=== PATIENT | female | born 1955 | race Caucasian/White ===

== ENCOUNTER → 2016-09-25 | Outpatient (CLI) | payer BC ==
[2016-09-25 10:44] LABS: Non-African American GFR(MDRD) >60 (>60 ml/min/1.73 sqM)
== END | disposition home or self-care (01) ==
LOC: LABWHC1 10:02
PROVIDERS: ATTEND Otolaryngology
DX: H70.91 Unspecified mastoiditis, right ear (principal)
CPT/HCPCS: 36415; 82565

== ENCOUNTER → 2016-09-26 | Outpatient (CLI) | payer BC ==
--- NOTE | 2016-09-26 08:56 | MR ---
EXAMINATION TYPE: MR iac wo/w con DATE OF EXAM: 09/26/2016 8:24 AM COMPARISON: CT brain June 14, 2009 HISTORY: Rt mastoiditis per order. Continued pain and itching in right ear per patient. TECHNIQUE: Multiplanar, multisequence images of the brain and brainstem is performed without and with IV contras t, utilizing 15 mL intravenous MultiHance . Acoustic nerve disorder protocol. FINDINGS: Diffusion weighted images demonstrate no evidence of a recent infarct or other diffusion ab normality. There is no extra-axial fluid collection or significant white matter signal abnormality. The ventricular system and cisternal spaces are normal in size and appearance. The brain volume is age appropriate. Midline structures demonstrate normal morphology. The craniocervical junction appears within normal limits. Post contrast images demonstrate single 6 mm irregular enhancing focus involving the spinal cord at the level of foramen magnum just below cervical medullary junction seen best on sagittal imag e 32, axial image 2, and coronal image 24. Only minimal increased T2 signal is felt present at this l evel on axial image 2 and 3. No additional areas of suspicious enhancement are identified.. The dural venous sinuses appear patent. There is mild mucosal thickening involving frontal sinuses bilaterally. There is moderate mucosal thi ckening involving the left ethmoid sinuses and mild mucosal thickening involving anterior ethmoid sin uses. There is moderate mucosal thickening with possible dependent fluid in both sphenoid sinuses. I do suspect mucous retention cyst or polyp posteriorly in right sphenoid sinus seen best on sagittal i mage 11 series 21 There is mild mucosal thickening in both maxillary sinuses, right greater than left . The globes are intact bilaterally. No suspicious fluid signal is seen in mastoid air cells bilaterally. Vestibulocochlear complexes are symmetric and felt within normal limits. There is no abnormal enhancing cerebellopontine angle mass i dentified bilaterally. IMPRESSION: 1. No significant finding is seen to account for patient's symptoms related to the right ear. 2. Chronic paranasal sinus disease as detailed above. Acute component at level of left sphenoid sinus is difficult to exclude. Clinical correlation advised. 3. Abnormal irregular enhancing 6 mm focus upper cervical spinal cord. Differential would include alex plasm, vascular lesion, and inflammatory lesion. Clinical correlation advised. Consider neurosurgical consultation. Consider investigation of the entire spinal cord for additional lesions to help determ ine etiology.
== END | disposition home or self-care (01) ==
LOC: RADMRIMAIN 07:38
PROVIDERS: ATTEND Otolaryngology
DX: J32.9 Chronic sinusitis, unspecified (principal)
CPT/HCPCS: 70553; A9577

== ENCOUNTER → 2016-10-20 | Outpatient (CLI) | payer BC ==
--- NOTE | 2016-10-20 09:19 | MR ---
EXAMINATION TYPE: MR cervical spine wo/w con DATE OF EXAM ORDERED: 10/20/2016 9:01 AM HISTORY: Cervical cord lesion M99.80. TECHNOLOGIST HISTORY AT TIME OF EXAM: Cervical cord lesion IV CONTRAST: 15 of MultiHance COMPARISON: Previous MRI of the IACs dated 09/26/2016 TECHNIQUE: Multiplanar, multiecho imaging of the cervical spine was obtained with and without the in travenous administration of 15 of MultiHance on a 1.5 nahomi magnet. FINDINGS: Prevertebral soft tissues are normal. There is a mild retrolisthesis of C5 on C6. Alignment is otherwise normal. Atlantoaxial relationships are normal. There is a 4.7 x 4.8 x 6.8 mm lesion at the cervical medullary junction as previously noted on the st udy of the IACs. This demonstrates uniform enhancement. There is mild T2 hyperintensity. This lesion is isointense on T1. Unfortunately, the axial images do not extend through this entire lesion. No add itional enhancing lesions are seen. At C2-3 and C3-4, no definite abnormality is identified. At C4-C5, the intervertebral foramina are widely maintained. There is a diffuse disc displacement. Th ere is a tiny central protrusion deforming the thecal sac without definite cord contact. The facets a nd uncovertebral joints are unremarkable. At C5-C6, there is disc space loss. There is a broad-based disc protrusion. This is deforming the the ольга sac with cord contact but without compression. There is bilateral intervertebral foraminal narrow ing, greater on the left than the right. There is mild uncovertebral joint disease. The facets are un remarkable. At C6-C7, there is disc space loss. There is a broad-based disc protrusion deforming the thecal sac w ith cord contact without compression. There is bilateral intervertebral foraminal narrowing. There is mild uncovertebral joint disease. The facets are unremarkable. At C7-T1, no definite abnormality is seen. IMPRESSION: 1. 6.8 MM, ENHANCING LESION WITHIN THE CERVICAL MEDULLARY JUNCTION. DIFFERENTIAL DIAGNOSIS GIVEN P REVIOUSLY INCLUDES NEOPLASM, ACUTE DEMYELINATING PLAQUE IN OTHER INFLAMMATORY CHANGES. VASCULAR LESIO N IS FELT TO BE LESS LIKELY. 2. DEGENERATIVE DISC DISEASE MOST MARKED FROM C4 THROUGH TO C7 WITH MILD ASSOCIATED UNCOVERTEBRAL JASON NT DISEASE. 3. BILATERAL INTERVERTEBRAL FORAMINAL NARROWING, C5-6 AND C6-7. 4. DIFFUSE DISC PROTRUSIONS, C5-6 AND C6-7.
== END | disposition home or self-care (01) ==
LOC: RADMRIMAIN 08:03
PROVIDERS: ATTEND Otolaryngology
DX: G95.9 Disease of spinal cord, unspecified (principal); M50.321 Other cervical disc degeneration at C4-C5 level; M99.71 Connective tissue and disc stenosis of intervertebral foramina of cervical region; M50.222 Other cervical disc displacement at C5-C6 level
CPT/HCPCS: 72156; A9577

== ENCOUNTER 2016-11-27 07:47 | Day surgery (SDC) | payer BC ==
[2016-11-27 08:21] VITALS: RESP 16; TEMP 98
[2016-11-27] MEDS ORDERED: DIAZEPAM 5 MG TAB PO STA (08:28)
[2016-11-27 13:42] VITALS: BP 123/76; PULSE 70
--- NOTE | 2016-11-28 10:17 | FL ---
PROCEDURE: Lumbar puncture. DATE: 11/27/2016 CLINICAL HISTORY: 61-year-old female disease of spinal cord referred for lumbar puncture. COMPLICATIONS: None. SEDATION: 5 mg PO Valium was given prior to the procedure. The patient and the patient's vital signs were felecia tored by qualified independent radiology personnel. TECHNIQUE: The procedure and potential risks were explained to patient and an informed consent was obtained with teach back. Site and side was verified. A time out was performed. The patient was placed prone on the fluoroscopy table and the L3-L4 level was localized and the skin was marked and was prepped and draped in the usual sterile fashion. Lidocaine was used for local anesthesia. Utilizing fluoroscopic guidance a 20-gauge spinal needle was placed through the skin and into the subarachnoid space. Approximately 12.5 ml of clear, colorless cerebral spinal fluid was obtained. The patient tolerated the procedure well and was sent back to the recovery room in satisfactory condi tion. The fluid was sent to the lab for analysis. The estimated blood loss was minimal. The patient's condition was unchanged following the procedure. Fluoroscopy time: 32 seconds IMPRESSION: Successful accumulation of 12.5 ml of clear CSF.
== END 2016-11-27 13:45 | disposition home or self-care (01) ==
LOC: RADPROMAIN 07:47
PROVIDERS: ATTEND Neurological Surgery
DX: G95.9 Disease of spinal cord, unspecified (principal)
CPT/HCPCS: 88108; 62270; J2001

== ENCOUNTER → 2016-12-04 | Outpatient (CLI) | payer BC ==
--- NOTE | 2016-12-04 08:54 | XR ---
EXAMINATION TYPE: XR chest 2V DATE OF EXAM: 12/04/2016 6:49 AM COMPARISON: CT abdomen pelvis same date HISTORY: Metastatic disease TECHNIQUE: Frontal and lateral views of the chest are obtained. FINDINGS: There is no focal air space opacity, pleural effusion, or pneumothorax seen. The cardiac silhouette size is within normal limits. The osseous structures are intact. IMPRESSION: No acute cardiopulmonary process.
--- NOTE | 2016-12-04 09:04 | CT ---
EXAMINATION TYPE: CT abdomen pelvis w con DATE OF EXAM: 12/04/2016 8:24 AM COMPARISON: 09/12/2011 HISTORY: 61-year-old female disease or spinal cord/metastatic disease. TECHNIQUE: Contiguous axial scanning of the abdomen and pelvis following administration of 100 ml Omn ipaque 300 IV contrast. Delayed images through the kidneys and coronal/sagittal reconstructions perf ormed. CT DLP: 1219.4 mGycm Automated exposure control for dose reduction was used. FINDINGS: The heart is normal size without pericardial effusion. There is a small hiatal hernia. Some strandy a telectasis or scarring at the basilar right middle lobe and inferior lingula. No consolidation or ple ural effusion. Liver is mildly enlarged measuring at least 19 cm craniocaudal with diffuse low-attenuation. No focal lesion is seen. Portal venous system is patent. No biliary ductal dilatation. Gallbladder surgically absent. Small diverticulum of the third portion of the duodenum projecting upw osiel into the pancreatic head region. A couple prominent sergo hepatic lymph nodes measuring up to 8 mm, likely reactive. Otherwise, no mes enteric or retroperitoneal lymphadenopathy seen. Adrenal glands, right kidney, spleen, and pancreas shows no gross abnormality. Subcentimeter hypodensity upper pole left kidney too small for accurate CT characterization, probable cyst. Incidental retroaortic aortic left renal vein. Mild atherosclerotic calcifications of the abdominal a viry. No dilated small bowel, free fluid, or free air. Normal appendix. Mild left hemicolonic diverticulosis though more extensive in the sigmoid colon. There is moderate st ool burden without pericolonic inflammatory change. Bladder is urine distended. No abnormal fluid collection in the pelvis or pelvic lymphadenopathy. [place] surgically absent. Neither ovary is visualized. Bones: Degenerative changes left hip and mild to moderate at the right hip. Disc/endplate degenerative cowart e at L5-S1. No osseous destructive process. IMPRESSION: 1. MILD HEPATOMEGALY AND MARKED HEPATIC STEATOSIS. CORRELATE WITH LFT's, LIPID PROFILE, AND PATIENT R ISK FACTORS. 2. SMALL HIATAL HERNIA, LEFT HEMICOLONIC DIVERTICULOSIS, AND MODERATE STOOL BURDEN. 3. STATUS POST HYSTERECTOMY. 4. NO SITE OF PRIMARY MALIGNANCY OR METASTATIC DISEASE IDENTIFIED WITHIN THE ABDOMEN OR PELVIS.
== END | disposition home or self-care (01) ==
LOC: RADCTMAIN 06:31
PROVIDERS: ATTEND Neurological Surgery
DX: K57.30 Diverticulosis of large intestine without perforation or abscess without bleeding (principal); K44.9 Diaphragmatic hernia without obstruction or gangrene; K76.0 Fatty (change of) liver, not elsewhere classified; R16.0 Hepatomegaly, not elsewhere classified; C80.1 Malignant (primary) neoplasm, unspecified; G95.9 Disease of spinal cord, unspecified; Z90.710 Acquired absence of both cervix and uterus
CPT/HCPCS: 71020; 74177; Q9967

== ENCOUNTER → 2017-02-16 | Outpatient (CLI) | payer BC ==
--- NOTE | 2017-02-16 10:08 | MR ---
EXAMINATION TYPE: MR cervical spine wo/w con DATE OF EXAM: 02/16/2017 COMPARISON: Prior MR cervical spine 10/20/2016 HISTORY: csp spinal stenosis TECHNIQUE: Multiplanar, multisequence images of the cervical spine were acquired utilizing 15 mL intravenous Mul tiHance gadolinium contrast. Diffusion weighted imaging was performed. C2-C3: No evidence for degenerative disc disease. No disc bulge/herniation or protrusion. No Canal stenosis. Foramina are patent bilaterally. C3-C4: No evidence for degenerative disc disease. No disc bulge/herniation or protrusion. No Canal stenosis. Foramina are patent bilaterally. C4-C5: Posterior disc herniation shows a similar appearance. Only mild central stenosis. No significa nt foraminal enlargement. C5-C6: Uncovertebral joint hypertrophy facet arthropathy results in left-sided foraminal encroachment . Posterior extension endplate disc complex causes anterior mass effect on the thecal sac, mild to mo derate central stenosis. C6-C7: Similar findings. Foraminal encroachment is present bilaterally. Moderate central canal stenos is. Posterior extension of endplate disc complex is again seen. C7-T1: No evidence for degenerative disc disease. No disc bulge/herniation or protrusion. No Canal stenosis. Foramina are patent bilaterally. Cervical segments are intact. There is stable alignment. Cervical spinal cord is stable, increased signal on T2-weighted sequences at the level of the proximal cervical cord, C2 is again noted and gulshan ws enhancement as on prior exam. Postcontrast enhancement measures approximately 6 mm as on prior. IMPRESSION: Enhancement within the proximal cervical cord is stable. Multilevel degenerative disc disease, forami nal encroachment as on previous exam.
== END | disposition home or self-care (01) ==
LOC: RADMRIMAIN 08:49
PROVIDERS: ATTEND Neurological Surgery
DX: M50.320 Other cervical disc degeneration, mid-cervical region, unspecified level (principal)
CPT/HCPCS: 72156; A9577

== ENCOUNTER 2017-05-31 02:31 | Emergency (ER) | payer BC ==
[2017-05-31] MEDS ORDERED: KETOROLAC 60 MG/2 ML VIAL IM STA (03:17)
[2017-05-31] MEDS ORDERED: diphenhydrAMINE 50 MG/ML 1 ML VIAL IM STA (03:17)
--- NOTE | 2017-05-31 03:18 | ED ---
ENT HPI - General Chief complaint: ENT Stated complaint: Headache Time Seen by Provider: 05/31/17 02:33 Source: patient, EMS Mode of arrival: EMS Limitations: no limitations - History of Present Illness Initial comments: 62-year-old female patient presented to emergency department today for complaints of head and facial pressure. Patient states that symptoms started prior to her going to bed this evening however woke her from sleep around 2 AM. Patient states that she was concerned her blood pressure was elevated so she called an ambulance to be brought in. Patient states that she is currently being treated for a sinus infection by her ears nose and throat specialist. States she is taking Augmentin and steroids. Patient states that she frequently has these types of headaches related to her chronic sinus issues. Patient denies any recent fever, chills, shortness breath, chest pain, abdominal pain, nausea, vomiting, diarrhea, constipation, back pain, numbness, tingling, dizziness, weakness, hematuria, dysuria, urinary urgency, urinary frequency, visual changes, or any other complaints. - Related Data Home Medications Medication Instructions Recorded Confirmed Hydrocodone/Acetaminophen [[place] 1 tab PO Q6H PRN 11/24/16 05/31/17 10-325] Omeprazole [PriLOSEC] 20 mg PO DAILY 11/24/16 05/31/17 Phentermine HCl [Adipex-P] 37.5 mg PO QAM 11/24/16 05/31/17 Allergies Allergy/AdvReac Type Severity Reaction Status Date / Time No Known Allergies Allergy Verified 05/31/17 02:37 Review of Systems ROS Statement: Those systems with pertinent positive or pertinent negative responses have been documented in the HPI. ROS Other: All systems not noted in ROS Statement are negative. Past Medical History Past Medical History: Diabetes Mellitus, GERD/Reflux History of Any Multi-Drug Resistant Organisms: None Reported Past Surgical History: Cholecystectomy, Hysterectomy, Orthopedic Surgery Additional Past Surgical History / Comment(s): ENT Past Psychological History: No Psychological Hx Reported Smoking Status: Current every day smoker Past Alcohol Use History: None Reported Past Drug Use History: None Reported General Exam Limitations: no limitations General appearance: alert, in no apparent distress, other (Well-nourished, well- developed, alert, and oriented patient in no acute distress. Acutely responsive. Vital signs upon admission were temperature 98.1F, pulse 90, respirations 20, blood pressure 133/60, pulse ox 99% on room air.) Head exam: Present: atraumatic, normocephalic, normal inspection ENT exam: Present: normal exam, normal oropharynx, mucous membranes moist, other (Frontal sinus tenderness.). Absent: TM's normal bilaterally (Some minimal retraction to the right tympanic membrane.) Neck exam: Present: normal inspection, full ROM. Absent: tenderness, meningismus, lymphadenopathy Respiratory exam: Present: normal lung sounds bilaterally. Absent: respiratory distress, wheezes, rales, rhonchi, stridor Cardiovascular Exam: Present: regular rate, normal rhythm, normal heart sounds. Absent: systolic murmur, diastolic murmur, rubs, gallop, clicks GI/Abdominal exam: Present: soft, normal bowel sounds. Absent: distended, tenderness, guarding, rebound, rigid Neurological exam: Present: alert, oriented X3, CN II-XII intact, other (No focal neurologic deficits.) Psychiatric exam: Present: normal affect, normal mood Skin exam: Present: warm, dry, intact, normal color. Absent: rash Course Vital Signs 05/31/17 02:32 Temperature 98.1 F Pulse Rate 90 Respiratory 20 Rate Blood Pressure 133/60 O2 Sat by Pulse 99 Oximetry Medical Decision Making - Medical Decision Making 62-year-old female patient presented to emergency department today for evaluation of head and facial pressure. Patient states his symptoms are consistent for her chronic issues with her sinuses. Patient is currently being treated for a sinus infection by her ears nose and throat specialist with Augmentin and steroids. Patient states that she was concerned tonight only because she felt that her blood pressure may be high. Upon presentation patient 's blood pressure is 133/90. Patient denies any history of high blood pressure. States that her headache has improved since arriving. MRI from September 2016 was reviewed and did show chronic changes to her sinuses. She is currently rating at a 4 out of 10 on the pain scale. Physical and neurological examination was unremarkable. Patient will be given IM Benadryl and Toradol prior to discharge. She is instructed to follow-up with her primary care physician for recheck in 1-2 days. She is instructed to continue her home medications as directed. She is instructed to return here immediately for any new, worsening, or concerning symptoms. Disposition Clinical Impression: Sinus headache Disposition: HOME SELF-CARE Condition: Good Instructions: Acute Headache (ED) Additional Instructions: Increase fluids. Continue home medications as directed. Follow-up with your primary care physician for recheck in 1-2 days. Return here immediately for any new, worsening, or concerning symptoms. Referrals: Earl Workman III, MD [Primary Care Provider] - 1-2 days Time of Disposition: 03:18
[2017-05-31 03:41] VITALS: BP 149/75; PULSE 78; RESP 18; TEMP 97.7
== END 2017-05-31 03:40 | disposition home or self-care (01) ==
LOC: EC 02:31
DX: R51 Headache (principal); K21.9 Gastro-esophageal reflux disease without esophagitis; F17.200 Nicotine dependence, unspecified, uncomplicated; Z79.899 Other long term (current) drug therapy
CPT/HCPCS: 99283; 96372 ×2; J1200; J1885

== ENCOUNTER 2018-08-27 13:35 | Emergency (ER) | payer MEDICARE, BC, OTHER ==
[2018-08-27 13:49] VITALS: TEMP 97.8
[2018-08-27] MEDS ORDERED: ORPHENADRINE 30 MG/ML 2 ML VIAL IVP STA (15:03)
[2018-08-27] MEDS ORDERED: KETOROLAC 30 MG/ML 1 ML VIAL IVP STA (15:03)
--- NOTE | 2018-08-27 15:07 | ED ---
Headache HPI - General Chief Complaint: Headache Stated Complaint: sharp head pain Time Seen by Provider: 08/27/18 14:23 Source: RN notes reviewed, old records reviewed Mode of arrival: ambulatory Limitations: no limitations - History of Present Illness Initial Comments: Pt is a 63 year old female with CC of R sided scalp pain, radiating down towards her face and lower jaw. She has had this pain for months, but reports it was much more severe today. She sees Dr. Stokes, and Dr. Michaud and recently diagnosed with trigeminal neuralgia. She was started on Elavil recently. She denies fevers or chills. She reports that the pain has not been this severe before. - Related Data Home Medications Medication Instructions Recorded Confirmed Omeprazole [PriLOSEC] 20 mg PO DAILY 11/24/16 08/27/18 Amitriptyline HCl [Elavil] 10 mg PO HS 08/27/18 08/27/18 Atorvastatin [Lipitor] 10 mg PO HS 08/27/18 08/27/18 Qnasl 2 spray EA NOSTRIL DAILY 08/27/18 08/27/18 metFORMIN HCL [Glucophage] 500 mg PO BID 08/27/18 08/27/18 Previous Rx's Medication Instructions Recorded Amoxic-Pot Clav 875-125Mg 1 tab PO Q12HR #20 tablet 08/27/18 [Augmentin 875-125] carBAMazepine 100 mg PO DAILY #9 tab.chew 08/27/18 Allergies Allergy/AdvReac Type Severity Reaction Status Date / Time No Known Allergies Allergy Verified 08/27/18 14:41 Review of Systems ROS Statement: Those systems with pertinent positive or pertinent negative responses have been documented in the HPI. ROS Other: All systems not noted in ROS Statement are negative. Constitutional: Denies: fever, chills Eyes: Reports: eye pain (Pain around R eye). Denies: eye discharge, vision change ENT: Reports: ear pain (R ear pain) Respiratory: Denies: cough, dyspnea Cardiovascular: Denies: chest pain Endocrine: Denies: fatigue Gastrointestinal: Denies: abdominal pain, nausea, vomiting Genitourinary: Denies: urgency Skin: Denies: rash Neurological: Reports: headache. Denies: weakness Psychiatric: Denies: anxiety Hematological/Lymphatic: Denies: easy bleeding Past Medical History Past Medical History: Diabetes Mellitus, GERD/Reflux History of Any Multi-Drug Resistant Organisms: None Reported Past Surgical History: Cholecystectomy, Hysterectomy, Orthopedic Surgery Additional Past Surgical History / Comment(s): ENT Past Psychological History: No Psychological Hx Reported Smoking Status: Current every day smoker Past Alcohol Use History: None Reported Past Drug Use History: None Reported General Exam - General Exam Comments Initial Comments: 63 year old female, alert and oriented. In room 19 with sister. Patient has been speaking to sister in polish. Patient appears in no distress. Limitations: no limitations General appearance: alert, in no apparent distress Head exam: Present: atraumatic, normocephalic, normal inspection, other ( hypersensitive over R parietal scalp extending towards R face and consistent with trigeminal nerve. ) Eye exam: Present: normal appearance, PERRL, EOMI. Absent: scleral icterus, conjunctival injection, periorbital swelling ENT exam: Present: normal exam, mucous membranes moist Neck exam: Present: normal inspection. Absent: tenderness, meningismus, lymphadenopathy Respiratory exam: Present: normal lung sounds bilaterally. Absent: respiratory distress, wheezes, rales, rhonchi, stridor Cardiovascular Exam: Present: normal rhythm GI/Abdominal exam: Present: soft, normal bowel sounds. Absent: distended, tenderness, guarding, rebound, rigid Back exam: Present: normal inspection Neurological exam: Present: alert, oriented X3, CN II-XII intact, normal gait, reflexes normal Psychiatric exam: Present: normal affect Skin exam: Present: warm, dry, intact, normal color. Absent: rash Course Vital Signs 08/27/18 08/27/18 08/27/18 13:47 14:30 17:32 Temperature 97.8 F 97.8 F Pulse Rate 103 H 93 82 Respiratory 18 20 18 Rate Blood Pressure 121/80 134/92 126/83 O2 Sat by Pulse 99 96 97 Oximetry Medical Decision Making - Medical Decision Making Patient is a 63 year old femael with R headache, extending to face. Pt reports chronic over months, but today it is more severe. She was given CT brain, correlate with sphenoid sinusitis. No intracrainal changes. Will treat sinusitis. Labs including ESR and CRP are normal, low suspicion due to patient pain that it is GCA. Given toradol. Will treat for Trigeminal neuralgia with carbamazapine. She relates she has been on it in the past. Given taper dose. Discussed neuro and ENT follow up. - Lab Data Result diagrams: 08/27/18 11:25 08/27/18 11:25 Lab Results 08/27/18 08/27/18 08/27/18 Range/Units 11:25 11:25 16:41 WBC 9.1 (3.8-10.6) k/uL RBC 4.30 (3.80-5.40) m/uL Hgb 12.9 (11.4-16.0) gm/dL Hct 39.1 (34.0-46.0) % MCV 91.0 (80.0-100.0) fL MCH 30.0 (25.0-35.0) pg MCHC 33.0 (31.0-37.0) g/dL RDW 12.9 (11.5-15.5) % Plt Count 194 (150-450) k/uL Neutrophils % 52 % Lymphocytes % 37 % Monocytes % 5 % Eosinophils % 3 % Basophils % 1 % Neutrophils # 4.7 (1.3-7.7) k/uL Lymphocytes # 3.3 (1.0-4.8) k/uL Monocytes # 0.4 (0-1.0) k/uL Eosinophils # 0.3 (0-0.7) k/uL Basophils # 0.1 (0-0.2) k/uL ESR Cancelled 37 H Sodium 140 (137-145) mmol/L Potassium 4.2 (3.5-5.1) mmol/L Chloride 107 (98-107) mmol/L Carbon Dioxide 25 (22-30) mmol/L Anion Gap 8 mmol/L BUN 11 (7-17) mg/dL Creatinine 0.65 (0.52-1.04) mg/dL Est GFR (CKD-EPI)AfAm >90 (>60 ml/min/1.73 sqM) Est GFR (CKD-EPI)NonAf >90 (>60 ml/min/1.73 sqM) Glucose 112 H (74-99) mg/dL Calcium 8.9 (8.4-10.2) mg/dL Total Bilirubin 0.3 (0.2-1.3) mg/dL AST 18 (14-36) U/L ALT 29 (9-52) U/L Alkaline Phosphatase 121 (38-126) U/L C-Reactive Protein 7.0 (<10.0) mg/L Total Protein 7.1 (6.3-8.2) g/dL Albumin 4.1 (3.5-5.0) g/dL - Radiology Data Radiology results: report reviewed Correlate for sphenoid sinusitis, extensive chronic sinusitis noted. Disposition Clinical Impression: Trigeminal nerve disease, Sinusitis Disposition: HOME SELF-CARE Condition: Good Instructions: Sinusitis (ED), Trigeminal Neuralgia (ED) Additional Instructions: Patient advised to follow-up with primary care physician. Return to emergency department if any alarming signs or symptoms occur. Recommended follow-up with neurology as well. Prescriptions: Amoxic-Pot Clav 875-125Mg [Augmentin 875-125] 1 tab PO Q12HR #20 tablet carBAMazepine 100 mg PO DAILY #9 tab.chew Is patient prescribed a controlled substance at d/c from ED?: No Referrals: Parveen Anaya DO [Primary Care Provider] - 1-2 days Time of Disposition: 17:16
[2018-08-27 16:03] LABS: ALT 29 U/L (9-52); AST 18 U/L (14-36); Albumin 4.1 g/dL (3.5-5.0); Alkaline Phosphatase 121 U/L (38-126); Anion Gap 8 mmol/L; Blood Urea Nitrogen 11 mg/dL (7-17); Calcium 8.9 mg/dL (8.4-10.2); Carbon Dioxide 25 mmol/L (22-30); Chloride 107 mmol/L (98-107); Glucose 112 mg/dL (74-99); Potassium 4.2 mmol/L (3.5-5.1); Sodium 140 mmol/L (137-145); Total Bilirubin 0.3 mg/dL (0.2-1.3); Total Protein 7.1 g/dL (6.3-8.2)
--- NOTE | 2018-08-27 16:10 | CT ---
EXAMINATION TYPE: CT brain wo con DATE OF EXAM: 08/27/2018 COMPARISON: CT brain 06/14/2009 HISTORY: Head pressure with pain radiating from ears, worse on right side. CT DLP: 1031.4 mGycm Automated exposure control for dose reduction was used. Helical acquisition through the brain. FINDINGS: Extensive inflammatory change present within the right maxillary sinus, patient is status post bilate ral antrostomies, inflammatory change also present within the ethmoid air cells, sphenoid sinus where there is air-fluid level. There is no evident hemorrhage or hydrocephalus. Brain density is normal. Calvarium is intact. Mastoid air cells are well-aerated. IMPRESSION: CORRELATE FOR SPHENOID SINUSITIS, EXTENSIVE SINUS DISEASE DESCRIBED.
[2018-08-27 16:11] LABS: Basophils # (A) 0.1 k/uL (0-0.2); Basophils % (A) 1 %; Eosinophils # (A) 0.3 k/uL (0-0.7); Eosinophils % (A) 3 %; HCT 39.1 % (34.0-46.0); HGB 12.9 gm/dL (11.4-16.0); Lymphocytes # (A) 3.3 k/uL (1.0-4.8); Lymphocytes % (A) 37 %; Mean Platelet Volume 7.4; Monocytes # (A) 0.4 k/uL (0-1.0); Monocytes % (A) 5 %; Neutrophils # (A) 4.7 k/uL (1.3-7.7); Neutrophils % (A) 52 %; Platelet Count 194 k/uL (150-450); RDW 12.9 % (11.5-15.5); WBC 9.1 k/uL (3.8-10.6)
[2018-08-27] MEDS ORDERED: diphenhydrAMINE 50 MG/ML 1 ML VIAL IVP STA (16:45)
[2018-08-27 17:33] VITALS: BP 126/83; PULSE 82; RESP 18
== END 2018-08-27 17:33 | disposition home or self-care (01) ==
LOC: EC 13:35 → SUPCPDRO 13:35 → EC 17:33
DX: J32.9 Chronic sinusitis, unspecified (principal); G50.0 Trigeminal neuralgia; E11.9 Type 2 diabetes mellitus without complications; K21.9 Gastro-esophageal reflux disease without esophagitis; F17.200 Nicotine dependence, unspecified, uncomplicated; Z79.84 Long term (current) use of oral hypoglycemic drugs; Z79.899 Other long term (current) drug therapy
CPT/HCPCS: 99284; 96374; 96375 ×2; 36415; 80053; 85652; 85025; 86140; 70450; J1200; J2360; J1885

== ENCOUNTER 2019-02-09 17:51 | Emergency (ER) | payer MEDICARE, BC, OTHER ==
[2019-02-09 18:25] VITALS: RESP 16
[2019-02-09] MEDS ORDERED: KETOROLAC 30 MG/ML 1 ML VIAL IM STA (21:02)
--- NOTE | 2019-02-09 21:38 | CT ---
EXAMINATION: CT brain wo con DATE AND TIME: 02/09/2019 9:18 PM CLINICAL INDICATION: PHH; Pain TECHNIQUE: Standard departmental protocol.; 1060.4; COMPARISON: 08/27/2018 FINDINGS: The calvarium is intact. There is no intracranial hemorrhage. There is no intracranial mass or mass effect. No definite new intra-axial or extra-axial attenuation defect. The paranasal sinuses, middle ear cavities, and mastoid sinus air cells are clear. The orbits are unremarkable. IMPRESSION: NO ACUTE PROCESS.
--- NOTE | 2019-02-09 22:23 | ED ---
General Adult HPI - General Chief complaint: Headache Stated complaint: trinalger nerve disorder Time Seen by Provider: 02/09/19 20:16 Source: patient, RN notes reviewed Mode of arrival: ambulatory Limitations: no limitations - History of Present Illness Initial comments: 63-year-old female With a past medical history of trigeminal neuralgia, diabetes mellitus presents to the emergency department for a chief complaint of right- sided facial and head pain. States this has been ongoing for over a year but denies worsens. States it worsened today. States she does see a neurologist for this and takes gabapentin however it is not working. States it is painful on her right ear and into the right side of her face. Denies nausea or vomiting. Denies any confusion. Denies any fevers or chills.Patient has no other complaints at this time including shortness of breath, chest pain, abdominal pain, nausea or vomiting, headache, or visual changes. - Related Data Home Medications Medication Instructions Recorded Confirmed Omeprazole [PriLOSEC] 20 mg PO DAILY 11/24/16 08/27/18 Amitriptyline HCl [Elavil] 10 mg PO HS 08/27/18 08/27/18 Atorvastatin [Lipitor] 10 mg PO HS 08/27/18 08/27/18 Qnasl 2 spray EA NOSTRIL DAILY 08/27/18 08/27/18 metFORMIN HCL [Glucophage] 500 mg PO BID 08/27/18 08/27/18 Previous Rx's Medication Instructions Recorded Amoxic-Pot Clav 875-125Mg 1 tab PO Q12HR #20 tablet 08/27/18 [Augmentin 875-125] carBAMazepine 100 mg PO DAILY #9 tab.chew 08/27/18 Ketorolac [Toradol] 10 mg PO Q8H PRN #10 tab 02/09/19 Allergies Allergy/AdvReac Type Severity Reaction Status Date / Time No Known Allergies Allergy Verified 02/09/19 18:25 Review of Systems ROS Statement: Those systems with pertinent positive or pertinent negative responses have been documented in the HPI. ROS Other: All systems not noted in ROS Statement are negative. Past Medical History Past Medical History: Diabetes Mellitus, GERD/Reflux Additional Past Medical History / Comment(s): trigeminal neuralgia History of Any Multi-Drug Resistant Organisms: None Reported Past Surgical History: Cholecystectomy, Hysterectomy, Orthopedic Surgery Additional Past Surgical History / Comment(s): ENT Past Psychological History: No Psychological Hx Reported Smoking Status: Former smoker Past Alcohol Use History: None Reported Past Drug Use History: None Reported General Exam Limitations: no limitations General appearance: alert, in no apparent distress Head exam: Present: atraumatic, normocephalic, normal inspection Eye exam: Present: normal appearance, PERRL, EOMI. Absent: scleral icterus, conjunctival injection, periorbital swelling ENT exam: Present: normal exam, normal oropharynx, mucous membranes moist, TM's normal bilaterally, normal external ear exam, other (Tenderness is noted to the right side of the face with light touch, no erythema, no edema) Neck exam: Present: normal inspection. Absent: tenderness, meningismus, lymphadenopathy Respiratory exam: Present: normal lung sounds bilaterally. Absent: respiratory distress, wheezes, rales, rhonchi, stridor Cardiovascular Exam: Present: regular rate, normal rhythm, normal heart sounds. Absent: systolic murmur, diastolic murmur, rubs, gallop, clicks Neurological exam: Present: alert, oriented X3, CN II-XII intact Psychiatric exam: Present: normal affect, normal mood Course Vital Signs 02/09/19 02/09/19 02/09/19 18:22 20:13 22:27 Temperature 97.5 F L 97.6 F 98 F Pulse Rate 85 71 80 Respiratory 16 16 16 Rate Blood Pressure 129/72 136/66 129/81 O2 Sat by Pulse 97 98 98 Oximetry Medical Decision Making - Medical Decision Making 63-year-old female with past medical history trigeminal neuralgia presents for right-sided facial and head pain for over a year but states it has worsened today. States sometimes it does get worse than other times. States she does see a neurologist for this and takes gabapentin but it is not working and she has not had time to follow-up with him. States it is on the right side of her face and right ear. Denies nausea or vomiting denies confusion. It's. Patient is concerned about brain abnormality causing this. I did get a CT which showed no acute process. Patient was given Toradol and actually had almost full relief of symptoms. Requesting discharge. Patient denies any kidney insufficiency, requesting prescription for Toradol which was given to her. She will follow up with her neurologist and return here if she has any worsening symptoms. Disposition Clinical Impression: Facial pain, Trigeminal neuralgia of right side of face Disposition: HOME SELF-CARE Condition: Good Instructions (If sedation given, give patient instructions): Trigeminal Neuralgia (ED) Additional Instructions: Please take Toradol as needed for pain. Please follow-up with primary care in 1-2 days. Return here to the emergency department if you have any worsening symptoms. Prescriptions: Ketorolac [Toradol] 10 mg PO Q8H PRN #10 tab PRN Reason: Pain Is patient prescribed a controlled substance at d/c from ED?: No Referrals: Parveen Anaya DO [Primary Care Provider] - 1-2 days Time of Disposition: 22:16
[2019-02-09 22:28] VITALS: BP 129/81; PULSE 80; TEMP 98
== END 2019-02-09 22:28 | disposition home or self-care (01) ==
LOC: EC 17:51
DX: G50.0 Trigeminal neuralgia (principal); E11.9 Type 2 diabetes mellitus without complications; K21.9 Gastro-esophageal reflux disease without esophagitis; Z87.891 Personal history of nicotine dependence; Z79.84 Long term (current) use of oral hypoglycemic drugs; Z79.899 Other long term (current) drug therapy
CPT/HCPCS: 70450; 99284; 96372; J1885

== ENCOUNTER 2019-04-03 11:00 | Emergency (ER) | payer MEDICARE, BC, OTHER ==
[2019-04-03 11:08] VITALS: RESP 18
[2019-04-03] MEDS ORDERED: SODIUM CHLORIDE 0.9% 1,000 ML IV ONE (11:35)
[2019-04-03] MEDS ORDERED: METOCLOPRAMIDE 5 MG/ML 2 ML VIAL IVP STA (11:35)
[2019-04-03] MEDS ORDERED: HYDROmorphone 0.5 MG/0.5 ML SYRINGE IVP STA (11:35)
[2019-04-03] MEDS ORDERED: diphenhydrAMINE 50 MG/ML 1 ML VIAL IVP STA (11:35)
[2019-04-03] MEDS ORDERED: DEXAMETHASONE SOD PHOSPHATE 10 MG/ML 1 ML VIAL IV STA (11:35)
[2019-04-03] MEDS ORDERED: KETOROLAC 30 MG/ML 1 ML VIAL IVP STA (11:36)
--- NOTE | 2019-04-03 11:52 | ED ---
General Adult HPI - General Chief complaint: Headache Stated complaint: Trigeminal neuralgia Time Seen by Provider: 04/03/19 11:26 Source: patient Mode of arrival: wheelchair Limitations: no limitations - History of Present Illness Initial comments: Patient is a 64 year old female presents with a chief complaint headache. Patient states she has a history of trigeminal neuralgia, she has had similar pain for 2 years. Patient states that starting yesterday her pain became worse. She describes an intermittent shooting type pain across the left side of her face and in her ear. She cannot identify an inciting incident. There are no aggravating or alleviating factors. Timing is intermittent. Patient states that she has tried taking gabapentin and [place] without relief. She says that she is supposed to have an MRI on Thursday. - Related Data Home Medications Medication Instructions Recorded Confirmed Omeprazole [PriLOSEC] 20 mg PO DAILY 11/24/16 04/03/19 metFORMIN HCL [Glucophage] 500 mg PO BID 08/27/18 04/03/19 Gabapentin [Neurontin] 300 mg PO BID@0800,1200 03/14/19 04/03/19 HYDROcodone/APAP 7.5-325MG [[place] 1 tab PO Q4-6H PRN 03/14/19 04/03/19 7.5-325] Previous Rx's Medication Instructions Recorded Lidocaine 5% Oint [Xylocaine 5% 1 applic TOPICAL TID PRN #1 tube 04/03/19 Oint] Allergies Allergy/AdvReac Type Severity Reaction Status Date / Time No Known Allergies Allergy Verified 04/03/19 12:07 Review of Systems ROS Statement: Those systems with pertinent positive or pertinent negative responses have been documented in the HPI. ROS Other: All systems not noted in ROS Statement are negative. ENT: Reports: ear pain Neurological: Reports: headache Past Medical History Past Medical History: Diabetes Mellitus, GERD/Reflux, Hyperlipidemia, Osteoart hritis (OA) Additional Past Medical History / Comment(s): trigeminal neuralgia History of Any Multi-Drug Resistant Organisms: None Reported Past Surgical History: Bladder Surgery, Cholecystectomy, Hysterectomy, Orthopedic Surgery Additional Past Surgical History / Comment(s): sinus surg., arthroscopy right knee, bladder suspension Past Anesthesia/Blood Transfusion Reactions: No Reported Reaction Past Psychological History: No Psychological Hx Reported Smoking Status: Former smoker - Past Family History Mother Family Medical History: No Reported History General Exam Limitations: no limitations General appearance: alert, in no apparent distress Head exam: Present: atraumatic, normocephalic Eye exam: Present: normal appearance ENT exam: Present: normal exam, TM's normal bilaterally Neck exam: Present: normal inspection Respiratory exam: Present: normal lung sounds bilaterally. Absent: respiratory distress, wheezes Cardiovascular Exam: Present: regular rate, normal rhythm GI/Abdominal exam: Present: soft. Absent: distended, tenderness Rectal exam: Present: deferred Extremities exam: Present: normal inspection Back exam: Present: normal inspection Neurological exam: Present: alert, oriented X3, CN II-XII intact Psychiatric exam: Present: normal affect, normal mood Skin exam: Present: warm, dry, intact Course Vital Signs 04/03/19 04/03/19 11:02 13:27 Temperature 97.9 F 97 F L Pulse Rate 104 H 78 Respiratory 18 18 Rate Blood Pressure 124/76 139/82 O2 Sat by Pulse 98 100 Oximetry Medical Decision Making - Medical Decision Making Patient presents with chief complaint headache. On initial evaluation, vital signs are stable, patient is in moderate distress secondary to pain. History of present illness is consistent with trigeminal neuralgia given shooting type nature of the pain and location. Patient also states that she has had similar pains for the last 2 years. Review of recent records shows that she had a computed tomography scan that did not show any intracranial acute process though she does have documented sinus disease. Patient given a headache cocktail will be evaluated with basic labs including an ESR. 1:47 PM Lab evaluation of this patient is unremarkable, ESR is only mildly elevated at 22, not likely temporal arteritis. On reevaluation, the patient states that her pain is under good control, she still has some itching. I discussed with Dr. Moore the initiation of carbamazepine. At this time he states that it would be a better idea to increase the gabapentin to 300 mg 3 times daily and to follow up with her neurologist. Patient is agreeable with this care plan. Patient given a dose of Neurontin here, she was also prescribed lidocaine ointment for itching at home. - Lab Data Result diagrams: 04/03/19 11:51 04/03/19 11:51 Lab Results 04/03/19 04/03/19 Range/Units 11:51 11:51 WBC 10.4 (3.8-10.6) k/uL RBC 4.69 (3.80-5.40) m/uL Hgb 13.9 (11.4-16.0) gm/dL Hct 41.2 (34.0-46.0) % MCV 87.8 (80.0-100.0) fL MCH 29.7 (25.0-35.0) pg MCHC 33.8 (31.0-37.0) g/dL RDW 14.5 (11.5-15.5) % Plt Count 225 (150-450) k/uL Neutrophils % 53 % Lymphocytes % 34 % Monocytes % 5 % Eosinophils % 5 % Basophils % 1 % Neutrophils # 5.5 (1.3-7.7) k/uL Lymphocytes # 3.5 (1.0-4.8) k/uL Monocytes # 0.5 (0-1.0) k/uL Eosinophils # 0.5 (0-0.7) k/uL Basophils # 0.1 (0-0.2) k/uL ESR 22 H (0-20) mm/hr Sodium 143 (137-145) mmol/L Potassium 4.2 (3.5-5.1) mmol/L Chloride 107 (98-107) mmol/L Carbon Dioxide 22 (22-30) mmol/L Anion Gap 14 mmol/L BUN 14 (7-17) mg/dL Creatinine 0.56 (0.52-1.04) mg/dL Est GFR (CKD-EPI)AfAm >90 (>60 ml/min/1.73 sqM) Est GFR (CKD-EPI)NonAf >90 (>60 ml/min/1.73 sqM) Glucose 129 H (74-99) mg/dL Calcium 9.6 (8.4-10.2) mg/dL Disposition Clinical Impression: Trigeminal neuralgia Disposition: ADMITTED IP TO THIS [facility] Condition: Good Instructions (If sedation given, give patient instructions): Acute Headache (ED) Additional Instructions: Increase your gabapentin dose to 300 mg 3 times daily. Follow-up with her neurologist in 1-2 days, return to the emergency department symptoms worsen or change. Prescriptions: Lidocaine 5% Oint [Xylocaine 5% Oint] 1 applic TOPICAL TID PRN #1 tube PRN Reason: Itching Is patient prescribed a controlled substance at d/c from ED?: No Referrals: Parveen Anaya DO [Primary Care Provider] - 1-2 days
[2019-04-03 12:05] LABS: Basophils # (A) 0.1 k/uL (0-0.2); Basophils % (A) 1 %; Eosinophils # (A) 0.5 k/uL (0-0.7); Eosinophils % (A) 5 %; HCT 41.2 % (34.0-46.0); HGB 13.9 gm/dL (11.4-16.0); Lymphocytes # (A) 3.5 k/uL (1.0-4.8); Lymphocytes % (A) 34 %; MCH 29.7 pg (25.0-35.0); MCHC 33.8 g/dL (31.0-37.0); MCV 87.8 fL (80.0-100.0); Mean Platelet Volume 8.3; Monocytes # (A) 0.5 k/uL (0-1.0); Monocytes % (A) 5 %; Neutrophils # (A) 5.5 k/uL (1.3-7.7); Neutrophils % (A) 53 %; Platelet Count 225 k/uL (150-450); RBC 4.69 m/uL (3.80-5.40); RDW 14.5 % (11.5-15.5); WBC 10.4 k/uL (3.8-10.6)
[2019-04-03 12:15] LABS: African American GFR (CKD) >90 (>60 ml/min/1.73 sqM); Anion Gap 14 mmol/L; Blood Urea Nitrogen 14 mg/dL (7-17); Calcium 9.6 mg/dL (8.4-10.2); Carbon Dioxide 22 mmol/L (22-30); Chloride 107 mmol/L (98-107); Glucose 129 mg/dL (74-99); Potassium 4.2 mmol/L (3.5-5.1); Sodium 143 mmol/L (137-145)
[2019-04-03 13:14] LABS: Erythrocyte Sedimentation Rate 22 mm/hr (0-20)
[2019-04-03 13:27] VITALS: BP 139/82; PULSE 78; TEMP 97
[2019-04-03] MEDS ORDERED: GABAPENTIN 300 MG CAP PO STA (13:45)
== END 2019-04-03 14:11 | disposition other institution (70) ==
LOC: EC 11:00
DX: G50.0 Trigeminal neuralgia (principal); R70.0 Elevated erythrocyte sedimentation rate; J32.9 Chronic sinusitis, unspecified; K21.9 Gastro-esophageal reflux disease without esophagitis; E11.9 Type 2 diabetes mellitus without complications; M19.90 Unspecified osteoarthritis, unspecified site; Z79.84 Long term (current) use of oral hypoglycemic drugs; Z79.899 Other long term (current) drug therapy; Z87.891 Personal history of nicotine dependence; Z98.890 Other specified postprocedural states
CPT/HCPCS: 36415; 80048; 85652; 85025; 99284; 96374; 96375 ×4; 96361; J1200; J1100; J2765; J1885; J1170

== ENCOUNTER → 2019-04-04 | Outpatient (CLI) | payer MEDICARE, BC, OTHER ==
--- NOTE | 2019-04-04 15:12 | MR ---
EXAMINATION TYPE: MR brain wo con DATE OF EXAM: 04/04/2019 1:05 PM COMPARISON: NONE HISTORY: facial and scalp pain FINDINGS: The ventricles, basal cisterns and sulci overlying the cerebral convexities are mildly enlarged. There is evidence of mild periventricular white matter ischemic demyelination. Remote deep white matter insults are also noted. No acute edema is seen on diffusion weighted imaging. There is no evidence for midline shift or mass effect. Acute intracranial hemorrhage or extra-axial collection is not evident. The mastoid air cells are well-aerated. Sphenoid and ethmoid chronic sinusitis. IMPRESSION: Age-related atrophic and chronic small vessel ischemic change. No acute intracranial process at this time.
== END | disposition home or self-care (01) ==
LOC: RADMRIMAIN 09:12
PROVIDERS: ATTEND Psychiatry & Neurology Neurology
DX: G31.1 Senile degeneration of brain, not elsewhere classified (principal); I67.82 Cerebral ischemia
CPT/HCPCS: 70551

== ENCOUNTER → 2019-04-04 | Outpatient (CLI) | payer MEDICARE, BC, OTHER ==
--- NOTE | 2019-04-05 13:44 | MM ---
Reason for exam: screening (asymptomatic). Last mammogram was performed 3 years and 5 months ago. History: Patient is postmenopausal. Family history of breast cancer in paternal cousin at age 58. Physical Findings: A clinical breast exam by your physician is recommended on an annual basis and results should be correlated with mammographic findings. MG 3D Screening Mammo W/Cad Bilateral CC and MLO view(s) were taken. Prior study comparison: November 13, 2015, bilateral MG screening mammo w CAD. May 08, 2014, bilateral MG screening mammo w CAD. There are scattered fibroglandular densities. No suspicious abnormality. No significant changes when compared with prior studies. ASSESSMENT: Negative, BI-RAD 1 RECOMMENDATION: Routine screening mammogram of both breasts in 1 year.
--- NOTE | 2019-04-05 18:39 | BD ---
EXAMINATION TYPE: Axial Bone Density DATE OF EXAM: 04/04/2019 COMPARISON: NONE CLINICAL HISTORY: 64-year-old female disorder of bone Height: 63 Weight: 173 FRAX RISK QUESTIONS: Alcohol (3 or more units per day): no Family History (Parent hip fracture): no Glucocorticoids (More than 3mos): no (Ex: prednisone, prednisolone, methylprednisolone, dexamethasone, and hydrocortisone). History of Fracture in Adulthood: yes Secondary Osteoporosis: 1. Type 1 Diabetes: no 2. Hyperthyroidism: no 3. Menopause before 45: no 4. Malnutrition: no 5. Chronic liver disease: no Rheumatoid Arthritis: no Current Tobacco Use: yes RISK FACTORS HISTORY OF: Family History of Osteoporosis: no Active: yes Diet low in dairy products/other sources of calcium: no Postmenopausal woman: yes Take estrogen and/or progesterone medications: not now How long: " a couple of years" Lost more than 2 inches in height since high school: patient unsure Frequent falls: no Poor Health: no Hyperparathyroidism: no Adrenal Insufficiency: no MEDICATIONS: Thyroid Medications:no Osteoporosis Medications: no Additional Medications: diabetes med, lipitor Additional History: diabetic, rt knee surgery EXAM MEASUREMENTS: Bone mineral densitometry was performed using the [employer] System. Bone mineral density as measured about the Lumbar spine is: ----- L1-L4(G/cm2): 0.850 T Score Values are as follows: ----- L2: -2.8 ----- L3: -2.8 ----- L4: -2.6 ----- L1-L4: -2.8 Bone mineral density BASELINE Bone mineral density about the R hip (g/cm2): 0.919 Bone mineral density about the L hip (g/cm2): 1.032 T Score values are as follows: -----R Neck: -0.9 -----L Neck: 0.0 -----R Total: -1.1 -----L Total: -0.7 Bone mineral density BASELINE IMPRESSION: Osteoporosis (T Score less than -2.5). There is increased fracture risk and therapy is usually indicated based on age. Re-Screen 1-2 years. NOTE: T-SCORE=SD OF THE YOUNG ADULT MEAN.
== END | disposition home or self-care (01) ==
LOC: RADMAMWWP 08:07
PROVIDERS: ATTEND Family Medicine
DX: Z12.31 Encounter for screening mammogram for malignant neoplasm of breast (principal); M81.0 Age-related osteoporosis without current pathological fracture
CPT/HCPCS: 77063; 77067; 77080

== ENCOUNTER 2019-05-20 17:18 | Emergency (ER) | payer MEDICARE, BC, OTHER ==
[2019-05-20] MEDS ORDERED: diphenhydrAMINE 50 MG/ML 1 ML VIAL IVP STA (18:07)
[2019-05-20] MEDS ORDERED: KETOROLAC 30 MG/ML 1 ML VIAL IVP STA (18:07)
[2019-05-20] MEDS ORDERED: methylPREDNISolone SOD SUCCI 125 MG/2 ML VIAL IV STA (18:07)
[2019-05-20] MEDS ORDERED: SODIUM CHLORIDE 0.9% 500 ML 500 ML IV STA (18:09)
[2019-05-20] MEDS ORDERED: METOCLOPRAMIDE 5 MG/ML 2 ML VIAL IVP STA (18:09)
--- NOTE | 2019-05-20 18:25 | ED ---
ENT HPI - General Source: patient Mode of arrival: ambulatory Limitations: no limitations <Jenn Otoole - Last Filed: 05/20/19 19:35> <Masha Joseph - Last Filed: 05/23/19 23:55> - General Chief complaint: ENT Stated complaint: ear pain Time Seen by Provider: 05/20/19 17:26 - History of Present Illness Initial comments: Patient is a 64-year-old female presenting to the emergency Department with complaints of an increase in pain secondary to trigeminal neuralgia. Patient has been dealing with this for actually for 5 months now. Patient is seeing a neurologist as well as an ENT. Patient states he recently switched her medication from gabapentin to carbamazepine. Patient states she does not feel like improving her symptoms. Patient is presenting today because she's been having an increase and facial pain, ear pain, itching to her scalp. Patient states she is having to come to the ER proximally once a month for pain and symptom control. Patient denies any fever, chills. Patient states her symptoms are consistent with her other flareups. Patient has no other complaints at this time. Upon arrival to the ER, BP is 170/102. Rest of vital signs are normal. (Jenn Otoole) - Related Data Home Medications Medication Instructions Recorded Confirmed Omeprazole [PriLOSEC] 20 mg PO DAILY 11/24/16 04/03/19 metFORMIN HCL [Glucophage] 500 mg PO BID 08/27/18 04/03/19 Gabapentin [Neurontin] 300 mg PO BID@0800,1200 03/14/19 04/03/19 HYDROcodone/APAP 7.5-325MG [[place] 1 tab PO Q4-6H PRN 03/14/19 04/03/19 7.5-325] Previous Rx's Medication Instructions Recorded Lidocaine 5% Oint [Xylocaine 5% 1 applic TOPICAL TID PRN #1 tube 04/03/19 Oint] Allergies Allergy/AdvReac Type Severity Reaction Status Date / Time No Known Allergies Allergy Verified 04/03/19 12:07 Review of Systems ROS Other: All systems not noted in ROS Statement are negative. <Jenn Otoole - Last Filed: 05/20/19 19:35> ROS Other: All systems not noted in ROS Statement are negative. <Masha Joseph - Last Filed: 05/23/19 23:55> ROS Statement: Those systems with pertinent positive or pertinent negative responses have been documented in the HPI. Past Medical History Past Medical History: Diabetes Mellitus, GERD/Reflux, Hyperlipidemia, Osteoarthritis (OA) Additional Past Medical History / Comment(s): trigeminal neuralgia History of Any Multi-Drug Resistant Organisms: None Reported Past Surgical History: Bladder Surgery, Cholecystectomy, Hysterectomy, Orthopedic Surgery Additional Past Surgical History / Comment(s): sinus surg., arthroscopy right knee, bladder suspension Past Anesthesia/Blood Transfusion Reactions: No Reported Reaction Past Psychological History: No Psychological Hx Reported Smoking Status: Former smoker - Past Family History Mother Family Medical History: No Reported History <Jenn Otoole - Last Filed: 05/20/19 19:35> General Exam Limitations: no limitations <Jenn Otoole - Last Filed: 05/20/19 19:35> - General Exam Comments Initial Comments: GENERAL: Well-appearing, well-nourished and in no acute distress. HEAD: Atraumatic, normocephalic. EYES: Pupils equal round and reactive to light, extraocular movements intact, sclera anicteric, conjunctiva are normal. ENT: Severe pain with palpation bilateral cheeks, ears. TMs were not evaluated secondary to severe pain. No swelling or erythema. Nares patent, oropharynx clear without exudates. Moist mucous membranes. NECK: Normal range of motion, supple without lymphadenopathy or JVD. LUNGS: Breath sounds clear to auscultation bilaterally and equal. No wheezes rales or rhonchi. HEART: Regular rate and rhythm without murmurs, rubs or gallops. ABDOMEN: Soft, nontender, normoactive bowel sounds. No guarding, no rebound. No masses appreciated. : Deferred EXTREMITIES: Normal range of motion, no pitting or edema. No clubbing or cyanosis. NEUROLOGICAL: Cranial nerves II through XII grossly intact. Normal speech, normal gait. PSYCH: Normal mood, normal affect. SKIN: Warm, Dry, normal turgor, no rashes or lesions noted. (Jenn Otoole) Course Vital Signs 05/20/19 05/20/19 17:22 19:45 Temperature 98 F 98.3 F Pulse Rate 92 88 Respiratory 16 18 Rate Blood Pressure 170/102 130/78 O2 Sat by Pulse 97 100 Oximetry Medical Decision Making <Jenn Otoole - Last Filed: 05/20/19 19:35> <Masha Joseph - Last Filed: 05/23/19 23:55> - Medical Decision Making Patient is a 64-year-old female presenting with complaints of pain secondary to trigeminal neuralgia. Patient is having an increase in facial and ear pain as well as a headache and itching to the scalp. Patient has been eating and comes ER proximally once a month for symptom control. Patient is currently seeing a neurologist for her symptoms. There has been a recent change in her medications however she states it is not improving her symptoms. Patient has an appointment with an ENT next week. On exam patient has severe pain with palpation in the bilateral cheeks and ears. Patient was given Toradol, steroids, Reglan with improvement in her symptoms. Patient states she is ready to be discharged. Patient will follow up with her doctors next week as discussed. Return parameters were discussed with the patient she verbalized understanding. Case discussed with Dr. Joseph. (Jenn Otoole) I was available for consultation in the emergency department. The history and physical exam was done by the midlevel provider. I was consulted for this patient's care. I reviewed the case with the midlevel provider and based on their presentation of the patient, I agree with the assessment, medical decision making and plan of care as documented. (Masha Joseph) Disposition Is patient prescribed a controlled substance at d/c from ED?: No <Jenn Otoole - Last Filed: 05/20/19 19:35> <Masha Joseph - Last Filed: 05/23/19 23:55> Clinical Impression: Trigeminal neuralgia pain Disposition: HOME SELF-CARE Condition: Stable Instructions (If sedation given, give patient instructions): Trigeminal Neuralgia (ED) Additional Instructions: Please return to the Emergency Department if symptoms worsen or any other concerns. Follow-up with ENT and neurology. Referrals: aPrveen Anaya DO [Primary Care Provider] - 1-2 days
[2019-05-20 19:46] VITALS: BP 130/78; PULSE 88; RESP 18; TEMP 98.3
== END 2019-05-20 19:38 | disposition home or self-care (01) ==
LOC: EC 17:18
DX: G50.0 Trigeminal neuralgia (principal); H92.03 Otalgia, bilateral; L29.9 Pruritus, unspecified; E11.9 Type 2 diabetes mellitus without complications; K21.9 Gastro-esophageal reflux disease without esophagitis; M19.90 Unspecified osteoarthritis, unspecified site; Z87.891 Personal history of nicotine dependence; Z79.84 Long term (current) use of oral hypoglycemic drugs; Z79.891 Long term (current) use of opiate analgesic; Z79.899 Other long term (current) drug therapy
CPT/HCPCS: 99282; 96374; 96375 ×3; J1200; J2765; J2930; J1885

== ENCOUNTER 2019-05-26 13:45 | Emergency (ER) | payer MEDICARE, BC, OTHER ==
[2019-05-26] MEDS ORDERED: METOCLOPRAMIDE 5 MG/ML 2 ML VIAL IVP STA (14:29)
[2019-05-26] MEDS ORDERED: KETOROLAC 30 MG/ML 1 ML VIAL IVP STA (14:29)
[2019-05-26] MEDS ORDERED: diphenhydrAMINE 50 MG/ML 1 ML VIAL IVP STA (14:29)
--- NOTE | 2019-05-26 14:56 | ED ---
General Adult HPI - General Chief complaint: Headache Stated complaint: Nerve disorder, facial burning attack Time Seen by Provider: 05/26/19 14:04 Source: patient, RN notes reviewed Mode of arrival: ambulatory Limitations: no limitations - History of Present Illness Initial comments: 64-year-old female with a past medical history of diabetes, trigeminal neuralgia, hyperlipidemia, GERD presents to the emergency department for a chief complaint of exacerbation of trigeminal neuralgia. Patient states she has been dealing with this for over a year and has seen several specialists including ENT and neurology. States she has an appointment with a specialist on Thursday in [place] as well. States that for the past 5 months this has been worse. States it is bilateral facial pain and tenderness that seems to originate from behind her ears. States that last night she put an ice pack behind her ear and this exacerbated her pain. Denies headache. Patient has had a normal MRI and CT of the brain in the past. Today patient is here for pain relief. She is taking Perkins and carbamazepine at home.Patient has no other complaints at this time including shortness of breath, chest pain, abdominal pain, nausea or vomiting, headache, or visual changes. - Related Data Home Medications Medication Instructions Recorded Confirmed Omeprazole [PriLOSEC] 20 mg PO DAILY 11/24/16 04/03/19 metFORMIN HCL [Glucophage] 500 mg PO BID 08/27/18 04/03/19 Gabapentin [Neurontin] 300 mg PO BID@0800,1200 03/14/19 04/03/19 HYDROcodone/APAP 7.5-325MG [Perkins 1 tab PO Q4-6H PRN 03/14/19 04/03/19 7.5-325] Previous Rx's Medication Instructions Recorded Lidocaine 5% Oint [Xylocaine 5% 1 applic TOPICAL TID PRN #1 tube 04/03/19 Oint] Allergies Allergy/AdvReac Type Severity Reaction Status Date / Time No Known Allergies Allergy Verified 05/26/19 14:01 Review of Systems ROS Statement: Those systems with pertinent positive or pertinent negative responses have been documented in the HPI. ROS Other: All systems not noted in ROS Statement are negative. Past Medical History Past Medical History: Diabetes Mellitus, GERD/Reflux, Hyperlipidemia, Osteoarthritis (OA) Additional Past Medical History / Comment(s): trigeminal neuralgia History of Any Multi-Drug Resistant Organisms: None Reported Past Surgical History: Bladder Surgery, Cholecystectomy, Hysterectomy, Orthopedic Surgery Additional Past Surgical History / Comment(s): sinus surg., arthroscopy right knee, bladder suspension Past Anesthesia/Blood Transfusion Reactions: No Reported Reaction Past Psychological History: No Psychological Hx Reported Smoking Status: Current some day smoker Past Alcohol Use History: None Reported Past Drug Use History: None Reported - Past Family History Mother Family Medical History: No Reported History General Exam Limitations: no limitations General appearance: alert, in no apparent distress Head exam: Present: atraumatic, normocephalic, normal inspection Eye exam: Present: normal appearance, PERRL, EOMI. Absent: scleral icterus, conjunctival injection, periorbital swelling ENT exam: Present: normal exam, normal oropharynx, mucous membranes moist, normal external ear exam Neck exam: Present: normal inspection, full ROM. Absent: tenderness, meningismus, lymphadenopathy Respiratory exam: Present: normal lung sounds bilaterally. Absent: respiratory distress, wheezes, rales, rhonchi, stridor Cardiovascular Exam: Present: regular rate, normal rhythm, normal heart sounds. Absent: systolic murmur, diastolic murmur, rubs, gallop, clicks GI/Abdominal exam: Present: soft, normal bowel sounds. Absent: distended, tenderness, guarding, rebound, rigid Neurological exam: Present: alert, oriented X3, CN II-XII intact, normal gait, other (GCS 15) Expanded Patient oriented to: Present: person, place, time Speech: Present: fluid speech Cranial nerves: EOM's Intact: Normal, Tongue Deviation: Normal, Nystagmus: Normal, Facial Sensation: Normal Cerebellar function: Finger to Nose: Normal Upper motor neuron: Pronator Drift: Normal Sensory exam: Upper Extremity Light Touch: Normal, Upper Extremity Pin Prick: Normal, Lower Extremity Light Touch: Normal, Lower Extremity Pin Prick: Normal Motor strength exam: RUE: 5, LUE: 5, RLE: 5, LLE: 5 Eye Response: (4) open spontaneously Motor Response: (6) obeys commands Verbal Response: (5) oriented Alan Total: 15 Course Vital Signs 05/26/19 13:59 Temperature 97.4 F L Pulse Rate 94 Respiratory 20 Rate Blood Pressure 172/111 O2 Sat by Pulse 97 Oximetry Medical Decision Making - Medical Decision Making 64-year-old female presents for facial pain. Patient has a history of trigeminal neuralgia states that she frequently gets these exacerbations. Patient has seen ENT and neurology and has an appointment with a specialist out of the [facility] on Thursday. Patient is here for pain relief as she applied ice to the area yesterday and this made it worse. She has had a negative CT and MRI in the past. Vitals were initially hypertensive however after pain medication was given this did normalize to 126/83. The patient's pain decreased from a 10 to a 5. She isn't much better at this time and requesting discharge. She will follow up with her neurologist as well as her appointment at the [facility] and will return if she has any worsening symptoms. Disposition Clinical Impression: Trigeminal neuralgia pain Disposition: HOME SELF-CARE Condition: Good Instructions (If sedation given, give patient instructions): Acute Headache (ED) Additional Instructions: Please follow-up with your primary care provider as well as neurology in 1-2 days. If you have worsening symptoms return to the emergency department. Is patient prescribed a controlled substance at d/c from ED?: No Referrals: Parveen Anaya DO [Primary Care Provider] - 1-2 days Time of Disposition: 15:46
[2019-05-26 16:08] VITALS: BP 128/64; PULSE 77; RESP 18; TEMP 98.2
== END 2019-05-26 16:10 | disposition home or self-care (01) ==
LOC: EC 13:45
DX: G50.0 Trigeminal neuralgia (principal); E11.42 Type 2 diabetes mellitus with diabetic polyneuropathy; K21.9 Gastro-esophageal reflux disease without esophagitis; F17.200 Nicotine dependence, unspecified, uncomplicated; Z79.84 Long term (current) use of oral hypoglycemic drugs; Z79.899 Other long term (current) drug therapy
CPT/HCPCS: 99283; 96374; 96375 ×2; J1200; J2765; J1885

== ENCOUNTER 2019-06-01 16:29 | Inpatient (IN) | payer MEDICARE, BC, OTHER ==
[2019-06-01 16:41] VITALS: RESP 18
[2019-06-01] MEDS ORDERED: SODIUM CHLORIDE 0.9% 500 ML 500 ML IV STA (17:16)
--- NOTE | 2019-06-01 17:28 | ED ---
Overdose HPI <Nathaniel Roa - Last Filed: 06/01/19 19:22> - General Source: patient, family, RN notes reviewed Mode of arrival: wheelchair Limitations: no limitations - History of Present Illness MD Complaint: accidental overdose, other <Gordo Loya - Last Filed: 06/01/19 21:08> - General Chief Complaint: Overdose Stated Complaint: unintentional overdose Time Seen by Provider: 06/01/19 16:50 - History of Present Illness Initial Comments: This is a 64-year-old female who was brought in by family for evaluation of weakness and fall some slurred speech and unsteady gait and nausea. They believe it may be secondary to take her medications on an empty stomach also her Tegretol was increased 2 days ago to twice a day from once a day. No reports of headache she does have right ear pain she relates to her trigeminal neuralgia no neck or back pain she does complain of pain in her left ring finger where she lacerated when she fell no focal weakness to her upper or lower extremities. No other modifying factors at this time. She does have a future point with a neurosurgeon for evaluation of her trigeminal neuralgia she has seen an ENT recently. She denies any desire herself or intentional overdose. (Gordo Loya) - Related Data Home Medications Medication Instructions Recorded Confirmed Omeprazole [PriLOSEC] 20 mg PO DAILY 11/24/16 06/01/19 metFORMIN HCL [Glucophage] 500 mg PO BID 08/27/18 06/01/19 HYDROcodone/APAP 7.5-325MG [Lorraine 1 tab PO Q4-6H PRN 03/14/19 06/01/19 7.5-325] ALPRAZolam [Xanax] 0.25 mg PO BID 06/01/19 06/01/19 Loratadine [Claritin] 10 mg PO DAILY 06/01/19 06/01/19 carBAMazepine [TEGretol] 400 mg PO BID 06/01/19 06/01/19 Allergies Allergy/AdvReac Type Severity Reaction Status Date / Time No Known Allergies Allergy Verified 06/01/19 18:24 Review of Systems ROS Other: All systems not noted in ROS Statement are negative. <Nathaniel Roa - Last Filed: 06/01/19 19:22> ROS Other: All systems not noted in ROS Statement are negative. <Gordo Loya - Last Filed: 06/01/19 21:08> ROS Statement: Those systems with pertinent positive or pertinent negative responses have been documented in the HPI. Past Medical History Past Medical History: Diabetes Mellitus, GERD/Reflux, Hyperlipidemia, Osteoarthritis (OA) Additional Past Medical History / Comment(s): trigeminal neuralgia History of Any Multi-Drug Resistant Organisms: None Reported Past Surgical History: Bladder Surgery, Cholecystectomy, Hysterectomy, Orthopedic Surgery Additional Past Surgical History / Comment(s): sinus surg., arthroscopy right knee, bladder suspension Past Anesthesia/Blood Transfusion Reactions: No Reported Reaction Past Psychological History: No Psychological Hx Reported Smoking Status: Former smoker Past Alcohol Use History: None Reported Past Drug Use History: None Reported - Past Family History Mother Family Medical History: No Reported History <Gordo Loya - Last Filed: 06/01/19 21:08> General Exam Limitations: no limitations General appearance: alert, in no apparent distress Head exam: Present: atraumatic, normocephalic, normal inspection Eye exam: Present: normal appearance, PERRL, EOMI. Absent: scleral icterus, conjunctival injection, periorbital swelling ENT exam: Present: mucous membranes dry, other (Patient does have a cotton ball in her right ear canal) Neck exam: Present: normal inspection, full ROM, other (No stridor JVD or bruits). Absent: tenderness, meningismus, lymphadenopathy Respiratory exam: Present: normal lung sounds bilaterally. Absent: respiratory distress, wheezes, rales, rhonchi, stridor Cardiovascular Exam: Present: regular rate, normal rhythm, normal heart sounds. Absent: systolic murmur, diastolic murmur, rubs, gallop, clicks GI/Abdominal exam: Present: soft, normal bowel sounds. Absent: distended, tenderness, guarding, rebound, rigid Rectal exam: Present: other (Tenderness palpation over the coccyx no evidence of bruising or open wounds.) Extremities exam: Present: full ROM, normal capillary refill, other (Laceration of the proximal phalanx of the volar left ring finger no active bleeding no definite foreign body. The wound is approximately 2.5 cm long. Distally no sensorimotor or vascular deficit). Absent: tenderness, pedal edema, joint swelling, calf tenderness Back exam: Present: normal inspection Neurological exam: Present: alert, oriented X3, CN II-XII intact Psychiatric exam: Present: normal affect, normal mood Skin exam: Present: warm, dry, intact, normal color. Absent: rash <Gordo Loya - Last Filed: 06/01/19 21:08> - General Exam Comments Initial Comments: This is a well developed well-nourished awake alert no lethargic female (Gordo Loya) Course <Gordo Loya - Last Filed: 06/01/19 21:08> Vital Signs 06/01/19 06/01/19 06/01/19 16:37 18:10 20:07 Temperature 98.1 F 97.8 F Pulse Rate 97 63 80 Respiratory 18 18 18 Rate Blood Pressure 125/82 147/90 138/81 O2 Sat by Pulse 97 95 96 Oximetry - Reevaluation(s) Reevaluation #1: 06/01/19 19:39 On reevaluation patient was much more alert and awake this is confirmed by family members or present. (Gordo Loya) Procedures - Laceration Laceration #1 Consent Obtained: verbal consent Indication: laceration Site: hand (4th digit palmar aspect PIP joint ) Size (cm): 4 Description: stellate (no ligamentous, bony involvement) Depth: simple, single layer Anesthetic Used: lidocaine 1% Anesthesia Technique: nerve block Amount (mls): 4 Pre-repair: wound explored, irrigated extensively (500mL NS ), deep structures intact Type of Sutures: nylon Size of Sutures: 5-0 Number of Sutures: 6 Technique: simple, interrupted Patient Tolerated Procedure: well, no complications <Nathaniel Roa - Last Filed: 06/01/19 19:22> - Laceration Laceration #1 Additional Comments: 4cm laceration to palmar aspect of 4th digit on L hand PCP joint, full active ROM of digit, sensation intact, capillary refill <2 seconds. Full active ROM after suture. (Nathaniel Roa) Medical Decision Making - Lab Data Result diagrams: 06/01/19 18:00 06/01/19 18:00 <Nathaniel Roa - Last Filed: 06/01/19 19:22> - Lab Data Result diagrams: 06/01/19 18:00 06/01/19 18:00 - EKG Data -: EKG Interpreted by Me EKG shows normal: sinus rhythm (There was sinus rhythm 91 appear interval 150 QRS duration 86 QT since QTC 350/4:30 to QA changes) - Radiology Data Radiology results: report reviewed (I did evaluate and observe the imaging and reports no acute findings.), image reviewed <Gordo Loya - Last Filed: 06/01/19 21:08> - Medical Decision Making I did reevaluate patient on multiple occasions she is improving the likely causes the Tegretol however due to the presentation patient will be admitted for evaluation by neurology. I did discuss case with Ale who is covering Dr. Nieves. (Gordo Loya) - Lab Data Lab Results 06/01/19 06/01/19 06/01/19 Range/Units 18:00 18:00 18:00 WBC 10.4 (3.8-10.6) k/uL RBC 4.42 (3.80-5.40) m/uL Hgb 13.0 (11.4-16.0) gm/dL Hct 39.4 (34.0-46.0) % MCV 89.1 (80.0-100.0) fL MCH 29.4 (25.0-35.0) pg MCHC 33.0 (31.0-37.0) g/dL RDW 12.9 (11.5-15.5) % Plt Count 184 (150-450) k/uL Neutrophils % 73 % Lymphocytes % 18 % Monocytes % 4 % Eosinophils % 4 % Basophils % 1 % Neutrophils # 7.5 (1.3-7.7) k/uL Lymphocytes # 1.9 (1.0-4.8) k/uL Monocytes # 0.4 (0-1.0) k/uL Eosinophils # 0.4 (0-0.7) k/uL Basophils # 0.1 (0-0.2) k/uL Sodium 136 L (137-145) mmol/L Potassium 4.6 (3.5-5.1) mmol/L Chloride 98 (98-107) mmol/L Carbon Dioxide 25 (22-30) mmol/L Anion Gap 13 mmol/L BUN 12 (7-17) mg/dL Creatinine 0.52 (0.52-1.04) mg/dL Est GFR (CKD-EPI)AfAm >90 (>60 ml/min/1.73 sqM) Est GFR (CKD-EPI)NonAf >90 (>60 ml/min/1.73 sqM) Glucose 189 H (74-99) mg/dL Calcium 9.2 (8.4-10.2) mg/dL Total Bilirubin 0.4 (0.2-1.3) mg/dL AST 36 (14-36) U/L ALT 43 (9-52) U/L Alkaline Phosphatase 159 H (38-126) U/L Creatine Kinase 28 L (30-135) U/L Troponin I <0.012 (0.000-0.034) ng/mL Total Protein 7.6 (6.3-8.2) g/dL Albumin 4.3 (3.5-5.0) g/dL Lipase 78 (23-300) U/L Urine Color Urine Appearance (Clear) Urine pH (5.0-8.0) Ur Specific [place] (1.001-1.035) Urine Protein (Negative) Urine Glucose (UA) (Negative) Urine Ketones (Negative) Urine Blood (Negative) Urine Nitrite (Negative) Urine Bilirubin (Negative) Urine Urobilinogen (<2.0) mg/dL Ur Leukocyte Esterase (Negative) Urine HCG, Qual (Not Detectd) Salicylates <1.0 mg/dL Urine Opiates Screen (NotDetected) Ur Oxycodone Screen (NotDetected) Urine Methadone Screen (NotDetected) Ur Propoxyphene Screen (NotDetected) Acetaminophen <10.0 ug/mL Ur Barbiturates Screen (NotDetected) Carbamazepine 13.6 ug/mL U Tricyclic Antidepress (NotDetected) Ur Phencyclidine Scrn (NotDetected) Ur Amphetamines Screen (NotDetected) U Methamphetamines Scrn (NotDetected) U Benzodiazepines Scrn (NotDetected) Urine Cocaine Screen (NotDetected) U Marijuana (THC) Screen (NotDetected) Serum Alcohol <10 mg/dL 06/01/19 06/01/19 Range/Units 18:00 18:00 WBC (3.8-10.6) k/uL RBC (3.80-5.40) m/uL Hgb (11.4-16.0) gm/dL Hct (34.0-46.0) % MCV (80.0-100.0) fL MCH (25.0-35.0) pg MCHC (31.0-37.0) g/dL RDW (11.5-15.5) % Plt Count (150-450) k/uL Neutrophils % % Lymphocytes % % Monocytes % % Eosinophils % % Basophils % % Neutrophils # (1.3-7.7) k/uL Lymphocytes # (1.0-4.8) k/uL Monocytes # (0-1.0) k/uL Eosinophils # (0-0.7) k/uL Basophils # (0-0.2) k/uL Sodium (137-145) mmol/L Potassium (3.5-5.1) mmol/L Chloride (98-107) mmol/L Carbon Dioxide (22-30) mmol/L Anion Gap mmol/L BUN (7-17) mg/dL Creatinine (0.52-1.04) mg/dL Est GFR (CKD-EPI)AfAm (>60 ml/min/1.73 sqM) Est GFR (CKD-EPI)NonAf (>60 ml/min/1.73 sqM) Glucose (74-99) mg/dL Calcium (8.4-10.2) mg/dL Total Bilirubin (0.2-1.3) mg/dL AST (14-36) U/L ALT (9-52) U/L Alkaline Phosphatase (38-126) U/L Creatine Kinase (30-135) U/L Troponin I (0.000-0.034) ng/mL Total Protein (6.3-8.2) g/dL Albumin (3.5-5.0) g/dL Lipase (23-300) U/L Urine Color Yellow Urine Appearance Clear (Clear) Urine pH 6.5 (5.0-8.0) Ur Specific [place] 1.016 (1.001-1.035) Urine Protein Negative (Negative) Urine Glucose (UA) 2+ H (Negative) Urine Ketones Negative (Negative) Urine Blood Negative (Negative) Urine Nitrite Negative (Negative) Urine Bilirubin Negative (Negative) Urine Urobilinogen <2.0 (<2.0) mg/dL Ur Leukocyte Esterase Negative (Negative) Urine HCG, Qual Not Detected (Not Detectd) Salicylates mg/dL Urine Opiates Screen Not Detected (NotDetected) Ur Oxycodone Screen Not Detected (NotDetected) Urine Methadone Screen Not Detected (NotDetected) Ur Propoxyphene Screen Not Detected (NotDetected) Acetaminophen ug/mL Ur Barbiturates Screen Not Detected (NotDetected) Carbamazepine ug/mL U Tricyclic Antidepress Not Detected (NotDetected) Ur Phencyclidine Scrn Not Detected (NotDetected) Ur Amphetamines Screen Not Detected (NotDetected) U Methamphetamines Scrn Not Detected (NotDetected) U Benzodiazepines Scrn Detected H (NotDetected) Urine Cocaine Screen Not Detected (NotDetected) U Marijuana (THC) Screen Not Detected (NotDetected) Serum Alcohol mg/dL Disposition <Nathaniel Roa - Last Filed: 06/01/19 19:22> <Gordo Loya - Last Filed: 06/01/19 21:08> Clinical Impression: Accidental drug overdose, Fall, Trigeminal neuralgia pain, Mental status alteration Disposition: ADMITTED IP TO THIS [facility] Condition: Fair Additional Instructions: Please return for suture removal: Hand: 7-10 days Face: 5 days Chest/abdomen: 12-14 days Extremities: 7-10 days Scalp: 7 days Eyebrow: 5-7 days Foot/sole: 12-14 days Please monitor for signs and symptoms of infection including: redness, warmth, drainage, discharge. Please return to ED if these signs or symptoms occur, new signs or symptoms develop or if condition worsens in anyway. Referrals: Parveen Anaya DO [Primary Care Provider] - 1-2 days
--- NOTE | 2019-06-01 17:49 | XR ---
EXAMINATION TYPE: XR chest 2V DATE OF EXAM: 06/01/2019 COMPARISON: 12/04/2016 HISTORY: Altered mental status TECHNIQUE: Frontal and lateral views of the chest are obtained. FINDINGS: Heart and mediastinum are normal. Lungs are clear. Diaphragm is normal. Bony thorax appear s normal. IMPRESSION: Normal chest. No change.
--- NOTE | 2019-06-01 17:52 | XR ---
EXAMINATION TYPE: XR pelvis AP view DATE OF EXAM: 06/01/2019 COMPARISON: NONE HISTORY: Pain TECHNIQUE: Single view FINDINGS: Pelvic ring is intact. There is spurring of the acetabula. Sacroiliac joints appear intact. There is no evidence of a fracture. Proximal femurs are intact. There is moderate left side acetabul ar spurring. IMPRESSION: There is some osteoarthritis in the left hip more than the right. No fracture seen. There is overall no significant hip joint space narrowing.
--- NOTE | 2019-06-01 17:54 | XR ---
EXAMINATION TYPE: XR hand complete LT DATE OF EXAM: 06/01/2019 COMPARISON: NONE HISTORY: Fourth digit laceration TECHNIQUE: 3 views FINDINGS: There is slight narrowing of the IP joint spaces. Metacarpals are intact. I see no fracture nor dislocation. The fourth digit appears intact. There is no sign of a foreign body. There is minim al soft tissue swelling of the fingers. IMPRESSION: Mild soft tissue swelling. No fracture.
[2019-06-01] MEDS ORDERED: LIDOCAINE 1% INJ 10MG/ML (20 ML MDV) SQ STA (18:11)
[2019-06-01 18:22] LABS: Basophils # (A) 0.1 k/uL (0-0.2); Basophils % (A) 1 %; Eosinophils # (A) 0.4 k/uL (0-0.7); Eosinophils % (A) 4 %; HCT 39.4 % (34.0-46.0); Lymphocytes # (A) 1.9 k/uL (1.0-4.8); Lymphocytes % (A) 18 %; MCH 29.4 pg (25.0-35.0); MCV 89.1 fL (80.0-100.0); Mean Platelet Volume 7.5; Monocytes # (A) 0.4 k/uL (0-1.0); Monocytes % (A) 4 %; Neutrophils # (A) 7.5 k/uL (1.3-7.7); Neutrophils % (A) 73 %; Platelet Count 184 k/uL (150-450); RBC 4.42 m/uL (3.80-5.40); RDW 12.9 % (11.5-15.5); WBC 10.4 k/uL (3.8-10.6)
[2019-06-01 18:33] LABS: Amphetamine Screen,Urine Not Detected (NotDetected); Barbiturate Screen,Urine Not Detected (NotDetected); Benzodiazepines Screen,Urine Detected (NotDetected); Cocaine Screen,Urine Not Detected (NotDetected); Methadone Screen, Urine Not Detected (NotDetected); Opiate Screen,Urine Not Detected (NotDetected); Oxycodone Screen, Urine Not Detected (NotDetected); Phencyclidine Screen,Urine Not Detected (NotDetected); Tricyclic Antidepressant,Urine Not Detected (NotDetected); Urn Cannabinoid Scrn Not Detected (NotDetected)
[2019-06-01 18:34] LABS: ALT 43 U/L (9-52); AST 36 U/L (14-36); Acetaminophen <10.0 ug/mL; African American GFR (CKD) >90 (>60 ml/min/1.73 sqM); Albumin 4.3 g/dL (3.5-5.0); Alkaline Phosphatase 159 U/L (38-126); Anion Gap 13 mmol/L; Blood Urea Nitrogen 12 mg/dL (7-17); Calcium 9.2 mg/dL (8.4-10.2); Carbon Dioxide 25 mmol/L (22-30); Chloride 98 mmol/L (98-107); Creatine Kinase 28 U/L (30-135); Glucose 189 mg/dL (74-99); Potassium 4.6 mmol/L (3.5-5.1); Salicylate <1.0 mg/dL; Sodium 136 mmol/L (137-145); Total Bilirubin 0.4 mg/dL (0.2-1.3); Total Protein 7.6 g/dL (6.3-8.2)
[2019-06-01 18:35] LABS: Alcohol <10 mg/dL; Appearance,Urine Clear (Clear); Bilirubin,Urine Negative (Negative); Blood,Urine Negative (Negative); Carbamazepine (Tegretol) 13.6 ug/mL; Color,Urine Yellow; Glucose,Urine (UA) 2+ (Negative); Ketones,Urine Negative (Negative); Leukocyte Esterase,Urine Negative (Negative); Nitrite,Urine Negative (Negative); PH, Urine 6.5 (5.0-8.0); Protein,Urine Negative (Negative); Specific Gravity,Urine 1.016 (1.001-1.035); Urobilinogen,Urine <2.0 mg/dL (<2.0)
[2019-06-01] MEDS ORDERED: WATER FOR IRRIG, STERILE 1,000 ML BTL IRRIGATION ONE (18:53)
--- NOTE | 2019-06-01 19:52 | CT ---
EXAMINATION TYPE: CT brain wo con DATE OF EXAM: 06/01/2019 COMPARISON: 02/09/2019 HISTORY: ams following fall CT DLP: 1090.4 mGycm Automated exposure control for dose reduction was used. FINDINGS: Ventricles have normal size. There is no mass effect nor midline shift. There is no sign of intracran ial hemorrhage. Calvarium is intact. There is some mucosal thickening in the ethmoid and sphenoid sin uses. IMPRESSION: NEGATIVE CT SCAN OF THE BRAIN. SINUSITIS. NO SIGNIFICANT CHANGE COMPARED TO OLD EXAM.
[2019-06-01] MEDS ORDERED: NALOXONE 0.4 MG/ML 1 ML VIAL IV PRN (21:08)
[2019-06-01] MEDS ORDERED: HYDROcodone/APAP 7.5-325MG 1 EACH TAB PO PRN (21:14)
--- NOTE | 2019-06-01 21:15 | ED ---
Medical Decision Making - Lab Data Result diagrams: 06/01/19 18:00 06/01/19 18:00 Lab Results 06/01/19 06/01/19 06/01/19 Range/Units 18:00 18:00 18:00 WBC 10.4 (3.8-10.6) k/uL RBC 4.42 (3.80-5.40) m/uL Hgb 13.0 (11.4-16.0) gm/dL Hct 39.4 (34.0-46.0) % MCV 89.1 (80.0-100.0) fL MCH 29.4 (25.0-35.0) pg MCHC 33.0 (31.0-37.0) g/dL RDW 12.9 (11.5-15.5) % Plt Count 184 (150-450) k/uL Neutrophils % 73 % Lymphocytes % 18 % Monocytes % 4 % Eosinophils % 4 % Basophils % 1 % Neutrophils # 7.5 (1.3-7.7) k/uL Lymphocytes # 1.9 (1.0-4.8) k/uL Monocytes # 0.4 (0-1.0) k/uL Eosinophils # 0.4 (0-0.7) k/uL Basophils # 0.1 (0-0.2) k/uL Sodium 136 L (137-145) mmol/L Potassium 4.6 (3.5-5.1) mmol/L Chloride 98 (98-107) mmol/L Carbon Dioxide 25 (22-30) mmol/L Anion Gap 13 mmol/L BUN 12 (7-17) mg/dL Creatinine 0.52 (0.52-1.04) mg/dL Est GFR (CKD-EPI)AfAm >90 (>60 ml/min/1.73 sqM) Est GFR (CKD-EPI)NonAf >90 (>60 ml/min/1.73 sqM) Glucose 189 H (74-99) mg/dL Calcium 9.2 (8.4-10.2) mg/dL Total Bilirubin 0.4 (0.2-1.3) mg/dL AST 36 (14-36) U/L ALT 43 (9-52) U/L Alkaline Phosphatase 159 H (38-126) U/L Creatine Kinase 28 L (30-135) U/L Troponin I <0.012 (0.000-0.034) ng/mL Total Protein 7.6 (6.3-8.2) g/dL Albumin 4.3 (3.5-5.0) g/dL Lipase 78 (23-300) U/L Urine Color Urine Appearance (Clear) Urine pH (5.0-8.0) Ur Specific [place] (1.001-1.035) Urine Protein (Negative) Urine Glucose (UA) (Negative) Urine Ketones (Negative) Urine Blood (Negative) Urine Nitrite (Negative) Urine Bilirubin (Negative) Urine Urobilinogen (<2.0) mg/dL Ur Leukocyte Esterase (Negative) Urine HCG, Qual (Not Detectd) Salicylates <1.0 mg/dL Urine Opiates Screen (NotDetected) Ur Oxycodone Screen (NotDetected) Urine Methadone Screen (NotDetected) Ur Propoxyphene Screen (NotDetected) Acetaminophen <10.0 ug/mL Ur Barbiturates Screen (NotDetected) Carbamazepine 13.6 ug/mL U Tricyclic Antidepress (NotDetected) Ur Phencyclidine Scrn (NotDetected) Ur Amphetamines Screen (NotDetected) U Methamphetamines Scrn (NotDetected) U Benzodiazepines Scrn (NotDetected) Urine Cocaine Screen (NotDetected) U Marijuana (THC) Screen (NotDetected) Serum Alcohol <10 mg/dL 06/01/19 06/01/19 Range/Units 18:00 18:00 WBC (3.8-10.6) k/uL RBC (3.80-5.40) m/uL Hgb (11.4-16.0) gm/dL Hct (34.0-46.0) % MCV (80.0-100.0) fL MCH (25.0-35.0) pg MCHC (31.0-37.0) g/dL RDW (11.5-15.5) % Plt Count (150-450) k/uL Neutrophils % % Lymphocytes % % Monocytes % % Eosinophils % % Basophils % % Neutrophils # (1.3-7.7) k/uL Lymphocytes # (1.0-4.8) k/uL Monocytes # (0-1.0) k/uL Eosinophils # (0-0.7) k/uL Basophils # (0-0.2) k/uL Sodium (137-145) mmol/L Potassium (3.5-5.1) mmol/L Chloride (98-107) mmol/L Carbon Dioxide (22-30) mmol/L Anion Gap mmol/L BUN (7-17) mg/dL Creatinine (0.52-1.04) mg/dL Est GFR (CKD-EPI)AfAm (>60 ml/min/1.73 sqM) Est GFR (CKD-EPI)NonAf (>60 ml/min/1.73 sqM) Glucose (74-99) mg/dL Calcium (8.4-10.2) mg/dL Total Bilirubin (0.2-1.3) mg/dL AST (14-36) U/L ALT (9-52) U/L Alkaline Phosphatase (38-126) U/L Creatine Kinase (30-135) U/L Troponin I (0.000-0.034) ng/mL Total Protein (6.3-8.2) g/dL Albumin (3.5-5.0) g/dL Lipase (23-300) U/L Urine Color Yellow Urine Appearance Clear (Clear) Urine pH 6.5 (5.0-8.0) Ur Specific [place] 1.016 (1.001-1.035) Urine Protein Negative (Negative) Urine Glucose (UA) 2+ H (Negative) Urine Ketones Negative (Negative) Urine Blood Negative (Negative) Urine Nitrite Negative (Negative) Urine Bilirubin Negative (Negative) Urine Urobilinogen <2.0 (<2.0) mg/dL Ur Leukocyte Esterase Negative (Negative) Urine HCG, Qual Not Detected (Not Detectd) Salicylates mg/dL Urine Opiates Screen Not Detected (NotDetected) Ur Oxycodone Screen Not Detected (NotDetected) Urine Methadone Screen Not Detected (NotDetected) Ur Propoxyphene Screen Not Detected (NotDetected) Acetaminophen ug/mL Ur Barbiturates Screen Not Detected (NotDetected) Carbamazepine ug/mL U Tricyclic Antidepress Not Detected (NotDetected) Ur Phencyclidine Scrn Not Detected (NotDetected) Ur Amphetamines Screen Not Detected (NotDetected) U Methamphetamines Scrn Not Detected (NotDetected) U Benzodiazepines Scrn Detected H (NotDetected) Urine Cocaine Screen Not Detected (NotDetected) U Marijuana (THC) Screen Not Detected (NotDetected) Serum Alcohol mg/dL Disposition Clinical Impression: Accidental drug overdose, Fall, Trigeminal neuralgia pain, Mental status alt eration, Laceration of finger of left hand Disposition: ADMITTED IP TO THIS [facility] Condition: Fair Additional Instructions: Please return for suture removal: Hand: 7-10 days Face: 5 days Chest/abdomen: 12-14 days Extremities: 7-10 days Scalp: 7 days Eyebrow: 5-7 days Foot/sole: 12-14 days Please monitor for signs and symptoms of infection including: redness, warmth, drainage, discharge. Please return to ED if these signs or symptoms occur, new signs or symptoms develop or if condition worsens in anyway. Referrals: Parveen Anaya DO [Primary Care Provider] - 1-2 days
[2019-06-01] MEDS: SODIUM CHLORIDE 0.9% 1,000 ML IV SCH (21:55)
[2019-06-01 22:18] VITALS: BMI 30.8
[2019-06-02 03:47] VITALS: TEMP 98.3
[2019-06-02 06:28] LABS: Glucose,Whole Blood 153 mg/dL (75-99)
[2019-06-02] MEDS: INSULIN ASPART (NovoLOG) 100 UNIT/ML VIAL SQ SCH ×2 (06:48→13:06)
[2019-06-02] MEDS ORDERED: PANTOPRAZOLE 40 MG TABLET PO SCH (07:30)
[2019-06-02] MEDS ORDERED: LORATADINE 10 MG TAB PO SCH (09:00)
[2019-06-02] MEDS ORDERED: metFORMIN 500 MG TAB PO SCH (09:00)
[2019-06-02] MEDS ORDERED: ALPRAZolam 0.25 MG TAB PO SCH (09:00)
[2019-06-02] MEDS: SODIUM CHLORIDE 0.9% 1,000 ML IV SCH (09:41)
[2019-06-02 10:02] VITALS: BP 119/67; PULSE 82
--- NOTE | 2019-06-02 11:04 | P.CNNES ---
History of Present Illness Consult date: 06/02/19 Requesting physician: Gordo Loya Reason for Consult: AMS Chief complaint: AMS after increasing CBZ History of Present Illness: This is a 64 RH female with TN who sees neurology at [facility]. In fact, she has neuroimaging scheduled for this weekend and evaluation by neurosurgery soon. She takes CBZ and alprazolam for her TN. She is not exactly certain on the dose of her CBZ, but per ER documentation her dose was recently increased from 400mg po qd to 400mg po bid. Her CBZ here is supratherapeutic 13.6. She increased her CBZ per her MD's instruction and became dizzy, off balance, con fused and generally unwell, so came into the ER. She has not had any additional CBZ since yesterday, and feels much better today. Review of Systems I have performed a 14-point organ ROS with patient; pertinents are as per HPI. Past Medical History Past Medical History: Diabetes Mellitus, GERD/Reflux, Osteoarthritis (OA) Additional Past Medical History / Comment(s): trigeminal neuralgia History of Any Multi-Drug Resistant Organisms: None Reported Past Surgical History: Bladder Surgery, Cholecystectomy, Hysterectomy, Orthopedic Surgery Additional Past Surgical History / Comment(s): sinus surg., arthroscopy right knee, bladder suspension Past Anesthesia/Blood Transfusion Reactions: No Reported Reaction Past Psychological History: No Psychological Hx Reported Smoking Status: Former smoker Past Alcohol Use History: None Reported Additional Past Alcohol Use History / Comment(s): quit smoking September 2018, smoked 12 yrs. 4 cigs/day Past Drug Use History: None Reported - Past Family History Mother Family Medical History: No Reported History Medications and Allergies Home Medications Medication Instructions Recorded Confirmed Type Omeprazole [PriLOSEC] 20 mg PO DAILY 11/24/16 06/01/19 History metFORMIN HCL [Glucophage] 500 mg PO BID 08/27/18 06/01/19 History HYDROcodone/APAP 7.5-325MG [[place] 1 tab PO Q4-6H PRN 03/14/19 06/01/19 History 7.5-325] ALPRAZolam [Xanax] 0.25 mg PO BID 06/01/19 06/01/19 History Loratadine [Claritin] 10 mg PO DAILY 06/01/19 06/01/19 History carBAMazepine [TEGretol] 400 mg PO BID 06/01/19 06/01/19 History Allergies Allergy/AdvReac Type Severity Reaction Status Date / Time No Known Allergies Allergy Verified 06/01/19 18:24 Physical Examination - Vital Signs Vital Signs: Vital Signs Temp Pulse Pulse Resp BP BP Pulse Ox 06/02/19 08:00 82 18 119/67 97 06/02/19 03:43 98.3 F 90 16 120/63 100 06/02/19 00:00 98.4 F 91 18 124/59 97 06/01/19 22:05 97.7 F 86 18 122/71 95 06/01/19 20:07 97.8 F 80 18 138/81 96 06/01/19 18:10 63 18 147/90 95 06/01/19 16:37 98.1 F 97 18 125/82 97 Intake and Output 06/01/19 06/02/19 06/02/19 22:59 06:59 14:59 Intake Total 240 Output Total 600 Balance -360 Intake: Oral 240 Output: Urine 600 Other: # Voids 1 Weight 79.832 kg 79 kg Gen NAD Pleasant and cooperative HEENT NCAT Sclera without icterus O/P clear Neck Supple No carotid bruit Cor RRR no m/r/g Lungs CTAB Abd Soft NTND +BS Ext Warm to touch No edema left 4th digit with laceration/sutures Neuro MS A+Ox4 Normal fluency Able to follow all commands CN PERRL VFF no APD EOMI no nystagmus or ABHISHEK No facial asymmetry Masseter's symmetric Hearing intact to normal voice bilaterally Speech not dysarthric Equal elevation of palate Tongue midline Sym shrug and SCM bilaterally Motor Normal bulk/tone No pronator or tremors Strength 5/5 sym throughout Sens Intact to LT x4 No neglect or extinction Coord No dysmetria on FTN bilaterally DTRs 2+/4 sym throughout Toes downgoing bilaterally No clonus at achilles Gait Narrow-based and stable no Romberg Results - Laboratory Findings CBC and BMP: 06/01/19 18:00 06/01/19 18:00 Abnormal Lab Findings: Abnormal Labs 06/01/19 06/01/19 06/02/19 18:00 18:00 06:27 Sodium 136 L Glucose 189 H POC Glucose (mg/dL) 153 H Alkaline Phosphatase 159 H Creatine Kinase 28 L Urine Glucose (UA) 2+ H U Benzodiazepines Scrn Detected H Carbamazepine 13.6 - Diagnostic Findings Additional findings: CT Head wo cont 06/01/19. Normal. I have reviewed neuroimages myself. Assessment and Plan Assessment: AMS due to toxic encephalopathy from supratherapeutic CBZ, improved TN Plan: -Decrease CBZ to Tegretol XR 200mg po bid, first-dose tonight -Check CBZ level early next week; she can get this done at her PCP's -Follow up with neurology and neurosurgery as previously scheduled -Stable for discharge from an acute neuro standpoint. Will revisit patient prn. Please call with new ?. Time with Patient: Greater than 30 (Time spent in direct patient care, greater than 50% of which was spent in ayie-ln-text counseling and coordination of care: 70 minutes)
[2019-06-02 11:50] LABS: Glucose,Whole Blood 162 mg/dL (75-99)
[2019-06-02 12:42] LABS: Hemoglobin A1C 9.3 % (4.0-6.0)
--- NOTE | 2019-06-02 12:52 | P.HPIM ---
History of Present Illness This is a pleasant 64 years old female with past medical history of diabetes mellitus, GERD, as her arthritis and trigeminal neuralgia. She follow up with her neurologist and neurosurgery at [facility] for her trigeminal neuralgia,. She presents because of altered mental status secondary to increasing her carbamazepine dose from 400 mg daily to 400 mg twice daily. On admission her Tegretol level was supratherapeutic at 13.6, with reference age at 04-12 for therapeutic level. Tegretol dose was held temporarily and adjusted to 200 mg twice daily as per neurologist recommendation. Neurologist evaluated the patient and cleared the patient for discharge. Patient mental status back to normal. Patient is fully awake and oriented to time place and person. She denies other symptoms. Denies chest pain or dyspnea. No abdominal pain. No nausea vomiting. No change in urine or bowel habits. No fever. Review of systems CONSTITUTIONAL: No fever, no malaise, no fatigue. HEENT: No recent visual problems or hearing problems. Denied any sore throat. CARDIOVASCULAR: No orthopnea, PND, no palpitations, no syncope. PULMONARY: No shortness of breath, no cough, no hemoptysis. GASTROINTESTINAL: No diarrhea, no nausea, no vomiting, no abdominal pain. Normoactive bowel sounds. NEUROLOGICAL: No headaches, no weakness, no numbness. HEMATOLOGICAL: Denies any bleeding or petechiae. GENITOURINARY: Denies any burning micturition, frequency, or urgency. MUSCULOSKELETAL/RHEUMATOLOGICAL: Denies any joint pain, swelling, or any muscle pain. ENDOCRINE: Denies any polyuria or polydipsia. Physical exam GENERAL: The patient is alert and oriented x3, not in any acute distress. Well developed, well nourished. HEENT: Pupils are round and equally reacting to light. EOMI. No scleral icterus. No conjunctival pallor. Normocephalic, atraumatic. No pharyngeal erythema. No thyromegaly. CARDIOVASCULAR: S1 and S2 present. No murmurs, rubs, or gallops. PULMONARY: Chest is clear to auscultation, no wheezing or crackles. ABDOMEN: Soft, nontender, nondistended, normoactive bowel sounds. No palpable organomegaly. MUSCULOSKELETAL: No joint swelling or deformity. EXTREMITIES: No cyanosis, clubbing, or pedal edema. NEUROLOGICAL: Gross neurological examination did not reveal any focal deficits. She is alert awake oriented to time place and person. Cranial nerves are grossly intact. Strength is 5/5 in all extremities. Sensation is intact SKIN: No rashes. No petechiae Problems and management plan were discussed with the patient and he verbalized understanding and acceptance Patient was found stable and can be discharged home however he needs follow-up as an outpatient. Patient was instructed to follow up with PCP within one week and patient agrees. Patient was instructed to follow up with her neurologist and the neurosurgeon at [facility] within 1 or 2 weeks. Patient also instructed to check her carbamazepine level within 1 week which she can do it with her PCP and she agrees with it as well. Past Medical History Past Medical History: Diabetes Mellitus, GERD/Reflux, Osteoarthritis (OA) Additional Past Medical History / Comment(s): trigeminal neuralgia History of Any Multi-Drug Resistant Organisms: None Reported Past Surgical History: Bladder Surgery, Cholecystectomy, Hysterectomy, Orthopedic Surgery Additional Past Surgical History / Comment(s): sinus surg., arthroscopy right knee, bladder suspension Past Anesthesia/Blood Transfusion Reactions: No Reported Reaction Past Psychological History: No Psychological Hx Reported Smoking Status: Former smoker Past Alcohol Use History: None Reported Additional Past Alcohol Use History / Comment(s): quit smoking September 2018, smoked 12 yrs. 4 cigs/day Past Drug Use History: None Reported - Past Family History Mother Family Medical History: No Reported History Medications and Allergies Home Medications Medication Instructions Recorded Confirmed Type Omeprazole [PriLOSEC] 20 mg PO DAILY 11/24/16 06/01/19 History metFORMIN HCL [Glucophage] 500 mg PO BID 08/27/18 06/01/19 History HYDROcodone/APAP 7.5-325MG [[place] 1 tab PO Q4-6H PRN 03/14/19 06/01/19 History 7.5-325] ALPRAZolam [Xanax] 0.25 mg PO BID 06/01/19 06/01/19 History Loratadine [Claritin] 10 mg PO DAILY 06/01/19 06/01/19 History carBAMazepine [TEGretol] 400 mg PO BID 06/01/19 06/01/19 History Allergies Allergy/AdvReac Type Severity Reaction Status Date / Time No Known Allergies Allergy Verified 06/01/19 18:24 Physical Exam Vitals: Vital Signs Temp Pulse Pulse Resp BP BP Pulse Ox 06/02/19 08:00 82 18 119/67 97 06/02/19 03:43 98.3 F 90 16 120/63 100 06/02/19 00:00 98.4 F 91 18 124/59 97 06/01/19 22:05 97.7 F 86 18 122/71 95 06/01/19 20:07 97.8 F 80 18 138/81 96 06/01/19 18:10 63 18 147/90 95 06/01/19 16:37 98.1 F 97 18 125/82 97 Intake and Output 06/01/19 06/02/19 06/02/19 22:59 06:59 14:59 Intake Total 462 Output Total 600 Balance -138 Intake: Oral 462 Output: Urine 600 Other: # Voids 1 Weight 79.832 kg 79 kg Results CBC & Chem 7: 06/01/19 18:00 06/01/19 18:00 Labs: Abnormal Lab Results - Last 24 Hours (Table) 06/01/19 06/01/19 06/02/19 Range/Units 18:00 18:00 06:27 Sodium 136 L (137-145) mmol/L Glucose 189 H (74-99) mg/dL POC Glucose (mg/dL) 153 H (75-99) mg/dL Alkaline Phosphatase 159 H (38-126) U/L Creatine Kinase 28 L (30-135) U/L Urine Glucose (UA) 2+ H (Negative) U Benzodiazepines Scrn Detected H (NotDetected) 06/02/19 Range/Units 11:48 Sodium (137-145) mmol/L Glucose (74-99) mg/dL POC Glucose (mg/dL) 162 H (75-99) mg/dL Alkaline Phosphatase (38-126) U/L Creatine Kinase (30-135) U/L Urine Glucose (UA) (Negative) U Benzodiazepines Scrn (NotDetected) Thrombosis Risk Factor Assmnt - Choose All That Apply Any of the Below Risk Factors Present?: Yes Each Factor Represents 1 point: Obesity (BMI >25) Each Risk Factor Represents 2 Points: Age 61-74 years Each Risk Factor Represents 3 Points: Positive Lupus Anticoagulant Thrombosis Risk Factor Assessment Total Risk Factor Score: 6 Thrombosis Risk Factor Assessment Level: High Risk
== END 2019-06-02 14:10 | disposition home or self-care (01) | DRG 917 ==
LOC: EC 16:29 → 3SCARD 21:08
PROVIDERS: ADMIT Internal Medicine; ATTEND Internal Medicine
PROC: 0HQGXZZ Repair Left Hand Skin, External Approach (ICD-10-PCS; principal; 2019-06-01)
DX: T42.1X1A Poisoning by iminostilbenes, accidental (unintentional), initial encounter (principal); G92 Toxic encephalopathy; E11.9 Type 2 diabetes mellitus without complications; E78.5 Hyperlipidemia, unspecified; F17.210 Nicotine dependence, cigarettes, uncomplicated; G50.0 Trigeminal neuralgia; K21.9 Gastro-esophageal reflux disease without esophagitis; S61.215A Laceration without foreign body of left ring finger without damage to nail, initial encounter; Z79.84 Long term (current) use of oral hypoglycemic drugs; Z79.899 Other long term (current) drug therapy; Z90.710 Acquired absence of both cervix and uterus; Z79.891 Long term (current) use of opiate analgesic
CPT/HCPCS: 12002; 36415; 70450; 71046; 72170; 80053; 80156; 80306; 80320; 80329; 81003; 81025; 82140; 82550; 83036; 83520; 83690; 84484; 85025; 93005; 96360; 96361; 99285

== ENCOUNTER → 2019-06-21 | Outpatient (CLI) | payer MEDICARE, BC, OTHER ==
[2019-06-21 13:22] LABS: African American GFR (CKD) >90 (>60 ml/min/1.73 sqM); Blood Urea Nitrogen 14 mg/dL (7-17)
--- NOTE | 2019-06-21 16:54 | CT ---
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 Enhancing lesion at the cervicomedullary junct ion. TECHNIQUE: Contiguous axial scanning of the chest, abdomen, and pelvis performed without and with IV Contrast, patient injected with 100 mL of Isovue 300. Delayed images through the kidneys were obtaine d. Coronal/sagittal reconstructions performed. CT DLP: 2225.0 mGycm Automated exposure control for dose reduction was used. FINDINGS: CHEST: The heart is normal size without pericardial effusion. Aorta normal caliber with conventional branching anatomy. Scattered nonenlarged mediastinal lymph nodes. No thoracic lymphadenopathy by CT size criteria. 5 mm right mid lung pulmonary nodule, axial image 29. 4 mm right lower lobe pulmonary nodule, axial image 34. 4 mm left mid lung pulmonary nodule, axial image 26. No consolidation or pleural effusion. ABDOMEN: Liver is enlarged measuring 21.7 cm craniocaudal with marked low attenuation. Portal venous system is patent. No biliary ductal dilatation. Gallbladder surgically absent. Adrenal glands, right kidney, spleen, and pancreas appear within normal limits. Small diverticulum of the second/third portion of the duodenum projecting into the pancreatic head region. Subcentimeter hypodensity upper pole left kidney is stable suggestive of a cortical cyst. No dilated small bowel, free fluid, or free air. No mesenteric or retroperitoneal lymphadenopathy. Normal appendix. Oral contrast progressed to the lower descending colon. Left hemicolonic diverticulosis, greatest in the proximal to mid sigmoid colon. No pericolonic inflam matory change. Pelvis: Bladder not distended. Pelvic phlebolith on the left. Uterus surgically absent. Neither ovary clearly visualized. No abnormal fluid collection in the pelvis or pelvic lymphadenopathy. Bones: Moderate to severe degenerative change left hip and mild to moderate right hip. Degenerative disc dis ease L5-S1. No osseous destructive process. IMPRESSION: 1. A FEW SCATTERED NONSPECIFIC PULMONARY NODULES MEASURING UP TO 5 MM. SIX-MONTH FOLLOW-UP CT CHEST R ECOMMENDED TO REASSESS. 2. 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 CORRELATE WITH LFT's, LIPID PROFILE, AND PAT IENT RISK FACTORS. 3. LEFT-SIDED COLONIC DIVERTICULOSIS WITHOUT ACUTE DIVERTICULITIS.
== END | disposition home or self-care (01) ==
LOC: RADCTMAIN 12:44
DX: K57.30 Diverticulosis of large intestine without perforation or abscess without bleeding (principal); R16.0 Hepatomegaly, not elsewhere classified; K76.0 Fatty (change of) liver, not elsewhere classified; R91.8 Other nonspecific abnormal finding of lung field; D49.6 Neoplasm of unspecified behavior of brain; R51 Headache
CPT/HCPCS: 82565; 84520; 71270; 74178; Q9967 ×2

== ENCOUNTER → 2019-07-12 | Outpatient (CLI) | payer MEDICARE, BC, OTHER ==
[2019-07-12 09:05] LABS: Basophils # (A) 0.1 k/uL (0-0.2); Basophils % (A) 1 %; Eosinophils # (A) 0.4 k/uL (0-0.7); Eosinophils % (A) 6 %; HCT 38.3 % (34.0-46.0); HGB 13.1 gm/dL (11.4-16.0); Lymphocytes # (A) 2.1 k/uL (1.0-4.8); Lymphocytes % (A) 34 %; MCH 30.9 pg (25.0-35.0); MCHC 34.1 g/dL (31.0-37.0); MCV 90.7 fL (80.0-100.0); Mean Platelet Volume 6.5; Monocytes # (A) 0.3 k/uL (0-1.0); Monocytes % (A) 5 %; Neutrophils # (A) 3.3 k/uL (1.3-7.7); Neutrophils % (A) 53 %; Platelet Count 180 k/uL (150-450); RBC 4.23 m/uL (3.80-5.40); RDW 12.6 % (11.5-15.5); WBC 6.2 k/uL (3.8-10.6)
[2019-07-12 14:24] LABS: Erythrocyte Sedimentation Rate 19 mm/hr (0-20)
[2019-07-12 17:04] LABS: ALT 36 U/L (8-44); AST 33 U/L (13-35); African American GFR (CKD) 116.9 (60.0-200.0); Albumin/Globulin Ratio 1.91 (1.60-3.17); Alkaline Phosphatase 148 U/L (41-126); C Reactive Protein 0.6 mg/dL (0.0-0.8); Calcium 9.1 mg/dL (8.7-10.3); Chloride 102 mmol/L (96-109); Globulin 2.3 g/dL (1.6-3.3); Glucose 156 mg/dL (70-110); Potassium 4.4 mmol/L (3.5-5.5); Rheumatoid Factor, Qnt <4 IU/mL (0-13); Sodium 140 mmol/L (135-145); Total Bilirubin 0.3 mg/dL (0.3-1.2); Total Protein 6.7 g/dL (6.2-8.2)
[2019-07-12 20:44] LABS: Anti-Smith Ab Interp NEGATIVE (NEGATIVE)
[2019-07-13 14:08] LABS: C-ANCA <1:20 Titer (<1:20)
== END | disposition home or self-care (01) ==
LOC: LABWHC1 08:12
PROVIDERS: ATTEND Psychiatry & Neurology Neurology
DX: G54.2 Cervical root disorders, not elsewhere classified (principal)
CPT/HCPCS: 36415; 80053; 85025; 85652; 86038; 86140; 86235; 86255; 86431; 86780

== ENCOUNTER 2019-08-09 13:58 | Emergency (ER) | payer MEDICARE, BC, OTHER ==
[2019-08-09 14:20] VITALS: TEMP 98
[2019-08-09] MEDS ORDERED: SODIUM CHLORIDE 0.9% 1,000 ML IV STA (14:39)
[2019-08-09] MEDS ORDERED: MECLIZINE 12.5 MG TAB PO STA (14:40)
--- NOTE | 2019-08-09 14:42 | ED ---
General Adult HPI - General Chief complaint: Dizziness Stated complaint: Off balance, Dizziness, blurred vision Time Seen by Provider: 08/09/19 14:30 Source: patient, RN notes reviewed, old records reviewed Mode of arrival: wheelchair Limitations: no limitations - History of Present Illness Initial comments: 64-year-old female presenting for evaluation of lightheadedness. Patient has been dealing with trigeminal neuralgia over the past 3-4 months per she's been seen by neurology as well as ENT. She states that she's having 3 or 4 episodes daily and this is preventing her from getting sleep. She states she is very tired and has not been able to sleep and some time. She states that today she felt lightheaded while traveling down the stairs. Denies any room spinning. Denies current headache. Denies focal numbness or weakness. Denies chest pain or dyspnea. Denies abdominal pain. Patient does admit to increased anxiety as well as anxiety over the pain associated with her trigeminal neuralgia. She is currently on carbamazepine with minimal relief. Again no headache or trigeminal neuralgia symptoms at the time my evaluation. - Related Data Home Medications Medication Instructions Recorded Confirmed Omeprazole [PriLOSEC] 20 mg PO DAILY 11/24/16 06/01/19 metFORMIN HCL [Glucophage] 500 mg PO BID 08/27/18 06/01/19 HYDROcodone/APAP 7.5-325MG [[place] 1 tab PO Q4-6H PRN 03/14/19 06/01/19 7.5-325] ALPRAZolam [Xanax] 0.25 mg PO BID 06/01/19 06/01/19 Loratadine [Claritin] 10 mg PO DAILY 06/01/19 06/01/19 Previous Rx's Medication Instructions Recorded carBAMazepine [TEGretol XR] 200 mg PO BID #30 tab.er.12h 06/02/19 Allergies Allergy/AdvReac Type Severity Reaction Status Date / Time No Known Allergies Allergy Verified 08/09/19 14:20 Review of Systems ROS Statement: Those systems with pertinent positive or pertinent negative responses have been documented in the HPI. ROS Other: All systems not noted in ROS Statement are negative. Past Medical History Past Medical History: Diabetes Mellitus, GERD/Reflux, Osteoarthritis (OA) Additional Past Medical History / Comment(s): trigeminal neuralgia History of Any Multi-Drug Resistant Organisms: None Reported Past Surgical History: Bladder Surgery, Cholecystectomy, Hysterectomy, Orthopedic Surgery Additional Past Surgical History / Comment(s): sinus surg., arthroscopy right knee, bladder suspension Past Anesthesia/Blood Transfusion Reactions: No Reported Reaction Past Psychological History: No Psychological Hx Reported Smoking Status: Former smoker Past Alcohol Use History: None Reported Past Drug Use History: None Reported - Past Family History Mother Family Medical History: No Reported History General Exam Limitations: no limitations General appearance: alert, in no apparent distress Head exam: Present: atraumatic, normocephalic Eye exam: Present: normal appearance, PERRL ENT exam: Present: TM's normal bilaterally (TMs are normal, she has erythema in the left external auditory canal.) Neck exam: Present: normal inspection, tenderness. Absent: meningismus Respiratory exam: Present: normal lung sounds bilaterally. Absent: respiratory distress, wheezes Cardiovascular Exam: Present: regular rate, normal rhythm GI/Abdominal exam: Present: soft. Absent: distended, tenderness, guarding Extremities exam: Present: normal inspection, normal capillary refill. Absent: pedal edema Neurological exam: Present: alert, oriented X3, CN II-XII intact, motor sensory deficit Psychiatric exam: Present: depressed, anxious Skin exam: Present: warm, dry, intact. Absent: cyanosis, diaphoretic Course Vital Signs 08/09/19 14:16 Temperature 98.0 F Pulse Rate 100 Respiratory 20 Rate Blood Pressure 155/99 O2 Sat by Pulse 96 Oximetry EKG Findings - EKG Comments: EKG Findings:: EKG: Normal sinus rhythm, rate of 96, CT interval 152 over QRS duration 88, QTC 442, no ST segment elevation Medical Decision Making - Medical Decision Making 64-year-old female presenting with fatigue and sleepless nights increased stress. Patient is stable vitals initially she is well-appearing has a nonfocal neurologic exam shows no ataxia. She'll be treated for trigeminal neuralgia which is keeping her up secondary to pain. She seen neurology and regular basis. She has an MRI scheduled for tomorrow. She has a EKG showed normal sinus rhythm no ST segment elevation. Laboratory studies reveal normal CBC, blood sugar is elevated at 222 urinalysis shows 1+ ketones and 4+ glucose. She has normal CO2 and a normal anion gap. She is nitrate positive on urine as well, she has no urinary symptoms, she will monitor for symptoms. She is given IV hydration and reevaluation she is feeling better. She does have good outpatient follow-up. She is scheduled for an MRI tomorrow. She will return with worsening or changing symptoms. - Lab Data Result diagrams: 08/09/19 15:00 08/09/19 15:00 Lab Results 08/09/19 08/09/19 08/09/19 Range/Units 15:00 15:00 15:00 WBC 7.8 (3.8-10.6) k/uL RBC 4.12 (3.80-5.40) m/uL Hgb 12.8 (11.4-16.0) gm/dL Hct 37.1 (34.0-46.0) % MCV 90.1 (80.0-100.0) fL MCH 31.2 (25.0-35.0) pg MCHC 34.6 (31.0-37.0) g/dL RDW 13.0 (11.5-15.5) % Plt Count 195 (150-450) k/uL Neutrophils % 65 % Lymphocytes % 24 % Monocytes % 5 % Eosinophils % 3 % Basophils % 1 % Neutrophils # 5.1 (1.3-7.7) k/uL Lymphocytes # 1.9 (1.0-4.8) k/uL Monocytes # 0.4 (0-1.0) k/uL Eosinophils # 0.2 (0-0.7) k/uL Basophils # 0.1 (0-0.2) k/uL Sodium 139 (137-145) mmol/L Potassium 4.2 (3.5-5.1) mmol/L Chloride 105 (98-107) mmol/L Carbon Dioxide 22 (22-30) mmol/L Anion Gap 12 mmol/L BUN 11 (7-17) mg/dL Creatinine 0.41 L (0.52-1.04) mg/dL Est GFR (CKD-EPI)AfAm >90 (>60 ml/min/1.73 sqM) Est GFR (CKD-EPI)NonAf >90 (>60 ml/min/1.73 sqM) Glucose 222 H (74-99) mg/dL Calcium 9.4 (8.4-10.2) mg/dL Total Bilirubin 0.5 (0.2-1.3) mg/dL AST 57 H (14-36) U/L ALT 46 (9-52) U/L Alkaline Phosphatase 171 H (38-126) U/L Total Protein 7.3 (6.3-8.2) g/dL Albumin 4.3 (3.5-5.0) g/dL Urine Color Yellow Urine Appearance Cloudy H (Clear) Urine pH 5.5 (5.0-8.0) Ur Specific [place] 1.032 (1.001-1.035) Urine Protein 1+ H (Negative) Urine Glucose (UA) 4+ H (Negative) Urine Ketones 1+ H (Negative) Urine Blood Negative (Negative) Urine Nitrite Positive H (Negative) Urine Bilirubin Negative (Negative) Urine Urobilinogen <2.0 (<2.0) mg/dL Ur Leukocyte Esterase Negative (Negative) Urine RBC 1 (0-5) /hpf Urine WBC 3 (0-5) /hpf Ur Squamous Epith Cells 6 H (0-4) /hpf Urine Bacteria Moderate H (None) /hpf Urine Mucus Occasional H (None) /hpf Disposition Clinical Impression: Dehydration, Diabetes mellitus, Trigeminal neuralgia pain Disposition: HOME SELF-CARE Condition: Fair Instructions (If sedation given, give patient instructions): Dizziness (ED), Dehydration (ED) Is patient prescribed a controlled substance at d/c from ED?: No Referrals: Parveen Anaya DO [Primary Care Provider] - 1-2 days Time of Disposition: 16:28
[2019-08-09 15:22] LABS: Basophils # (A) 0.1 k/uL (0-0.2); Basophils % (A) 1 %; Eosinophils # (A) 0.2 k/uL (0-0.7); Eosinophils % (A) 3 %; HCT 37.1 % (34.0-46.0); HGB 12.8 gm/dL (11.4-16.0); Lymphocytes # (A) 1.9 k/uL (1.0-4.8); Lymphocytes % (A) 24 %; MCH 31.2 pg (25.0-35.0); MCHC 34.6 g/dL (31.0-37.0); MCV 90.1 fL (80.0-100.0); Mean Platelet Volume 6.5; Monocytes # (A) 0.4 k/uL (0-1.0); Monocytes % (A) 5 %; Neutrophils # (A) 5.1 k/uL (1.3-7.7); Neutrophils % (A) 65 %; Platelet Count 195 k/uL (150-450); RBC 4.12 m/uL (3.80-5.40); WBC 7.8 k/uL (3.8-10.6)
[2019-08-09 15:32] LABS: Appearance,Urine Cloudy (Clear); Bacteria,Urine Moderate /hpf; Bilirubin,Urine Negative (Negative); Blood,Urine Negative (Negative); Color,Urine Yellow; Glucose,Urine (UA) 4+ (Negative); Ketones,Urine 1+ (Negative); Leukocyte Esterase,Urine Negative (Negative); Mucus,Urine Occasional /hpf; Nitrite,Urine Positive (Negative); PH, Urine 5.5 (5.0-8.0); Protein,Urine 1+ (Negative); RBC,Urine 1 /hpf (0-5); Specific Gravity,Urine 1.032 (1.001-1.035); Squamous Epithelial Cell,Urine 6 /hpf (0-4); Urobilinogen,Urine <2.0 mg/dL (<2.0); WBC,Urine 3 /hpf (0-5)
[2019-08-09 15:34] LABS: ALT 46 U/L (9-52); AST 57 U/L (14-36); African American GFR (CKD) >90 (>60 ml/min/1.73 sqM); Albumin 4.3 g/dL (3.5-5.0); Alkaline Phosphatase 171 U/L (38-126); Anion Gap 12 mmol/L; Blood Urea Nitrogen 11 mg/dL (7-17); Calcium 9.4 mg/dL (8.4-10.2); Carbon Dioxide 22 mmol/L (22-30); Chloride 105 mmol/L (98-107); Glucose 222 mg/dL (74-99); Non-African American GFR(CKD) >90 (>60 ml/min/1.73 sqM); Potassium 4.2 mmol/L (3.5-5.1); Sodium 139 mmol/L (137-145); Total Bilirubin 0.5 mg/dL (0.2-1.3); Total Protein 7.3 g/dL (6.3-8.2)
[2019-08-09 16:36] VITALS: BP 138/90; PULSE 99; RESP 18
== END 2019-08-09 16:31 | disposition home or self-care (01) ==
LOC: EC 13:58
DX: E86.0 Dehydration (principal); E11.42 Type 2 diabetes mellitus with diabetic polyneuropathy; G50.0 Trigeminal neuralgia; E11.65 Type 2 diabetes mellitus with hyperglycemia; F43.23 Adjustment disorder with mixed anxiety and depressed mood; H61.892 Other specified disorders of left external ear; K21.9 Gastro-esophageal reflux disease without esophagitis; M19.90 Unspecified osteoarthritis, unspecified site; Z87.891 Personal history of nicotine dependence; Z79.84 Long term (current) use of oral hypoglycemic drugs; Z79.891 Long term (current) use of opiate analgesic; Z79.899 Other long term (current) drug therapy
CPT/HCPCS: 36415; 80053; 81001; 85025; 93005; 96360; 99284

== ENCOUNTER → 2019-08-24 | Outpatient (CLI) | payer MEDICARE, BC, OTHER ==
--- NOTE | 2019-08-24 15:30 | MR ---
EXAMINATION TYPE: MR neck wo/w con DATE OF EXAM: 08/24/2019 COMPARISON: None HISTORY: Cervical Myalgia, pain in face and ears x 3 months CONTRAST: Standard multiplanar, multisequence MRI departmental protocol utilizing 7.5 mL intravenous Gadavist g adolinium contrast. FINDINGS: Mucosal thickening is seen in the ethmoid sinuses with nasal turbinate mucosal hypertrophy and incomp lete filling of the sphenoid sinuses. Mild mucosal thickening of the inferior frontal sinuses and tim y mild polypoid mucosal thickening in the right maxillary sinus. Left maxillary sinus and mastoid air cells are well aerated. The thyroid gland appears prominent in size but overall imaging is. There are moderate degenerative c hanges of the cervical spine that are only suboptimally visualized given large [id number]. Cervica l spine MR could be of further benefit. There is a probable central disc herniation at C4-C5 and at C 5-C6 with mild spinal canal stenosis at C5-C6. Degree of neural foraminal narrowing at each level is suboptimally viewed. Parotid glands and submandibular glands are symmetric and unremarkable. No adenopathy is seen in the neck. Orbits are symmetric. Visualized portions of the brain demonstrate mild symmetric age-related a trophy. Airway is maintained. After administration of intravenous contrast no abnormal enhancement is seen. IMPRESSION: 1. Severe sinusitis in the sphenoid sinuses with overall mild paranasal sinus disease of the remainde r of the paranasal sinuses. 2. No abnormal postcontrast enhancement. No suspicious mass or cervical adenopathy. 3. Probable central disc herniations at C4-C5 and C5-C6 with mild resultant spinal canal stenosis at C5-C6.
== END | disposition home or self-care (01) ==
LOC: RADMRIMAIN 10:29
PROVIDERS: ATTEND Otolaryngology
DX: M79.18 Myalgia, other site (principal)
CPT/HCPCS: 70543; A9585

== ENCOUNTER → 2019-09-29 | Outpatient (CLI) | payer MEDICARE, BC, OTHER ==
--- NOTE | 2019-09-29 13:05 | CT ---
EXAMINATION TYPE: CT sinus wo con DATE OF EXAM: 09/29/2019 COMPARISON: Pain HISTORY: Facial pain, maxillary region. History of trigeminal neuralgia. CT DLP: 616 mGycm. Automated Exposure Control for Dose Reduction was Utilized. TECHNIQUE: CT scan of the sinuses is performed without contrast, axial images are obtained, coronal r eformatted images are also reviewed. FINDINGS: Severe sphenoidal sinusitis and moderate changes involving ethmoid air cells. Small mucous retention cyst or polyps with mild mucosal thickening involving the maxillary sinuses. The osteotomy of the maxillary sinuses widely patent. There is mild mucosal thickening involving the frontal sinuse s. There is no evidence of air-fluid levels. Intraorbital and intracranial structures are symmetric. David opharynx and oropharynx symmetric. IMPRESSION: 1. Moderate to severe ethmoidal and sphenoidal chronic appearing sinusitis. 2. Correlate for previous sinus surgery at the ostium of the maxillary sinus patent bilaterally.
== END | disposition home or self-care (01) ==
LOC: RADCTMAIN 12:01
PROVIDERS: ATTEND Otolaryngology
DX: J32.3 Chronic sphenoidal sinusitis (principal); J32.2 Chronic ethmoidal sinusitis
CPT/HCPCS: 70486

== ENCOUNTER 2020-01-12 15:43 | Emergency (ER) | payer MEDICARE, BC, OTHER ==
[2020-01-12 15:56] VITALS: RESP 20; TEMP 97.6
[2020-01-12] MEDS ORDERED: SODIUM CHLORIDE 0.9% 1,000 ML IV ONE (16:43)
[2020-01-12] MEDS ORDERED: INSULIN ASPART (NovoLOG) 100 UNIT/ML VIAL SQ STA (16:44)
[2020-01-12 17:00] LABS: Basophils % (A) 1 %; Eosinophils % (A) 1 %; HCT 42.3 % (34.0-46.0); HGB 13.4 gm/dL (11.4-16.0); Lymphocytes # (A) 0.8 k/uL (1.0-4.8); Lymphocytes % (A) 11 %; MCH 29.6 pg (25.0-35.0); MCHC 31.7 g/dL (31.0-37.0); MCV 93.4 fL (80.0-100.0); Mean Platelet Volume 9.4; Monocytes # (A) 0.2 k/uL (0-1.0); Monocytes % (A) 2 %; Neutrophils # (A) 5.8 k/uL (1.3-7.7); Neutrophils % (A) 85 %; Platelet Count 181 k/uL (150-450); RBC 4.52 m/uL (3.80-5.40); RDW 12.9 % (11.5-15.5); WBC 6.8 k/uL (3.8-10.6)
[2020-01-12 17:04] LABS: Appearance,Urine Clear (Clear); Bilirubin,Urine Negative (Negative); Blood,Urine Negative (Negative); Color,Urine Colorless; Glucose,Urine (UA) 4+ (Negative); Ketones,Urine 1+ (Negative); Leukocyte Esterase,Urine Negative (Negative); Nitrite,Urine Negative (Negative); Protein,Urine Negative (Negative); Specific Gravity,Urine 1.014 (1.001-1.035); Urobilinogen,Urine <2.0 mg/dL (<2.0)
[2020-01-12 17:09] LABS: ALT 42 U/L (4-34); AST 58 U/L (14-36); African American GFR (CKD) >90 (>60 ml/min/1.73 sqM); Albumin 4.3 g/dL (3.5-5.0); Alkaline Phosphatase 163 U/L (38-126); Anion Gap 13 mmol/L; Blood Urea Nitrogen 13 mg/dL (7-17); Calcium 9.3 mg/dL (8.4-10.2); Carbon Dioxide 20 mmol/L (22-30); Chloride 102 mmol/L (98-107); Glucose 369 mg/dL (74-99); Magnesium 1.9 mg/dL (1.6-2.3); Non-African American GFR(CKD) >90 (>60 ml/min/1.73 sqM); Potassium 4.8 mmol/L (3.5-5.1); Sodium 135 mmol/L (137-145); Total Bilirubin 0.6 mg/dL (0.2-1.3); Total Protein 7.5 g/dL (6.3-8.2)
[2020-01-12] MEDS ORDERED: HYDROmorphone 0.5 MG/0.5 ML SYRINGE IVP STA (17:18)
[2020-01-12] MEDS ORDERED: KETOROLAC 30 MG/ML 1 ML VIAL IVP STA (17:18)
--- NOTE | 2020-01-12 17:27 | ED ---
General Adult HPI - General Chief complaint: Recheck/Abnormal Lab/Rx Stated complaint: Hyperglycemia Time Seen by Provider: 01/12/20 16:26 Source: patient, EMS Mode of arrival: EMS Limitations: no limitations - History of Present Illness Initial comments: 64-year-old female patient presents to the emergency department today for evaluation of elevated blood sugar and swelling to the lower extremities. Patient states that she has been evaluated for chronic facial and ear pain at the [facility]. States that she did see her primary care physician recently who started her on prednisone. States she took her first dose of 30 mg today. States she started to feel unwell so she took her blood sugar was elevated at around 400. She states that she is also noticed swelling in her lower extremities today which seems to be decreasing with elevation. She also reports a numb feeling in her face earlier today which did resolve. She denies any numbness, tingling, weakness to her extremities. Denies headache. She is reporting some blurred vision but denies any double vision or dizziness. Denies any chest pain or shortness of breath. Patient denies any recent rash, cough, abdominal pain, nausea, vomiting, diarrhea, constipation, back pain, hematuria, dysuria, urinary urgency, urinary frequency, headache, or any other complaints. - Related Data Home Medications Medication Instructions Recorded Confirmed Omeprazole [PriLOSEC] 20 mg PO DAILY 11/24/16 06/01/19 metFORMIN HCL [Glucophage] 500 mg PO BID 08/27/18 06/01/19 HYDROcodone/APAP 7.5-325MG [[place] 1 tab PO Q4-6H PRN 03/14/19 06/01/19 7.5-325] ALPRAZolam [Xanax] 0.25 mg PO BID 06/01/19 06/01/19 Loratadine [Claritin] 10 mg PO DAILY 06/01/19 06/01/19 Previous Rx's Medication Instructions Recorded carBAMazepine [TEGretol XR] 200 mg PO BID #30 tab.er.12h 06/02/19 Ketorolac [Toradol] 10 mg PO Q6HR #12 tab 01/12/20 Allergies Allergy/AdvReac Type Severity Reaction Status Date / Time No Known Allergies Allergy Verified 08/09/19 14:20 Review of Systems ROS Statement: Those systems with pertinent positive or pertinent negative responses have been documented in the HPI. ROS Other: All systems not noted in ROS Statement are negative. Past Medical History Past Medical History: Diabetes Mellitus, GERD/Reflux, Osteoarthritis (OA) Additional Past Medical History / Comment(s): trigeminal neuralgia History of Any Multi-Drug Resistant Organisms: None Reported Past Surgical History: Bladder Surgery, Cholecystectomy, Hysterectomy, Orthopedic Surgery Additional Past Surgical History / Comment(s): sinus surg., arthroscopy right knee, bladder suspension Past Anesthesia/Blood Transfusion Reactions: No Reported Reaction Past Psychological History: No Psychological Hx Reported Smoking Status: Former smoker Past Alcohol Use History: None Reported Past Drug Use History: None Reported - Past Family History Mother Family Medical History: No Reported History General Exam Limitations: no limitations General appearance: alert, in no apparent distress, other (This is a well- developed, well-nourished adult female patient in no acute distress. Vital signs upon presentation are temperature 97.6F, pulse 98, respirations 20, blood pressure 149/86, pulse ox 95% on room air.) Eye exam: Present: normal appearance, PERRL, EOMI. Absent: scleral icterus, conjunctival injection, periorbital swelling ENT exam: Present: normal exam, normal oropharynx, mucous membranes moist Respiratory exam: Present: normal lung sounds bilaterally. Absent: respiratory distress, wheezes, rales, rhonchi, stridor Cardiovascular Exam: Present: regular rate, normal rhythm, normal heart sounds. Absent: systolic murmur, diastolic murmur, rubs, gallop, clicks GI/Abdominal exam: Present: soft, normal bowel sounds. Absent: distended, tenderness, guarding, rebound, rigid Extremities exam: Present: full ROM, normal capillary refill, other (There is bilateral ankle swelling noted, nonpitting, no erythema.). Absent: tenderness, pedal edema, joint swelling, calf tenderness Neurological exam: Present: alert, oriented X3, CN II-XII intact Expanded Speech: Present: fluid speech Cranial nerves: EOM's Intact: Normal, Tongue Deviation: Normal Motor strength exam: RUE: 5, LUE: 5, RLE: 5, LLE: 5 Psychiatric exam: Present: normal affect, normal mood Skin exam: Present: warm, dry, intact, normal color. Absent: rash Course Vital Signs 01/12/20 01/12/20 01/12/20 15:50 15:56 16:56 Temperature 97.6 F Pulse Rate 98 98 Respiratory 20 20 20 Rate Blood Pressure 149/86 146/86 O2 Sat by Pulse 95 95 Oximetry Medical Decision Making - Medical Decision Making 64-year-old female patient presented to the emergency department today for evaluation of elevated blood sugar and swollen ankles. Physical examination is unremarkable. Lungs are clear to auscultation with good air movement. Ankle edema was nonpitting. Blood sugar was elevated in the 390s. We did give IV fluids, check labs, and gave a dose of insulin. Labs are relatively unremarkable. Patient did take 30mg of prednisone this morning which is thought to be the cause for her elevated blood sugar. She is instructed to increase fluids and to contact her physician in the morning for further instructions regarding this. Patient was also given a dose of Toradol for chronic facial pain which did improve her symptoms. We'll give a prescription for this with strict instructions to take this very sparingly for severe symptoms only. She is instructed to follow up with her primary care physician for recheck in 1-2 days. Return parameters were discussed in detail. She verbalizes understanding and agrees with this plan. - Lab Data Result diagrams: 01/12/20 16:00 01/12/20 16:00 Lab Results 01/12/20 01/12/20 01/12/20 Range/Units 16:00 16:00 16:00 WBC 6.8 (3.8-10.6) k/uL RBC 4.52 (3.80-5.40) m/uL Hgb 13.4 (11.4-16.0) gm/dL Hct 42.3 (34.0-46.0) % MCV 93.4 (80.0-100.0) fL MCH 29.6 (25.0-35.0) pg MCHC 31.7 (31.0-37.0) g/dL RDW 12.9 (11.5-15.5) % Plt Count 181 (150-450) k/uL Neutrophils % 85 % Lymphocytes % 11 % Monocytes % 2 % Eosinophils % 1 % Basophils % 1 % Neutrophils # 5.8 (1.3-7.7) k/uL Lymphocytes # 0.8 L (1.0-4.8) k/uL Monocytes # 0.2 (0-1.0) k/uL Eosinophils # 0.0 (0-0.7) k/uL Basophils # 0.0 (0-0.2) k/uL Sodium 135 L (137-145) mmol/L Potassium 4.8 (3.5-5.1) mmol/L Chloride 102 (98-107) mmol/L Carbon Dioxide 20 L (22-30) mmol/L Anion Gap 13 mmol/L BUN 13 (7-17) mg/dL Creatinine 0.49 L (0.52-1.04) mg/dL Est GFR (CKD-EPI)AfAm >90 (>60 ml/min/1.73 sqM) Est GFR (CKD-EPI)NonAf >90 (>60 ml/min/1.73 sqM) Glucose 369 H (74-99) mg/dL Calcium 9.3 (8.4-10.2) mg/dL Magnesium 1.9 (1.6-2.3) mg/dL Total Bilirubin 0.6 (0.2-1.3) mg/dL AST 58 H (14-36) U/L ALT 42 H (4-34) U/L Alkaline Phosphatase 163 H (38-126) U/L Total Protein 7.5 (6.3-8.2) g/dL Albumin 4.3 (3.5-5.0) g/dL Urine Color Colorless Urine Appearance Clear (Clear) Urine pH 7.0 (5.0-8.0) Ur Specific [place] 1.014 (1.001-1.035) Urine Protein Negative (Negative) Urine Glucose (UA) 4+ H (Negative) Urine Ketones 1+ H (Negative) Urine Blood Negative (Negative) Urine Nitrite Negative (Negative) Urine Bilirubin Negative (Negative) Urine Urobilinogen <2.0 (<2.0) mg/dL Ur Leukocyte Esterase Negative (Negative) Disposition Clinical Impression: Steroid-induced hyperglycemia, Lower extremity edema Disposition: HOME SELF-CARE Condition: Good Instructions (If sedation given, give patient instructions): Leg Edema (ED), Diabetic Hyperglycemia (ED) Additional Instructions: Take medications as directed. Follow-up with your primary care physician for recheck in 1-2 days. Call his office in the morning inform him about your blood sugar and steroids. Return to the emergency department immediately for any new, worsening, or concerning symptoms. Prescriptions: Ketorolac [Toradol] 10 mg PO Q6HR #12 tab Is patient prescribed a controlled substance at d/c from ED?: No Referrals: Parveen Anaya DO [Primary Care Provider] - 1-2 days Time of Disposition: 18:10
[2020-01-12 18:23] VITALS: BP 124/87; PULSE 88
[2020-01-13 07:56] LABS: Glucose,Whole Blood 374 mg/dL (75-99)
[2020-01-13 07:56] LABS: Glucose,Whole Blood 224 mg/dL (75-99)
== END 2020-01-12 18:27 | disposition home or self-care (01) ==
LOC: EC 15:43
DX: E11.65 Type 2 diabetes mellitus with hyperglycemia (principal); T38.0X5A Adverse effect of glucocorticoids and synthetic analogues, initial encounter; R60.0 Localized edema; K21.9 Gastro-esophageal reflux disease without esophagitis; Z79.84 Long term (current) use of oral hypoglycemic drugs; Z79.899 Other long term (current) drug therapy; Z87.891 Personal history of nicotine dependence
CPT/HCPCS: 36415; 80053; 83735; 85025; 81003; 99285; 96374; 96361; J1885

== ENCOUNTER 2020-04-11 09:10 | Emergency (ER) | payer MEDICARE, BC, OTHER ==
[2020-04-11 09:17] VITALS: RESP 18
[2020-04-11] MEDS ORDERED: KETOROLAC 30 MG/ML 1 ML VIAL IM STA (09:40)
[2020-04-11] MEDS ORDERED: AMOXIC-POT CLAV 875MG STARTER PACK 2 TAB BTL PO STA (09:40)
--- NOTE | 2020-04-11 09:42 | ED ---
General Adult HPI - General Chief complaint: ENT Stated complaint: Head/ear pressure Time Seen by Provider: 04/11/20 09:18 Source: patient, RN notes reviewed Mode of arrival: ambulatory Limitations: no limitations - History of Present Illness Initial comments: 65-year-old female presents to the emergency department for a chief complaint of facial pain and burning. Patient has had a history of trigeminal neuralgia for several years. Patient states she called her doctor to tell him it was worsening in the past 5 months and he told her to come to the emergency room. Patient has seen 3 different neurology specialists including a neurologist out of [facility]. She has also been evaluated by neurosurgery. She is currently on carbamazepine as well as hydroxyzine as she does have itching associated with this. Patient comes in today for further evaluation. She states that symptoms are consistent with previous symptoms and have been constant for years although slowly worsening over the past 5 months or so. She is taking her medications.Patient has no other complaints at this time including shortness of breath, chest pain, abdominal pain, nausea or vomiting, headache, or visual changes. - Related Data Home Medications Medication Instructions Recorded Confirmed Omeprazole [PriLOSEC] 20 mg PO DAILY 11/24/16 06/01/19 metFORMIN HCL [Glucophage] 500 mg PO BID 08/27/18 06/01/19 Atorvastatin [Lipitor] 10 mg PO DAILY 04/11/20 04/11/20 Hydrocodone/Acetaminophen [[place] 1 tab PO TID PRN 04/11/20 04/11/20 10-325] OXcarbazepine [Trileptal] 150 mg PO BID 04/11/20 04/11/20 OXcarbazepine [Trileptal] 300 mg PO BID 04/11/20 04/11/20 Semaglutide [Ozempic] 1 mg SQ Q7D 04/11/20 04/11/20 Previous Rx's Medication Instructions Recorded Amoxicillin/Potassium Clav 1 tab PO Q12HR #20 tab 04/11/20 [Augmentin 875-125 Tablet] Allergies Allergy/AdvReac Type Severity Reaction Status Date / Time No Known Allergies Allergy Verified 04/11/20 09:53 Review of Systems ROS Statement: Those systems with pertinent positive or pertinent negative responses have been documented in the HPI. ROS Other: All systems not noted in ROS Statement are negative. Past Medical History Past Medical History: Diabetes Mellitus, GERD/Reflux, Osteoarthritis (OA) Additional Past Medical History / Comment(s): trigeminal neuralgia History of Any Multi-Drug Resistant Organisms: None Reported Past Surgical History: Bladder Surgery, Cholecystectomy, Hysterectomy, Orthopedic Surgery Additional Past Surgical History / Comment(s): sinus surg., arthroscopy right knee, bladder suspension Past Anesthesia/Blood Transfusion Reactions: No Reported Reaction Past Psychological History: No Psychological Hx Reported Smoking Status: Former smoker Past Alcohol Use History: None Reported Past Drug Use History: None Reported - Past Family History Mother Family Medical History: No Reported History General Exam Limitations: no limitations General appearance: alert, in no apparent distress Head exam: Present: atraumatic, normocephalic, normal inspection, other (Tenderness noted to the scalp and face.) Eye exam: Present: normal appearance, PERRL, EOMI. Absent: scleral icterus, conjunctival injection, periorbital swelling ENT exam: Present: normal exam, mucous membranes moist Neck exam: Present: normal inspection, full ROM. Absent: tenderness, meningismus Respiratory exam: Present: normal lung sounds bilaterally. Absent: respiratory distress, wheezes, rales, rhonchi, stridor Cardiovascular Exam: Present: regular rate, normal rhythm, normal heart sounds. Absent: systolic murmur, diastolic murmur, rubs, gallop, clicks GI/Abdominal exam: Present: soft, normal bowel sounds. Absent: distended, tenderness, guarding, rebound, rigid Neurological exam: Present: alert, oriented X3, CN II-XII intact, normal gait, other (GCS 15) Course Vital Signs 04/11/20 09:12 Temperature 98.2 F Pulse Rate 73 Respiratory 18 Rate Blood Pressure 124/79 O2 Sat by Pulse 95 Oximetry Medical Decision Making - Medical Decision Making Patient presents for chronic problem that has been ongoing for several years. She has been evaluated by at least 4 different specialists including neurologists and neurosurgeons. Patient presents because symptoms have been worsening starting 5 months ago. Patient currently on carbamazepine as well as Atarax. I discussed options with patient and at this time she is understandable that through the emergency department we can treat her pain temporarily but she needs to follow-up with her neurologists for further management. I did offer Augmentin because she feels her face is more swollen and that she has a sinus infection. This may help with some symptom relief. Patient was given Toradol. I recommended she follow up with neurology and return here for worsening symptoms. She states that she actually called her neurologist and has an a ppointment upcoming now. Disposition Clinical Impression: Trigeminal neuralgia pain, Facial pain Disposition: HOME SELF-CARE Condition: Good Instructions (If sedation given, give patient instructions): Trigeminal Neuralgia (ED) Additional Instructions: Please continue to take your medications as directed by your neurologist. Please follow-up with your neurologist in 1-2 days. Return to the emergency room for changing symptoms. Prescriptions: Amoxicillin/Potassium Clav [Augmentin 875-125 Tablet] 1 tab PO Q12HR #20 tab Is patient prescribed a controlled substance at d/c from ED?: No Referrals: Parveen Anaya DO [Primary Care Provider] - 1-2 days Time of Disposition: 09:46
[2020-04-11 10:31] VITALS: BP 121/67; PULSE 74; TEMP 97.6
== END 2020-04-11 10:37 | disposition home or self-care (01) ==
LOC: EC 09:10
DX: G50.0 Trigeminal neuralgia (principal); E11.9 Type 2 diabetes mellitus without complications; K21.9 Gastro-esophageal reflux disease without esophagitis; M19.90 Unspecified osteoarthritis, unspecified site; Z79.84 Long term (current) use of oral hypoglycemic drugs; Z79.891 Long term (current) use of opiate analgesic; Z79.899 Other long term (current) drug therapy; Z87.891 Personal history of nicotine dependence
CPT/HCPCS: 96372; 99283; J1885

== ENCOUNTER 2020-05-10 13:52 | Emergency (ER) | payer MEDICARE, BC, OTHER ==
[2020-05-10 14:17] VITALS: PULSE 82; TEMP 98.3
[2020-05-10] MEDS ORDERED: diphenhydrAMINE 50 MG/ML 1 ML VIAL IVP STA (14:34)
[2020-05-10] MEDS ORDERED: KETOROLAC 15 MG/ML 1 ML VIAL IM STA (14:34)
--- NOTE | 2020-05-10 15:16 | ED ---
General Adult HPI - General Chief complaint: Headache Stated complaint: Headache Time Seen by Provider: 05/10/20 14:19 Source: patient, RN notes reviewed, old records reviewed Mode of arrival: ambulatory Limitations: no limitations - History of Present Illness Initial comments: 65-year-old female patient presents to ED for chief complaint of burning and itching to her scalp. Patient points that she has trigeminal neuralgia that she has this chronically. Patient also last night her scalp was very itchy and she itched vigorously. Patient was that she is not having some right-sided scalp pain. She denies having a headache or any changes in vision. She follows up with Dr. Rodriguez. She denies having any nausea vomiting diarrhea. She has had multiple workups for this in the past and states that she does not believe she needs to have any intracranial imaging. She is just requesting Benadryl and Toradol which she states works for her. Systemic: Pt denies fatigue, fever/chills, rash. Pt denies weakness, night sweats, weight loss. Neuro: Pt denies headache, visual disturbances, syncope or pre-syncope. HEENT: Pt denies ocular discharge or irritation, otalgia, rhinorrhea, pharyngitis or notable lymphadenopathy. Cardiopulmonary: Pt denies chest pain, SOB, heart palpitations, dyspnea on exertion. Abdominal/GI: Pt denies abdominal pain, n/v/d. : Pt denies dysuria, burning w/ urination, frequency/urgency. Denies new onset urinary or bowel incontinence. MSK: Pt denies myalgia, loss of strength or function in extremities. Neuro: Pt denies new onset weakness, paresthesias. - Related Data Home Medications Medication Instructions Recorded Confirmed Omeprazole [PriLOSEC] 20 mg PO DAILY 11/24/16 04/11/20 metFORMIN HCL [Glucophage] 1,000 mg PO BID 08/27/18 04/11/20 Atorvastatin [Lipitor] 10 mg PO DAILY 04/11/20 04/11/20 Hydrocodone/Acetaminophen [[place] 1 tab PO TID PRN 04/11/20 04/11/20 10-325] OXcarbazepine [Trileptal] 150 mg PO BID 04/11/20 04/11/20 OXcarbazepine [Trileptal] 300 mg PO BID 04/11/20 04/11/20 Semaglutide [Ozempic] 1 mg SQ Q7D 04/11/20 04/11/20 Previous Rx's Medication Instructions Recorded Amoxicillin/Potassium Clav 1 tab PO Q12HR #20 tab 04/11/20 [Augmentin 875-125 Tablet] Allergies Allergy/AdvReac Type Severity Reaction Status Date / Time No Known Allergies Allergy Verified 05/10/20 14:17 Review of Systems ROS Statement: Those systems with pertinent positive or pertinent negative responses have been documented in the HPI. ROS Other: All systems not noted in ROS Statement are negative. Past Medical History Past Medical History: Diabetes Mellitus, GERD/Reflux, Osteoarthritis (OA) Additional Past Medical History / Comment(s): trigeminal neuralgia History of Any Multi-Drug Resistant Organisms: None Reported Past Surgical History: Bladder Surgery, Cholecystectomy, Hysterectomy, Orthopedic Surgery Additional Past Surgical History / Comment(s): sinus surg., arthroscopy right knee, bladder suspension Past Anesthesia/Blood Transfusion Reactions: No Reported Reaction Past Psychological History: No Psychological Hx Reported Smoking Status: Former smoker Past Alcohol Use History: None Reported Past Drug Use History: None Reported - Past Family History Mother Family Medical History: No Reported History General Exam - General Exam Comments Initial Comments: Constitutional: NAD, AOX3, Pt has pleasant affect. HEENT: NC/AT, trachea midline, neck supple, no lymphadenopathy. External ears appear normal, without discharge. Mucous membranes moist. Eyes PERRLA, EOM intact. There is no scleral icterus. No pallor noted. Cardiopulmonary: RRR, no murmurs, rubs or gallops, no JVD noted. Lungs CTAB in anterior and posterior esquivel. No peripheral edema. Abdominal exam: Abdomen non-distended. Neuro: CN II-XII intact. No nuchal rigidity. No raccon eyes, no garrett sign, no hemotympanum. No cervical spinal tenderness. MSK: Full active ROM in upper and lower extremities, 5/5 stregnth. right-sided scalp mildly tender to palpation. No skin changes or temporal artery tenderness. Limitations: no limitations Course Vital Signs 05/10/20 05/10/20 14:12 16:02 Temperature 98.3 F 98.3 F Pulse Rate 82 82 Respiratory 18 20 Rate Blood Pressure 127/73 157/91 O2 Sat by Pulse 97 96 Oximetry Medical Decision Making - Medical Decision Making 65-year-old female patient received a chief complaint of chronic itching and burning scalp pain. this has been ongoing for years. Denies any new or concerning symptoms. Physical exam displayed some right-sided scalp tenderness. Neurologic exam is intact. Patient is feeling much improved and is requesting di verónicarge. Will follow-up with primary care provider as well as neurologist or return here if condition worsens. Case discussed with Dr. Nguyễn. Disposition Clinical Impression: Scalp pain Disposition: HOME SELF-CARE Condition: Stable Instructions (If sedation given, give patient instructions): Acute Headache (ED) Additional Instructions: follow-up with primary care provider tomorrow. Return to ER with any Worsening symptoms. Is patient prescribed a controlled substance at d/c from ED?: No Referrals: Parveen Anaya DO [Primary Care Provider] - 1-2 days
[2020-05-10 16:04] VITALS: BP 157/91; RESP 20
== END 2020-05-10 16:03 | disposition home or self-care (01) ==
LOC: EC 13:52
DX: R51 Headache (principal); E11.9 Type 2 diabetes mellitus without complications; K21.9 Gastro-esophageal reflux disease without esophagitis; Z79.84 Long term (current) use of oral hypoglycemic drugs; Z79.899 Other long term (current) drug therapy; Z87.891 Personal history of nicotine dependence
CPT/HCPCS: 99284; 96374; 96372; J1200; J1885

== ENCOUNTER → 2020-09-03 | Outpatient (CLI) | payer MEDICARE, BC, OTHER ==
[2020-09-03 08:04] VITALS: BP 126/79; PULSE 93; RESP 18; TEMP 98.5
--- NOTE | 2020-09-03 19:38 | P.PAINCN ---
History of Present Illness - Reason for Consult Consult date: 09/03/20 - History of Present Illness This is initial consultation visit for this 65 years old female with a chronic history of severe facial pain started 4 years ago, she denies any initiating event the patient localizes in the mandibular area and the maxillary area, with radiation to both and also behind the ears, it's both sides of the face and more prominent on the left side, and she described the pain as burning sensation as sociated with severe hypersensitivity of the skin, she denies any visual changes, she denies any facial drooping she motor deficit, patient reported that she had occasional skin rash in the facial area . She denies dysphagia, she denies any change in the smell, she reported that her symptoms interfere with her quality of life. She tried Lyrica or Cymbalta and Tegretol without any benefit She had injection done by Dr. Good without any benefit. Past Medical History Past Medical History: Diabetes Mellitus, GERD/Reflux, Osteoarthritis (OA) Additional Past Medical History / Comment(s): trigeminal neuralgia History of Any Multi-Drug Resistant Organisms: None Reported Past Surgical History: Bladder Surgery, Cholecystectomy, Hysterectomy, Orthopedic Surgery Additional Past Surgical History / Comment(s): sinus surg, arthroscopy right knee, bladder suspension Past Anesthesia/Blood Transfusion Reactions: No Reported Reaction Past Psychological History: Anxiety Smoking Status: Former smoker Past Alcohol Use History: None Reported Additional Past Alcohol Use History / Comment(s): quit smoking September 2018, smoked 12 yrs. 4 cigs/day Past Drug Use History: None Reported - Past Family History Mother Family Medical History: No Reported History Medications and Allergies Home Medications Medication Instructions Recorded Confirmed Type Omeprazole [PriLOSEC] 20 mg PO DAILY 11/24/16 09/03/20 History metFORMIN HCL [Glucophage] 1,000 mg PO BID 08/27/18 09/03/20 History Atorvastatin [Lipitor] 10 mg PO DAILY 04/11/20 09/03/20 History Hydrocodone/Acetaminophen [[place] 1 tab PO TID PRN 04/11/20 09/03/20 History 10-325] ALPRAZolam [Xanax] 0.5 mg PO QAM 08/24/20 09/03/20 History ALPRAZolam [Xanax] 1 mg PO HS 08/24/20 09/03/20 History traZODone HCL [TraZODone HCl] 100 mg PO HS 08/24/20 09/03/20 History Allergies Allergy/AdvReac Type Severity Reaction Status Date / Time No Known Allergies Allergy Verified 08/24/20 15:01 Physical Exam Vitals: Vital Signs Temp Pulse Resp BP Pulse Ox 09/03/20 07:59 98.5 F 93 18 126/79 97 Physical Examinations : -Constitutiona : Cooperative , not in acute distress . -HEENT : nech : supple , no Lymphadenopathy , normal thyroid size . : eyes : no ptosis , no icterus, no photophobia . : ENT : normal of hearing , normal oropharynx , no Thrush . - Respiratory : Chest clear to auscultations Bilaterally , no wheezing , no Rhonchi . - Cardiovascula : regular rate and rhythem , S1 , S2 , no S3 , no S4. - Gastrointestina : abdomen soft no tenderness , bowel sounds , no organomegally . - Genitourinary : Defferred . - neurologic : Cranial nerve II to XII intact , no focal neurological deffecit . -psychatric : alert , oriented X 3 , appropriate affect , intact judgment and insight . -Lymphatic : no Lymphadenopathy . - musculoskeltal : Cervical Spine motor stregnth in the deltoid and biceps, normal right side , normal Left side motor stregnth biceps and the wrist extensors normal right side ,normal left side . motor stregnth in the triceps muscle . normal Right side , normal Left side y. Lumber spine moter stegnth lower extremities ,thigh and legs 5/5 Right side , 5/5 Left side Facial examination= positive hyperesthesia, positive dysesthesia over the mandible and the maxillary area bilaterally Pupils 3 mm, No skin rash identified, Results Comments: Computed tomography scan of the sinuses= ethmoidal sinusitis and sphenoidal sinusitis Assessment and Plan Plan: Assessment and plan=1-trigeminal neuralgia and bilateral (prominent on the left side ) Patient could benefit from a trigeminal nerve block under fluoroscopy guidance with the left side First,and right-sided later Time with Patient: Greater than 30 PQRS Measure Charge Sheet Measure #130: Documentation of Current Meds in Medical Chart: Patient's medications documented in chart Measure #226: Tobacco Use: Screen & Cessation Intervention: Pt screened for tobacco use AND intervention given Measure #111: Pneumonia Vaccination: Pneumococcal vaccine administered or previously received Measure #47: Advance Care Plan: Advance care planning discussed & documented, pt chose/unable to give Measure #412: Opioid Treatment Agreement: No documentation of signed opioid treatment agreement Measure #408: Opioid Therapy Follow-up Evaluation: Patient had NO f/u eval minimum every 3 months during opioid therapy Measure #317: Preventitive Care & Scrn High Bld Press & F/U: Normal blood pressure, f/u not required Measure #128: Body Mass Index (BMI) Screening & Follow-up: BMI documented ABOVE normal parameters - f/u documented Measure #131: Pain Assessment & Follow-up: Pain positive & plan documented, Follow-up scheduled Measure #431: Unhealthy Alcohol Use Preventative Care & Scrn: Patient not identified as an unhealthy alcohol user PQRS Narrative: Smoking Status Former smoker Blood Pressure 126/79 Pain Intensity [Jaw] 10 Scale Used Numeric (1 - 10) Hx Alcohol Use (MH) No Home Medications: Ambulatory Orders Omeprazole [PriLOSEC] 20 mg PO DAILY 11/24/16 metFORMIN HCL [Glucophage] 1,000 mg PO BID 08/27/18 Atorvastatin [Lipitor] 10 mg PO DAILY 04/11/20 Hydrocodone/Acetaminophen [[place] 10-325] 1 tab PO TID PRN 04/11/20 ALPRAZolam [Xanax] 0.5 mg PO QAM 08/24/20 ALPRAZolam [Xanax] 1 mg PO HS 08/24/20 traZODone HCL [TraZODone HCl] 100 mg PO HS 08/24/20
== END | disposition home or self-care (01) ==
LOC: PNWHC3 07:47
PROVIDERS: ATTEND Specialist
DX: G50.0 Trigeminal neuralgia (principal); E11.9 Type 2 diabetes mellitus without complications; K21.9 Gastro-esophageal reflux disease without esophagitis; M19.90 Unspecified osteoarthritis, unspecified site; Z87.891 Personal history of nicotine dependence; Z79.891 Long term (current) use of opiate analgesic; Z79.899 Other long term (current) drug therapy; Z79.84 Long term (current) use of oral hypoglycemic drugs
CPT/HCPCS: 99211

== ENCOUNTER → 2020-09-25 | Day surgery (SDC) | payer MEDICARE, BC, OTHER ==
[2020-09-19 14:41] VITALS: BMI 66.4
[~2020-09-25] MED LIST: DEXAMETHASONE SOD PHOSPHATE 10 MG/ML 1 ML VIAL ONE; IOPAMIDOL M200 10 ML VIAL ONE; IV FLUID CONTINUATION 1,000 ML IV ONE; LACTATED RINGERS 1,000 ML IV SCH; MIDAZOLAM 2 MG/2 ML VIAL ONE; fentaNYL (PF) 50 MCG/ML 2 ML AMP ONE
[2020-09-25 12:51] VITALS: TEMP 97.8
[2020-09-25 12:56] LABS: Glucose,Whole Blood 133 mg/dL (75-99)
[2020-09-25 13:53] VITALS: RESP 16
[2020-09-25 14:08] VITALS: BP 137/76; PULSE 89
--- NOTE | 2020-09-25 14:09 | FL ---
Fluoroscopy HISTORY: Pain 4 seconds fluoroscopy time supplied to the referring clinician. 1 intraoperative C-arm images docume nt the procedure. See dictated report from anesthesia.
--- NOTE | 2020-09-25 15:09 | P.PCN ---
Date of Procedure: 09/25/20 Procedure(s) Performed: PROCEDURES: Left trigeminal nerve block under fluoroscopy guidance (fluoroscopy images stored in the radiology department ) PREOPERATIVE DIAGNOSIS: Bilateral trigeminal neuralgia POSTOPERATIVE DIAGNOSIS: Same as the diagnosis ANESTHESIA: Moderate sedation with intravenous Versed 2 mg and Fentanyl 100 Mcg EBL: None. COMPLICATIONS: None. INDICATION: The patient presents with H&N symptoms suggestive of trigeminal neuralgia and she is here for left-sided trigeminal nerve block block PROCEDURE DESCRIPTION: The patient was seen and identified in the preoperative area. Risks, benefits, complications, and alternatives were discussed with the patient. The patient agreed to proceed with the procedure and signed the consent. IV was started and vital signs were stable. Critical pause was taken. Left facial area was prepped and draped in the usual sterile fashion. Fluoroscopy was used to identify the the left forearm and oval . Then local infiltration of the skin and subcu interstitial with lidocaine 0.1% 3 mL then 22-gauge Quincke curved needle advanced slowly 3 cm at the lateral edge of the mouth, the needle advanced slowly under fluoroscopy and directed towards the left forearm and oval, needle placement confirmed with AP and lateral view and then after negative aspiration for heme and CSF, Isovue 202 mL injected that showed appropriate spread of the dye, under was no intravascular spread to the negative aspiration lidocaine 1% preservative-free 5 ML mixed with 20 mg of dexamethasone injected after negative aspiration,, patient tolerated the procedure well without any complication, and patient discharged home after discharge criteria was met.
== END ==
LOC: ORPAIN 12:02
PROVIDERS: ATTEND Specialist
DX: G89.29 Other chronic pain (principal); G50.0 Trigeminal neuralgia; E11.9 Type 2 diabetes mellitus without complications; K21.9 Gastro-esophageal reflux disease without esophagitis; M19.90 Unspecified osteoarthritis, unspecified site; F41.9 Anxiety disorder, unspecified; Z90.710 Acquired absence of both cervix and uterus; Z90.49 Acquired absence of other specified parts of digestive tract; Z98.890 Other specified postprocedural states; Z87.891 Personal history of nicotine dependence; Z79.84 Long term (current) use of oral hypoglycemic drugs; Z79.899 Other long term (current) drug therapy
CPT/HCPCS: 64450; J2250; J1100; J3010; Q9966; 99152

== ENCOUNTER 2020-09-26 09:47 | Emergency (ER) | payer MEDICARE, BC, OTHER ==
[2020-09-26 10:00] VITALS: TEMP 98
[2020-09-26] MEDS ORDERED: ORPHENADRINE 30 MG/ML 2 ML VIAL IVP STA (10:39)
[2020-09-26] MEDS ORDERED: SODIUM CHLORIDE 0.9% 1,000 ML IV STA (10:39)
[2020-09-26] MEDS ORDERED: SODIUM CHLORIDE 0.9% 500 ML 500 ML IV STA (10:39)
[2020-09-26] MEDS ORDERED: KETOROLAC 15 MG/ML 1 ML VIAL IVP STA (10:39)
--- NOTE | 2020-09-26 11:00 | ED ---
Recheck HPI - General Chief Complaint: Recheck/Abnormal Lab/Rx Stated Complaint: Facial Time Seen by Provider: 09/26/20 09:50 Source: patient, EMS, RN notes reviewed Mode of arrival: EMS Limitations: no limitations - History of Present Illness Initial Comments: This is a 65-year-old female who had a procedure done yesterday the left side of her face for facial pain and TMJ pain who was brought in today by EMS with complaints of right-sided facial numbness which now seems to be improved she has had intermittent episodes of this. No other focal deficits reported. This is since resolved. - Related Data Home Medications Medication Instructions Recorded Confirmed Omeprazole [PriLOSEC] 20 mg PO DAILY 11/24/16 09/26/20 Hydrocodone/Acetaminophen [[place] 1 tab PO TID PRN 04/11/20 09/26/20 10-325] traZODone HCL [TraZODone HCl] 50 - 100 mg PO HS 08/24/20 09/26/20 ALPRAZolam [Xanax] 0.25 mg PO BID PRN 09/19/20 09/26/20 Cyclobenzaprine [Flexeril] 10 mg PO HS PRN 09/19/20 09/26/20 Atorvastatin [Lipitor] 20 mg PO HS 09/26/20 09/26/20 Cyclobenzaprine [Flexeril] 5 mg PO QAM PRN 09/26/20 09/26/20 metFORMIN HCL 1,000 mg PO BID 09/26/20 09/26/20 Allergies Allergy/AdvReac Type Severity Reaction Status Date / Time No Known Allergies Allergy Verified 09/26/20 10:59 Review of Systems ROS Statement: Those systems with pertinent positive or pertinent negative responses have been documented in the HPI. ROS Other: All systems not noted in ROS Statement are negative. Past Medical History Past Medical History: Diabetes Mellitus, GERD/Reflux, Hyperlipidemia, Osteoarthritis (OA) Additional Past Medical History / Comment(s): trigeminal neuralgia History of Any Multi-Drug Resistant Organisms: None Reported Past Surgical History: Bladder Surgery, Cholecystectomy, Hysterectomy, Orthop edic Surgery Additional Past Surgical History / Comment(s): sinus surg, arthroscopy right knee, bladder suspension Past Anesthesia/Blood Transfusion Reactions: No Reported Reaction Past Psychological History: Anxiety Smoking Status: Current some day smoker - Past Family History Mother Family Medical History: No Reported History General Exam - General Exam Comments Initial Comments: This a well-developed well-nourished awake alert oriented 3 female Limitations: no limitations General appearance: alert, anxious Head exam: Present: atraumatic, normocephalic, normal inspection, other (Examination left facial region reveals a slight amount tenderness palpation no evidence of drainage discharge or erythema increased localized temperature. No facial numbness at this time. Some tenderness over the left TMJ.) Eye exam: Present: normal appearance, PERRL, EOMI. Absent: scleral icterus, conjunctival injection, periorbital swelling ENT exam: Present: normal exam, mucous membranes moist Neck exam: Present: normal inspection. Absent: tenderness, meningismus, lymphadenopathy Respiratory exam: Present: normal lung sounds bilaterally. Absent: respiratory distress, wheezes, rales, rhonchi, stridor Cardiovascular Exam: Present: regular rate, normal rhythm, normal heart sounds. Absent: systolic murmur, diastolic murmur, rubs, gallop, clicks GI/Abdominal exam: Present: soft, normal bowel sounds. Absent: distended, tenderness, guarding, rebound, rigid Extremities exam: Present: normal inspection, full ROM, normal capillary refill. Absent: tenderness, pedal edema, joint swelling, calf tenderness Back exam: Present: normal inspection Neurological exam: Present: alert, oriented X3, CN II-XII intact Psychiatric exam: Present: normal affect, normal mood Skin exam: Present: warm, dry, intact, normal color. Absent: rash Course Vital Signs 09/26/20 09/26/20 09/26/20 09:55 11:47 13:22 Temperature 98 F Pulse Rate 100 62 Respiratory 16 18 Rate Blood Pressure 126/75 108/67 110/70 O2 Sat by Pulse 98 100 Oximetry - Reevaluation(s) Reevaluation #1: 09/26/20 11:02 I did review the report from yesterday the patient did get a left trigeminal nerve block. Medical Decision Making - Medical Decision Making Patient is feeling improved this time I did discuss the findings with her she'll be discharged she is a keep follow-ups as planned. No evidence of infectious processes at this time. Symptoms have resolved the numbness is secondary to the operative procedure yesterday. He also is a continuation of the patient's been suffering for she states around 4 years. - Lab Data Result diagrams: 09/26/20 10:57 09/26/20 10:57 Lab Results 09/26/20 09/26/20 Range/Units 10:57 10:57 WBC 15.2 H (3.8-10.6) k/uL RBC 4.61 (3.80-5.40) m/uL Hgb 14.7 (11.4-16.0) gm/dL Hct 41.7 (34.0-46.0) % MCV 90.6 (80.0-100.0) fL MCH 31.9 (25.0-35.0) pg MCHC 35.2 (31.0-37.0) g/dL RDW 12.5 (11.5-15.5) % Plt Count 219 (150-450) k/uL MPV 7.8 Neutrophils % 78 % Lymphocytes % 13 % Monocytes % 6 % Eosinophils % 2 % Basophils % 1 % Neutrophils # 11.9 H (1.3-7.7) k/uL Lymphocytes # 2.0 (1.0-4.8) k/uL Monocytes # 0.9 (0-1.0) k/uL Eosinophils # 0.2 (0-0.7) k/uL Basophils # 0.1 (0-0.2) k/uL Sodium 137 (137-145) mmol/L Potassium 4.5 (3.5-5.1) mmol/L Chloride 102 (98-107) mmol/L Carbon Dioxide 24 (22-30) mmol/L Anion Gap 11 mmol/L BUN 14 (7-17) mg/dL Creatinine 0.56 (0.52-1.04) mg/dL Est GFR (CKD-EPI)AfAm >90 (>60 ml/min/1.73 sqM) Est GFR (CKD-EPI)NonAf >90 (>60 ml/min/1.73 sqM) Glucose 202 H (74-99) mg/dL Calcium 10.1 (8.4-10.2) mg/dL Magnesium 1.9 (1.6-2.3) mg/dL Total Bilirubin 0.7 (0.2-1.3) mg/dL AST 36 (14-36) U/L ALT 38 H (4-34) U/L Alkaline Phosphatase 139 H (38-126) U/L Creatine Kinase 62 (30-135) U/L Total Protein 8.4 H (6.3-8.2) g/dL Albumin 4.8 (3.5-5.0) g/dL Disposition Clinical Impression: Facial paresthesia Disposition: HOME SELF-CARE Condition: Good Instructions (If sedation given, give patient instructions): Paresthesia (ED) Is patient prescribed a controlled substance at d/c from ED?: No Referrals: Parveen Anaya DO [Primary Care Provider] - 1-2 days
[2020-09-26 11:02] LABS: Basophils # (A) 0.1 k/uL (0-0.2); Basophils % (A) 1 %; Eosinophils # (A) 0.2 k/uL (0-0.7); Eosinophils % (A) 2 %; HCT 41.7 % (34.0-46.0); HGB 14.7 gm/dL (11.4-16.0); Lymphocytes % (A) 13 %; MCH 31.9 pg (25.0-35.0); MCHC 35.2 g/dL (31.0-37.0); MCV 90.6 fL (80.0-100.0); Mean Platelet Volume 7.8; Monocytes # (A) 0.9 k/uL (0-1.0); Monocytes % (A) 6 %; Neutrophils # (A) 11.9 k/uL (1.3-7.7); Neutrophils % (A) 78 %; Platelet Count 219 k/uL (150-450); RBC 4.61 m/uL (3.80-5.40); RDW 12.5 % (11.5-15.5); WBC 15.2 k/uL (3.8-10.6)
[2020-09-26 11:16] LABS: ALT 38 U/L (4-34); AST 36 U/L (14-36); African American GFR (CKD) >90 (>60 ml/min/1.73 sqM); Albumin 4.8 g/dL (3.5-5.0); Alkaline Phosphatase 139 U/L (38-126); Anion Gap 11 mmol/L; Blood Urea Nitrogen 14 mg/dL (7-17); Calcium 10.1 mg/dL (8.4-10.2); Carbon Dioxide 24 mmol/L (22-30); Chloride 102 mmol/L (98-107); Creatine Kinase 62 U/L (30-135); Glucose 202 mg/dL (74-99); Magnesium 1.9 mg/dL (1.6-2.3); Non-African American GFR(CKD) >90 (>60 ml/min/1.73 sqM); Potassium 4.5 mmol/L (3.5-5.1); Sodium 137 mmol/L (137-145); Total Bilirubin 0.7 mg/dL (0.2-1.3); Total Protein 8.4 g/dL (6.3-8.2)
[2020-09-26 13:23] VITALS: BP 110/70; PULSE 62; RESP 18
== END 2020-09-26 13:39 | disposition home or self-care (01) ==
LOC: EC 09:47
DX: R20.2 Paresthesia of skin (principal); E11.9 Type 2 diabetes mellitus without complications; K21.9 Gastro-esophageal reflux disease without esophagitis; E78.5 Hyperlipidemia, unspecified; M19.90 Unspecified osteoarthritis, unspecified site; F17.200 Nicotine dependence, unspecified, uncomplicated; F41.9 Anxiety disorder, unspecified; Z79.84 Long term (current) use of oral hypoglycemic drugs; Z79.899 Other long term (current) drug therapy
CPT/HCPCS: 36415; 80053; 82550; 83735; 85025; 99284; 96374; 96375; 96361 ×3; J2360; J1885

== ENCOUNTER → 2020-11-12 | Outpatient (CLI) | payer MEDICARE, BC, OTHER ==
--- NOTE | 2020-11-12 13:35 | MR ---
EXAMINATION TYPE: MR brain wo/w con DATE OF EXAM: 11/12/2020 COMPARISON: MR brain 04/04/2019 HISTORY: Trigeminal neuralgia, weakness numbness on right side TECHNIQUE: Multiplanar, multisequence images of the brain and brainstem is performed without and with IV contras t small [id number] and high resolution images through the midbrain, utilizing 7.5 mL intravenous G adavist . FINDINGS: Diffusion weighted images demonstrate no evidence of a recent infarct or other diffusion ab normality. There is no extra-axial fluid collection or significant white matter signal abnormality. The ventricular system and cisternal spaces are normal in size and appearance. The brain volume is age appropriate. Midline structures demonstrate normal morphology. There is no evident cerebellopontine angle mass, cr anial nerve V shows a symmetric appearance, no evident vascular compression. The craniocervical junct ion appears within normal limits. Post contrast images demonstrate no abnormal enhancement. The dura l venous sinuses appear patent. The visualized sinuses are remarkable for inflammatory change in ethm oid air cells, there are air-fluid levels in the bilateral sphenoid sinus as on prior exam and the gl obes are intact. IMPRESSION: Correlate for sphenoid sinusitis.
== END ==
LOC: RADMRIMAIN 08:55
PROVIDERS: ATTEND Neurological Surgery
DX: G50.0 Trigeminal neuralgia (principal)
CPT/HCPCS: 70553; A9585

== ENCOUNTER → 2020-12-28 | Outpatient (CLI) | payer MEDICARE, BC, OTHER ==
[2020-12-28 14:49] LABS: African American GFR (CKD) >90 (>60 ml/min/1.73 sqM); Blood Urea Nitrogen 11 mg/dL (7-17); Non-African American GFR(CKD) >90 (>60 ml/min/1.73 sqM)
--- NOTE | 2020-12-28 15:16 | CT ---
EXAMINATION TYPE: CT brain w con DATE OF EXAM: 12/28/2020 COMPARISON: 06/01/2019 INDICATION: dizziness, pain and numbness to left side of face DLP: 1054.2 mGycm, Automated exposure control for dose reduction was used. CONTRAST: None CT of the brain is performed utilizing 3 mm thick sections through the posterior fossa and 3 mm thick sections through the remaining calvarium. Study is performed within 24 hours of arrival to the hosp [facility]. No abnormal hyperdensity is present to suggest an acute intracranial hemorrhage. No mass lesion is evident. No acute infarcts are evident. Ventricles and sulci are appropriate for the patient age. Mucosal thickening in fluid levels are within the sphenoid sinuses. There is some mild mucosal thicke ciara within posterior ethmoidectomy air cells. Mastoid air cells are clear. No suspicious enhancement is evident. IMPRESSIONS: 1. No acute intracranial process.
== END | disposition home or self-care (01) ==
LOC: RADCTMAIN 13:50
PROVIDERS: ATTEND Neurological Surgery
DX: R42 Dizziness and giddiness (principal)
CPT/HCPCS: 82565; 84520; 70460; 36415; Q9967

== ENCOUNTER 2021-01-19 18:54 | Emergency (ER) | payer MEDICARE, BC, OTHER ==
[2021-01-19 19:09] VITALS: BP 134/76; PULSE 90; RESP 18; TEMP 98.4
--- NOTE | 2021-01-19 19:12 | ED ---
General Adult HPI - General Stated complaint: facial pain Time Seen by Provider: 01/19/21 18:59 Source: patient, EMS Mode of arrival: EMS Limitations: no limitations - History of Present Illness Initial comments: This is a 65-year-old female with a history of trigeminal neuralgia who presents emergency department for numbness on the right side of her face and left sided facial pain. The patient had a procedure done earlier today at [facility] for her left-sided trigeminal neuralgia. She states that since that time she's had persistent burning on the left side of her face and then developed some numbness on the right side of her face. It sounds like she's had this multiple times in the past. She's been prescribed Lynx at home as well as Percocet in the past. She called an ambulance when the pain was getting worse and the numbness is getting worse. She was given morphine in the ambulance and is had complete resolution of the numbness now. She states that she's had improved pain in the left face. She denies any difficulty with speech or swallowing. No focal weakness in her arms or legs. No headache. No vision changes. No other acute complaints. - Related Data Home Medications Medication Instructions Recorded Confirmed Omeprazole [PriLOSEC] 20 mg PO DAILY 11/24/16 09/26/20 Hydrocodone/Acetaminophen [[place] 1 tab PO TID PRN 04/11/20 09/26/20 10-325] traZODone HCL [TraZODone HCl] 50 - 100 mg PO HS 08/24/20 09/26/20 ALPRAZolam [Xanax] 0.25 mg PO BID PRN 09/19/20 09/26/20 Cyclobenzaprine [Flexeril] 10 mg PO HS PRN 09/19/20 09/26/20 Atorvastatin [Lipitor] 20 mg PO HS 09/26/20 09/26/20 Cyclobenzaprine [Flexeril] 5 mg PO QAM PRN 09/26/20 09/26/20 metFORMIN HCL 1,000 mg PO BID 09/26/20 09/26/20 Previous Rx's Medication Instructions Recorded Morphine Sulfate ER [Ms Contin] 15 mg PO Q12HR 2 Days #4 tab 01/19/21 Allergies Allergy/AdvReac Type Severity Reaction Status Date / Time No Known Allergies Allergy Verified 09/26/20 10:59 Review of Systems ROS Statement: Those systems with pertinent positive or pertinent negative responses have been documented in the HPI. ROS Other: All systems not noted in ROS Statement are negative. Past Medical History Past Medical History: Diabetes Mellitus, GERD/Reflux, Hyperlipidemia, Osteoarthritis (OA) Additional Past Medical History / Comment(s): trigeminal neuralgia History of Any Multi-Drug Resistant Organisms: None Reported Past Surgical History: Bladder Surgery, Cholecystectomy, Hysterectomy, Orthopedic Surgery Additional Past Surgical History / Comment(s): sinus surg, arthroscopy right knee, bladder suspension, Past Anesthesia/Blood Transfusion Reactions: No Reported Reaction Past Psychological History: Anxiety Smoking Status: Current some day smoker - Past Family History Mother Family Medical History: No Reported History General Exam - General Exam Comments Initial Comments: Constitutional: Awake alert Appears comfortable Head: Normocephalic atraumatic Eyes: no conjunctival injection No scleral icterus EOMI Neck: No JVD Supple Heart: Regular rate rhythm normal S1-S2 no murmurs Lungs: Clear to auscultation bilaterally No wheezing No rales Abdomen: Soft nondistended nontender Extremities: Non edematous DP pulses intact Radial pulses intact Neuro: A&Ox3 cranial nerves II through XII are grossly intact, the patient has intact sensation in V1 through V3 distributions on the right and left. She does have some burning sensation to the left face however intact sensation. She has 5 out of 5 strength in upper and lower extremities. Pupils are 4 mm and reactive bilaterally No focal neurologic deficits Psych: Appropriate mood and affect Limitations: no limitations Course Vital Signs 01/19/21 19:03 Temperature 98.4 F Pulse Rate 90 Respiratory 18 Rate Blood Pressure 134/76 O2 Sat by Pulse 96 Oximetry EKG Findings - EKG Comments: EKG Findings:: EKG showing normal sinus rhythm with a rate of 91. No abnormal changes or T-wave inverted. QTC is 432. Other intervals normal. No ectopy. Medical Decision Making - Medical Decision Making This is a 65-year-old female who presents emergency department for right-sided facial numbness and left sided pain. I reviewed the patient's chart it seems likes she's had this presentation multiple times in the past. She was given morphine by EMS with improvement in her symptoms. She has for a Lynx here which she was given. Patient states that Lynx is not really helping her at home however. I told her that I would give HER-2 days worth of [place] to help with her pain since she does have the procedure performed. She was written for 4 tabs. Told to follow-up closely with her primary doctor and neurologist and can return emergency Department if she has changing symptoms. All questions were answered. - Lab Data Result diagrams: 01/19/21 19:16 01/19/21 19:16 Lab Results 01/19/21 01/19/21 Range/Units 19:16 19:16 WBC 10.2 (3.8-10.6) k/uL RBC 3.87 (3.80-5.40) m/uL Hgb 12.0 (11.4-16.0) gm/dL Hct 34.3 (34.0-46.0) % MCV 88.6 (80.0-100.0) fL MCH 31.1 (25.0-35.0) pg MCHC 35.1 (31.0-37.0) g/dL RDW 12.3 (11.5-15.5) % Plt Count 170 (150-450) k/uL MPV 7.7 Neutrophils % 61 % Lymphocytes % 29 % Monocytes % 6 % Eosinophils % 2 % Basophils % 1 % Neutrophils # 6.2 (1.3-7.7) k/uL Lymphocytes # 3.0 (1.0-4.8) k/uL Monocytes # 0.7 (0-1.0) k/uL Eosinophils # 0.2 (0-0.7) k/uL Basophils # 0.1 (0-0.2) k/uL Sodium 133 L (137-145) mmol/L Potassium 3.7 (3.5-5.1) mmol/L Chloride 101 (98-107) mmol/L Carbon Dioxide 25 (22-30) mmol/L Anion Gap 7 mmol/L BUN 9 (7-17) mg/dL Creatinine 0.45 L (0.52-1.04) mg/dL Est GFR (CKD-EPI)AfAm >90 (>60 ml/min/1.73 sqM) Est GFR (CKD-EPI)NonAf >90 (>60 ml/min/1.73 sqM) Glucose 149 H (74-99) mg/dL Calcium 8.9 (8.4-10.2) mg/dL Total Bilirubin 0.9 (0.2-1.3) mg/dL AST 24 (14-36) U/L ALT 19 (4-34) U/L Alkaline Phosphatase 122 (38-126) U/L Total Protein 6.9 (6.3-8.2) g/dL Albumin 3.9 (3.5-5.0) g/dL Disposition Clinical Impression: Facial pain Disposition: HOME SELF-CARE Condition: Stable Instructions (If sedation given, give patient instructions): Trigeminal Neuralgia (ED) Prescriptions: Morphine Sulfate ER [Ms Contin] 15 mg PO Q12HR 2 Days #4 tab Is patient prescribed a controlled substance at d/c from ED?: Yes If prescribed controlled substance>3 days was MAPS reviewed?: Prescribed <3 Days Referrals: Parveen Anaya DO [Primary Care Provider] - 1-2 days
[2021-01-19] MEDS ORDERED: HYDROcodone/APAP 10-325MG 1 EACH TAB PO ONE (19:40)
[2021-01-19 19:44] LABS: Basophils # (A) 0.1 k/uL (0-0.2); Basophils % (A) 1 %; Eosinophils # (A) 0.2 k/uL (0-0.7); Eosinophils % (A) 2 %; HCT 34.3 % (34.0-46.0); Lymphocytes % (A) 29 %; MCH 31.1 pg (25.0-35.0); MCHC 35.1 g/dL (31.0-37.0); MCV 88.6 fL (80.0-100.0); Mean Platelet Volume 7.7; Monocytes # (A) 0.7 k/uL (0-1.0); Monocytes % (A) 6 %; Neutrophils # (A) 6.2 k/uL (1.3-7.7); Neutrophils % (A) 61 %; Platelet Count 170 k/uL (150-450); RBC 3.87 m/uL (3.80-5.40); RDW 12.3 % (11.5-15.5); WBC 10.2 k/uL (3.8-10.6)
[2021-01-19 20:03] LABS: ALT 19 U/L (4-34); AST 24 U/L (14-36); African American GFR (CKD) >90 (>60 ml/min/1.73 sqM); Albumin 3.9 g/dL (3.5-5.0); Alkaline Phosphatase 122 U/L (38-126); Anion Gap 7 mmol/L; Blood Urea Nitrogen 9 mg/dL (7-17); Calcium 8.9 mg/dL (8.4-10.2); Carbon Dioxide 25 mmol/L (22-30); Chloride 101 mmol/L (98-107); Glucose 149 mg/dL (74-99); Non-African American GFR(CKD) >90 (>60 ml/min/1.73 sqM); Potassium 3.7 mmol/L (3.5-5.1); Sodium 133 mmol/L (137-145); Total Bilirubin 0.9 mg/dL (0.2-1.3); Total Protein 6.9 g/dL (6.3-8.2)
== END 2021-01-19 20:35 | disposition home or self-care (01) ==
LOC: EC 18:54
DX: R51.9 Headache, unspecified (principal); R20.0 Anesthesia of skin; F41.9 Anxiety disorder, unspecified; E11.9 Type 2 diabetes mellitus without complications; E78.5 Hyperlipidemia, unspecified; K21.9 Gastro-esophageal reflux disease without esophagitis; M19.90 Unspecified osteoarthritis, unspecified site; Z79.84 Long term (current) use of oral hypoglycemic drugs; Z79.899 Other long term (current) drug therapy
CPT/HCPCS: 36415; 80053; 85025; 93005; 99284

== ENCOUNTER → 2021-05-14 | Outpatient (CLI) | payer MEDICARE, BC, OTHER ==
--- NOTE | 2021-05-16 10:10 | MM ---
Reason for exam: screening (asymptomatic). Last mammogram was performed 2 years and 1 month ago. History: Patient is postmenopausal. Family history of breast cancer in paternal cousin at age 58. Physical Findings: A clinical breast exam by your physician is recommended on an annual basis and results should be correlated with mammographic findings. MG Screening Mammo w CAD Bilateral CC and MLO view(s) were taken. Prior study comparison: April 04, 2019, bilateral MG 3d screening mammo w/cad. November 13, 2015, bilateral MG screening mammo w CAD. May 08, 2014, bilateral MG screening mammo w CAD. There are scattered fibroglandular densities. No significant changes when compared with prior studies. ASSESSMENT: Benign, BI-RAD 2 RECOMMENDATION: Routine screening mammogram of both breasts in 1 year.
== END | disposition home or self-care (01) ==
LOC: RADMAMWWP 15:04
PROVIDERS: ATTEND Family Medicine
DX: Z12.31 Encounter for screening mammogram for malignant neoplasm of breast (principal); Z78.0 Asymptomatic menopausal state; Z80.3 Family history of malignant neoplasm of breast
CPT/HCPCS: 77067

== ENCOUNTER 2021-06-01 15:49 | Emergency (ER) | payer MEDICARE, BC, OTHER ==
[2021-06-01 15:58] VITALS: BP 127/83; PULSE 87; RESP 18; TEMP 98.1
[2021-06-01] MEDS ORDERED: HYDROcodone/APAP 5-325MG 1 EACH TAB PO STA (16:40)
[2021-06-01] MEDS ORDERED: KETOROLAC 15 MG/ML 1 ML VIAL IM STA (16:40)
--- NOTE | 2021-06-01 16:42 | ED ---
General Adult HPI - General Chief complaint: Recheck/Abnormal Lab/Rx Stated complaint: face/jaw pain Time Seen by Provider: 06/01/21 16:08 Source: patient, RN notes reviewed, old records reviewed Mode of arrival: ambulatory Limitations: no limitations - History of Present Illness Initial comments: I evaluated the patient and she was placed in a room. Patient is a 66-year-old female with past medical history remarkable for diabetes, GERD, hyperlipidemia, osteoarthritis and trigeminal neuralgia presents emergency Department with worsening trigeminal neuralgia pain. She states she has been experiencing trigeminal neuralgia pain for the last year. She is Since a left-sided pain radiating from her ear into her left jaw. She states that has been chronic for the last year and relatively controlled with [place] at home, however states that it is been worse over the last week which is why she presents at this time. She is scheduled to see the physician that is managing her pain within the next 1-2 weeks. She states she is not on carbamazepine at this time. She has never tried it. She is seeking pain relief. Denies any pain over her eye towards her nose. Denies any headaches, lightheadedness, testing, shortness breath, abdominal pain, fevers, chills, cough. She denies any other acute complaints at this time. She is no weakness or fatigue. She is just seeking pain relief for her typical trigeminal neuralgia pain. - Related Data Home Medications Medication Instructions Recorded Confirmed Omeprazole [PriLOSEC] 20 mg PO DAILY 11/24/16 09/26/20 Hydrocodone/Acetaminophen [[place] 1 tab PO TID PRN 04/11/20 09/26/20 10-325] traZODone HCL [TraZODone HCl] 50 - 100 mg PO HS 08/24/20 09/26/20 ALPRAZolam [Xanax] 0.25 mg PO BID PRN 09/19/20 09/26/20 Cyclobenzaprine [Flexeril] 10 mg PO HS PRN 09/19/20 09/26/20 Atorvastatin [Lipitor] 20 mg PO HS 09/26/20 09/26/20 Cyclobenzaprine [Flexeril] 5 mg PO QAM PRN 09/26/20 09/26/20 metFORMIN HCL [Glucophage] 1,000 mg PO BID 09/26/20 09/26/20 Previous Rx's Medication Instructions Recorded Morphine Sulfate ER [Ms Contin] 15 mg PO Q12HR 2 Days #4 tab 01/19/21 carBAMazepine [TEGretol XR] 100 mg PO Q12H PRN #14 tab 06/01/21 Allergies Allergy/AdvReac Type Severity Reaction Status Date / Time No Known Allergies Allergy Verified 06/01/21 15:58 Review of Systems ROS Statement: Those systems with pertinent positive or pertinent negative responses have been documented in the HPI. Review of Systems: CONST: Denies fever EYES: Denies blurry vision ENT: Denies nasal congestion C/V: Denies Chest pain RESP: Denies shortness of breath GI: Denies abdominal pain : Denies dysuria SKIN: Denies rash. MSK: Denies joint pain. NEURO: Endorses left-sided facial pain typical for her trigeminal neuralgia. ROS Other: All systems not noted in ROS Statement are negative. Past Medical History Past Medical History: Diabetes Mellitus, GERD/Reflux, Hyperlipidemia, Osteoarthritis (OA) Additional Past Medical History / Comment(s): trigeminal neuralgia History of Any Multi-Drug Resistant Organisms: None Reported Past Surgical History: Bladder Surgery, Cholecystectomy, Hysterectomy, Orthopedic Surgery Additional Past Surgical History / Comment(s): sinus surg, arthroscopy right knee, bladder suspension, Past Anesthesia/Blood Transfusion Reactions: No Reported Reaction Past Psychological History: Anxiety Smoking Status: Current some day smoker Past Alcohol Use History: None Reported Past Drug Use History: None Reported - Past Family History Mother Family Medical History: No Reported History General Exam - General Exam Comments Initial Comments: General: Appears in mild distress secondary to left sided facial pain. HEAD: Normal with no signs of head trauma. EYES: PERRLA, EOMI, conjunctiva normal, no discharge. ENT: Hearing grossly intact, normal oropharynx. Patient's facial pain is nonreproducible on palpation. Patient describes the pain radiating from her left ear towards her left jaw which is typical and unchanged but seems to be difficult to control over the last week. Negative [place] sign. No rash present. RESPIRATORY: Clear breath sounds bilaterally. No wheezes, rales, or rhonchi. C/V: Regular rate and rhythm. S1 and S2 auscultated, no edema, peripheral pulses 2+ and intact throughout ABD: Abd is soft, nontender, nondistended EXT: Normal range of motion, no obvious deformity SKIN: No rashes or lesions observed on exposed skin. NEURO: Alert and oriented x 4. Cranial nerves II-XII intact. No focal sensory or strength deficits. Cerebellar function is intact as evident by normal finger to nose testing. Patient is able to ambulate without difficulty. GCS is 15. NIH stroke scale is 0. Pain is in the lower V2 and V3 distribution of the left side of the face. Limitations: no limitations Course Vital Signs 06/01/21 15:56 Temperature 98.1 F Pulse Rate 87 Respiratory 18 Rate Blood Pressure 127/83 O2 Sat by Pulse 97 Oximetry Medical Decision Making - Medical Decision Making Based on the patient's presentation and physical exam, I do believe she is likely experiencing acute on chronic trigeminal neuralgia pain of the left lower face. This pain is unchanged from prior pain but is difficult to control with her home pain medications. She is not concerning carbamazepine previously. I did discuss with her starting her with an outpatient prescription as she does have follow-up with her physician within the next 1-2 weeks that is managing her typical pain. She was in agreement with this plan. She'll be given a dose of [place] here in the department and I instructed to follow-up with her physician otherwise. I do not believe she requires any laboratory studies or imaging at this time, his neurological exam is within normal limits with a NIH stroke scale of 0 and her symptoms have been ongoing for cluster year with difficult to control symptoms over the last week which has occurred previously. I discussed this with the patient she was in agreement this plan. I will provide the patient with a prescription for carbamazepine 100 mg twice a day. I instructed the patient to follow up with their PCP in the next 3 days. I explained that the patient should return to the emergency department if they experience any worsening symptoms. Strict return precautions were discussed with the patient. The patient expressed understanding of these instructions. I answered all questions that the patient had. The patient was discharged home in fair condition with their prescriptions and follow up information. Disposition Clinical Impression: Trigeminal neuralgia of left side of face, Chronic pain Disposition: HOME SELF-CARE Condition: Fair Instructions (If sedation given, give patient instructions): Trigeminal Neuralgia (ED) Prescriptions: carBAMazepine [TEGretol XR] 100 mg PO Q12H PRN #14 tab PRN Reason: Pain Is patient prescribed a controlled substance at d/c from ED?: No Referrals: Parveen Anaya DO [Primary Care Provider] - 1-2 days
== END 2021-06-01 16:54 | disposition home or self-care (01) ==
LOC: EC 15:49
DX: G50.0 Trigeminal neuralgia (principal); G89.29 Other chronic pain; E78.5 Hyperlipidemia, unspecified; E11.9 Type 2 diabetes mellitus without complications; K21.9 Gastro-esophageal reflux disease without esophagitis; M19.90 Unspecified osteoarthritis, unspecified site; F41.9 Anxiety disorder, unspecified; F17.200 Nicotine dependence, unspecified, uncomplicated; Z79.84 Long term (current) use of oral hypoglycemic drugs; Z79.899 Other long term (current) drug therapy
CPT/HCPCS: 99283; 96372; J1885

== ENCOUNTER → 2021-07-02 | Outpatient (CLI) | payer MEDICARE, BC ==
--- NOTE | 2021-07-02 08:34 | MR ---
EXAMINATION TYPE: MR brain wo/w con DATE OF EXAM: 07/02/2021 8:24 AM COMPARISON: NONE HISTORY: Left Trigeminal Neuralgia, hx of surgery CONTRAST: Patient received 7 mL intravenous Gadavist gadolinium contrast. Multiplanar and multispin-echo imaging of the brain was performed . Pre and post contrast enhanced i mages are obtained. The ventricles, basal cisterns and sulci overlying the cerebral convexities are mildly enlarged. There is evidence of mild periventricular white matter ischemic demyelination. Remote deep white matter insults are also noted. No acute edema is seen on diffusion weighted imaging. There is no evidence for midline shift or mass effect. Midline structures demonstrate normal morphol ogy. There is no evident cerebellopontine angle mass, cranial nerve V shows a symmetric appearance, n o evident vascular compression. The craniocervical junction appears within normal limits. Acute intracranial hemorrhage or extra-axial collection is not evident. No enhancing lesions are seen. Moderate ethmoidal and sphenoidal sinusitis. IMPRESSION: Age-related atrophic and chronic small vessel ischemic change. No acute intracranial process at this time. No enhancing lesions are seen.
== END | disposition home or self-care (01) ==
LOC: RADMRIMAIN 07:36
PROVIDERS: ATTEND Nurse Practitioner Family
DX: G31.9 Degenerative disease of nervous system, unspecified (principal); I67.82 Cerebral ischemia
CPT/HCPCS: 70553; A9585

== ENCOUNTER 2021-08-04 12:46 | Emergency (ER) | payer MEDICARE, BC, OTHER ==
[2021-08-04 13:14] VITALS: BP 157/77; PULSE 93; TEMP 97
[2021-08-04] MEDS ORDERED: diphenhydrAMINE 50 MG/ML 1 ML VIAL IVP STA (15:35)
[2021-08-04] MEDS ORDERED: MORPHINE SULFATE 4 MG/ML SYRINGE IVP STA (15:35)
--- NOTE | 2021-08-04 15:36 | ED ---
General Adult HPI - General Chief complaint: Recheck/Abnormal Lab/Rx Stated complaint: Head itches Time Seen by Provider: 08/04/21 15:10 Source: patient Mode of arrival: ambulatory Limitations: no limitations - History of Present Illness Initial comments: Bree is a 66-year-old female with a history of trigeminal neuralgia for which she is followed with neurology in the past. She is on multiple pain medications and Lyrica. She was seen last month and prescribed Tegretol but did not get a refill on this medication. Patient presents to the ER today with worsening pain and itching of the scalp. Patient states that her trigeminal neuralgia has been exacerbated by recent dental work. Patient requesting pain management. No new complaints. - Related Data Home Medications Medication Instructions Recorded Confirmed Omeprazole [PriLOSEC] 20 mg PO DAILY 11/24/16 09/26/20 Hydrocodone/Acetaminophen [[place] 1 tab PO TID PRN 04/11/20 09/26/20 10-325] traZODone HCL [TraZODone HCl] 50 - 100 mg PO HS 08/24/20 09/26/20 ALPRAZolam [Xanax] 0.25 mg PO BID PRN 09/19/20 09/26/20 Cyclobenzaprine [Flexeril] 10 mg PO HS PRN 09/19/20 09/26/20 Atorvastatin [Lipitor] 20 mg PO HS 09/26/20 09/26/20 Cyclobenzaprine [Flexeril] 5 mg PO QAM PRN 09/26/20 09/26/20 metFORMIN HCL [Glucophage] 1,000 mg PO BID 09/26/20 09/26/20 Previous Rx's Medication Instructions Recorded Morphine Sulfate ER [Ms Contin] 15 mg PO Q12HR 2 Days #4 tab 01/19/21 carBAMazepine [TEGretol XR] 100 mg PO Q12H PRN #14 tab 06/01/21 carBAMazepine [TEGretol] 100 mg PO Q12H #60 tablet 08/04/21 Allergies Allergy/AdvReac Type Severity Reaction Status Date / Time No Known Allergies Allergy Verified 08/04/21 13:14 Review of Systems ROS Statement: Those systems with pertinent positive or pertinent negative responses have been documented in the HPI. ROS Other: All systems not noted in ROS Statement are negative. Past Medical History Past Medical History: Diabetes Mellitus, GERD/Reflux, Hyperlipidemia, Osteoarthritis (OA) Additional Past Medical History / Comment(s): trigeminal neuralgia History of Any Multi-Drug Resistant Organisms: None Reported Past Surgical History: Bladder Surgery, Cholecystectomy, Hysterectomy, Orthopedic Surgery Additional Past Surgical History / Comment(s): sinus surg, arthroscopy right knee, bladder suspension, Past Anesthesia/Blood Transfusion Reactions: No Reported Reaction Past Psychological History: Anxiety Smoking Status: Current some day smoker Past Alcohol Use History: None Reported Past Drug Use History: None Reported - Past Family History Mother Family Medical History: No Reported History General Exam - General Exam Comments Initial Comments: Physical Exam GENERAL: Patient is well-developed and well-nourished. Patient is nontoxic and well-hydrated and is in no distress. HENT: Normocephalic, Atraumatic. EYES: PERRL, EOMI PULMONARY: Unlabored respirations. CARDIOVASCULAR: RRR Warm and well perfused extremities ABDOMEN: Non-distended SKIN: No rashes or bruising : Deferred NEUROLOGIC: Alert and oriented Normal speech Normal gait MUSCULOSKELETAL: Moving all extremities with no apparent injury PSYCHIATRIC: No SI/HI Limitations: no limitations Course Vital Signs 08/04/21 13:12 Temperature 97 F L Pulse Rate 93 Respiratory 16 Rate Blood Pressure 157/77 O2 Sat by Pulse 97 Oximetry Medical Decision Making - Medical Decision Making The patient was seen and evaluated, history is obtained from patient and review of medical record patient with history of trigeminal neuralgia experiencing trigeminal neuralgia exacerbation. Patient not on carbamazepine due to prescription having run out. Patient will be treated with pain medication, Benadryl and discharged home with a one-month prescription for Tegretol Disposition Clinical Impression: Trigeminal neuralgia pain Disposition: HOME SELF-CARE Condition: Stable Additional Instructions: Follow-up with a neurologist to discuss increasing the dose of Tegretol was prescribed today Prescriptions: carBAMazepine [TEGretol] 100 mg PO Q12H #60 tablet Is patient prescribed a controlled substance at d/c from ED?: No Referrals: Landen Hess MD [Primary Care Provider] - 1-2 days
[2021-08-04 16:20] VITALS: RESP 17
== END 2021-08-04 16:20 | disposition home or self-care (01) ==
LOC: EC 12:46
DX: G50.0 Trigeminal neuralgia (principal); E11.9 Type 2 diabetes mellitus without complications; K21.9 Gastro-esophageal reflux disease without esophagitis; E78.5 Hyperlipidemia, unspecified; M19.90 Unspecified osteoarthritis, unspecified site; F41.9 Anxiety disorder, unspecified; F17.200 Nicotine dependence, unspecified, uncomplicated; Z79.84 Long term (current) use of oral hypoglycemic drugs; Z90.49 Acquired absence of other specified parts of digestive tract; Z90.710 Acquired absence of both cervix and uterus
CPT/HCPCS: 99283; 96374; 96375; J2270; J1200

== ENCOUNTER → 2021-11-28 | Outpatient (CLI) | payer MEDICARE, BC, OTHER ==
[2021-11-28 11:20] LABS: African American GFR (CKD) >90 (>60 ml/min/1.73 sqM); Blood Urea Nitrogen 12 mg/dL (7-17); Non-African American GFR(CKD) >90 (>60 ml/min/1.73 sqM)
--- NOTE | 2021-11-28 12:09 | CT ---
EXAMINATION TYPE: CT brain w con DATE OF EXAM: 11/28/2021 COMPARISON: CT brain December 28, 2020 HISTORY: Pain to region where plate was placed behind left ear. CT DLP: 1052.9 mGycm Automated exposure control for dose reduction was used. CONTRAST: CT scan of the head is performed with IV Contrast, patient injected with 100 mL of Isovue M300. FINDINGS: There is no abnormal enhancing mass or midline shift identified. The ventricles and sulci are stable and within normal limits in size. Riggins-white matter differentiation is maintained. Persistent fluid nearly completely filling bilateral sphenoid sinuses and patchy opacification in the anterior ethmoid sinuses bilaterally. Globes are intact bilaterally. Left posterior temporal craniectomy change now i dentified axial image 10 with overlying metallic plate. Adjacent soft tissue shows no worrisome mass or focal fluid collection. Adjacent dural venous sinus remains patent. IMPRESSION: Interval left temporal partial craniectomy. No obvious enhancing mass or suspicious fluid collection at this level to account for patient's symptoms. Persistent paranasal sinus disease.
== END | disposition home or self-care (01) ==
LOC: RADCTMAIN 10:21
PROVIDERS: ATTEND Neurological Surgery
DX: J34.89 Other specified disorders of nose and nasal sinuses (principal); R22.0 Localized swelling, mass and lump, head
CPT/HCPCS: 82565; 84520; 70460; 36415; Q9967

== ENCOUNTER 2022-01-11 00:20 | Emergency (ER) | payer MEDICARE, BC, OTHER ==
[2022-01-11 00:37] VITALS: BP 151/94; PULSE 87; RESP 18; TEMP 98
[2022-01-11] MEDS ORDERED: KETOROLAC 15 MG/ML 1 ML VIAL IM STA (01:59)
[2022-01-11] MEDS ORDERED: MORPHINE SULFATE 4 MG/ML SYRINGE IM STA (01:59)
[2022-01-11] MEDS ORDERED: carBAMazepine 100 MG TAB.ER.12H PO ONE (02:00)
--- NOTE | 2022-01-11 02:35 | ED ---
Headache HPI - General Chief Complaint: Headache Stated Complaint: Head/Neck Pain Time Seen by Provider: 01/11/22 01:06 Mode of arrival: EMS - Related Data Home Medications Medication Instructions Recorded Confirmed Omeprazole [PriLOSEC] 20 mg PO DAILY 11/24/16 09/26/20 Hydrocodone/Acetaminophen [[place] 1 tab PO TID PRN 04/11/20 09/26/20 10-325] traZODone HCL [TraZODone HCl] 50 - 100 mg PO HS 08/24/20 09/26/20 ALPRAZolam [Xanax] 0.25 mg PO BID PRN 09/19/20 09/26/20 Cyclobenzaprine [Flexeril] 10 mg PO HS PRN 09/19/20 09/26/20 Atorvastatin [Lipitor] 20 mg PO HS 09/26/20 09/26/20 Cyclobenzaprine [Flexeril] 5 mg PO QAM PRN 09/26/20 09/26/20 metFORMIN HCL [Glucophage] 1,000 mg PO BID 09/26/20 09/26/20 Previous Rx's Medication Instructions Recorded Morphine Sulfate ER [Ms Contin] 15 mg PO Q12HR 2 Days #4 tab 01/19/21 carBAMazepine [TEGretol XR] 100 mg PO Q12H PRN #14 tab 06/01/21 carBAMazepine [TEGretol] 100 mg PO Q12H #60 tablet 08/04/21 Allergies Allergy/AdvReac Type Severity Reaction Status Date / Time No Known Allergies Allergy Verified 08/04/21 13:14 Review of Systems ROS Statement: Those systems with pertinent positive or pertinent negative responses have been documented in the HPI. ROS Other: All systems not noted in ROS Statement are negative. Past Medical History Past Medical History: Diabetes Mellitus, GERD/Reflux, Hyperlipidemia, Osteoarthritis (OA) Additional Past Medical History / Comment(s): trigeminal neuralgia History of Any Multi-Drug Resistant Organisms: None Reported Past Surgical History: Bladder Surgery, Cholecystectomy, Hysterectomy, Orthopedic Surgery Additional Past Surgical History / Comment(s): sinus surg, arthroscopy right knee, bladder suspension,plate placed behind her ear. Past Anesthesia/Blood Transfusion Reactions: No Reported Reaction Past Psychological History: Anxiety Smoking Status: Current some day smoker Past Alcohol Use History: None Reported Past Drug Use History: None Reported - Past Family History Mother Family Medical History: No Reported History Course Vital Signs 01/11/22 00:34 Temperature 98 F Pulse Rate 87 Respiratory 18 Rate Blood Pressure 151/94 O2 Sat by Pulse 97 Oximetry Disposition Clinical Impression: Headache, Trigeminal neuralgia Disposition: HOME SELF-CARE Condition: Good Instructions (If sedation given, give patient instructions): Acute Headache (ED) Is patient prescribed a controlled substance at d/c from ED?: No Referrals: Parveen Anaya DO [Primary Care Provider] - 1-2 days
== END 2022-01-11 04:00 | disposition home or self-care (01) ==
LOC: EC 00:20
DX: G50.0 Trigeminal neuralgia (principal); E11.9 Type 2 diabetes mellitus without complications; E78.5 Hyperlipidemia, unspecified; K21.9 Gastro-esophageal reflux disease without esophagitis; M19.90 Unspecified osteoarthritis, unspecified site; F41.9 Anxiety disorder, unspecified; F17.200 Nicotine dependence, unspecified, uncomplicated; Z79.84 Long term (current) use of oral hypoglycemic drugs; Z79.899 Other long term (current) drug therapy
CPT/HCPCS: 99284; 96372 ×2; J2270; J1885

== ENCOUNTER → 2022-01-27 | Outpatient (CLI) | payer MEDICARE, BC, OTHER ==
[2022-01-27 21:22] LABS: Anti-Smith Ab Interp NEGATIVE (NEGATIVE); Scleroderma SC-70 Ab <0.2 AI
[2022-01-27 21:43] LABS: HIV 2 AB Non-Reactive (Non-Reactive); HIV AB P24 Non-Reactive (Non-Reactive); HIV P24 AG Non-Reactive (Non-Reactive)
[2022-01-27 22:08] LABS: Rheumatoid Factor, Qnt <10 IU/mL (0-15)
[2022-01-28 11:19] LABS: Smooth Muscle Antibody 4 UNITS (<20)
[2022-01-28 14:20] LABS: C-ANCA <1:20 Titer (<1:20)
== END | disposition home or self-care (01) ==
LOC: LABWHC1 11:14
DX: S14.151A Other incomplete lesion at C1 level of cervical spinal cord, initial encounter (principal); Y99.9 Unspecified external cause status
CPT/HCPCS: 36415; 82525; 82607; 82746; 83516; 86235; 86255; 86431; 86618; 86780; 86790; 87390

== ENCOUNTER 2022-03-19 21:17 | Emergency (ER) | payer MEDICARE, BC, OTHER ==
[2022-03-20] MEDS ORDERED: diphenhydrAMINE 50 MG/ML 1 ML VIAL IVP STA (00:08)
[2022-03-20] MEDS ORDERED: KETOROLAC 15 MG/ML 1 ML VIAL IVP STA (00:08)
[2022-03-20 00:48] LABS: Basophils # (A) 0.1 k/uL (0-0.2); Basophils % (A) 2 %; Eosinophils # (A) 0.4 k/uL (0-0.7); Eosinophils % (A) 4 %; HCT 36.7 % (34.0-46.0); HGB 12.5 gm/dL (11.4-16.0); Lymphocytes # (A) 3.8 k/uL (1.0-4.8); Lymphocytes % (A) 40 %; MCH 31.4 pg (25.0-35.0); MCHC 34.2 g/dL (31.0-37.0); MCV 91.8 fL (80.0-100.0); Mean Platelet Volume 9.4; Monocytes # (A) 0.7 k/uL (0-1.0); Monocytes % (A) 8 %; Neutrophils # (A) 4.2 k/uL (1.3-7.7); Neutrophils % (A) 45 %; Platelet Count 182 k/uL (150-450); RDW 13.3 % (11.5-15.5); WBC 9.5 k/uL (3.8-10.6)
--- NOTE | 2022-03-20 00:54 | ED ---
General Adult HPI - General Chief complaint: Headache Stated complaint: Seizures Time Seen by Provider: 03/19/22 23:46 Source: patient, family, RN notes reviewed Mode of arrival: wheelchair Limitations: no limitations - History of Present Illness Initial comments: 67-year-old female presents to the emergency department for evaluation of burning facial pain that has occurred intermittently 11 times today. Patient states she has had several ER visits related to the same complaints. Reports that she has a metal plate located behind her left ear that was supposed to help with these issues, however has not. She has contacted the surgeon who placed t he plate but has not been seen in the office recently. Denies any aggravating or alleviating factors. States she takes Tylenol at home with no improvement. Denies fever, chills, dizziness, speech difficulty, hearing changes, neck pain, back pain, shortness of breath, difficulty breathing, abdominal pain, nausea, vomiting, diarrhea or dysuria. - Related Data Home Medications Medication Instructions Recorded Confirmed Omeprazole [PriLOSEC] 20 mg PO DAILY 11/24/16 09/26/20 Hydrocodone/Acetaminophen [[place] 1 tab PO TID PRN 04/11/20 09/26/20 10-325] traZODone HCL [TraZODone HCl] 50 - 100 mg PO HS 08/24/20 09/26/20 ALPRAZolam [Xanax] 0.25 mg PO BID PRN 09/19/20 09/26/20 Cyclobenzaprine [Flexeril] 10 mg PO HS PRN 09/19/20 09/26/20 Atorvastatin [Lipitor] 20 mg PO HS 09/26/20 09/26/20 Cyclobenzaprine [Flexeril] 5 mg PO QAM PRN 09/26/20 09/26/20 metFORMIN HCL [Glucophage] 1,000 mg PO BID 09/26/20 09/26/20 Previous Rx's Medication Instructions Recorded Morphine Sulfate ER [Ms Contin] 15 mg PO Q12HR 2 Days #4 tab 01/19/21 carBAMazepine [TEGretol XR] 100 mg PO Q12H PRN #14 tab 06/01/21 carBAMazepine [TEGretol] 100 mg PO Q12H #60 tablet 08/04/21 Allergies Allergy/AdvReac Type Severity Reaction Status Date / Time No Known Allergies Allergy Verified 03/19/22 21:52 Review of Systems ROS Statement: Those systems with pertinent positive or pertinent negative responses have been documented in the HPI. ROS Other: All systems not noted in ROS Statement are negative. Past Medical History Past Medical History: Diabetes Mellitus, GERD/Reflux, Hyperlipidemia, Osteoarthritis (OA) Additional Past Medical History / Comment(s): trigeminal neuralgia History of Any Multi-Drug Resistant Organisms: None Reported Past Surgical History: Bladder Surgery, Cholecystectomy, Hysterectomy, Ort hopedic Surgery Additional Past Surgical History / Comment(s): sinus surg, arthroscopy right knee, bladder suspension,plate placed behind her ear. Past Anesthesia/Blood Transfusion Reactions: No Reported Reaction Past Psychological History: Anxiety Smoking Status: Current some day smoker Past Alcohol Use History: None Reported Past Drug Use History: None Reported - Past Family History Mother Family Medical History: No Reported History General Exam Limitations: no limitations General appearance: alert, in distress (Well-developed, well-nourished female in moderate distress due to pain. Initial temperature 97.7, pulse 90, respirations 18, blood pressure 115/77, pulse ox 98% on room air.) Head exam: Present: atraumatic, normocephalic, other (dandruff present; patient is treating it with prescription shampoo. ) Expanded Head exam: Present: general tenderness (left side of the face from zygoma to mandible and extending to the left ear). Absent: tenderness of temporal artery Eye exam: Present: normal appearance, PERRL, EOMI. Absent: scleral icterus, conjunctival injection, periorbital swelling ENT exam: Present: normal exam, normal oropharynx, mucous membranes moist, TM's normal bilaterally Neck exam: Present: normal inspection, full ROM. Absent: lymphadenopathy Respiratory exam: Present: normal lung sounds bilaterally. Absent: respiratory distress, wheezes, rales, rhonchi, stridor, chest wall tenderness Cardiovascular Exam: Present: regular rate, normal rhythm, normal heart sounds. Absent: systolic murmur, diastolic murmur, rubs, gallop, clicks GI/Abdominal exam: Present: soft, normal bowel sounds. Absent: distended, tenderness, guarding, rebound, rigid Neurological exam: Present: alert, oriented X3, normal gait Psychiatric exam: Present: anxious, other (patient tearfully explaning her discomfort) Skin exam: Present: warm, dry, intact, normal color. Absent: rash Course Vital Signs 03/19/22 03/20/22 21:52 01:54 Temperature 97.7 F 98.1 F Pulse Rate 90 88 Respiratory 18 16 Rate Blood Pressure 115/77 136/70 O2 Sat by Pulse 98 98 Oximetry - Reevaluation(s) Reevaluation #1: 03/20/22 01:22 Upon reevaluation, patient is sitting upright at the bedside and appears to be resting much more comfortably at this time. States pain is improved. We discussed the importance of follow-up care with her surgeon stressing the necessity of being persistent in scheduling of appointment to be seen in the office. Medical Decision Making - Medical Decision Making This is a pleasant 67-year-old female with a past medical history of diabetes, GERD, hyperlipidemia, and trigeminal neuralgia who presents to the emergency department for evaluation of left-sided facial pain. Upon exam, patient is initially very uncomfortable and her face is exquisitely tender to palpation with light touch from the left mandible to the zygoma and extending to the left ear. Describes discomfort as burning. There is evidence of previous surgery postauricular, no site remains non-erythematous. Laboratory studies are reviewed and are unremarkable. Given Toradol and Benadryl with improvement. Implored to follow up with her surgeon for recheck as soon as possible. Return parameters discussed in detail. Patient verbalizes understanding and agrees with this plan. Attending: Karin. - Lab Data Result diagrams: 03/20/22 00:17 03/20/22 00:17 Lab Results 03/20/22 03/20/22 Range/Units 00:17 00:17 WBC 9.5 (3.8-10.6) k/uL RBC 4.00 (3.80-5.40) m/uL Hgb 12.5 (11.4-16.0) gm/dL Hct 36.7 (34.0-46.0) % MCV 91.8 (80.0-100.0) fL MCH 31.4 (25.0-35.0) pg MCHC 34.2 (31.0-37.0) g/dL RDW 13.3 (11.5-15.5) % Plt Count 182 (150-450) k/uL MPV 9.4 Neutrophils % 45 % Lymphocytes % 40 % Monocytes % 8 % Eosinophils % 4 % Basophils % 2 % Neutrophils # 4.2 (1.3-7.7) k/uL Lymphocytes # 3.8 (1.0-4.8) k/uL Monocytes # 0.7 (0-1.0) k/uL Eosinophils # 0.4 (0-0.7) k/uL Basophils # 0.1 (0-0.2) k/uL Sodium 137 (137-145) mmol/L Potassium 4.8 (3.5-5.1) mmol/L Chloride 105 (98-107) mmol/L Carbon Dioxide 22 (22-30) mmol/L Anion Gap 10 mmol/L BUN 13 (7-17) mg/dL Creatinine 0.65 (0.52-1.04) mg/dL Est GFR (CKD-EPI)AfAm >90 (>60 ml/min/1.73 sqM) Est GFR (CKD-EPI)NonAf >90 (>60 ml/min/1.73 sqM) Glucose 180 H (74-99) mg/dL Calcium 9.1 (8.4-10.2) mg/dL Disposition Clinical Impression: Head pain cephalgia, Facial neuralgia Disposition: HOME SELF-CARE Condition: Stable Instructions (If sedation given, give patient instructions): Trigeminal Neuralgia (ED) Additional Instructions: Continue taking your home medications as prescribed. Follow up with your surgeon for this pain. Call the office first thing in the morning to schedule an appointment. Return to the emergency department with any new, worsening, or concerning symptoms. Is patient prescribed a controlled substance at d/c from ED?: No Referrals: Parveen Anaya DO [Primary Care Provider] - 1-2 days Time of Disposition: 01:41
[2022-03-20 01:00] LABS: African American GFR (CKD) >90 (>60 ml/min/1.73 sqM); Anion Gap 10 mmol/L; Blood Urea Nitrogen 13 mg/dL (7-17); Calcium 9.1 mg/dL (8.4-10.2); Carbon Dioxide 22 mmol/L (22-30); Chloride 105 mmol/L (98-107); Glucose 180 mg/dL (74-99); Non-African American GFR(CKD) >90 (>60 ml/min/1.73 sqM); Sodium 137 mmol/L (137-145)
[2022-03-20 01:33] LABS: Potassium 4.8 mmol/L (3.5-5.1)
[2022-03-20 01:55] VITALS: BP 136/70; PULSE 88; RESP 16; TEMP 98.1
== END 2022-03-20 01:55 | disposition home or self-care (01) ==
LOC: EC 21:17
DX: R51.9 Headache, unspecified (principal); M79.2 Neuralgia and neuritis, unspecified; E11.9 Type 2 diabetes mellitus without complications; K21.9 Gastro-esophageal reflux disease without esophagitis; E78.5 Hyperlipidemia, unspecified; F17.200 Nicotine dependence, unspecified, uncomplicated; Z79.899 Other long term (current) drug therapy; Z79.84 Long term (current) use of oral hypoglycemic drugs
CPT/HCPCS: 36415; 80048; 85025; 99284; 96374; 96375; J1200; J1885

== ENCOUNTER 2022-05-10 18:54 | Emergency (ER) | payer MEDICARE, BC, OTHER ==
[2022-05-10 19:06] VITALS: TEMP 98.2
[2022-05-10] MEDS ORDERED: PROCHLORPERAZINE INJ 10 MG/2 ML VIAL IVP STA (20:26)
[2022-05-10] MEDS ORDERED: diphenhydrAMINE 50 MG/ML 1 ML VIAL IVP STA (20:26)
[2022-05-10] MEDS ORDERED: SODIUM CHLORIDE 0.9% 1,000 ML IV ONE (20:26)
[2022-05-10] MEDS ORDERED: KETOROLAC 15 MG/ML 1 ML VIAL IVP STA (20:26)
--- NOTE | 2022-05-10 20:41 | ED ---
General Adult HPI - General Chief complaint: Recheck/Abnormal Lab/Rx Stated complaint: Uncontrolled Pain Time Seen by Provider: 05/10/22 20:15 Source: patient, RN notes reviewed, old records reviewed Mode of arrival: ambulatory Limitations: no limitations - History of Present Illness Initial comments: Patient is a 67-year-old female with past medical history remarkable for trigeminal neuralgia, prior plate placement in her head, chronic migraines, diabetes, acid reflux who presents emergency Department complaining of her typical trigeminal neuralgia pain. Describes it as sharp, burning sensation located over her skin starting behind her left ear radiating over her scalp to the right side of her face and down into both jaws. The burning sensation is exacerbated. On palpation. Denies any blurry vision, weakness, numbness. Denies any headache. States that when she gets this pain, a migraine cocktail typically helps with that. Was previously on carbamazepine but was unsuccessful in controlling her pain with it. Is on other medications for pain at home. She states she is being evaluated for possible decompressive surgery. His no other acute complaints at this time. Presents for further evaluation as well as requesting a migraine cocktail. - Related Data Home Medications Medication Instructions Recorded Confirmed Omeprazole [PriLOSEC] 20 mg PO DAILY 11/24/16 09/26/20 Hydrocodone/Acetaminophen [[place] 1 tab PO TID PRN 04/11/20 09/26/20 10-325] traZODone HCL [TraZODone HCl] 50 - 100 mg PO HS 08/24/20 09/26/20 ALPRAZolam [Xanax] 0.25 mg PO BID PRN 09/19/20 09/26/20 Cyclobenzaprine [Flexeril] 10 mg PO HS PRN 09/19/20 09/26/20 Atorvastatin [Lipitor] 20 mg PO HS 09/26/20 09/26/20 Cyclobenzaprine [Flexeril] 5 mg PO QAM PRN 09/26/20 09/26/20 metFORMIN HCL [Glucophage] 1,000 mg PO BID 09/26/20 09/26/20 Previous Rx's Medication Instructions Recorded Morphine Sulfate ER [Ms Contin] 15 mg PO Q12HR 2 Days #4 tab 01/19/21 carBAMazepine [TEGretol XR] 100 mg PO Q12H PRN #14 tab 06/01/21 carBAMazepine [TEGretol] 100 mg PO Q12H #60 tablet 08/04/21 Allergies Allergy/AdvReac Type Severity Reaction Status Date / Time No Known Allergies Allergy Verified 05/10/22 19:06 Review of Systems ROS Statement: Those systems with pertinent positive or pertinent negative responses have been documented in the HPI. Review of Systems: CONST: Denies fever EYES: Denies blurry vision ENT: Denies nasal congestion C/V: Denies Chest pain RESP: Denies shortness of breath GI: Denies abdominal pain : Denies dysuria SKIN: Endorses skin burning pain over head MSK: Denies joint pain. NEURO: Denies headache ROS Other: All systems not noted in ROS Statement are negative. Past Medical History Past Medical History: Diabetes Mellitus, GERD/Reflux, Hyperlipidemia, Osteoarthritis (OA) Additional Past Medical History / Comment(s): trigeminal neuralgia History of Any Multi-Drug Resistant Organisms: None Reported Past Surgical History: Bladder Surgery, Cholecystectomy, Hysterectomy, Orthopedic Surgery Additional Past Surgical History / Comment(s): sinus surg, arthroscopy right knee, bladder suspension,plate placed behind her ear. Past Anesthesia/Blood Transfusion Reactions: No Reported Reaction Past Psychological History: Anxiety Smoking Status: Current some day smoker Past Alcohol Use History: None Reported Past Drug Use History: None Reported - Past Family History Mother Family Medical History: No Reported History General Exam - General Exam Comments Initial Comments: General: Appears in mild distress secondary to pain HEAD: Normal with no signs of head trauma. EYES: PERRLA, EOMI, conjunctiva normal, no discharge. Pupils are 3 mm and equal bilaterally. ENT: Hearing grossly intact, normal oropharynx. RESPIRATORY: Clear breath sounds bilaterally. No wheezes, rales, or rhonchi. C/V: Regular rate and rhythm. S1 and S2 auscultated, no edema, peripheral pulses 2+ and intact throughout ABD: Abd is soft, nontender, nondistended EXT: Normal range of motion, no obvious deformity SKIN: No rashes or lesions observed on exposed skin. NEURO: Alert and oriented x 4. Cranial nerves II-XII intact. No focal sensory or strength deficits. GCS of 15. NIH of 0. Cerebellar function is intact as evident by normal finger to nose testing. Limitations: no limitations Course Vital Signs 05/10/22 19:03 Temperature 98.2 F Pulse Rate 89 Respiratory 20 Rate Blood Pressure 116/78 O2 Sat by Pulse 97 Oximetry Medical Decision Making - Medical Decision Making Based on the patient's presentation and physical exam, I do believe she is experiencing her typical pain symptoms from her trigeminal neuralgia and migraines. States she is not having a headache, but rather her trigeminal neuralgia burning pain that is resolved with a migraine cocktail. Is requesting his migraine cocktail this time. This is not the worst headache of her life. She has no neuro symptoms. I do believe this is reasonable at this time. Vital signs are she will be given IV fluids, Toradol, Compazine, Benadryl. She'll be subsequently reevaluated. On reevaluation, patient's pain has resolved. She would like to go home. I believe this is reasonable. Will continue taking her home pain medications as needed. She'll follow-up with her physician. Strict return precautions were discussed. I instructed the patient to follow up with their PCP in the next 1-3 days. I explained that the patient should return to the emergency department if they experience any worsening symptoms. Strict return precautions were discussed with the patient. The patient expressed understanding of these instructions. I answered all questions that the patient had. The patient was discharged home in good condition with their prescriptions and follow up information. Disposition Clinical Impression: Trigeminal neuralgia Disposition: HOME SELF-CARE Condition: Good Instructions (If sedation given, give patient instructions): Trigeminal Neuralgia (ED) Is patient prescribed a controlled substance at d/c from ED?: No Referrals: Parveen Anaya DO [Primary Care Provider] - 1-2 days Time of Disposition: 22:05
[2022-05-10 22:29] VITALS: BP 125/67; PULSE 78; RESP 16
== END 2022-05-10 22:29 | disposition home or self-care (01) ==
LOC: EC 18:54
DX: G50.0 Trigeminal neuralgia (principal); E11.9 Type 2 diabetes mellitus without complications; Z79.84 Long term (current) use of oral hypoglycemic drugs; E78.5 Hyperlipidemia, unspecified; K21.9 Gastro-esophageal reflux disease without esophagitis; Z79.899 Other long term (current) drug therapy
CPT/HCPCS: 99283 ×2; 96374 ×2; 96375 ×2; 96361 ×2; J1200; J0780; J1885

== ENCOUNTER 2022-06-02 20:16 | Emergency (ER) | payer MEDICARE, BC, OTHER ==
[2022-06-02 21:05] VITALS: TEMP 98.2
[2022-06-02] MEDS ORDERED: SODIUM CHLORIDE 0.9% 1,000 ML IV STA (23:16)
[2022-06-02] MEDS ORDERED: KETOROLAC 15 MG/ML 1 ML VIAL IVP STA (23:16)
[2022-06-02] MEDS ORDERED: diphenhydrAMINE 50 MG/ML 1 ML VIAL IVP STA (23:16)
[2022-06-02] MEDS ORDERED: PROCHLORPERAZINE INJ 10 MG/2 ML VIAL IVP STA (23:16)
--- NOTE | 2022-06-02 23:52 | ED ---
Headache HPI - General Chief Complaint: Headache Stated Complaint: Headache,Nerve pain Time Seen by Provider: 06/02/22 23:12 Mode of arrival: ambulatory Limitations: no limitations - History of Present Illness Initial Comments: Patient complains of a flareup of her trigeminal neuralgia. She gets this about once a month. She has no chest or belly or back pain. She has no neck pain or stiffness. She has no weakness. She has no change in vision or hearing. - Related Data Home Medications Medication Instructions Recorded Confirmed Omeprazole [PriLOSEC] 20 mg PO DAILY 11/24/16 09/26/20 Hydrocodone/Acetaminophen [[place] 1 tab PO TID PRN 04/11/20 09/26/20 10-325] traZODone HCL [TraZODone HCl] 50 - 100 mg PO HS 08/24/20 09/26/20 ALPRAZolam [Xanax] 0.25 mg PO BID PRN 09/19/20 09/26/20 Cyclobenzaprine [Flexeril] 10 mg PO HS PRN 09/19/20 09/26/20 Atorvastatin [Lipitor] 20 mg PO HS 09/26/20 09/26/20 Cyclobenzaprine [Flexeril] 5 mg PO QAM PRN 09/26/20 09/26/20 metFORMIN HCL [Glucophage] 1,000 mg PO BID 09/26/20 09/26/20 Previous Rx's Medication Instructions Recorded Morphine Sulfate ER [Ms Contin] 15 mg PO Q12HR 2 Days #4 tab 01/19/21 carBAMazepine [TEGretol XR] 100 mg PO Q12H PRN #14 tab 06/01/21 carBAMazepine [TEGretol] 100 mg PO Q12H #60 tablet 08/04/21 Allergies Allergy/AdvReac Type Severity Reaction Status Date / Time No Known Allergies Allergy Verified 06/02/22 21:06 Review of Systems ROS Statement: Those systems with pertinent positive or pertinent negative responses have been documented in the HPI. ROS Other: All systems not noted in ROS Statement are negative. Past Medical History Past Medical History: Diabetes Mellitus, GERD/Reflux, Hyperlipidemia, Osteoarthritis (OA) Additional Past Medical History / Comment(s): trigeminal neuralgia History of Any Multi-Drug Resistant Organisms: None Reported Past Surgical History: Bladder Surgery, Cholecystectomy, Hysterectomy, Orthopedic Surgery Additional Past Surgical History / Comment(s): sinus surg, arthroscopy right knee, bladder suspension,plate placed behind her ear. Past Anesthesia/Blood Transfusion Reactions: No Reported Reaction Past Psychological History: Anxiety Smoking Status: Current some day smoker Past Alcohol Use History: None Reported Past Drug Use History: None Reported - Past Family History Mother Family Medical History: No Reported History General Exam Limitations: no limitations General appearance: alert, in no apparent distress Head exam: Present: atraumatic, normocephalic, normal inspection Eye exam: Present: normal appearance, PERRL, EOMI. Absent: scleral icterus, conjunctival injection, periorbital swelling ENT exam: Present: normal exam, mucous membranes moist Neck exam: Present: normal inspection. Absent: tenderness, meningismus, lymphadenopathy Respiratory exam: Absent: respiratory distress Cardiovascular Exam: Present: regular rate, normal rhythm GI/Abdominal exam: Absent: distended Extremities exam: Present: normal inspection, full ROM. Absent: pedal edema, joint swelling, calf tenderness Back exam: Present: normal inspection Neurological exam: Present: alert, oriented X3 Psychiatric exam: Present: normal affect, normal mood Skin exam: Present: warm, dry, intact, normal color. Absent: rash Course Vital Signs 06/02/22 21:03 Temperature 98.2 F Pulse Rate 107 H Respiratory 20 Rate Blood Pressure 155/79 O2 Sat by Pulse 96 Oximetry Medical Decision Making - Medical Decision Making Patient presents with trigeminal neuralgia. She is treated with IV fluids as well as Toradol and Benadryl and Compazine. She feels better. Symptoms are resolved. She is stable for discharge. Disposition Clinical Impression: Trigeminal neuralgia Disposition: HOME SELF-CARE Is patient prescribed a controlled substance at d/c from ED?: No Referrals: Parveen Anaya DO [Primary Care Provider] - 1-2 days
[2022-06-03] MEDS ORDERED: LORazepam 2 MG/ML INJ IV STA (00:45)
[2022-06-03 00:56] VITALS: BP 155/77; PULSE 87; RESP 18
== END 2022-06-03 00:57 | disposition home or self-care (01) ==
LOC: EC 20:16
DX: G50.0 Trigeminal neuralgia (principal); E11.9 Type 2 diabetes mellitus without complications; K21.9 Gastro-esophageal reflux disease without esophagitis; E78.5 Hyperlipidemia, unspecified; M19.90 Unspecified osteoarthritis, unspecified site; F17.200 Nicotine dependence, unspecified, uncomplicated; Z79.83 Long term (current) use of bisphosphonates; Z79.02 Long term (current) use of antithrombotics/antiplatelets; Z79.84 Long term (current) use of oral hypoglycemic drugs; Z79.899 Other long term (current) drug therapy
CPT/HCPCS: 99283 ×2; 96374 ×2; 96375 ×4; 96361 ×2; J2060; J1200; J0780; J1885

== ENCOUNTER → 2022-06-18 | Outpatient (CLI) | payer MEDICARE, BC, OTHER ==
--- NOTE | 2022-06-18 14:02 | US ---
EXAMINATION TYPE: US thyroid st tissue head/neck DATE OF EXAM: 06/18/2022 COMPARISON: NONE CLINICAL HISTORY: E04.1 SINGLE THYROID NODULE. Not on thyroid meds. Patient states having a thyroid nodule. GLAND SIZE: Right Lobe: 5.1 x 2.6 x 1.8 cm Overall Parenchyma: heterogenous Left Lobe: 4.4 x 2.1 x 1.9 cm Overall Parenchyma: heterogeneous Isthmus Thickness: 0.8 cm NODULES RIGHT: # of nodules measured on right: 2 1. 0.8 X 0.6 x 0.5 cm, upper medial, TIRADS Score: 4 TIRADS Category 4: Moderately Suspicious Composition: Solid or almost completely solid (2 points). Echogenicity: Hypoechoic (2 points). Margin: Smooth (0 points). Echogenic foci: None or large comet-tail artifacts (0 points) Recommendation: If >1.5cm: FNA; If >1cm: Follow up at 1,3,5 years 2. 1.0 x 1.2 x 0.7 cm, mid mid, TIRADS Score: 3 TIRADS Category 3: Mildly Suspicious Composition: Solid or almost completely solid (2 points). Echogenicity: Hyperechoic or isoechoic (1 point). Margin: Smooth (0 points). Echogenic foci: None or large comet-tail artifacts (0 points) Recommendation: If >2.5cm: FNA; If >1.5cm: Follow up at 1,3,5 years LEFT: # of nodules measured on left: 0 Lobe appears grossly heterogenous with no discreet nodules ISTHMUS: # of nodules measured in the isthmus: 1 1. 1.6 X 1.2 x 0.6 cm spongiform Prior size: no prior TIRADS Score: 4 TIRADS Category 4: Moderately Suspicious Composition: Solid or almost completely solid (2 points). Echogenicity: Hypoechoic (2 points). Margin: Smooth (0 points). Echogenic foci: None or large comet-tail artifacts (0 points) Recommendation: If >1.5cm: FNA; If >1cm: Follow up at 1,3,5 years Bilateral neck scanned, no evidence of lymphadenopathy. IMPRESSION: 1. Isthmus thyroid nodule that meets criteria for fine-needle aspiration. TIRADS Category 4: Moderat iván Suspicious 2. Right-sided thyroid nodules that meet criteria for follow-up.
== END | disposition home or self-care (01) ==
LOC: RADUSWWP 12:31
PROVIDERS: ATTEND Family Medicine
DX: E04.2 Nontoxic multinodular goiter (principal)
CPT/HCPCS: 76536

== ENCOUNTER 2022-07-17 12:05 | Day surgery (SDC) | payer MEDICARE, BC, OTHER ==
[2022-07-17 13:06] VITALS: BP 160/82; PULSE 83; RESP 16; TEMP 97.7
[2022-07-17 13:28] LABS: Glucose,Whole Blood 94 mg/dL (70-110)
--- NOTE | 2022-07-17 15:19 | US ---
ULTRASOUND GUIDED FNA THYROID BIOPSY: CLINICAL HISTORY: Right isthmus nodule FINDINGS: The procedure was explained to the patient. The risks, complications, benefits and alternatives were discussed and any questions were answered. Informed consent was obtained. Patient was placed supin e on the ultrasound table and prepped and draped in the usual sterile fashion. Utilizing a 25 gauge needle, five passes were made into the requested isthmus nodule. Patient was stable throughout the procedure. Pathology is pending. All elements of maximal barrier technique were utilized. IMPRESSION: 1. Successful ultrasound guided FNA thyroid biopsy.
== END 2022-07-17 14:15 | disposition home or self-care (01) ==
LOC: RADPROMAIN 12:05
PROVIDERS: ATTEND Family Medicine
DX: E04.1 Nontoxic single thyroid nodule (principal)
CPT/HCPCS: 10005; 88173; 88305

== ENCOUNTER 2022-07-20 22:15 | Emergency (ER) | payer MEDICARE, BC, OTHER ==
[2022-07-20 22:19] VITALS: TEMP 97.7
[2022-07-20 22:35] VITALS: BP 135/87; PULSE 85; RESP 16
[2022-07-20] MEDS ORDERED: HYDROmorphone 1 MG/ML 1 ML SYRINGE IVP STA (22:59)
[2022-07-20] MEDS ORDERED: SODIUM CHLORIDE 0.9% 1,000 ML IV STA (22:59)
[2022-07-20] MEDS ORDERED: PROCHLORPERAZINE INJ 10 MG/2 ML VIAL IVP STA (22:59)
[2022-07-20] MEDS ORDERED: KETOROLAC 15 MG/ML 1 ML VIAL IVP STA (22:59)
--- NOTE | 2022-07-20 22:59 | ED ---
Headache HPI - General Chief Complaint: Headache Stated Complaint: Headache Time Seen by Provider: 07/20/22 22:34 Source: RN notes reviewed, old records reviewed Mode of arrival: wheelchair Limitations: no limitations - History of Present Illness Initial Comments: This is a 67-year-old female to the emergency department for evaluation. She suffers from issues of trigeminal neuralgic simple neuralgia severe headaches. Patient crying during history of present illness. States she can't sleep her headache is severe with both ear pain and jaw pain. Patient is been developed these headaches for about 2 years coinciding right when her . She admits to no depression. Has had significant evaluations by neurologists with no acute cause of MD Complaint: headache, other (Neuralgia) -: hour(s) Onset Description: gradual Location: right, left, frontal, temporal, occipital, diffuse Severity: severe Severity scale (1-10): 10 Quality: aching, throbbing, pulsatile, sharp Consistency: constant Worsens With: none Associated Symptoms: nausea Other Symptoms: eye pain/redness (Patient is tearing) Treatments Prior to Arrival: none - Related Data Home Medications Medication Instructions Recorded Confirmed Omeprazole [PriLOSEC] 20 mg PO DAILY 11/24/16 07/17/22 Hydrocodone/Acetaminophen [[place] 1 tab PO TID PRN 04/11/20 07/17/22 10-325] traZODone HCL [TraZODone HCl] 50 - 100 mg PO HS 08/24/20 07/17/22 ALPRAZolam [Xanax] 0.25 mg PO BID PRN 09/19/20 07/17/22 Cyclobenzaprine [Flexeril] 10 mg PO TID 09/19/20 07/17/22 Atorvastatin [Lipitor] 20 mg PO HS 09/26/20 07/17/22 metFORMIN HCL [Glucophage] 1,000 mg PO BID 09/26/20 07/17/22 Pregabalin [Lyrica] 100 mg PO BID 07/11/22 07/17/22 lisinopriL [Zestril] 5 mg PO DAILY 07/11/22 07/17/22 Previous Rx's Medication Instructions Recorded carBAMazepine [TEGretol XR] 100 mg PO Q12H PRN #14 tab 06/01/21 Allergies Allergy/AdvReac Type Severity Reaction Status Date / Time No Known Allergies Allergy Verified 07/20/22 22:19 Review of Systems ROS Statement: Those systems with pertinent positive or pertinent negative responses have been documented in the HPI. ROS Other: All systems not noted in ROS Statement are negative. Past Medical History Past Medical History: Diabetes Mellitus, GERD/Reflux, Hyperlipidemia, Osteoarthritis (OA), Thyroid Disorder Additional Past Medical History / Comment(s): trigeminal neuralgia, thyroid nod ules History of Any Multi-Drug Resistant Organisms: None Reported Past Surgical History: Bladder Surgery, Cholecystectomy, Hysterectomy, Orthopedic Surgery Additional Past Surgical History / Comment(s): sinus surgery, arthroscopy right knee, bladder suspension,plate placed behind her ear. Past Anesthesia/Blood Transfusion Reactions: No Reported Reaction Past Psychological History: Anxiety Smoking Status: Former smoker Past Alcohol Use History: None Reported Past Drug Use History: None Reported - Past Family History Mother Family Medical History: No Reported History General Exam Limitations: no limitations General appearance: alert, in no apparent distress Head exam: Present: atraumatic, normocephalic, normal inspection Eye exam: Present: normal appearance, PERRL, EOMI. Absent: scleral icterus, conjunctival injection, periorbital swelling ENT exam: Present: normal exam, mucous membranes moist Neck exam: Present: normal inspection. Absent: tenderness, meningismus, lymphadenopathy Respiratory exam: Present: normal lung sounds bilaterally. Absent: respiratory distress, wheezes, rales, rhonchi, stridor Cardiovascular Exam: Present: regular rate, normal rhythm, normal heart sounds. Absent: systolic murmur, diastolic murmur, rubs, gallop, clicks GI/Abdominal exam: Present: soft, normal bowel sounds. Absent: distended, tenderness, guarding, rebound, rigid Extremities exam: Present: normal inspection, full ROM, normal capillary refill. Absent: tenderness, pedal edema, joint swelling, calf tenderness Back exam: Present: normal inspection Neurological exam: Present: alert, oriented X3, CN II-XII intact Psychiatric exam: Present: normal affect, normal mood Skin exam: Present: warm, dry, intact, normal color. Absent: rash Course Vital Signs 07/20/22 07/20/22 22:17 22:29 Temperature 97.7 F Pulse Rate 88 85 Respiratory 18 16 Rate Blood Pressure 157/90 135/87 O2 Sat by Pulse 96 97 Oximetry - Reevaluation(s) Reevaluation #1: 11/06/22 23:40 Medical records reviewed Reevaluation #2: 07/20/22 23:59 Headache is resolved Medical Decision Making - Medical Decision Making 67 female to the emergency department for neuropathic neurologic headache. Headache is improved, resolved here in the ER patient feels good for discharge home Disposition Clinical Impression: Trigeminal neuralgia pain, Headache, Neuralgia Disposition: HOME SELF-CARE Condition: Good Instructions (If sedation given, give patient instructions): Acute Headache (ED) Is patient prescribed a controlled substance at d/c from ED?: No Referrals: Parveen Anaya DO [Primary Care Provider] - 1-2 days Time of Disposition: 23:55
== END 2022-07-21 00:24 | disposition home or self-care (01) ==
LOC: EC 22:15
DX: G50.0 Trigeminal neuralgia (principal); E11.9 Type 2 diabetes mellitus without complications; K21.9 Gastro-esophageal reflux disease without esophagitis; E78.5 Hyperlipidemia, unspecified; M19.90 Unspecified osteoarthritis, unspecified site; E07.9 Disorder of thyroid, unspecified; Z87.891 Personal history of nicotine dependence; F41.9 Anxiety disorder, unspecified; Z79.83 Long term (current) use of bisphosphonates; Z79.899 Other long term (current) drug therapy; Z79.02 Long term (current) use of antithrombotics/antiplatelets; Z79.84 Long term (current) use of oral hypoglycemic drugs; Z79.01 Long term (current) use of anticoagulants
CPT/HCPCS: 99284; 96374; 96375 ×2; 96361; J0780; J1170; J1885

== ENCOUNTER 2022-08-07 17:36 | Emergency (ER) | payer MEDICARE, BC, OTHER ==
[2022-08-07 17:47] VITALS: RESP 16; TEMP 98.1
[2022-08-07] MEDS ORDERED: KETOROLAC 15 MG/ML 1 ML VIAL IVP STA (18:05)
[2022-08-07] MEDS ORDERED: HYDROmorphone 1 MG/ML 1 ML SYRINGE IVP STA (18:05)
[2022-08-07] MEDS ORDERED: PROCHLORPERAZINE INJ 10 MG/2 ML VIAL IVP STA (18:05)
[2022-08-07] MEDS ORDERED: SODIUM CHLORIDE 0.9% 1,000 ML IV ONE (18:05)
--- NOTE | 2022-08-07 18:26 | ED ---
Headache HPI - General Chief Complaint: Headache Stated Complaint: headache Time Seen by Provider: 08/07/22 17:55 Mode of arrival: wheelchair Limitations: no limitations - History of Present Illness Initial Comments: Patient is a 67-year-old female presenting with chief complaint of trigeminal neuralgia pain. Patient admits to burning throbbing pain to the side of her face. Patient states that this feels typical with her trigeminal neuralgia flareups. Patient recently had a lidocaine infusion however she does not feel that this was successful. She admits to nausea, no vomiting. No neck pain or stiffness. No dizziness. No cough or congestion or URI like symptoms. No numbness, tingling, weakness. - Related Data Home Medications Medication Instructions Recorded Confirmed Omeprazole [PriLOSEC] 20 mg PO DAILY 11/24/16 07/17/22 Hydrocodone/Acetaminophen [[place] 1 tab PO TID PRN 04/11/20 07/17/22 10-325] traZODone HCL [TraZODone HCl] 50 - 100 mg PO HS 08/24/20 07/17/22 ALPRAZolam [Xanax] 0.25 mg PO BID PRN 09/19/20 07/17/22 Cyclobenzaprine [Flexeril] 10 mg PO TID 09/19/20 07/17/22 Atorvastatin [Lipitor] 20 mg PO HS 09/26/20 07/17/22 metFORMIN HCL [Glucophage] 1,000 mg PO BID 09/26/20 07/17/22 Pregabalin [Lyrica] 100 mg PO BID 07/11/22 07/17/22 lisinopriL [Zestril] 5 mg PO DAILY 07/11/22 07/17/22 Previous Rx's Medication Instructions Recorded carBAMazepine [TEGretol XR] 100 mg PO Q12H PRN #14 tab 06/01/21 Allergies Allergy/AdvReac Type Severity Reaction Status Date / Time No Known Allergies Allergy Verified 08/07/22 17:47 Review of Systems ROS Statement: Those systems with pertinent positive or pertinent negative responses have been documented in the HPI. ROS Other: All systems not noted in ROS Statement are negative. Past Medical History Past Medical History: Diabetes Mellitus, GERD/Reflux, Hyperlipidemia, Osteoarthritis (OA), Thyroid Disorder Additional Past Medical History / Comment(s): trigeminal neuralgia, thyroid nodules History of Any Multi-Drug Resistant Organisms: None Reported Past Surgical History: Bladder Surgery, Cholecystectomy, Hysterectomy, Orthopedic Surgery Additional Past Surgical History / Comment(s): sinus surgery, arthroscopy right knee, bladder suspension,plate placed behind her ear. Past Anesthesia/Blood Transfusion Reactions: No Reported Reaction Past Psychological History: Anxiety Smoking Status: Former smoker Past Alcohol Use History: None Reported Past Drug Use History: None Reported - Past Family History Mother Family Medical History: No Reported History General Exam Limitations: no limitations General appearance: alert, in no apparent distress Head exam: Present: atraumatic, normocephalic, normal inspection Eye exam: Present: normal appearance, PERRL, EOMI. Absent: scleral icterus, periorbital swelling, periorbital tenderness Pupils: Present: normal accommodation Neck exam: Present: normal inspection, full ROM Respiratory exam: Present: normal lung sounds bilaterally. Absent: respiratory distress, wheezes, rales, rhonchi, stridor Cardiovascular Exam: Present: regular rate, normal rhythm, normal heart sounds. Absent: systolic murmur, diastolic murmur, rubs, gallop, clicks Neurological exam: Present: alert, oriented X3, CN II-XII intact Expanded Patient oriented to: Present: person, place, time Speech: Present: fluid speech Cranial nerves: EOM's Intact: Normal Motor strength exam: RUE: 5, LUE: 5, RLE: 5, LLE: 5 Eye Response: (4) open spontaneously Motor Response: (6) obeys commands Verbal Response: (5) oriented Alan Total: 15 Psychiatric exam: Present: normal affect, normal mood Skin exam: Present: warm, dry, intact, normal color. Absent: rash Course Vital Signs 08/07/22 08/07/22 08/07/22 17:45 19:19 20:16 Temperature 98.1 F Pulse Rate 95 68 82 Respiratory 16 16 16 Rate Blood Pressure 104/68 126/75 126/72 O2 Sat by Pulse 96 98 98 Oximetry Medical Decision Making - Medical Decision Making Patient is a 67-year-old female presenting with flareup of trigeminal neuralgia. Patient states that this pain feels consistent with her regular flareups. No focal neurological deficits. No neck pain or stiffness. Pupils are equal, round, reactive, and accommodating. Extraocular motions are intact. Bilateral strength and sensation is intact. Patient is given pain medication here in the ER. On reassessment patient reports improvement in her pain. She wishes to be discharged home at this time. I believe this is reasonable. Educated on the need for follow-up. Follow-up with PCP. Report back to ER with any new or worsening symptoms. Discussed return parameters and answered all questions. Patient conveyed verbal understanding and agreed to the plan. I discussed this case in detail with my attending Dr. Chowdhury Disposition Clinical Impression: Trigeminal neuralgia Disposition: HOME SELF-CARE Condition: Good Instructions (If sedation given, give patient instructions): Trigeminal Neuralgia (ED) Additional Instructions: Follow-up with PCP. Report back to ER with any new or worsening symptoms. Is patient prescribed a controlled substance at d/c from ED?: No Referrals: Parveen Anaya DO [Primary Care Provider] - 1-2 days Time of Disposition: 19:58
[2022-08-07] MEDS ORDERED: ORPHENADRINE 30 MG/ML 2 ML VIAL IVP STA (19:25)
[2022-08-07 20:17] VITALS: BP 126/72; PULSE 82
== END 2022-08-07 21:00 | disposition home or self-care (01) ==
LOC: EC 17:36
DX: G50.0 Trigeminal neuralgia (principal); E11.9 Type 2 diabetes mellitus without complications; K21.9 Gastro-esophageal reflux disease without esophagitis; E78.5 Hyperlipidemia, unspecified; M19.90 Unspecified osteoarthritis, unspecified site; F41.9 Anxiety disorder, unspecified; Z87.891 Personal history of nicotine dependence; Z79.899 Other long term (current) drug therapy; Z79.84 Long term (current) use of oral hypoglycemic drugs
CPT/HCPCS: 99284; 96374; 96375 ×3; J0780; J2360; J1170; J1885

== ENCOUNTER 2022-08-18 16:58 | Emergency (ER) | payer MEDICARE, BC, OTHER ==
[2022-08-18] MEDS ORDERED: ORPHENADRINE 30 MG/ML 2 ML VIAL IVP STA (21:34)
[2022-08-18] MEDS ORDERED: SODIUM CHLORIDE 0.9% 1,000 ML IV ONE (21:34)
[2022-08-18] MEDS ORDERED: HYDROmorphone 1 MG/ML 1 ML SYRINGE IVP STA (21:34)
[2022-08-18] MEDS ORDERED: KETOROLAC 15 MG/ML 1 ML VIAL IVP STA (21:34)
--- NOTE | 2022-08-18 22:47 | ED ---
General Adult HPI - General Chief complaint: Headache Stated complaint: Jaw pain Time Seen by Provider: 08/18/22 20:54 Source: patient Mode of arrival: wheelchair - History of Present Illness Initial comments: This is a 67-year-old female with a past medical history including trigeminal neuralgia presents emergency department for worsening had pain. The patient stated this feels like her normal trigeminal neuralgia pain however is become more severe today. The patient has used for medications at home however they did not help her. The patient did state the last time she was in the emergency department a cocktail medications helped to reset her pain so she came back for these medications. The patient denied any lightheadedness or dizziness as well as any worsening headache from her baseline pain. Patient was resting in bed comfortably with intermittent shocks of pain from her trigeminal neuralgia. - Related Data Home Medications Medication Instructions Recorded Confirmed Omeprazole [PriLOSEC] 20 mg PO DAILY 11/24/16 07/17/22 Hydrocodone/Acetaminophen [[place] 1 tab PO TID PRN 04/11/20 07/17/22 10-325] traZODone HCL [TraZODone HCl] 50 - 100 mg PO HS 08/24/20 07/17/22 ALPRAZolam [Xanax] 0.25 mg PO BID PRN 09/19/20 07/17/22 Cyclobenzaprine [Flexeril] 10 mg PO TID 09/19/20 07/17/22 Atorvastatin [Lipitor] 20 mg PO HS 09/26/20 07/17/22 metFORMIN HCL [Glucophage] 1,000 mg PO BID 09/26/20 07/17/22 Pregabalin [Lyrica] 100 mg PO BID 07/11/22 07/17/22 lisinopriL [Zestril] 5 mg PO DAILY 07/11/22 07/17/22 Previous Rx's Medication Instructions Recorded carBAMazepine [TEGretol XR] 100 mg PO Q12H PRN #14 tab 06/01/21 Allergies Allergy/AdvReac Type Severity Reaction Status Date / Time No Known Allergies Allergy Verified 08/18/22 17:18 Review of Systems ROS Statement: Those systems with pertinent positive or pertinent negative responses have been documented in the HPI. ROS Other: All systems not noted in ROS Statement are negative. Past Medical History Past Medical History: Diabetes Mellitus, GERD/Reflux, Hyperlipidemia, Osteoarthritis (OA), Thyroid Disorder Additional Past Medical History / Comment(s): trigeminal neuralgia, thyroid nodules History of Any Multi-Drug Resistant Organisms: None Reported Past Surgical History: Bladder Surgery, Cholecystectomy, Hysterectomy, Orthopedic Surgery Additional Past Surgical History / Comment(s): sinus surgery, arthroscopy right knee, bladder suspension,plate placed behind her ear. Past Anesthesia/Blood Transfusion Reactions: No Reported Reaction Past Psychological History: Anxiety Smoking Status: Former smoker Past Alcohol Use History: None Reported Past Drug Use History: None Reported - Past Family History Mother Family Medical History: No Reported History General Exam Limitations: no limitations General appearance: alert, in no apparent distress Head exam: Present: atraumatic, normocephalic, other (Tenderness palpation all over the head and scalp) Eye exam: Present: normal appearance, PERRL Pupils: Present: normal accommodation ENT exam: Present: normal exam, normal oropharynx, mucous membranes moist Neck exam: Present: normal inspection, full ROM Respiratory exam: Present: normal lung sounds bilaterally Cardiovascular Exam: Present: regular rate, normal rhythm, normal heart sounds GI/Abdominal exam: Present: soft, normal bowel sounds Extremities exam: Present: normal inspection, full ROM Back exam: Present: normal inspection, full ROM Neurological exam: Present: alert, oriented X3, CN II-XII intact Psychiatric exam: Present: normal affect, normal mood Skin exam: Present: warm, dry Course Vital Signs 08/18/22 08/18/22 08/18/22 17:14 20:50 22:50 Temperature 98.0 F 97.8 F 98.0 F Pulse Rate 88 85 77 Respiratory 16 18 16 Rate Blood Pressure 131/75 145/89 148/88 O2 Sat by Pulse 97 95 95 Oximetry Medical Decision Making - Medical Decision Making The patient was seen and evaluated emergency department. Physical exam, the patient was resting in bed without any acute distress. The patient did have intermittent shocks of pain from her trigeminal neuralgia. Due to the nature the patient's complaints, no laboratory workup was obtained at this time. The [facility]'s chart did show that she did receive Toradol, Norflex and Dilaudid as a cocktail that improved her symptoms on a previous visit so she was once again given his cocktail of 1 mg of Dilaudid, Norflex and Toradol IV with 1 L no was sitting fluid. On reevaluation, the patient stated that her pain completely resolved and she was able to sleep. The patient's [id number] was present at the bedside and did state that she seemed back to her baseline. The patient was deemed stable for discharge and was told to follow-up with her neurologist for further workup and evaluation which she has an appointment for next week. The patient was also told to report back to the emergency department if her pain or symptoms became acutely worse. The patient was agreeable to this and all of her questions were answered. The patient was discharged home in stable condition with her [id number]. Disposition Clinical Impression: Trigeminal neuralgia pain Disposition: HOME SELF-CARE Condition: Stable Instructions (If sedation given, give patient instructions): Trigeminal Jeffery ralgia (ED) Is patient prescribed a controlled substance at d/c from ED?: No Referrals: Parveen Anaya DO [Primary Care Provider] - 1-2 days Time of Disposition: 22:45
[2022-08-18 22:51] VITALS: BP 148/88; PULSE 77; RESP 16; TEMP 98
== END 2022-08-18 22:59 | disposition home or self-care (01) ==
LOC: EC 16:58
DX: G50.0 Trigeminal neuralgia (principal); E11.9 Type 2 diabetes mellitus without complications; K21.9 Gastro-esophageal reflux disease without esophagitis; E78.5 Hyperlipidemia, unspecified; F41.9 Anxiety disorder, unspecified; Z87.891 Personal history of nicotine dependence; Z79.899 Other long term (current) drug therapy; Z79.02 Long term (current) use of antithrombotics/antiplatelets; Z79.84 Long term (current) use of oral hypoglycemic drugs
CPT/HCPCS: 99284; 96374; 96375 ×2; 96361; J2360; J1170; J1885

== ENCOUNTER 2022-12-16 18:01 | Emergency (ER) | payer MEDICARE, BC, OTHER ==
[2022-12-16 18:25] VITALS: BP 135/86; PULSE 88; RESP 20; TEMP 98.3
--- NOTE | 2022-12-16 19:20 | ED ---
Headache HPI - General Chief Complaint: Headache Stated Complaint: headache/ear pain Time Seen by Provider: 12/16/22 19:20 Source: RN notes reviewed Mode of arrival: ambulatory Limitations: no limitations - History of Present Illness Initial Comments: Patient is a 67-year-old female presenting with chief complaint of headache. Patient states she has history of trigeminal neuralgia which has been ongoing for the last 2 years. She states that she has an appointment with Elena in several months. No injury, nausea, vomiting, fever, chills, URI-like symptoms. No syncope, seizure, vision or hearing changes. No chest pain or difficulty breathing. Of note on repeat questioning patient states that she did have a trip and fall yesterday hitting her forehead, no loss of consciousness or blood thinners. - Related Data Home Medications Medication Instructions Recorded Confirmed Omeprazole [PriLOSEC] 20 mg PO DAILY 11/24/16 07/17/22 Hydrocodone/Acetaminophen [[place] 1 tab PO TID PRN 04/11/20 07/17/22 10-325] traZODone HCL [TraZODone HCl] 50 - 100 mg PO HS 08/24/20 07/17/22 ALPRAZolam [Xanax] 0.25 mg PO BID PRN 09/19/20 07/17/22 Cyclobenzaprine [Flexeril] 10 mg PO TID 09/19/20 07/17/22 Atorvastatin [Lipitor] 20 mg PO HS 09/26/20 07/17/22 metFORMIN HCL [Glucophage] 1,000 mg PO BID 09/26/20 07/17/22 Pregabalin [Lyrica] 100 mg PO BID 07/11/22 07/17/22 lisinopriL [Zestril] 5 mg PO DAILY 07/11/22 07/17/22 Previous Rx's Medication Instructions Recorded carBAMazepine [TEGretol XR] 100 mg PO Q12H PRN #14 tab 06/01/21 Allergies Allergy/AdvReac Type Severity Reaction Status Date / Time No Known Allergies Allergy Verified 12/16/22 18:24 Review of Systems ROS Statement: Those systems with pertinent positive or pertinent negative responses have been documented in the HPI. ROS Other: All systems not noted in ROS Statement are negative. Past Medical History Past Medical History: Diabetes Mellitus, GERD/Reflux, Hyperlipidemia, Osteoarthritis (OA), Thyroid Disorder Additional Past Medical History / Comment(s): trigeminal neuralgia, thyroid nodules History of Any Multi-Drug Resistant Organisms: None Reported Past Surgical History: Bladder Surgery, Cholecystectomy, Hysterectomy, Orthopedic Surgery Additional Past Surgical History / Comment(s): sinus surgery, arthroscopy right knee, bladder suspension,plate placed behind her ear. Past Anesthesia/Blood Transfusion Reactions: No Reported Reaction Past Psychological History: Anxiety Smoking Status: Former smoker Past Alcohol Use History: None Reported Past Drug Use History: None Reported - Past Family History Mother Family Medical History: No Reported History General Exam - General Exam Comments Initial Comments: Visual Physical Exam Vital signs reviewed General: Well-appearing, nontoxic, no acute distress. Head: Normocephalic, atraumatic Eyes: PERRLA, EOMI ENT: Airway patent Chest: Nonlabored breathing Skin: No visual rash, normal skin tone Neuro: Alert and oriented 3 Musculoskeletal: No gross abnormalities Limitations: no limitations General appearance: alert, in no apparent distress Head exam: Present: atraumatic, normocephalic, normal inspection Eye exam: Present: normal appearance, PERRL, EOMI. Absent: scleral icterus, conjunctival injection, periorbital swelling Neck exam: Present: normal inspection, full ROM Respiratory exam: Present: normal lung sounds bilaterally. Absent: respiratory distress, wheezes, rales, rhonchi, stridor Cardiovascular Exam: Present: regular rate, normal rhythm, normal heart sounds. Absent: systolic murmur, diastolic murmur, rubs, gallop, clicks Neurological exam: Present: alert, oriented X3, CN II-XII intact Psychiatric exam: Present: normal affect, normal mood Skin exam: Present: warm, dry, intact, normal color. Absent: rash Course Vital Signs 12/16/22 18:21 Temperature 98.3 F Pulse Rate 88 Respiratory 20 Rate Blood Pressure 135/86 O2 Sat by Pulse 98 Oximetry Medical Decision Making - Medical Decision Making Was pt. sent in by a medical professional or institution (, PA, WAREHOUSE WORKER, urgent care, hospital, or long term...) When possible be specific @ -No Did you speak to anyone other than the patient for history (EMS, parent, family, police, friend...)? What history was obtained from this source @ -No Did you review nursing and triage notes (agree or disagree)? Why? @ -I reviewed and agree with nursing and triage notes Were old charts reviewed (outside hosp., previous admission, EMS record, old EKG, old radiological studies, urgent care reports/EKG's, long term records)? Report findings @ -No old charts were reviewed Differential Diagnosis (chest pain, altered mental status, abdominal pain women, abdominal pain men, vaginal bleeding, weakness, fever, dyspnea, syncope, headache, dizziness, GI bleed, back pain, seizure, CVA, palpatations, mental health, musculoskeletal)? @ -MDM Differential Headache: Migraine, tension, cluster, carbon monoxide, central venous thrombosis, pension karma temporal arteritis, acute closure glaucoma, intercranial hemorrhage, mastoiditis, sinusitis, head injury this is not meant to be an all-inclusive list. EKG interpreted by me (3pts min.). @ -As above X-rays interpreted by me (1pt min.). @ -None done CT interpreted by me (1pt min.). @ -CT shows no acute intracranial process or evidence of cervical spine fracture U/S interpreted by me (1pt. min.). @ -None done What testing was considered but not performed or refused? (CT, X-rays, U/S, labs)? Why? @ -None What meds were considered but not given or refused? Why? @ -None Did you discuss the management of the patient with other professionals (professionals i.e. , PA, WAREHOUSE WORKER, lab, RT, psych nurse, social science research assistant, hotel service supervisor, teacher, sheriff officer, supportive employment case manager)? Give summary @ -No Was smoking cessation discussed for >3mins.? @ -No Was critical care preformed (if so, how long)? @ -No Were there social determinants of health that impacted care today? How? (Homelessness, low income, unemployed, alcoholism, drug addiction, transportation, low edu. Level, literacy, decrease access to med. care, residential, re hab)? @ -No Was there de-escalation of care discussed even if they declined (Discuss DNR or withdrawal of care, Hospice)? DNR status @ -No What co-morbidities impacted this encounter? (DM, HTN, Smoking, COPD, CAD, Cancer, CVA, ARF, Chemo, Hep., AIDS, mental health diagnosis, sleep apnea, morbid obesity)? @ -None Was patient admitted / discharged? Hospital course, mention meds given and route, prescriptions, significant lab abnormalities, going to OR and other pertinent info. @ -Patient is a 67-year-old female history of trigeminal neuralgia presenting with chief complaint of headache. Headache feels identical to previous flareups of trigeminal neuralgia. Patient initially denied any recent falls or injuries, however repeat questioning she states she did have a troponin fall hitting her forehead yesterday, no loss of consciousness or blood thinners. On physical examination there are no focal neurological deficits. Patient is given IV fluids, Toradol, Reglan, and Benadryl. CT is negative. On reassessment patient is resting comfortably in bed and states that symptoms have improved. She is discharged in stable condition. Instructed to follow-up at her scheduled appointment with [facility]. Follow-up with PCP. Report back to ER with any new or worsening symptoms. Discussed return parameters and answered all questions. Patient conveyed verbal understanding and agreed to the plan. I discussed this case in detail with my attending Dr. Koo Undiagnosed new problem with uncertain prognosis? @ -No Drug Therapy requiring intensive monitoring for toxicity (Heparin, Nitro, Insulin, Cardizem)? @ -No Were any procedures done? @ -No Diagnosis/symptom? @ -Headache Acute, or Chronic, or Acute on Chronic? @ -Acute Uncomplicated (without systemic symptoms) or Complicated (systemic symptoms)? @ -uncomplicated Side effects of treatment? @ -No Exacerbation, Progression, or Severe Exacerbation? @ -No Poses a threat to life or bodily function? How? (Chest pain, [place], [place], pneumonia, PE, COPD, DKA, ARF, appy, cholecystitis, CVA, Diverticulitis, Homicidal, Suicidal, threat to staff... and all critical care pts) @ -No Disposition Clinical Impression: Headache Disposition: HOME SELF-CARE Condition: Good Instructions (If sedation given, give patient instructions): Trigeminal Neuralgia (ED), Acute Headache (ED) Additional Instructions: Follow-up with PCP. Report back to ER with any new or worsening symptoms. Take Motrin and Tylenol as needed for pain control. Is patient prescribed a controlled substance at d/c from ED?: No Referrals: Parveen Anaya DO [Primary Care Provider] - 1-2 days Time of Disposition: 22:24
[2022-12-16] MEDS: KETOROLAC 15 MG/ML 1 ML VIAL IVP STA (20:51)
[2022-12-16] MEDS: METOCLOPRAMIDE 5 MG/ML 2 ML VIAL IVP STA (20:51)
[2022-12-16] MEDS: diphenhydrAMINE 50 MG/ML 1 ML VIAL IVP STA (20:51)
[2022-12-16] MEDS: SODIUM CHLORIDE 0.9% 1,000 ML IV STA (20:52)
--- NOTE | 2022-12-16 21:43 | CT ---
EXAMINATION TYPE: CT brain cspine wo con CT DLP: 1439.8 mGycm, Automated exposure control for dose reduction was used. DATE OF EXAM: 12/16/2022 9:20 PM COMPARISON: 11/28/2021 CLINICAL INDICATION:Female, 67 years old with history of fall; Fall. hx of trig eminal neuralgia TECHNIQUE: Brain: Multiple axial CT images of the brain were obtained without IV contrast. Cspine: Axial CT images from the skull base to the inferior aspect of T2 we obtained without intraven ous contrast. Coronal and sagittal reformatted images were also reviewed. FINDINGS: Brain: Extra-axial spaces: No abnormal extra-axial fluid collections. Ventricular system: Within normal limits Cerebral parenchyma: No acute intraparenchymal hemorrhage or mass effect. The whitfield-white junction is well differentiated. Cerebellum: Unremarkable. Mass effect: No evidence of midline shift. Intracranial vasculature: Atherosclerotic calcifications of the intracranial vessels. Soft tissues: Normal. Calvarium/osseous structures: No depressed skull fracture. Paranasal sinuses and mastoid air cells: Mild scattered mucosal thickening and or secretions. Visualized orbits: Orbital contents are intact. Cervical spine: Fracture: None. Osseous structures: Multilevel degenerative disc disease changes with endplate spurring and disc oste ophyte complex's. Vertebral alignment: Within normal limits. Spinal canal/Neural Foramina: Disc osteophyte complexes at C5-C6 with at least mild spinal canal sten osis. No evidence for significant neural foraminal stenosis. Neck soft tissues: Prevertebral soft tissues are within normal limits. Other: The airway is patent. The lung apices are clear. IMPRESSION: 1. No acute intracranial process. 2. No evidence of cervical spine fracture. 3. Mild multilevel degenerative disc disease. 4. Stable postsurgical changes of the left skull.
== END 2022-12-16 22:39 | disposition home or self-care (01) ==
LOC: EC 18:01
DX: R51.9 Headache, unspecified (principal); E11.9 Type 2 diabetes mellitus without complications; K21.9 Gastro-esophageal reflux disease without esophagitis; E78.5 Hyperlipidemia, unspecified; M19.90 Unspecified osteoarthritis, unspecified site; F41.9 Anxiety disorder, unspecified; Z87.891 Personal history of nicotine dependence; Z79.1 Long term (current) use of non-steroidal anti-inflammatories (NSAID); Z79.84 Long term (current) use of oral hypoglycemic drugs; Z79.899 Other long term (current) drug therapy
CPT/HCPCS: 72125; 70450; 99284; 96374; 96375 ×2; 96361 ×2; J1200; J2765; J1885

== ENCOUNTER 2022-12-22 18:56 | Inpatient (IN) | payer MEDICARE, BC, OTHER ==
--- NOTE | 2022-12-22 18:57 | ED ---
General Adult HPI <Melinda Gilliland - Last Filed: 12/22/22 18:56> - General Source: patient, RN notes reviewed, old records reviewed <Gordo Jimenez - Last Filed: 12/22/22 23:11> - General Stated complaint: L ear/facial pain Time Seen by Provider: 12/22/22 18:57 - History of Present Illness Initial comments: 67-year-old female presents the emergency Department chief complaint of left ear pain. She reports that her pain feels like a burning that radiates to the left side of her face. (Melinda Gilliland) This is a 67-year-old female presented for initial complaint of left ear pain but in reality this patient is presenting to the emergency department for psychiatric evaluation. Here pain and left facial pain has been ongoing for 3 years. She's been seen by multiple specialists. Her son is accompanying her who is concerned about how this is affecting her sleep and her quality of life. She has made comments about not wanting to live anymore. No suicide attempt. No homicidal ideation. (Gordo Jimenez) - Related Data Home Medications Medication Instructions Recorded Confirmed Omeprazole [PriLOSEC] 20 mg PO DAILY 11/24/16 07/17/22 Hydrocodone/Acetaminophen [[place] 1 tab PO TID PRN 04/11/20 07/17/22 10-325] traZODone HCL [TraZODone HCl] 50 - 100 mg PO HS 08/24/20 07/17/22 ALPRAZolam [Xanax] 0.25 mg PO BID PRN 09/19/20 07/17/22 Cyclobenzaprine [Flexeril] 10 mg PO TID 09/19/20 07/17/22 Atorvastatin [Lipitor] 20 mg PO HS 09/26/20 07/17/22 metFORMIN HCL [Glucophage] 1,000 mg PO BID 09/26/20 07/17/22 Pregabalin [Lyrica] 100 mg PO BID 07/11/22 07/17/22 lisinopriL [Zestril] 5 mg PO DAILY 07/11/22 07/17/22 Previous Rx's Medication Instructions Recorded carBAMazepine [TEGretol XR] 100 mg PO Q12H PRN #14 tab 06/01/21 Allergies Allergy/AdvReac Type Severity Reaction Status Date / Time No Known Allergies Allergy Verified 12/22/22 19:31 Review of Systems ROS Other: All systems not noted in ROS Statement are negative. <MoniquebaudiliomickiMelinda - Last Filed: 12/22/22 18:56> ROS Other: All systems not noted in ROS Statement are negative. <MarilynclydeGordo West - Last Filed: 12/22/22 23:11> ROS Statement: Those systems with pertinent positive or pertinent negative responses have been documented in the HPI. Past Medical History Past Medical History: Diabetes Mellitus, GERD/Reflux, Hyperlipidemia, Osteoarthritis (OA), Thyroid Disorder Additional Past Medical History / Comment(s): trigeminal neuralgia, thyroid nodules History of Any Multi-Drug Resistant Organisms: None Reported Past Surgical History: Bladder Surgery, Cholecystectomy, Hysterectomy, Orthopedic Surgery Additional Past Surgical History / Comment(s): sinus surgery, arthroscopy right knee, bladder suspension,plate placed behind her ear. Past Anesthesia/Blood Transfusion Reactions: No Reported Reaction Past Psychological History: Anxiety Smoking Status: Former smoker Past Alcohol Use History: None Reported Past Drug Use History: None Reported - Past Family History Mother Family Medical History: No Reported History <DarshanaMelinda - Last Filed: 12/22/22 18:56> General Exam <VaniakenaluisMelinda - Last Filed: 12/22/22 18:56> General appearance: alert, in no apparent distress Head exam: Present: atraumatic, normocephalic Eye exam: Present: normal appearance, PERRL, EOMI ENT exam: Present: normal exam Neck exam: Present: normal inspection Respiratory exam: Present: normal lung sounds bilaterally. Absent: respiratory distress, wheezes GI/Abdominal exam: Present: soft. Absent: distended, tenderness Extremities exam: Present: normal inspection, normal capillary refill. Absent: pedal edema Neurological exam: Present: alert, CN II-XII intact. Absent: motor sensory deficit Psychiatric exam: Present: depressed, flat affect Skin exam: Present: warm, dry, intact <TonyGordo West - Last Filed: 12/22/22 23:11> - General Exam Comments Initial Comments: Visual Physical Exam Vital signs reviewed General: Well-appearing, nontoxic, no acute distress. Head: Normocephalic, atraumatic Eyes: PERRLA, EOMI ENT: Airway patent Chest: Nonlabored breathing Skin: No visual rash, normal skin tone Neuro: Alert and oriented 3 Musculoskeletal: No gross abnormalities (Melinda Gilliland) Course <Gordo Jimenez - Last Filed: 12/22/22 23:11> Vital Signs 12/22/22 19:25 Temperature 97.4 F L Pulse Rate 90 Respiratory 18 Rate Blood Pressure 108/69 O2 Sat by Pulse 96 Oximetry - Reevaluation(s) Reevaluation #1: 12/22/22 21:34 Clear for EPS evaluation. (MarilynGordo tang) Medical Decision Making <Gordo Jimenez West - Last Filed: 12/22/22 23:11> - Medical Decision Making Was pt. sent in by a medical professional or institution (, PA, INVESTMENT SPECIALIST, urgent care, hospital, or intermediate...) When possible be specific @ -[No] Did you speak to anyone other than the patient for history (EMS, parent, family, police, friend...)? What history was obtained from this source @ -Patient's son is at bedside Did you review nursing and triage notes (agree or disagree)? Why? @ -[I reviewed and agree with nursing and triage notes] Were old charts reviewed (outside hosp., previous admission, EMS record, old EKG, old radiological studies, urgent care reports/EKG's, intermediate records)? Report findings @ -[No old charts were reviewed] Differential Diagnosis (chest pain, altered mental status, abdominal pain women, abdominal pain men, vaginal bleeding, weakness, fever, dyspnea, syncope, headache, dizziness, GI bleed, back pain, seizure, CVA, palpatations, mental health, musculoskeletal)? @ -Differential Mental Health Depression, anxiety, bipolar, psychosis, schizophrenia, borderline personality, situational depression, adjustment disorder, behavioral disorder, brain tumor, malingering, substance abuse, encephalopathy, medication reaction, dementia, hypothyroidism, degenerative neurologic disorder, lupus.... This is not meant to be all-inclusive list EKG interpreted by me (3pts min.). @ -[As above] X-rays interpreted by me (1pt min.). @ -[None done] CT interpreted by me (1pt min.). @ -[None done] U/S interpreted by me (1pt. min.). @ -[None done] What testing was considered but not performed or refused? (CT, X-rays, U/S, la bs)? Why? @ -[None] What meds were considered but not given or refused? Why? @ -[None] Did you discuss the management of the patient with other professionals (professionals i.e. , PA, INVESTMENT SPECIALIST, lab, RT, psych nurse, manager social responsibility, filler shredder helper, teacher, chairman and chief executive officer, major case detective)? Give summary @ -[Is discussed with the EPS nurse Was smoking cessation discussed for >3mins.? @ -[No] Was critical care preformed (if so, how long)? @ -[No] Were there social determinants of health that impacted care today? How? (Homelessness, low income, unemployed, alcoholism, drug addiction, transportation, low edu. Level, literacy, decrease access to med. care, penitentiary, rehab)? @ -[No] Was there de-escalation of care discussed even if they declined (Discuss DNR or withdrawal of care, Hospice)? DNR status @ -[No] What co-morbidities impacted this encounter? (DM, HTN, Smoking, COPD, CAD, Cancer, CVA, ARF, Chemo, Hep., AIDS, mental health diagnosis, sleep apnea, morbid obesity)? @ -[None] Was patient admitted / discharged? Hospital course, mention meds given and route, prescriptions, significant lab abnormalities, going to OR and other pertinent info. @ -[Patient had been medically cleared and evaluated by EPS and felt to require inpatient psychiatric evaluation treatment. She will be admitted to this institution.] Undiagnosed new problem with uncertain prognosis? @ -[No] Drug Therapy requiring intensive monitoring for toxicity (Heparin, Nitro, Insulin, Cardizem)? @ -[No] Were any procedures done? @ -[No] Diagnosis/symptom? @ -Psychosis, suicidal comments] Acute, or Chronic, or Acute on Chronic? @ -[acute] Uncomplicated (without systemic symptoms) or Complicated (systemic symptoms)? @ -[Complicated] Side effects of treatment? @ -[No] Exacerbation, Progression, or Severe Exacerbation? @ -[No] Poses a threat to life or bodily function? How? (Chest pain, [place], [place], pneumonia, PE, COPD, DKA, ARF, appy, cholecystitis, CVA, Diverticulitis, Homicidal, Suicidal, threat to staff... and all critical care pts) @ -[Yes, self-harm] (Gordo Jimenez) - Lab Data Lab Results 12/22/22 Range/Units 22:11 Urine Opiates Screen Not Detected (NotDetected) Ur Oxycodone Screen Not Detected (NotDetected) Urine Methadone Screen Not Detected (NotDetected) Ur Propoxyphene Screen Not Detected (NotDetected) Ur Barbiturates Screen Not Detected (NotDetected) U Tricyclic Antidepress Not Detected (NotDetected) Ur Phencyclidine Scrn Not Detected (NotDetected) Ur Amphetamines Screen Not Detected (NotDetected) U Methamphetamines Scrn Not Detected (NotDetected) U Benzodiazepines Scrn Not Detected (NotDetected) Urine Cocaine Screen Not Detected (NotDetected) U Marijuana (THC) Screen Not Detected (NotDetected) Disposition <Melinda Gilliland - Last Filed: 12/22/22 18:56> Is patient prescribed a controlled substance at d/c from ED?: No Time of Disposition: 23:11 <Gordo Jimenez - Last Filed: 12/22/22 23:11> Clinical Impression: Depression, Suicidal ideation, Acute psychosis Disposition: ADMITTED IP TO THIS [facility] Condition: Stable Referrals: Parveen Anaya DO [Primary Care Provider] - 1-2 days
[2022-12-22 22:32] LABS: Amphetamine Screen,Urine Not Detected (NotDetected); Barbiturate Screen,Urine Not Detected (NotDetected); Benzodiazepines Screen,Urine Not Detected (NotDetected); Cocaine Screen,Urine Not Detected (NotDetected); Methadone Screen, Urine Not Detected (NotDetected); Opiate Screen,Urine Not Detected (NotDetected); Oxycodone Screen, Urine Not Detected (NotDetected); Phencyclidine Screen,Urine Not Detected (NotDetected); Tricyclic Antidepressant,Urine Not Detected (NotDetected); Urn Cannabinoid Scrn Not Detected (NotDetected)
[2022-12-23] MEDS ORDERED: MAG HYDROX/AL HYDROX/SIMETH 30 ML CUP PO PRN (01:46)
[2022-12-23] MEDS ORDERED: MAGNESIUM HYDROXIDE 2,400 MG/10 ML CUP PO PRN (01:46)
[2022-12-23] MEDS ORDERED: ACETAMINOPHEN TAB 325 MG TAB PO PRN (01:46)
[2022-12-23] MEDS ORDERED: LORazepam 2 MG/ML INJ IM PRN (01:53)
[2022-12-23 05:27] LABS: Appearance,Urine Cloudy (Clear); Bacteria,Urine Occasional /hpf; Bilirubin,Urine Negative (Negative); Blood,Urine Negative (Negative); Color,Urine Light Yellow; Glucose,Urine (UA) 1+ (Negative); Ketones,Urine Negative (Negative); Leukocyte Esterase,Urine Negative (Negative); Mucus,Urine Rare /hpf; Nitrite,Urine Negative (Negative); PH, Urine 6.5 (5.0-8.0); Protein,Urine Negative (Negative); RBC,Urine 1 /hpf (0-5); Specific Gravity,Urine 1.011 (1.001-1.035); Squamous Epithelial Cell,Urine <1 /hpf (0-4); Urobilinogen,Urine <2.0 mg/dL (<2.0); WBC,Urine 3 /hpf (0-5)
[2022-12-23] MEDS: IBUPROFEN 800 MG TAB PO PRN ×3 (06:12→22:38)
[2022-12-23 07:50] LABS: Glucose,Whole Blood 169 mg/dL (70-110)
[2022-12-23] MEDS: ASCORBIC ACID 500 MG TAB PO SCH ×2 (07:57→20:17)
[2022-12-23] MEDS: CYANOCOBALAMIN 500 MCG TAB PO SCH (07:57)
[2022-12-23] MEDS: PANTOPRAZOLE 40 MG TABLET PO SCH (07:57)
[2022-12-23] MEDS: PREGABALIN 100 MG CAP PO SCH ×2 (07:57→20:17)
[2022-12-23] MEDS: metFORMIN 500 MG TAB PO SCH ×2 (07:57→20:17)
[2022-12-23] MEDS: lisinopriL 5 MG TAB PO SCH (08:33)
[2022-12-23] MEDS: LORazepam 1 MG TAB PO PRN ×2 (08:34→22:38)
[2022-12-23] MEDS ORDERED: hydrOXYzine HCL 10 MG TAB PO SCH (09:00)
--- NOTE | 2022-12-23 10:10 | P.HP ---
Psychiatric H&P - . H&P Date: 12/23/22 History & Physical: Allergies Allergy/AdvReac Type Severity Reaction Status Date / Time No Known Allergies Allergy Verified 12/23/22 01:59 Vital Signs Temp 97.5 F L 12/23/22 03:45 Pulse 104 H 12/23/22 03:45 Resp 18 12/23/22 03:45 BP 133/65 12/23/22 03:45 Pulse Ox 96 12/23/22 03:45 FiO2 Intake & Output 12/22/22 12/23/22 12/23/22 18:59 06:59 18:59 Weight 68.583 kg Laboratory Last Values POC Glucose (mg/dL) 169 mg/dL (70-110) H 12/23/22 07:49 POC Glu Capacitor Repairer ID Julianne Granados 12/23/22 07:49 Urine Color Light Yellow 12/22/22 22:11 Urine Appearance Cloudy (Clear) H 12/22/22 22:11 Urine pH 6.5 (5.0-8.0) 12/22/22 22:11 Ur Specific [place] 1.011 (1.001-1.035) 12/22/22 22:11 Urine Protein Negative (Negative) 12/22/22 22:11 Urine Glucose (UA) 1+ (Negative) H 12/22/22 22:11 Urine Ketones Negative (Negative) 12/22/22 22:11 Urine Blood Negative (Negative) 12/22/22 22:11 Urine Nitrite Negative (Negative) 12/22/22 22:11 Urine Bilirubin Negative (Negative) 12/22/22 22:11 Urine Urobilinogen <2.0 mg/dL (<2.0) 12/22/22 22:11 Ur Leukocyte Esterase Negative (Negative) 12/22/22 22:11 Urine RBC 1 /hpf (0-5) 12/22/22 22:11 Urine WBC 3 /hpf (0-5) 12/22/22 22:11 Ur Squamous Epith Cells <1 /hpf (0-4) 12/22/22 22:11 Urine Bacteria Occasional /hpf (None) H 12/22/22 22:11 Urine Mucus Rare /hpf (None) H 12/22/22 22:11 Urine Opiates Screen Not Detected (NotDetected) 12/22/22 22:11 Ur Oxycodone Screen Not Detected (NotDetected) 12/22/22 22:11 Urine Methadone Screen Not Detected (NotDetected) 12/22/22 22:11 Ur Propoxyphene Screen Not Detected (NotDetected) 12/22/22 22:11 Ur Barbiturates Screen Not Detected (NotDetected) 12/22/22 22:11 U Tricyclic Antidepress Not Detected (NotDetected) 12/22/22 22:11 Ur Phencyclidine Scrn Not Detected (NotDetected) 12/22/22 22:11 Ur Amphetamines Screen Not Detected (NotDetected) 12/22/22 22:11 U Methamphetamines Scrn Not Detected (NotDetected) 12/22/22 22:11 U Benzodiazepines Scrn Not Detected (NotDetected) 12/22/22 22:11 Urine Cocaine Screen Not Detected (NotDetected) 12/22/22 22:11 U Marijuana (THC) Screen Not Detected (NotDetected) 12/22/22 22:11 Coronavirus (PCR) Not Detected (Not Detectd) 12/23/22 00:45 12/23/22 09:59 Identification: Bree Montgomery is a 67 years old female living in [facility]. She was admitted to [facility] on 12/23/2022 on a voluntary application since she was thought to be a psychiatric patient. History of present illness: Patient said her son tricked her into coming here to the mental health unit. She said she has been having left year pain which apparently was diagnosed as trigeminal neuralgia and has been coming to hospital few times and the admitting doctor felt it was a mental health issue and she was admitted here. Apparently she has left year pain for about one year which radiates to the head and comes and goes. And she gets the pain it is very excruciating. She has tried Lyrica without much help. She denies any psychiatric symptoms. She said she sleeps well gets along well with other people does not have any anger management issues, does not hear voices, her mind does not play any tricks on her, does not have any suicide or homicide thoughts and is not clear why she was admitted to psychiatric unit. Review psychiatric history/drug and alcohol abuse: She was never in the mental health unit in the past does not take any psychiatric medications except for trazodone 50 mg at night to help her sleep whenever she has trouble in sleeping. She denies abusing drugs and alcohol. Previous medical history: As noted earlier she has trigeminal neuralgia for about one year. She has gastroesophageal reflux disease, hypertension, diabetes. She had hysterectomy at the age of 28. She has 3 sons and did not have any . She had cholecystectomy and right knee surgery in the past. Social history she quit school in seventh grade since she got with her current to whom she has been for the last 54 years. She was raised well by her parents and was not abused. She had worked in the past in construction. Currently she is on Social Security prison has [employer], [employer] and [employer] health insurance. She is Christianity by congregation and does n ot go to latter day she denies any pending legal issues. Family history: She said her father 4 sisters and 2 brothers all have diabetes her mother had COPD and of some respiratory problems. Her father from diabetic coma. Mental status examination: This is a ambulatory female with adequate hygiene. She is wearing hospital gowns. She wears dental guards. she had episodes of acute trigeminal pain which made her scream and use her core packs on her ear and head. Otherwise she did not show any psychomotor agitation retardation or hyperactivity. Her speech was spontaneous relevant and goal- directed. Mood is euthymic to angry about being here. Affect is appropriate to the thought content. She denied hallucinations, delusions, suicide and homicide thoughts. She was well oriented. She was able to name only the last 2 presidents, was able to spell house properly but could not spell it backwards correctly. Strengths: Has social symptom place to live and has health insurance. Weakness: Multiple physical problems including pain which appeared appears to be from trigeminal neuralgia. Diagnostic impression: Psychiatric diagnosis deferred. Trigeminal neuralgia, GERD, hypertension and diabetes mellitus. Treatment plan: We will discontinue her Vistaril since she complains of sleepiness and sluggishness from it. Try Tegretol 100 mg a day for trigeminal neuralgia. She will have physical examination and psychosocial evaluation. freezing room worker will gather collateral information about her mental health issues. She will receive milieu therapy group therapy individual therapy occupational therapy and recreational therapy and medication education. Discharge with outpatient follow-up
[2022-12-23 11:35] LABS: Basophils % (A) 1 %; Eosinophils # (A) 0.2 k/uL (0-0.7); Eosinophils % (A) 3 %; HCT 35.2 % (34.0-46.0); Lymphocytes # (A) 2.7 k/uL (1.0-4.8); Lymphocytes % (A) 35 %; MCH 31.1 pg (25.0-35.0); MCV 91.5 fL (80.0-100.0); Mean Platelet Volume 8.2; Monocytes # (A) 0.4 k/uL (0-1.0); Monocytes % (A) 5 %; Neutrophils # (A) 4.3 k/uL (1.3-7.7); Neutrophils % (A) 55 %; Platelet Count 172 k/uL (150-450); RBC 3.84 m/uL (3.80-5.40); RDW 13.3 % (11.5-15.5); WBC 7.8 k/uL (3.8-10.6)
[2022-12-23 11:47] LABS: ALT 18 U/L (4-34); AST 16 U/L (14-36); African American GFR (CKD) >90 (>60 ml/min/1.73 sqM); Albumin 3.8 g/dL (3.5-5.0); Alkaline Phosphatase 67 U/L (38-126); Anion Gap 8 mmol/L; Blood Urea Nitrogen 10 mg/dL (7-17); Calcium 9.6 mg/dL (8.4-10.2); Carbon Dioxide 27 mmol/L (22-30); Chloride 105 mmol/L (98-107); Glucose 129 mg/dL (74-99); Non-African American GFR(CKD) >90 (>60 ml/min/1.73 sqM); Potassium 3.9 mmol/L (3.5-5.1); Sodium 140 mmol/L (137-145); Total Bilirubin 0.4 mg/dL (0.2-1.3); Total Protein 6.5 g/dL (6.3-8.2)
[2022-12-23 12:46] LABS: Glucose,Whole Blood 111 mg/dL (70-110)
[2022-12-23] MEDS ORDERED: carBAMazepine 200 MG TAB PO STA (14:09)
[2022-12-23 16:01] LABS: Chol/HDL Ratio 3.25 Ratio; LDL Cholesterol,Calculated 55.7 mg/dL (0.0-131.0)
[2022-12-23 18:29] LABS: Glucose,Whole Blood 159 mg/dL (70-110)
[2022-12-23 20:02] LABS: Glucose,Whole Blood 172 mg/dL (70-110)
[2022-12-23] MEDS: ATORVASTATIN 20 MG TAB PO SCH (20:17)
[2022-12-23] MEDS: traZODone HCL 50 MG TAB PO SCH (20:17)
[2022-12-23] MEDS: BACLOFEN 10 MG TAB PO PRN (22:38)
--- NOTE | 2022-12-24 00:40 | P.CONS ---
History of Present Illness - Reason for Consult Consult date: 12/24/22 - History of Present Illness The patient is a 67-year-old female with a PMH of type II DM, hypothyroidism, hyperlipidemia, hypertension, and trigeminal neuralgia who presented to the emergency room with complaints of worsening symptoms of trigeminal neuralgia with left sided scalp and ear pain radiating down into her face. The patient was admitted to the mental health unit where she was seen and evaluated. The patient reports that she was diagnosed with trigeminal neuralgia several years ago and has been seeing a pain management physician without avail. She reports ongoing left sided scalp and face pain that has gradually worsened. She reports that the pain is now severely affecting her quality of life and her ability to sleep and that is causing her to have suicidal ideation. The patient denied any additional complaints. She denied experiencing chest discomfort, shortness of breath, fever, chills, cough, nausea, vomiting, abdominal pain, diarrhea. Review of systems: Pertinent positives and negatives as discussed in HPI, a complete review of systems was performed and all other systems are negative. Physical examination: General: non toxic, no distress, appears at stated age, overweight Derm: no unusual rashes/lesions, no unusual ecchymoses, warm, dry Head: atraumatic, normocephalic, symmetric Eyes: EOMI, no lid lag, anicteric sclera ENT: Nose and ears atraumatic, no thrush, no pharyngeal erythema Neck: trachea midline, supple Mouth: no lip lesion, mucus membranes moist Cardiovascular: S1S2 reg, no murmur, no edema Lungs: CTA bilateral, no rhonchi, no rales , no accessory muscle use Abdominal: soft, nontender to palpation, no guarding Ext: no gross muscle atrophy, no contractures, Neuro: No gross focal neuro deficits noted Psych: Alert, oriented, appropriate affect Assessment: Trigeminal neuralgia Chronic conditions: Type II DM, hyperlipidemia, hypertension, hypothyroidism Imaging: None performed Data Review: Laboratory evaluation reviewed with WBC count 7.8, hemoglobin 12.0, platelet count 172, sodium 140, potassium 3.9, chloride 105, BUN 10, creatinine 0.55, glucose 129, TSH 0.637, A1c 6.6. Plan: Consult neurology for worsening trigeminal neuralgia. The patient is currently on carbamazepine. Continue with remaining home medications: -Metformin thousand milligrams by mouth twice a day -Lisinopril 5 mg by mouth daily -Lipitor 20 mg by mouth daily at bedtime -Lyrica 100 mg by mouth twice a day Thank you for allowing us to participate in the care of this patient. We will follow peripherally. Do not hesitate to contact us with questions. Someone can be reached from the [facility] hospitalist group at all hours of the day at [phone]. Past Medical History Past Medical History: Diabetes Mellitus, GERD/Reflux, Hyperlipidemia, Osteoarthritis (OA), Thyroid Disorder Additional Past Medical History / Comment(s): trigeminal neuralgia, thyroid nodules History of Any Multi-Drug Resistant Organisms: None Reported Past Surgical History: Bladder Surgery, Cholecystectomy, Hysterectomy, Orthopedic Surgery Additional Past Surgical History / Comment(s): sinus surgery, arthroscopy right knee, bladder suspension,plate placed behind her ear. Past Anesthesia/Blood Transfusion Reactions: No Reported Reaction Past Psychological History: Anxiety Smoking Status: Former smoker Past Alcohol Use History: None Reported Past Drug Use History: None Reported - Past Family History Mother Family Medical History: Hypertension Medications and Allergies Home Medications Medication Instructions Recorded Confirmed Type Omeprazole [PriLOSEC] 20 mg PO DAILY 11/24/16 07/17/22 History Hydrocodone/Acetaminophen [[place] 1 tab PO TID PRN 04/11/20 07/17/22 History 10-325] traZODone HCL [TraZODone HCl] 50 - 100 mg PO HS 08/24/20 07/17/22 History ALPRAZolam [Xanax] 0.25 mg PO BID PRN 09/19/20 07/17/22 History Cyclobenzaprine [Flexeril] 10 mg PO TID 09/19/20 07/17/22 History Atorvastatin [Lipitor] 20 mg PO HS 09/26/20 07/17/22 History metFORMIN HCL [Glucophage] 1,000 mg PO BID 09/26/20 07/17/22 History carBAMazepine [TEGretol XR] 100 mg PO Q12H PRN #14 tab 06/01/21 07/17/22 Rx Pregabalin [Lyrica] 100 mg PO BID 07/11/22 07/17/22 History lisinopriL [Zestril] 5 mg PO DAILY 07/11/22 07/17/22 History Allergies Allergy/AdvReac Type Severity Reaction Status Date / Time No Known Allergies Allergy Verified 12/23/22 01:59 Physical Exam Vitals: Vital Signs Temp Pulse Resp BP Pulse Ox 12/23/22 03:45 97.5 F L 104 H 18 133/65 96 Results CBC & Chem 7: 12/23/22 11:02 12/23/22 11:02 Labs: Abnormal Lab Results - Last 24 Hours (Table) 12/22/22 12/23/22 12/23/22 Range/Units 22:11 07:49 11:02 Glucose 129 H (74-99) mg/dL POC Glucose (mg/dL) 169 H (70-110) mg/dL Hemoglobin A1c (0.0-6.0) % Triglycerides 213.00 H (0.00-149.00) mg/dL VLDL Cholesterol, Calc 42.60 H (5.00-40.00) mg/dL Urine Appearance Cloudy H (Clear) Urine Glucose (UA) 1+ H (Negative) Urine Bacteria Occasional H (None) /hpf Urine Mucus Rare H (None) /hpf 12/23/22 12/23/22 12/23/22 Range/Units 11:02 12:45 18:25 Glucose (74-99) mg/dL POC Glucose (mg/dL) 111 H 159 H (70-110) mg/dL Hemoglobin A1c 6.6 H (0.0-6.0) % Triglycerides (0.00-149.00) mg/dL VLDL Cholesterol, Calc (5.00-40.00) mg/dL Urine Appearance (Clear) Urine Glucose (UA) (Negative) Urine Bacteria (None) /hpf Urine Mucus (None) /hpf 12/23/22 Range/Units 20:01 Glucose (74-99) mg/dL POC Glucose (mg/dL) 172 H (70-110) mg/dL Hemoglobin A1c (0.0-6.0) % Triglycerides (0.00-149.00) mg/dL VLDL Cholesterol, Calc (5.00-40.00) mg/dL Urine Appearance (Clear) Urine Glucose (UA) (Negative) Urine Bacteria (None) /hpf Urine Mucus (None) /hpf
[2022-12-24 07:47] LABS: Glucose,Whole Blood 132 mg/dL (70-110)
[2022-12-24] MEDS: PANTOPRAZOLE 40 MG TABLET PO SCH (08:06)
[2022-12-24] MEDS: PREGABALIN 100 MG CAP PO SCH ×2 (08:06→20:04)
[2022-12-24] MEDS: CYANOCOBALAMIN 500 MCG TAB PO SCH (08:06)
[2022-12-24] MEDS: metFORMIN 500 MG TAB PO SCH ×2 (08:06→20:05)
[2022-12-24] MEDS: lisinopriL 5 MG TAB PO SCH (08:06)
[2022-12-24] MEDS: ASCORBIC ACID 500 MG TAB PO SCH ×2 (08:10→20:05)
[2022-12-24] MEDS: IBUPROFEN 800 MG TAB PO PRN (08:53)
[2022-12-24] MEDS ORDERED: carBAMazepine 200 MG TAB PO SCH (09:00)
--- NOTE | 2022-12-24 10:47 | P.CNNES ---
History of Present Illness Consult date: 12/24/22 Requesting physician: Chris Cole Reason for Consult: trigeminal neuralgia History of Present Illness: This is a 67-year-old woman with history of Trigeminal Neuralgia, DM presented emergency department because of worsening symptoms of complaining of left ear pain, left facial burning pain. She was admitted to the mental health. Neurology is consulted for trigeminal neuralgia. Patient stated that she's been diagnosed with trigeminal neuralgia for years now and was in [place] by neurology and had multiple images and in the past she was on Tegretol and was on so many different medications but does not know why Tegretol was taken off even though was ineffective. She could not tell me with the dose that she was on. She stated that she is having pain in the left ear and the left upper facial burning pain as well as left cheek and jaw pain and lasts seconds to minutes and would happen multiple times a day in which she judged that she feels there is pain. She was started on Tegretol 100 mg 1 tablet twice a day and she feels its the helping. Otherwise denies of any other neurological issues at. She thinks that she was evaluated by neurology team over [facility]. Mother workup during this hospitalization consisted of: Patient differential is unremarkable Sodium is 140. AST, ALTs within normal limits. TSH is point 0.637. Review of Systems Review of system: The 12 point system was reviewed and apparent positive and negative per HPI. Past Medical History Past Medical History: Diabetes Mellitus, GERD/Reflux, Hyperlipidemia, Osteoarthritis (OA), Thyroid Disorder Additional Past Medical History / Comment(s): trigeminal neuralgia, thyroid nodules History of Any Multi-Drug Resistant Organisms: None Reported Past Surgical History: Bladder Surgery, Cholecystectomy, Hysterectomy, Orthopedic Surgery Additional Past Surgical History / Comment(s): sinus surgery, arthroscopy right knee, bladder suspension,plate placed behind her ear. Past Anesthesia/Blood Transfusion Reactions: No Reported Reaction Past Psychological History: Anxiety Smoking Status: Former smoker Past Alcohol Use History: None Reported Past Drug Use History: None Reported - Past Family History Mother Family Medical History: Hypertension Medications and Allergies Home Medications Medication Instructions Recorded Confirmed Type Omeprazole [PriLOSEC] 20 mg PO DAILY 11/24/16 07/17/22 History Hydrocodone/Acetaminophen [[place] 1 tab PO TID PRN 07/29/20 11/03/22 History 10-325] traZODone HCL [TraZODone HCl] 50 - 100 mg PO HS 08/24/20 07/17/22 History ALPRAZolam [Xanax] 0.25 mg PO BID PRN 09/19/20 07/17/22 History Cyclobenzaprine [Flexeril] 10 mg PO TID 09/19/20 07/17/22 History Atorvastatin [Lipitor] 20 mg PO HS 09/26/20 07/17/22 History metFORMIN HCL [Glucophage] 1,000 mg PO BID 09/26/20 07/17/22 History carBAMazepine [TEGretol XR] 100 mg PO Q12H PRN #14 tab 06/01/21 07/17/22 Rx Pregabalin [Lyrica] 100 mg PO BID 07/11/22 07/17/22 History lisinopriL [Zestril] 5 mg PO DAILY 07/11/22 07/17/22 History Allergies Allergy/AdvReac Type Severity Reaction Status Date / Time No Known Allergies Allergy Verified 12/23/22 01:59 Physical Examination - Vital Signs Vital Signs: Vital Signs Temp Pulse Resp BP 12/24/22 06:27 97.6 F 76 14 123/63 GENERAL: The patient is lying in bed and is not in acute distress. CHEST: The heart rate is regular rate rhythm. No murmurs to auscultation. LUNG: Clear to auscultation bilaterally no wheezing noted throughout. Not labored breathing. ABDOMEN/GI: Bowel sounds present in all 4 quadrants. No tenderness to palpation throughout. NEUROLOGICAL: Higher mental function: The patient is awake, alert, oriented to self, place and time. Patient is following commands. No aphasia and no neglect. Cranial nerves: The pupils are round, equal and reactive to light and accommodation. Visual esquivel are full to confrontation throughout. Extraocular movement is intact no nystagmus is noted. Facial sensation is slight tender to touch over the ears. Otherwise normal to touch throughout. The facial strength is normal throughout. Hearing is normal bilaterally to hand rub. Tongue is midline and moved [id number] without any difficulty. No dysarthria is noted. Shoulder shrug is normal bilaterally. Motor: The strength is 5 over 5 throughout. Normal tone and bulk. Cerebellum: Normal finger to nose bilaterally. Sensation: Sensation is normal to touch throughout. Plantars are downgoing bilaterally. Results - Laboratory Findings CBC and BMP: 12/23/22 11:02 12/23/22 11:02 Abnormal Lab Findings: Abnormal Labs 12/22/22 12/23/22 12/23/22 22:11 07:49 11:02 Glucose 129 H POC Glucose (mg/dL) 169 H Hemoglobin A1c Triglycerides 213.00 H VLDL Cholesterol, Calc 42.60 H Urine Appearance Cloudy H Urine Glucose (UA) 1+ H Urine Bacteria Occasional H Urine Mucus Rare H 12/23/22 12/23/22 12/23/22 11:02 12:45 18:25 Glucose POC Glucose (mg/dL) 111 H 159 H Hemoglobin A1c 6.6 H Triglycerides VLDL Cholesterol, Calc Urine Appearance Urine Glucose (UA) Urine Bacteria Urine Mucus 12/23/22 12/24/22 20:01 07:41 Glucose POC Glucose (mg/dL) 172 H 132 H Hemoglobin A1c Triglycerides VLDL Cholesterol, Calc Urine Appearance Urine Glucose (UA) Urine Bacteria Urine Mucus Assessment and Plan Assessment: Trigeminal neuralgia Reported history of trigeminal neuralgia for years Plan: Currently the patient is on Tegretol 100 mg 1 tablet twice a day and she feels it helping with her pain. Can go up to 200 mg 1 tablet twice a day if needed. Patient stated that she had that images to brain and extensive workup for her trigeminal neuralgia in the past. I highly recommend the patient to follow-up with the same neurologist that she was following up with or she can follow-up with a local neurologist for further management. If she follows up with a local neurologist and there unable to locate the head images recommend MRI of the brain with and without as well as vascular image of the brain to rule out any other causes. We'll defer the rest of medical management to the psychiatry as well as primary team. The plan was discussed with the patient and her nurse. Thank you for the consultation. Time with Patient: Greater than 30
--- NOTE | 2022-12-24 11:41 | P.PN ---
Progress Note - Text Progress Note Date: 12/24/22 S&O: Patient was seen in rounds. She said some doctor came to see her when she was sleeping last night and that time she had a severe pain from trigeminal neuralgia. This morning she had a mild one. She did not have any adverse effects from Tegretol. After talking about it she agreed to get it increased 200 mg twice a day. Per the neurologist it could be increased up to 200 mg twice a day. This is a right ambulatory female who walks around with the walker. She has good hygiene. She is polite friendly and cooperative. Her speech is spontaneous and goal-directed. Mood is euthymic to cheerful and affect is appropriate. Continues to deny hallucinations delusional thinking suicide and homicidal thoughts. Sensorium is clear A&P: Her Tegretol was increased 200 mg twice a day. Continue therapies and supervision. care worker is trying to gather more information from the family about her mental health.
[2022-12-24 11:43] VITALS: BMI 26.7
[2022-12-24 12:48] LABS: Glucose,Whole Blood 121 mg/dL (70-110)
[2022-12-24] MEDS: LORazepam 1 MG TAB PO PRN (13:35)
[2022-12-24 17:42] LABS: Glucose,Whole Blood 129 mg/dL (70-110)
[2022-12-24 19:59] LABS: Glucose,Whole Blood 187 mg/dL (70-110)
[2022-12-24] MEDS: ATORVASTATIN 20 MG TAB PO SCH (20:05)
[2022-12-24] MEDS: traZODone HCL 50 MG TAB PO SCH (20:05)
[2022-12-24] MEDS: carBAMazepine 200 MG TAB PO SCH (20:05)
[2022-12-25] MEDS: IBUPROFEN 800 MG TAB PO PRN (01:05)
[2022-12-25 06:43] VITALS: BP 119/73; PULSE 97; RESP 18; TEMP 98.4
[2022-12-25] MEDS: BACLOFEN 10 MG TAB PO PRN (06:56)
[2022-12-25 07:56] LABS: Glucose,Whole Blood 118 mg/dL (70-110)
[2022-12-25] MEDS: PREGABALIN 100 MG CAP PO SCH (08:29)
[2022-12-25] MEDS: metFORMIN 500 MG TAB PO SCH (08:29)
[2022-12-25] MEDS: PANTOPRAZOLE 40 MG TABLET PO SCH (08:30)
[2022-12-25] MEDS: carBAMazepine 200 MG TAB PO SCH (08:30)
[2022-12-25] MEDS: lisinopriL 5 MG TAB PO SCH (08:30)
[2022-12-25] MEDS: ASCORBIC ACID 500 MG TAB PO SCH (08:30)
[2022-12-25] MEDS: CYANOCOBALAMIN 500 MCG TAB PO SCH (08:31)
--- NOTE | 2022-12-25 11:25 | P.DS ---
Providers Date of admission: 12/23/22 01:26 Expected date of discharge: 12/25/22 Attending physician: Benny Calderón MD Consults: 12/23/22 01:46 Consult Physician Routine Consulting Provider: Teofilo Borjas Consult Reason/Comments: For H & P for Medical Follow Up Do you want consulting provider notified?: Yes 12/24/22 03:56 Consult Physician Urgent Consulting Provider: Elaine Morales Consult Reason/Comments: Trigeminal neuralgia Do you want consulting provider notified?: Yes Primary care physician: Parveen Anaya - Discharge Diagnosis(es) (1) Mood disorder due to a general medical condition Current Visit: Yes Status: Acute Priority: High (2) Trigeminal neuralgia Current Visit: Yes Status: Acute Priority: High Hospital Course: Patient had her psychiatric H&P done by me on 12/23/2022 she had her general physical examination done by Dr.Osama Cole on 12/24/2022. After her psychiatric H&P she was started on Tegretol 100 mg once a day for trigeminal neuralgia. She handled it well and it was gradually increased to 100 mg twice a day. She was seen by neurology dairy consultant on 12/24/2022 who suggested that Tegretol dose can be increased to 200 mg twice a day. In view of this and since she did not have any adverse effects from Tegretol it was increased to 200 mg twice a day as of today. Following Tegretol therapy her trigeminal neuralgia pain episodes decreased somewhat. But she still gets it even though not as intensely as it was before. I had talked with her son Mihir and the pediatric social worker had talked to her sons and it was agreed to discharge her. Patient was advised to have a follow-up examinations with the neurologist and also with the dentist regarding her dental guards. She said she will do that. She was also advised not to drink alcohol or use drugs. Health Concerns: TMJ SPECIALIST: Dr. Brayan Duran [phone] in [place] Plan - Discharge Summary Discharge Rx Participant: Yes New Discharge Prescriptions: New Atorvastatin [Lipitor] 20 mg PO HS tab Mag Hydrox/Al Hydrox/Simeth [Maalox] 30 ml PO Q4HR PRN ml PRN Reason: Gi Upset Magnesium Hydroxide [Milk of Magnesia Concentrate] 2,400 mg PO DAILY PRN ml PRN Reason: Constipation carBAMazepine [TEGretol] 200 mg PO BID 30 Days #69 tab Ascorbic Acid [Vitamin C] 500 mg PO BID tab Baclofen [Lioresal] 10 mg PO QID PRN tab PRN Reason: Muscle Spasm Ibuprofen [Motrin] 800 mg PO TID PRN tab PRN Reason: Pain Acetaminophen Tab [Tylenol] 650 mg PO Q4HR PRN tab PRN Reason: Pain/Discomfort Cyanocobalamin [Vitamin B-12] 1,000 mcg PO DAILY tab Continue Omeprazole [PriLOSEC] 20 mg PO DAILY traZODone HCL 50 - 100 mg PO HS metFORMIN HCL [Glucophage] 1,000 mg PO BID lisinopriL [Zestril] 5 mg PO DAILY Atorvastatin [Lipitor] 40 mg PO HS hydrALAZINE HCL [Apresoline] 10 mg PO TID Discontinued Hydrocodone/Acetaminophen [[place] 10-325] 1 tab PO Q6H PRN PRN Reason: Pain Pregabalin [Lyrica] 100 mg PO DIRECTED clonazePAM [KlonoPIN] 0.5 mg PO BID predniSONE See Taper PO DIRECTED Pregabalin [Lyrica] 150 mg PO DIRECTED Baclofen [Lioresal] 10 mg PO QID Ibuprofen [Motrin] 800 mg PO Q8H PRN PRN Reason: Pain Desipramine [Norpramin] 25 mg PO HS Discharge Medication List Omeprazole [PriLOSEC] 20 mg PO DAILY 11/24/16 [History] traZODone HCL 50 - 100 mg PO HS 08/24/20 [History] metFORMIN HCL [Glucophage] 1,000 mg PO BID 09/26/20 [History] lisinopriL [Zestril] 5 mg PO DAILY 07/11/22 [History] Acetaminophen Tab [Tylenol] 650 mg PO Q4HR PRN tab 12/25/22 [Rx] Ascorbic Acid [Vitamin C] 500 mg PO BID tab 12/25/22 [Rx] Atorvastatin [Lipitor] 20 mg PO HS tab 12/25/22 [Rx] Atorvastatin [Lipitor] 40 mg PO HS 12/25/22 [History] Baclofen [Lioresal] 10 mg PO QID PRN tab 12/25/22 [Rx] Cyanocobalamin [Vitamin B-12] 1,000 mcg PO DAILY tab 12/25/22 [Rx] Ibuprofen [Motrin] 800 mg PO TID PRN tab 12/25/22 [Rx] Mag Hydrox/Al Hydrox/Simeth [Maalox] 30 ml PO Q4HR PRN ml 12/25/22 [Rx] Magnesium Hydroxide [Milk of Magnesia Concentrate] 2,400 mg PO DAILY PRN ml 12/25/22 [Rx] carBAMazepine [TEGretol] 200 mg PO BID 30 Days #69 tab 12/25/22 [Rx] hydrALAZINE HCL [Apresoline] 10 mg PO TID 12/25/22 [History] Follow up Appointment(s)/Referral(s): Parveen Anaya DO [Primary Care Provider] - 1-2 days Activity/Diet/Wound Care/Special Instructions: Avoid the use of street drugs and alcohol. Take all medications as prescribed. When you are in need of refills on your medications, please contact your medical provider and/or outpatient psychiatrist to have this done. Please go to scheduled outpatient appointments for aftercare treatment. If symptoms return or become worse, call the crisis line at and/or go to the nearest emergency room for evaluation.
[2022-12-25 12:41] LABS: Glucose,Whole Blood 108 mg/dL (70-110)
[2022-12-25] MEDS ORDERED: carBAMazepine 200 MG TAB PO SCH (21:00)
== END 2022-12-25 15:14 | disposition home or self-care (01) | DRG 74 ==
LOC: EC 18:56 → 3MHU 12-23 01:26
PROVIDERS: ADMIT Psychiatry & Neurology Psychiatry; ATTEND Psychiatry & Neurology Psychiatry
DX: G50.0 Trigeminal neuralgia (principal); R45.851 Suicidal ideations; F06.30 Mood disorder due to known physiological condition, unspecified; F32.A Depression, unspecified; K21.9 Gastro-esophageal reflux disease without esophagitis; E11.9 Type 2 diabetes mellitus without complications; M19.90 Unspecified osteoarthritis, unspecified site; F41.9 Anxiety disorder, unspecified; I10 Essential (primary) hypertension; E78.5 Hyperlipidemia, unspecified; E03.9 Hypothyroidism, unspecified; Z20.822 Contact with and (suspected) exposure to COVID-19; Z79.84 Long term (current) use of oral hypoglycemic drugs; Z71.3 Dietary counseling and surveillance; Z87.891 Personal history of nicotine dependence; Z79.899 Other long term (current) drug therapy
CPT/HCPCS: 80053; 80061; 80306; 81001; 82075; 83036; 84443; 85025; 87635; 99284

== ENCOUNTER 2023-03-03 16:08 | Emergency (ER) | payer MEDICARE, BC, OTHER ==
[2023-03-03 16:21] VITALS: RESP 18
[2023-03-03] MEDS ORDERED: KETOROLAC 15 MG/ML 1 ML VIAL IVP STA (18:03)
[2023-03-03] MEDS ORDERED: diphenhydrAMINE 50 MG/ML 1 ML VIAL IVP STA (18:04)
[2023-03-03] MEDS ORDERED: ORPHENADRINE 30 MG/ML 2 ML VIAL IVP STA (18:05)
--- NOTE | 2023-03-03 18:07 | ED ---
General Adult HPI - General Chief complaint: Weakness Stated complaint: Headache-weakness Time Seen by Provider: 03/03/23 17:42 Source: patient Mode of arrival: wheelchair Limitations: no limitations - History of Present Illness Initial comments: C7-year-old female with past medical history significant for trigeminal neuralgia presents to the ED with a chief complaint of trigeminal neuralgia flare. She currently takes 200 mg of Tegretol 3 times a day for this. Has not yet had neurology follow-up since her last visit here in December. States today has had a flare of symptoms consistent with trigeminal neuralgia. Denies numbness or weakness. Denies Chest pain or shortness of breath. No other complaints. - Related Data Home Medications Medication Instructions Recorded Confirmed traZODone HCL 50 - 100 mg PO HS 08/24/20 03/03/23 lisinopriL [Zestril] 5 mg PO DAILY 07/11/22 03/03/23 Atorvastatin [Lipitor] 40 mg PO HS 12/25/22 03/03/23 hydrALAZINE HCL [Apresoline] 10 mg PO TID 12/25/22 03/03/23 HYDROcodone/APAP 10-325MG [[place] 1 tab PO Q4HR PRN 03/03/23 03/03/23 10-325] Indomethacin [Indocin] 25 mg PO TID 03/03/23 03/03/23 Omeprazole 40 mg PO DAILY 03/03/23 03/03/23 Pregabalin [Lyrica] 150 mg PO TID 03/03/23 03/03/23 metFORMIN HCL 1,000 mg PO BID 03/03/23 03/03/23 Previous Rx's Medication Instructions Recorded Acetaminophen Tab [Tylenol] 650 mg PO Q4HR PRN tab 12/25/22 Ibuprofen [Motrin] 800 mg PO TID PRN tab 12/25/22 Allergies Allergy/AdvReac Type Severity Reaction Status Date / Time No Known Allergies Allergy Verified 03/03/23 18:15 Review of Systems ROS Statement: Those systems with pertinent positive or pertinent negative responses have been documented in the HPI. ROS Other: All systems not noted in ROS Statement are negative. Past Medical History Past Medical History: Diabetes Mellitus, GERD/Reflux, Hyperlipidemia, Osteoarthritis (OA), Thyroid Disorder Additional Past Medical History / Comment(s): trigeminal neuralgia, thyroid nodules History of Any Multi-Drug Resistant Organisms: None Reported Past Surgical History: Bladder Surgery, Cholecystectomy, Hysterectomy, Orthopedic Surgery Additional Past Surgical History / Comment(s): sinus surgery, arthroscopy right knee, bladder suspension,plate placed behind her ear. Past Anesthesia/Blood Transfusion Reactions: No Reported Reaction Past Psychological History: Anxiety Smoking Status: Former smoker Past Alcohol Use History: None Reported Past Drug Use History: None Reported - Past Family History Mother Family Medical History: Hypertension General Exam Limitations: no limitations General appearance: anxious (Tearful and appears to be in pain) Head exam: Present: atraumatic, normocephalic Eye exam: Present: normal appearance, PERRL, EOMI ENT exam: Present: normal exam, mucous membranes moist Respiratory exam: Present: wheezes (Diffuse wheezing bilaterally.) Cardiovascular Exam: Present: regular rate GI/Abdominal exam: Present: soft Extremities exam: Present: other (Strength and Sensation equal and intact in bilateral upper and lower extremities.) Neurological exam: Present: alert, oriented X3, CN II-XII intact Skin exam: Present: warm, dry Course Vital Signs 03/03/23 16:18 Temperature 97.8 F Pulse Rate 94 Respiratory 18 Rate Blood Pressure 90/62 O2 Sat by Pulse 97 Oximetry Medical Decision Making - Medical Decision Making Was pt. sent in by a medical professional or institution (, PA, ADMISSION DISCHARGE RN, urgent care, hospital, or residential...) When possible be specific @ -No Did you speak to anyone other than the patient for history (EMS, parent, family, police, friend...)? What history was obtained from this source @ -No Did you review nursing and triage notes (agree or disagree)? Why? @ -I reviewed and agree with nursing and triage notes Were old charts reviewed (outside hosp., previous admission, EMS record, old EKG, old radiological studies, urgent care reports/EKG's, residential records)? Report findings @ -Old charts reviewed showing patient with history of trigeminal neuralgia on Tegretol 200 mg twice a day Differential Diagnosis (chest pain, altered mental status, abdominal pain women, abdominal pain men, vaginal bleeding, weakness, fever, dyspnea, syncope, headache, dizziness, GI bleed, back pain, seizure, CVA, palpatations, mental health, musculoskeletal)? @ -Differential Headache: Migraine, tension, cluster, carbon monoxide, central venous thrombosis, pension karma temporal arteritis, acute closure glaucoma, intercranial hemorrhage, mastoiditis, sinusitis, head injury, this is not meant to be an all-inclusive list. EKG interpreted by me (3pts min.). @ -None X-rays interpreted by me (1pt min.). @ -None done CT interpreted by me (1pt min.). @ -None done U/S interpreted by me (1pt. min.). @ -None done What testing was considered but not performed or refused? (CT, X-rays, U/S, labs)? Why? @ -None What meds were considered but not given or refused? Why? @ -None Did you discuss the management of the patient with other professionals (professionals i.e. , PA, ADMISSION DISCHARGE RN, lab, RT, psych nurse, delinquency prevention social worker, supervisor fishing, teacher, child support case officer, mental health case manager)? Give summary @ -No Was smoking cessation discussed for >3mins.? @ -No Was critical care preformed (if so, how long)? @ -No Were there social determinants of health that impacted care today? How? (Homelessness, low income, unemployed, alcoholism, drug addiction, transportation, low edu. Level, literacy, decrease access to med. care, assisted, rehab)? @ -No Was there de-escalation of care discussed even if they declined (Discuss DNR or withdrawal of care, Hospice)? DNR status @ -No What co-morbidities impacted this encounter? (DM, HTN, Smoking, COPD, CAD, Cancer, CVA, ARF, Chemo, Hep., AIDS, mental health diagnosis, sleep apnea, morbid obesity)? @ -None Was patient admitted / discharged? Hospital course, mention meds given and route, prescriptions, significant lab abnormalities, going to OR and other pertinent info. @ -Discharged. She had improvement of pain with Benadryl, Toradol, Norflex. She reports symptoms consistent with trigeminal neuralgia. Patient will be discharged home in stable condition with referral to neurology. Discussed return precautions patient verbalizes agreement. Undiagnosed new problem with uncertain prognosis? @ -No Drug Therapy requiring intensive monitoring for toxicity (Heparin, Nitro, Insulin, Cardizem)? @ -No Were any procedures done? @ -No Diagnosis/symptom? @ -Trigeminal neuralgia Acute, or Chronic, or Acute on Chronic? @ -Acute on chronic Uncomplicated (without systemic symptoms) or Complicated (systemic symptoms)? @ -Uncomplicated Side effects of treatment? @ -No Exacerbation, Progression, or Severe Exacerbation? @ -No Poses a threat to life or bodily function? How? (Chest pain, [place], [place], pneumonia, PE, COPD, DKA, ARF, appy, cholecystitis, CVA, Diverticulitis, Homicidal, Suicidal, threat to staff... and all critical care pts) @ -No Disposition Clinical Impression: Trigeminal neuralgia Disposition: HOME SELF-CARE Condition: Good Instructions (If sedation given, give patient instructions): Trigeminal Neuralgia (ED) Additional Instructions: Please return to the Emergency Department if symptoms worsen or any other concerns. Is patient prescribed a controlled substance at d/c from ED?: No Referrals: Parveen Anaya DO [Primary Care Provider] - 1-2 days Genaro Plascencia MD [STAFF PHYSICIAN] - 1-2 days Decision Time: 19:18
[2023-03-03 21:08] VITALS: BP 102/67; PULSE 86; TEMP 97.6
== END 2023-03-03 21:13 | disposition home or self-care (01) ==
LOC: EC 16:08
DX: G50.0 Trigeminal neuralgia (principal); E11.9 Type 2 diabetes mellitus without complications; E78.5 Hyperlipidemia, unspecified; K21.9 Gastro-esophageal reflux disease without esophagitis; Z79.84 Long term (current) use of oral hypoglycemic drugs; Z79.899 Other long term (current) drug therapy; Z87.891 Personal history of nicotine dependence
CPT/HCPCS: 99285; 96374; 96375 ×2; J1200; J2360; J1885

== ENCOUNTER 2023-03-04 17:26 | Observation (INO) | payer MEDICARE, BC, OTHER ==
[2023-03-04] MEDS ORDERED: SODIUM CHLORIDE 0.9% 1,000 ML IV STA (19:32)
[2023-03-04] MEDS ORDERED: MORPHINE SULFATE 4 MG/ML SYRINGE IV STA (19:32)
--- NOTE | 2023-03-04 20:11 | CT ---
EXAMINATION TYPE: CT brain wo con CT DLP: 1165.4 mGycm, Automated exposure control for dose reduction was used. DATE OF EXAM: 03/04/2023 7:51 PM COMPARISON: CLINICAL INDICATION:Female, 67 years old with history of weakness, Pain, weakness. hx of trigeminal n euralgia TECHNIQUE: Brain: Axial CT images of the brain were obtained with coronal and sagittal reformats created and rev iewed. Contrast used: None. Oral contrast used: None. FINDINGS: Brain: Extra-axial spaces: No abnormal extra-axial fluid collections. Ventricular system: Within normal limits Cerebral parenchyma: No acute intraparenchymal hemorrhage or mass effect. The whitfield-white junction is well differentiated. Cerebellum: Unremarkable. Mass effect: No evidence of midline shift. Intracranial vasculature: Atherosclerotic calcifications of the intracranial vessels. Soft tissues: Normal. Calvarium/osseous structures: No depressed skull fracture. Paranasal sinuses and mastoid air cells: Mild scattered paranasal sinus disease. Visualized orbits: Orbital contents are intact. IMPRESSION: No acute intracranial process.
--- NOTE | 2023-03-04 20:28 | ED ---
Weakness HPI - General Chief complaint: Weakness Stated complaint: sob Time Seen by Provider: 03/04/23 18:16 Source: patient, EMS, RN notes reviewed, old records reviewed Mode of arrival: EMS Limitations: no limitations - History of Present Illness Initial comments: This is a 67-year-old female to the ER for evaluation. Patient presents today for evaluation regards to severe neck pain left-sided pain patient will resolve history of and severe weakness MD Complaint: generalized weakness (Trigeminal neuralgia pain) -: year(s) Location: generalized Severity: moderate Severity scale (1-10): 7 Quality: sharp Consistency: constant Improves with: none Worsens with: none Context: new medication Associated Symptoms: denies other symptoms - Related Data Home Medications Medication Instructions Recorded Confirmed traZODone HCL 50 - 100 mg PO HS 08/24/20 03/04/23 lisinopriL [Zestril] 5 mg PO DAILY 07/11/22 03/04/23 Atorvastatin [Lipitor] 40 mg PO HS 12/25/22 03/04/23 hydrALAZINE HCL [Apresoline] 10 mg PO TID 12/25/22 03/04/23 HYDROcodone/APAP 10-325MG [[place] 1 tab PO Q4HR PRN 03/03/23 03/04/23 10-325] Indomethacin [Indocin] 25 mg PO TID 03/03/23 03/04/23 Omeprazole 40 mg PO DAILY 03/03/23 03/04/23 Pregabalin [Lyrica] 150 mg PO TID 03/03/23 03/04/23 metFORMIN HCL 1,000 mg PO BID 03/03/23 03/04/23 Baclofen 10 mg PO QID 03/04/23 03/04/23 carBAMazepine 200 mg PO BID 03/04/23 03/04/23 Previous Rx's Medication Instructions Recorded Acetaminophen Tab [Tylenol] 650 mg PO Q4HR PRN tab 12/25/22 Ibuprofen [Motrin] 800 mg PO TID PRN tab 12/25/22 Allergies Allergy/AdvReac Type Severity Reaction Status Date / Time No Known Allergies Allergy Verified 03/03/23 18:15 Review of Systems ROS Statement: Those systems with pertinent positive or pertinent negative responses have been documented in the HPI. ROS Other: All systems not noted in ROS Statement are negative. Past Medical History Past Medical History: Diabetes Mellitus, GERD/Reflux, Hyperlipidemia, Osteoarthritis (OA), Thyroid Disorder Additional Past Medical History / Comment(s): trigeminal neuralgia, thyroid nodules History of Any Multi-Drug Resistant Organisms: None Reported Past Surgical History: Bladder Surgery, Cholecystectomy, Hysterectomy, Orthopedic Surgery Additional Past Surgical History / Comment(s): sinus surgery, arthroscopy right knee, bladder suspension,plate placed behind her ear. Past Anesthesia/Blood Transfusion Reactions: No Reported Reaction Past Psychological History: Anxiety Smoking Status: Former smoker Past Alcohol Use History: None Reported Past Drug Use History: None Reported - Past Family History Mother Family Medical History: Hypertension General Exam Limitations: no limitations General appearance: alert, in no apparent distress Head exam: Present: atraumatic, normocephalic, normal inspection Eye exam: Present: normal appearance, PERRL, EOMI. Absent: scleral icterus, conjunctival injection, periorbital swelling ENT exam: Present: normal exam, mucous membranes moist Neck exam: Present: normal inspection. Absent: tenderness, meningismus, lymphadenopathy Respiratory exam: Present: normal lung sounds bilaterally. Absent: respiratory distress, wheezes, rales, rhonchi, stridor Cardiovascular Exam: Present: regular rate, normal rhythm, normal heart sounds. Absent: systolic murmur, diastolic murmur, rubs, gallop, clicks GI/Abdominal exam: Present: soft, normal bowel sounds. Absent: distended, tenderness, guarding, rebound, rigid Extremities exam: Present: normal inspection, full ROM, normal capillary refill. Absent: tenderness, pedal edema, joint swelling, calf tenderness Back exam: Present: normal inspection Neurological exam: Present: alert, oriented X3, CN II-XII intact Psychiatric exam: Present: normal affect, normal mood Skin exam: Present: warm, dry, intact, normal color. Absent: rash Course Vital Signs 03/04/23 03/04/23 17:28 21:05 Temperature 98 F Pulse Rate 98 85 Respiratory 18 18 Rate Blood Pressure 137/86 110/71 O2 Sat by Pulse 98 97 Oximetry - Reevaluation(s) Reevaluation #1: 03/04/23 22:36 Medical record is reviewed Reevaluation #2: 03/04/23 22:36 Still with pain Reevaluation #3: 03/04/23 22:36 Patient informed results questions answered Reevaluation #4: 03/04/23 22:36 Was pt. sent in by a medical professional or institution? @ -no Did you speak to anyone other than the patient for history? @ -no Did you review nursing and triage notes? @ -agree Were old charts reviewed? @ -no Differential Diagnosis? @ -prior EKG interpreted by me (3pts min.)? @ -yes X-rays interpreted by me (1pt min.)? @ -no CT interpreted by me (1pt min.)? @ -no U/S interpreted by me (1pt. min.)? @ -no What testing was considered but not performed? (CT, X-rays, U/S, labs)? Why? @ -no What meds were considered but not given? Why? @ -no Did you discuss the management of the patient with other professionals? @ -no Did you reconcile home meds? @ -no Was smoking cessation discussed for >3mins.? @ -no Was critical care preformed (if so, how long)? @ -no Were there social determinants of health that impacted care today? How? (Homelessness, low income, unemployed, alcoholism, drug addiction, transportation, low edu. Level, literacy, decrease access to med. care, skilled nursing, rehab)? @ -no Was there de-escalation of care discussed even if they declined? (Discuss DNR or withdrawal of care, Hospice)? @ -no What co-morbidities impacted this encounter? (DM, HTN, Smoking, COPD, CAD, Cancer, CVA, Hep., AIDS, mental health diagnosis, sleep apnea, morbid obesity)? @ -none Was patient admitted / discharged? @ - Undiagnosed new problem with uncertain prognosis? @ -no Drug Therapy requiring intensive monitoring for toxicity (Heparin, Nitro, Insulin, Cardizem)? @ -no Were any procedures done? @ -no Diagnosis/symptom? @ - Acute, or Chronic, or Acute on Chronic? @ -no Uncomplicated (without systemic symptoms) or Complicated (systemic symptoms)? @ -uncomplicated Side effects of treatment? @ -no Exacerbation, Progression, or Severe Exacerbation] @ -no Poses a threat to life or bodily function? @ -no Reevaluation #5: 03/04/23 22:36 Differential Weakness: Hypoglycemia, shock, sepsis, hyponatremia, anemia, infection, [place], ETOH, adverse medicine reaction, overdose, stroke, this is not meant to be an all-inclusive list. - Consultations Consultation #1: Spoke with admitting physician spoke to admit the patient EKG Findings - EKG Comments: EKG Findings:: EKG is sinus rate 87 IL 154 QRS 83 QTC 390 Medical Decision Making - Medical Decision Making 67 female DF for evaluation of uncontrolled trigeminal neuralgic pain. Patient has normal lab values computed tomography scan is normal will admit for pain control neurology to see - Lab Data Result diagrams: 03/04/23 20:18 03/04/23 20:18 Lab Results 03/04/23 03/04/23 03/04/23 Range/Units 20:18 20:18 20:18 WBC 9.5 (3.8-10.6) k/uL RBC 4.21 (3.80-5.40) m/uL Hgb 13.0 (11.4-16.0) gm/dL Hct 39.1 (34.0-46.0) % MCV 92.8 (80.0-100.0) fL MCH 30.9 (25.0-35.0) pg MCHC 33.3 (31.0-37.0) g/dL RDW 12.6 (11.5-15.5) % Plt Count 196 (150-450) k/uL MPV 7.8 Neutrophils % 45 % Lymphocytes % 44 % Monocytes % 5 % Eosinophils % 3 % Basophils % 1 % Neutrophils # 4.3 (1.3-7.7) k/uL Lymphocytes # 4.1 (1.0-4.8) k/uL Monocytes # 0.5 (0-1.0) k/uL Eosinophils # 0.3 (0-0.7) k/uL Basophils # 0.1 (0-0.2) k/uL PT 10.0 (9.0-12.0) sec INR 0.9 (<1.2) APTT 21.7 L (22.0-30.0) sec Sodium 139 (137-145) mmol/L Potassium 4.5 (3.5-5.1) mmol/L Chloride 105 (98-107) mmol/L Carbon Dioxide 23 (22-30) mmol/L Anion Gap 11 mmol/L BUN 17 (7-17) mg/dL Creatinine 0.49 L (0.52-1.04) mg/dL Est GFR (CKD-EPI)AfAm >90 (>60 ml/min/1.73 sqM) Est GFR (CKD-EPI)NonAf >90 (>60 ml/min/1.73 sqM) Glucose 123 H (74-99) mg/dL Plasma Lactic Acid Glenn (0.7-2.0) mmol/L Calcium 9.4 (8.4-10.2) mg/dL Phosphorus 3.7 (2.5-4.5) mg/dL Magnesium 1.6 (1.6-2.3) mg/dL Total Bilirubin 0.3 (0.2-1.3) mg/dL AST 29 (14-36) U/L ALT 28 (4-34) U/L Alkaline Phosphatase 111 (38-126) U/L Troponin I (0.000-0.034) ng/mL Total Protein 7.5 (6.3-8.2) g/dL Albumin 4.3 (3.5-5.0) g/dL TSH 1.820 (0.465-4.680) mIU/L 03/04/23 03/04/23 Range/Units 20:18 20:18 WBC (3.8-10.6) k/uL RBC (3.80-5.40) m/uL Hgb (11.4-16.0) gm/dL Hct (34.0-46.0) % MCV (80.0-100.0) fL MCH (25.0-35.0) pg MCHC (31.0-37.0) g/dL RDW (11.5-15.5) % Plt Count (150-450) k/uL MPV Neutrophils % % Lymphocytes % % Monocytes % % Eosinophils % % Basophils % % Neutrophils # (1.3-7.7) k/uL Lymphocytes # (1.0-4.8) k/uL Monocytes # (0-1.0) k/uL Eosinophils # (0-0.7) k/uL Basophils # (0-0.2) k/uL PT (9.0-12.0) sec INR (<1.2) APTT (22.0-30.0) sec Sodium (137-145) mmol/L Potassium (3.5-5.1) mmol/L Chloride (98-107) mmol/L Carbon Dioxide (22-30) mmol/L Anion Gap mmol/L BUN (7-17) mg/dL Creatinine (0.52-1.04) mg/dL Est GFR (CKD-EPI)AfAm (>60 ml/min/1.73 sqM) Est GFR (CKD-EPI)NonAf (>60 ml/min/1.73 sqM) Glucose (74-99) mg/dL Plasma Lactic Acid Glenn 1.7 (0.7-2.0) mmol/L Calcium (8.4-10.2) mg/dL Phosphorus (2.5-4.5) mg/dL Magnesium (1.6-2.3) mg/dL Total Bilirubin (0.2-1.3) mg/dL AST (14-36) U/L ALT (4-34) U/L Alkaline Phosphatase (38-126) U/L Troponin I <0.012 (0.000-0.034) ng/mL Total Protein (6.3-8.2) g/dL Albumin (3.5-5.0) g/dL TSH (0.465-4.680) mIU/L - Radiology Data Radiology results: report reviewed (CT brain is negative for acute disease), image reviewed Disposition Clinical Impression: Mental status alteration, Trigeminal neuralgia, Weakness, Depression, Mood disorder due to a general medical condition Disposition: ADMITTED IP TO THIS [facility] Condition: Good Is patient prescribed a controlled substance at d/c from ED?: No Time of Disposition: 22:00
[2023-03-04 21:27] LABS: Basophils # (A) 0.1 k/uL (0-0.2); Basophils % (A) 1 %; Eosinophils # (A) 0.3 k/uL (0-0.7); Eosinophils % (A) 3 %; HCT 39.1 % (34.0-46.0); Lymphocytes # (A) 4.1 k/uL (1.0-4.8); Lymphocytes % (A) 44 %; MCH 30.9 pg (25.0-35.0); MCHC 33.3 g/dL (31.0-37.0); MCV 92.8 fL (80.0-100.0); Mean Platelet Volume 7.8; Monocytes # (A) 0.5 k/uL (0-1.0); Monocytes % (A) 5 %; Neutrophils # (A) 4.3 k/uL (1.3-7.7); Neutrophils % (A) 45 %; Platelet Count 196 k/uL (150-450); RBC 4.21 m/uL (3.80-5.40); RDW 12.6 % (11.5-15.5); WBC 9.5 k/uL (3.8-10.6)
[2023-03-04 21:46] LABS: ALT 28 U/L (4-34); AST 29 U/L (14-36); African American GFR (CKD) >90 (>60 ml/min/1.73 sqM); Albumin 4.3 g/dL (3.5-5.0); Alkaline Phosphatase 111 U/L (38-126); Anion Gap 11 mmol/L; Blood Urea Nitrogen 17 mg/dL (7-17); Calcium 9.4 mg/dL (8.4-10.2); Carbon Dioxide 23 mmol/L (22-30); Chloride 105 mmol/L (98-107); Glucose 123 mg/dL (74-99); Magnesium 1.6 mg/dL (1.6-2.3); Non-African American GFR(CKD) >90 (>60 ml/min/1.73 sqM); Phosphorus 3.7 mg/dL (2.5-4.5); Potassium 4.5 mmol/L (3.5-5.1); Sodium 139 mmol/L (137-145); Total Bilirubin 0.3 mg/dL (0.2-1.3); Total Protein 7.5 g/dL (6.3-8.2)
[2023-03-04 21:51] LABS: INR 0.9 (<1.2)
[2023-03-04 21:54] LABS: Partial Thromboplastin Time 21.7 sec (22.0-30.0)
[2023-03-04] MEDS ORDERED: ONDANSETRON 4 MG/2 ML VIAL IVP PRN (21:56)
[2023-03-04] MEDS ORDERED: NALOXONE 0.4 MG/ML 1 ML VIAL IV PRN (21:56)
[2023-03-04] MEDS ORDERED: traZODone HCL 50 MG TAB PO SCH (23:30)
[2023-03-04] MEDS: SODIUM CHLORIDE 0.9% 1,000 ML IV SCH (23:39)
[2023-03-04 23:49] LABS: Appearance,Urine Clear (Clear); Bilirubin,Urine Negative (Negative); Blood,Urine Negative (Negative); Color,Urine Light Yellow; Glucose,Urine (UA) Negative (Negative); Ketones,Urine Negative (Negative); Leukocyte Esterase,Urine Negative (Negative); Nitrite,Urine Negative (Negative); PH, Urine 6.5 (5.0-8.0); Protein,Urine Negative (Negative); Specific Gravity,Urine 1.007 (1.001-1.035); Urobilinogen,Urine <2.0 mg/dL (<2.0)
[2023-03-05] MEDS ORDERED: HYDROcodone/APAP 10-325MG 1 EACH TAB PO PRN (01:11)
--- NOTE | 2023-03-05 01:13 | P.HPIM ---
History of Present Illness H&P Date: 03/04/23 The patient is a 67-year-old female with a PMH of type II DM, hypertension, hyperlipidemia, and trigeminal neuralgia who presents to the emergency room with complaints of left-sided facial pain. Patient reports that she has been suffering with trigeminal neuralgia pain for the past 3 years. She reports seeing a plethora of physicians and has tried multiple medications without significant relief. She reports that the pain continues to occur several times a day, lasting for a few seconds at a time but is extremely painful, located largely on the left side of her face around her ear and radiating towards her nose and mouth. The pain is burning in nature. Reports the pain is essentially unchanged over the past several months. She reports having undergone brain MRI and multiple other imaging studies. CT brain in the emergency room was unremarkable. Laboratory evaluation was reviewed and was remarkable for WBC count 9.5, hemoglobin 13.0, sodium 135, potassium 4.5, BUN 17, creatinine 0.49, troponin less than 0.012 and an unremarkable UA. ED documentation reviewed and case discussed with ED provider. Review of systems: Pertinent positives and negatives as discussed in HPI, a complete review of systems was performed and all other systems are negative. Physical examination: Vital signs reviewed General: non toxic, no distress, appears at stated age, overweight Derm: no unusual rashes/lesions, warm Head: atraumatic, normocephalic, symmetric Eyes: EOMI, no lid lag, anicteric sclera, pupils equal round reactive to light ENT: Nose and ears atraumatic Neck: No cervical lymphadenopathy, trachea midline, supple Mouth: no lip lesion, mucus membranes moist Cardiovascular: S1S2 reg, no murmur, positive dorsalis pedis pulse bilateral, no edema Lungs: CTA bilateral, no rhonchi, no rales, no accessory muscle use Abdominal: soft, nontender to palpation, no guarding Ext: muscle strength 5 out of 5 in all 4 extremities grossly, no gross muscle atrophy, no contractures, Neuro: CN II-XI grossly intact, no gross focal neuro deficits Psych: Alert, oriented, appropriate affect Assessment: Trigeminal neuralgia, uncontrolled Chronic conditions: Type II DM, hypertension, hyperlipidemia Imaging: CT brain in the emergency room was unremarkable. Data Review: Laboratory evaluation was reviewed and was remarkable for WBC count 9.5, hemoglobin 13.0, sodium 135, potassium 4.5, BUN 17, creatinine 0.49, troponin less than 0.012 and an unremarkable UA. Plan: The patient was previously evaluated by neurology during the hospitalization back in 12/2022. She was advised to increase carbamazepine 200 mg by mouth to twice a day. The patient is currently taking that dose without any significant improvement. Neurology consulted Continue home medications DVT prophylaxis: Heparin subcu The patient is admitted with an anticipated less than 2 midnight stay for evaluation of trigeminal neuralgia CODE STATUS: Full Code Discussed with: Patient Anticipated discharge place: Home Past Medical History Past Medical History: Diabetes Mellitus, GERD/Reflux, Hyperlipidemia, Thyroid Disorder Additional Past Medical History / Comment(s): trigeminal neuralgia, thyroid nodules with sx History of Any Multi-Drug Resistant Organisms: None Reported Past Surgical History: Bladder Surgery, Cholecystectomy, Hysterectomy, Orthopedic Surgery Additional Past Surgical History / Comment(s): sinus surgery, arthroscopy right knee, bladder suspension,plate placed behind her ear 2 years ago. Past Anesthesia/Blood Transfusion Reactions: No Reported Reaction Past Psychological History: No Psychological Hx Reported Smoking Status: Current some day smoker Past Alcohol Use History: None Reported Additional Past Alcohol Use History / Comment(s): 1 cigs/day Past Drug Use History: None Reported - Past Family History Mother Family Medical History: Hypertension Father Family Medical History: Diabetes Mellitus Medications and Allergies Home Medications Medication Instructions Recorded Confirmed Type traZODone HCL 50 - 100 mg PO HS 08/24/20 03/04/23 History lisinopriL [Zestril] 5 mg PO DAILY 07/11/22 03/04/23 History Acetaminophen Tab [Tylenol] 650 mg PO Q4HR PRN tab 12/25/22 03/04/23 Rx Atorvastatin [Lipitor] 40 mg PO HS 12/25/22 03/04/23 History Ibuprofen [Motrin] 800 mg PO TID PRN tab 12/25/22 03/04/23 Rx hydrALAZINE HCL [Apresoline] 10 mg PO TID 12/25/22 03/04/23 History HYDROcodone/APAP 10-325MG [[place] 1 tab PO Q4HR PRN 03/03/23 03/04/23 History 10-325] Indomethacin [Indocin] 25 mg PO TID 03/03/23 03/04/23 History Omeprazole 40 mg PO DAILY 03/03/23 03/04/23 History Pregabalin [Lyrica] 150 mg PO TID 03/03/23 03/04/23 History metFORMIN HCL 1,000 mg PO BID 03/03/23 03/04/23 History Baclofen 10 mg PO QID 03/04/23 03/04/23 History carBAMazepine 200 mg PO BID 03/04/23 03/04/23 History Allergies Allergy/AdvReac Type Severity Reaction Status Date / Time No Known Allergies Allergy Verified 03/03/23 18:15 Physical Exam Vitals: Vital Signs Temp Pulse Pulse Resp BP BP Pulse Ox 03/04/23 22:45 97.7 F 88 18 120/79 96 03/04/23 21:05 85 18 110/71 97 03/04/23 17:28 98 F 98 18 137/86 98 Intake and Output 03/04/23 03/04/23 03/05/23 14:59 22:59 06:59 Other: Weight 68.039 kg Results CBC & Chem 7: 03/04/23 20:18 03/04/23 20:18 Labs: Abnormal Lab Results - Last 24 Hours (Table) 03/04/23 03/04/23 Range/Units 20:18 20:18 APTT 21.7 L (22.0-30.0) sec Creatinine 0.49 L (0.52-1.04) mg/dL Glucose 123 H (74-99) mg/dL Thrombosis Risk Factor Assmnt - Choose All That Apply Any of the Below Risk Factors Present?: Yes Each Factor Represents 1 point: Obesity (BMI >25) Other Risk Factors: Yes Each Risk Factor Represents 2 Points: Age 61-74 years Other congenital or acquired thrombophilia - If yes, enter type in comment: No Thrombosis Risk Factor Assessment Total Risk Factor Score: 3 Thrombosis Risk Factor Assessment Level: Moderate Risk
[2023-03-05] MEDS: MORPHINE SULFATE 4 MG/ML SYRINGE IV PRN ×2 (01:41→08:50)
[2023-03-05] MEDS: SODIUM CHLORIDE 0.9% 1,000 ML IV SCH (05:37)
[2023-03-05 06:08] LABS: Glucose,Whole Blood 112 mg/dL (70-110)
[2023-03-05 06:51] LABS: Basophils # (A) 0.1 k/uL (0-0.2); Basophils % (A) 1 %; Eosinophils # (A) 0.3 k/uL (0-0.7); Eosinophils % (A) 3 %; HCT 37.9 % (34.0-46.0); HGB 12.6 gm/dL (11.4-16.0); Lymphocytes # (A) 3.4 k/uL (1.0-4.8); Lymphocytes % (A) 42 %; MCH 31.5 pg (25.0-35.0); MCHC 33.4 g/dL (31.0-37.0); MCV 94.4 fL (80.0-100.0); Mean Platelet Volume 8.1; Monocytes # (A) 0.6 k/uL (0-1.0); Monocytes % (A) 7 %; Neutrophils # (A) 3.8 k/uL (1.3-7.7); Neutrophils % (A) 46 %; Platelet Count 195 k/uL (150-450); RBC 4.01 m/uL (3.80-5.40); RDW 12.7 % (11.5-15.5); WBC 8.2 k/uL (3.8-10.6)
[2023-03-05 07:02] LABS: ALT 54 U/L (4-34); AST 116 U/L (14-36); African American GFR (CKD) >90 (>60 ml/min/1.73 sqM); Alkaline Phosphatase 113 U/L (38-126); Anion Gap 8 mmol/L; Blood Urea Nitrogen 12 mg/dL (7-17); Calcium 8.9 mg/dL (8.4-10.2); Carbon Dioxide 27 mmol/L (22-30); Chloride 104 mmol/L (98-107); Glucose 101 mg/dL (74-99); Magnesium 1.5 mg/dL (1.6-2.3); Non-African American GFR(CKD) >90 (>60 ml/min/1.73 sqM); Phosphorus 3.8 mg/dL (2.5-4.5); Potassium 4.5 mmol/L (3.5-5.1); Sodium 139 mmol/L (137-145); Total Bilirubin 0.5 mg/dL (0.2-1.3)
[2023-03-05] MEDS ORDERED: INSULIN ASPART (NovoLOG) 100 UNIT/ML VIAL SQ SCH (07:30)
[2023-03-05 07:47] VITALS: BP 119/71; PULSE 81; RESP 15; TEMP 98
[2023-03-05] MEDS ORDERED: MAGNESIUM SULFATE-D5W PMX 1 GM in DEXTROSE/WATER 1 100ML.BAG IVPB SCH (08:00)
[2023-03-05] MEDS ORDERED: HEPARIN SODIUM,PORCINE/PF 5,000 UNIT/0.5 ML SYRINGE SQ SCH (08:00)
[2023-03-05] MEDS ORDERED: PREGABALIN 75 MG CAP PO SCH (09:00)
[2023-03-05] MEDS ORDERED: hydrALAZINE HCL 10 MG TAB PO SCH (09:00)
[2023-03-05] MEDS ORDERED: lisinopriL 5 MG TAB PO SCH (09:00)
[2023-03-05] MEDS ORDERED: INDOMETHACIN 25 MG CAP PO SCH (09:00)
[2023-03-05] MEDS ORDERED: carBAMazepine 200 MG TAB PO SCH (09:00)
[2023-03-05] MEDS ORDERED: BACLOFEN 10 MG TAB PO SCH (09:00)
--- NOTE | 2023-03-05 12:43 | P.CNNES ---
History of Present Illness Consult date: 03/05/23 Requesting physician: Aleks Frazier Reason for Consult: trigeminal neuralgia History of Present Illness: This is a 67-year-old woman with history of chronic headaches over the left side of unknown cause with questionable trigeminal neuralgia versus TMJ, status post surgery like 2 years ago around the left ear, diabetes mellitus, hypertension who presents is of continuous pain over the left face as well as the left frontal temporal region she said is 10 over 10 constant. She is a having the pain for 3 years and has not improved. He denies any focal weakness, visual disturbance, difficulty getting her words out. She has this pain on the left face and is very sensitive to touch on left face. She has seen different neurologist and they're unsure diagnosis. She was seen by neurologist over [facility] in the [facility] as well as locally. He is being seen currently by at TMJ specialist over [facility] the and has coming up with neurologist at your visit to [place] in the beginning of March. She is on Tegretol 200 mg twice a day without any relief. She was started on indomethacin 25 mg 1 tablet 3 times a day currently for the past 2 months she's been on the indomethacin without any relief. She had she stated that she try different medication without any relief. CT head is reported as no acute intracranial process. I personally reviewed the CT and I agree with the report. Review of Systems Review of system: The 12 point system was reviewed and apparent positive and negative per HPI. Past Medical History Past Medical History: Diabetes Mellitus, GERD/Reflux, Hyperlipidemia, Thyroid Disorder Additional Past Medical History / Comment(s): trigeminal neuralgia, thyroid nodules with sx History of Any Multi-Drug Resistant Organisms: None Reported Past Surgical History: Bladder Surgery, Cholecystectomy, Hysterectomy, Orthopedic Surgery Additional Past Surgical History / Comment(s): sinus surgery, arthroscopy right knee, bladder suspension,plate placed behind her ear 2 years ago. Past Anesthesia/Blood Transfusion Reactions: No Reported Reaction Past Psychological History: No Psychological Hx Reported Smoking Status: Current some day smoker Past Alcohol Use History: None Reported Additional Past Alcohol Use History / Comment(s): 1 cigs/day Past Drug Use History: None Reported - Past Family History Mother Family Medical History: Hypertension Father Family Medical History: Diabetes Mellitus Medications and Allergies Home Medications Medication Instructions Recorded Confirmed Type traZODone HCL 50 - 100 mg PO HS 08/24/20 03/04/23 History lisinopriL [Zestril] 5 mg PO DAILY 07/11/22 03/04/23 History Acetaminophen Tab [Tylenol] 650 mg PO Q4HR PRN tab 12/25/22 03/04/23 Rx Atorvastatin [Lipitor] 40 mg PO HS 12/25/22 03/04/23 History Ibuprofen [Motrin] 800 mg PO TID PRN tab 12/25/22 03/04/23 Rx HYDROcodone/APAP 10-325MG [[place] 1 tab PO Q4HR PRN 03/03/23 03/04/23 History 10-325] Indomethacin [Indocin] 25 mg PO TID 03/03/23 03/04/23 History Omeprazole 40 mg PO DAILY 03/03/23 03/04/23 History Pregabalin [Lyrica] 150 mg PO TID 03/03/23 03/04/23 History metFORMIN HCL 1,000 mg PO BID 03/03/23 03/04/23 History carBAMazepine 200 mg PO BID 03/04/23 03/04/23 History Baclofen [Lioresal] 10 mg PO QID tab 03/05/23 Rx Morphine Sulfate Ir [MSIR] 15 mg PO Q6HR PRN 3 Days #12 tab 03/05/23 Rx clonazePAM 0.5 mg PO BID 03/05/23 03/05/23 History diphenhydrAMINE [Benadryl] 50 mg PO BID PRN 03/05/23 03/05/23 History hydrALAZINE HCL [Apresoline] 10 mg PO TID tab 03/05/23 Rx Allergies Allergy/AdvReac Type Severity Reaction Status Date / Time No Known Allergies Allergy Verified 03/03/23 18:15 Physical Examination - Vital Signs Vital Signs: Vital Signs Temp Pulse Pulse Resp BP BP BP 03/05/23 08:00 81 15 03/05/23 07:05 98 F 81 15 119/71 03/05/23 02:30 97.9 F 75 14 123/84 03/04/23 22:45 97.7 F 88 18 120/79 03/04/23 21:05 85 18 110/71 03/04/23 17:28 98 F 98 18 137/86 Pulse Ox 03/05/23 08:00 03/05/23 07:05 100 03/05/23 02:30 97 03/04/23 22:45 96 03/04/23 21:05 97 03/04/23 17:28 98 Intake and Output 03/04/23 03/05/23 03/05/23 22:59 06:59 14:59 Intake Total 296 Balance 296 Intake: Oral 296 Other: # Voids 3 Weight 68.039 kg GENERAL: The patient is sitting on bed and is in moderate to severe acute distress. NEUROLOGICAL: Higher mental function: The patient is awake, alert, oriented to self, place and time. Patient is following commands. No aphasia and no neglect. Cranial nerves: The pupils are round, equal and reactive to light and accommodation. Visual esquivel are full to confrontation throughout. Extraocular movement is intact no nystagmus is noted. Facial sensation is unable to assess left side since has pain while right is normal to touch. The facial strength is normal throughout. Hearing is normal bilaterally to hand rub. Tongue is midline and moved [id number] without any difficulty. No dysarthria is noted. Shoulder shrug is normal bilaterally. Motor: The strength is 5 over 5 throughout. Normal tone and bulk. Cerebellum: Normal finger to nose bilaterally. Sensation: Sensation is normal to touch throughout. Plantars are downgoing bilaterally. Results - Laboratory Findings CBC and BMP: 03/05/23 05:50 03/05/23 05:50 Abnormal Lab Findings: Abnormal Labs 03/04/23 03/04/23 03/05/23 20:18 20:18 05:50 APTT 21.7 L Creatinine 0.49 L Glucose 123 H 101 H POC Glucose (mg/dL) Magnesium 1.5 L AST 116 H ALT 54 H 03/05/23 06:07 APTT Creatinine Glucose POC Glucose (mg/dL) 112 H Magnesium AST ALT Assessment and Plan Assessment: This is a 67-year-old woman with chronic headache over the left face including the frontal temporal region and has been having it for at least 3 years and is sensitive to touch over the left side and has seen different specialist at different facilities and was told on unknown. She was told possible TMJ and at times was told the trigeminal neuralgia. She has not noticed any benefit with that different medications. Ongoing chronic cephalgia over the entire left side of the face with sensitivity to touch over the left face: Possible trigeminal neuralgia versus was told TMJ. Had decompression over the left side about 2 years ago Diabetes mellitus Hypertension Plan: Currently the patient is on Tegretol 200 mg a tablet twice a day as well as indomethacin 25 mg 1 tablet 3 times a day. Patient does not want any modification of her medications. She stated that the she will follow-up with her TMJ specialist and has appointment this month and has appointment with neurologist both at [facility]. Defer the rest of the medical management to primary team. The plan is discussed with patient and primary team. Thank you for the consultation Time with Patient: Greater than 30
--- NOTE | 2023-03-05 13:15 | P.DS ---
Providers Date of admission: 03/04/23 21:56 Expected date of discharge: 03/05/23 Attending physician: Chris Cole MD Consults: 03/05/23 01:07 Consult Physician Urgent Consulting Provider: Genaro Plascencia Consult Reason/Comments: trigeminal neuralgia Do you want consulting provider notified?: Yes [facility] Course: Discharge Diagnosis: Left-sided facial pain, possible trigeminal neuralgia versus TMJ disorder Type 2 diabetes Hypertension Dyslipidemia Hospital Course: 67-year-old female with a PMH of type II DM, hypertension, hyperlipidemia, and trigeminal neuralgia who presents to the emergency room with complaints of left- sided facial pain. CT brain in the emergency room was unremarkable. Laboratory evaluation was reviewed and was remarkable for WBC count 9.5, hemoglobin 13.0, sodium 135, potassium 4.5, BUN 17, creatinine 0.49, troponin less than 0.012 and an unremarkable UA. The pain has been ongoing for multiple years, patient has seen multiple specialists. Has an upcoming appointment with her neurologist at [facility] and her TMJ specialist. Patient's pain has been better controlled with IV pain medication given while in the hospital. Neurology was consulted. No changes made to her medications, patient to be discharged for outpatient workup and management. Patient seen and examined at bedside. Vital signs reviewed and stable. General: nontoxic, no distress, appears at stated age Derm: warm, dry Head: atraumatic, normocephalic, symmetric Eyes: EOMI, no lid lag, anicteric sclera Mouth: no lip lesion, mucus membranes moist Cardiovascular: S1S2 reg, no murmur Lungs: CTA bilateral, no rhonchi, no rales , no accessory muscle use Abdominal: soft, nontender to palpation, no guarding, no appreciable organomegaly Ext: no gross muscle atrophy, no edema, no contractures Neuro: CN II-XI grossly intact, no focal neuro deficits Psych: Alert, oriented, appropriate affect A total of 33 minutes of time were spent preparing this complex discharge summary. Patient was discharged on 03/05/23 at 10:33. Patient Condition at Discharge: Stable Plan - Discharge Summary Discharge Rx Participant: No New Discharge Prescriptions: New Baclofen [Lioresal] 10 mg PO QID tab Morphine Sulfate Ir [MSIR] 15 mg PO Q6HR PRN 3 Days #12 tab PRN Reason: Pain hydrALAZINE HCL [Apresoline] 10 mg PO TID tab Continue traZODone HCL 50 - 100 mg PO HS lisinopriL [Zestril] 5 mg PO DAILY HYDROcodone/APAP 10-325MG [[place] 10-325] 1 tab PO Q4HR PRN PRN Reason: Pain Pregabalin [Lyrica] 150 mg PO TID Atorvastatin [Lipitor] 40 mg PO HS Ibuprofen [Motrin] 800 mg PO TID PRN tab PRN Reason: Pain Acetaminophen Tab [Tylenol] 650 mg PO Q4HR PRN tab PRN Reason: Pain/Discomfort Indomethacin [Indocin] 25 mg PO TID metFORMIN HCL 1,000 mg PO BID Omeprazole 40 mg PO DAILY carBAMazepine 200 mg PO BID diphenhydrAMINE [Benadryl] 50 mg PO BID PRN PRN Reason: Anxiety clonazePAM 0.5 mg PO BID Discharge Medication List traZODone HCL 50 - 100 mg PO HS 08/24/20 [History] lisinopriL [Zestril] 5 mg PO DAILY 07/11/22 [History] Acetaminophen Tab [Tylenol] 650 mg PO Q4HR PRN tab 12/25/22 [Rx] Atorvastatin [Lipitor] 40 mg PO HS 12/25/22 [History] Ibuprofen [Motrin] 800 mg PO TID PRN tab 12/25/22 [Rx] HYDROcodone/APAP 10-325MG [[place] 10-325] 1 tab PO Q4HR PRN 03/03/23 [History] Indomethacin [Indocin] 25 mg PO TID 03/03/23 [History] Omeprazole 40 mg PO DAILY 03/03/23 [History] Pregabalin [Lyrica] 150 mg PO TID 03/03/23 [History] metFORMIN HCL 1,000 mg PO BID 03/03/23 [History] carBAMazepine 200 mg PO BID 03/04/23 [History] Baclofen [Lioresal] 10 mg PO QID tab 03/05/23 [Rx] Morphine Sulfate Ir [MSIR] 15 mg PO Q6HR PRN 3 Days #12 tab 03/05/23 [Rx] clonazePAM 0.5 mg PO BID 03/05/23 [History] diphenhydrAMINE [Benadryl] 50 mg PO BID PRN 06/22/23 [History] hydrALAZINE HCL [Apresoline] 10 mg PO TID tab 03/05/23 [Rx] Follow up Appointment(s)/Referral(s): Parveen Anaya DO [Primary Care Provider] - 1-2 days (please call for an appointment and keep all neurology appointments ) Patient Instructions/Handouts: Trigeminal Neuralgia (DC), Temporomandibular Disorder (DC) Activity/Diet/Wound Care/Special Instructions: Please see your specialists and your PCP. Discharge Disposition: HOME SELF-CARE
[2023-03-05] MEDS ORDERED: ATORVASTATIN 40 MG TAB PO SCH (21:00)
== END 2023-03-05 12:00 | disposition home or self-care (01) ==
LOC: EC 17:26 → 6NMEDSUR 21:56
PROVIDERS: ADMIT Internal Medicine; ATTEND Internal Medicine
DX: G50.0 Trigeminal neuralgia (principal); R53.1 Weakness; E11.9 Type 2 diabetes mellitus without complications; I10 Essential (primary) hypertension; E78.5 Hyperlipidemia, unspecified; F32.A Depression, unspecified; F06.30 Mood disorder due to known physiological condition, unspecified; I67.2 Cerebral atherosclerosis; F17.210 Nicotine dependence, cigarettes, uncomplicated; E04.2 Nontoxic multinodular goiter; K21.9 Gastro-esophageal reflux disease without esophagitis; F41.9 Anxiety disorder, unspecified; Z90.49 Acquired absence of other specified parts of digestive tract; Z79.899 Other long term (current) drug therapy; Z79.84 Long term (current) use of oral hypoglycemic drugs; Z90.710 Acquired absence of both cervix and uterus; Z82.49 Family history of ischemic heart disease and other diseases of the circulatory system; Z83.3 Family history of diabetes mellitus
CPT/HCPCS: 96376; 96372; 96374; 99285; 36415; 93005; 83880; 80053 ×2; 83605; 83735 ×2; 84100 ×2; 84443; 84484; 85025 ×2; 85610; 85730; 81003; 70450; G0378 ×2; J2270 ×2; J3475; J1644

== ENCOUNTER 2023-04-26 10:57 | Emergency (ER) | payer MEDICARE, BC, OTHER ==
[2023-04-26 11:05] VITALS: RESP 18; TEMP 98.1
[2023-04-26] MEDS ORDERED: diphenhydrAMINE 50 MG/ML 1 ML VIAL IVP STA (11:23)
[2023-04-26] MEDS ORDERED: KETOROLAC 15 MG/ML 1 ML VIAL IVP STA (11:23)
[2023-04-26 12:01] LABS: Appearance,Urine Clear (Clear); Bilirubin,Urine Negative (Negative); Blood,Urine Negative (Negative); Color,Urine Light Yellow; Glucose,Urine (UA) 4+ (Negative); Ketones,Urine Negative (Negative); Leukocyte Esterase,Urine Negative (Negative); Nitrite,Urine Negative (Negative); Protein,Urine Negative (Negative); Specific Gravity,Urine 1.005 (1.001-1.035); Urobilinogen,Urine <2.0 mg/dL (<2.0)
[2023-04-26 12:03] LABS: Basophils # (A) 0.1 k/uL (0-0.2); Basophils % (A) 1 %; Eosinophils # (A) 0.3 k/uL (0-0.7); Eosinophils % (A) 4 %; HCT 40.4 % (34.0-46.0); Lymphocytes % (A) 35 %; MCH 31.4 pg (25.0-35.0); MCHC 34.6 g/dL (31.0-37.0); MCV 90.7 fL (80.0-100.0); Mean Platelet Volume 8.3; Monocytes # (A) 0.5 k/uL (0-1.0); Monocytes % (A) 6 %; Neutrophils # (A) 4.5 k/uL (1.3-7.7); Neutrophils % (A) 53 %; Platelet Count 188 k/uL (150-450); RBC 4.45 m/uL (3.80-5.40); RDW 13.1 % (11.5-15.5); WBC 8.6 k/uL (3.8-10.6)
[2023-04-26 12:05] LABS: ALT 18 U/L (4-34); AST 19 U/L (14-36); African American GFR (CKD) >90 (>60 ml/min/1.73 sqM); Albumin 4.8 g/dL (3.5-5.0); Alkaline Phosphatase 85 U/L (38-126); Anion Gap 16 mmol/L; Blood Urea Nitrogen 14 mg/dL (7-17); Calcium 9.7 mg/dL (8.4-10.2); Carbon Dioxide 24 mmol/L (22-30); Chloride 100 mmol/L (98-107); Glucose 212 mg/dL (74-99); Non-African American GFR(CKD) >90 (>60 ml/min/1.73 sqM); Potassium 3.9 mmol/L (3.5-5.1); Sodium 140 mmol/L (137-145); Total Bilirubin 0.7 mg/dL (0.2-1.3); Total Protein 8.4 g/dL (6.3-8.2)
--- NOTE | 2023-04-26 12:11 | ED ---
Headache HPI - General Chief Complaint: Headache Stated Complaint: Headache Time Seen by Provider: 04/26/23 11:08 Mode of arrival: ambulatory Limitations: no limitations - History of Present Illness Initial Comments: 68-year-old female with a past medical history significant for trigeminal neuralgia presents ED with a chief complaint of headache/facial pain. Patient states that this is been ongoing for the last 3 years. Patient states that she currently follows with the neurologist at [facility]. Was previously on Tegretol 200 mg twice a day. She states was switched to Oxcarbazepine 150 mg BID for days ago. Despite this states ongoing. Try taking [place] today without relief of the pain. States headache/facial pain left-sided and has sensitivity to touch. States that her symptoms today are unchanged from history of trigeminal neuralgia. Denies weakness, numbness, nausea, vomiting. No other complaints. - Related Data Home Medications Medication Instructions Recorded Confirmed traZODone HCL 50 - 100 mg PO HS 08/24/20 03/04/23 lisinopriL [Zestril] 5 mg PO DAILY 07/11/22 03/04/23 Atorvastatin [Lipitor] 40 mg PO HS 12/25/22 03/04/23 HYDROcodone/APAP 10-325MG [[place] 1 tab PO Q4HR PRN 03/03/23 03/04/23 10-325] Indomethacin [Indocin] 25 mg PO TID 03/03/23 03/04/23 Omeprazole 40 mg PO DAILY 03/03/23 03/04/23 Pregabalin [Lyrica] 150 mg PO TID 03/03/23 03/04/23 metFORMIN HCL 1,000 mg PO BID 03/03/23 03/04/23 carBAMazepine 200 mg PO BID 03/04/23 03/04/23 clonazePAM 0.5 mg PO BID 03/05/23 03/05/23 diphenhydrAMINE [Benadryl] 50 mg PO BID PRN 03/05/23 03/05/23 Previous Rx's Medication Instructions Recorded Acetaminophen Tab [Tylenol] 650 mg PO Q4HR PRN tab 12/25/22 Ibuprofen [Motrin] 800 mg PO TID PRN tab 12/25/22 Baclofen [Lioresal] 10 mg PO QID tab 03/05/23 Morphine Sulfate Ir [MSIR] 15 mg PO Q6HR PRN 3 Days #12 tab 03/05/23 hydrALAZINE HCL [Apresoline] 10 mg PO TID tab 03/05/23 Allergies Allergy/AdvReac Type Severity Reaction Status Date / Time No Known Allergies Allergy Verified 04/26/23 11:05 Review of Systems ROS Statement: Those systems with pertinent positive or pertinent negative responses have been documented in the HPI. ROS Other: All systems not noted in ROS Statement are negative. Past Medical History Past Medical History: Diabetes Mellitus, GERD/Reflux, Hyperlipidemia, Osteoarthritis (OA), Thyroid Disorder Additional Past Medical History / Comment(s): trigeminal neuralgia, thyroid nodules History of Any Multi-Drug Resistant Organisms: None Reported Past Surgical History: Bladder Surgery, Cholecystectomy, Hysterectomy, Orthopedic Surgery Additional Past Surgical History / Comment(s): sinus surgery, arthroscopy right knee, bladder suspension,plate placed behind her ear. Past Anesthesia/Blood Transfusion Reactions: No Reported Reaction Past Psychological History: Anxiety Smoking Status: Former smoker Past Alcohol Use History: None Reported Past Drug Use History: None Reported - Past Family History Mother Family Medical History: Hypertension Father Family Medical History: Diabetes Mellitus General Exam Limitations: no limitations General appearance: alert Head exam: Present: other (Pain out of proportion to light touch on the left side of the face.) Eye exam: Present: normal appearance Respiratory exam: Present: normal lung sounds bilaterally Cardiovascular Exam: Present: regular rate, normal rhythm GI/Abdominal exam: Present: soft Extremities exam: Present: normal inspection Neurological exam: Present: alert, oriented X3 Skin exam: Present: warm, dry Course Vital Signs 04/26/23 11:02 Temperature 98.1 F Pulse Rate 106 H Respiratory 18 Rate Blood Pressure 136/96 O2 Sat by Pulse 98 Oximetry Medical Decision Making - Medical Decision Making Was pt. sent in by a medical professional or institution (, PA, [employer]AURANT B[employer]ENDER, urgent care, hospital, or fdc...) When possible be specific @ -No Did you speak to anyone other than the patient for history (EMS, parent, family, police, friend...)? What history was obtained from this source @ -No Did you review nursing and triage notes (agree or disagree)? Why? @ -I reviewed and agree with nursing and triage notes Were old charts reviewed (outside hosp., previous admission, EMS record, old EKG, old radiological studies, urgent care reports/EKG's, fdc records)? Report findings @ -Old charts reviewed. I previously saw the patient on 03/03/23. At that time had improvement of pain with Toradol and Benadryl. Was seen again the following day and admitted for pain control due to intractable pain. Was seen by neurology here and had no change to her management. Management deferred to her primary specialist@[email or web address]. Differential Diagnosis (chest pain, altered mental status, abdominal pain women, abdominal pain men, vaginal bleeding, weakness, fever, dyspnea, syncope, headache, dizziness, GI bleed, back pain, seizure, CVA, palpatations, mental health, musculoskeletal)? @ -Differential Headache: Migraine, tension, cluster, carbon monoxide, central venous thrombosis, pension karma temporal arteritis, acute closure glaucoma, intercranial hemorrhage, mastoiditis, sinusitis, head injury, this is not meant to be an all-inclusive list. EKG interpreted by me (3pts min.). @ -As above X-rays interpreted by me (1pt min.). @ -None done CT interpreted by me (1pt min.). @ -None done U/S interpreted by me (1pt. min.). @ -None done What testing was considered but not performed or refused? (CT, X-rays, U/S, labs)? Why? @ -None What meds were considered but not given or refused? Why? @ -None Did you discuss the management of the patient with other professionals (professionals i.e. DrJoey, PA, [employer]ANT B[employer]ENDER, lab, RT, psych nurse, social welfare clerk, cigar head piercer, teacher, marketing officer, caser shoe parts)? Give summary @ -No Was smoking cessation discussed for >3mins.? @ -No Was critical care preformed (if so, how long)? @ -No Were there social determinants of health that impacted care today? How? (Homelessness, low income, unemployed, alcoholism, drug addiction, transportation, low edu. Level, literacy, decrease access to med. care, group home, rehab)? @ -No Was there de-escalation of care discussed even if they declined (Discuss DNR or withdrawal of care, Hospice)? DNR status @ -No What co-morbidities impacted this encounter? (DM, HTN, Smoking, COPD, CAD, Cancer, CVA, ARF, Chemo, Hep., AIDS, mental health diagnosis, sleep apnea, morbid obesity)? @ -None Was patient admitted / discharged? Hospital course, mention meds given and route, prescriptions, significant lab abnormalities, going to OR and other pertinent info. @ -Discharge. Laboratory studies here unremarkable. Patient had improvement of pain with Benadryl and Toradol and reports that she feels well enough to go home. Provided additional 1 g of Tylenol. Patient discharged home in stable condition. Discussed return precautions with patient who verbalizes agreement. Undiagnosed new problem with uncertain prognosis? @ -No Drug Therapy requiring intensive monitoring for toxicity (Heparin, Nitro, Insulin, Cardizem)? @ -No Were any procedures done? @ -No Diagnosis/symptom? @ -Facial pain/headache Acute, or Chronic, or Acute on Chronic? @ -Acute on chronic Uncomplicated (without systemic symptoms) or Complicated (systemic symptoms)? @ -Uncomplicated Side effects of treatment? @ -No Exacerbation, Progression, or Severe Exacerbation? @ -No Poses a threat to life or bodily function? How? (Chest pain, [place], [place], pneumonia, PE, COPD, DKA, ARF, appy, cholecystitis, CVA, Diverticulitis, Homicidal, Suicidal, threat to staff... and all critical care pts) @ -No - Lab Data Result diagrams: 04/26/23 11:44 04/26/23 11:44 Lab Results 04/26/23 04/26/23 04/26/23 Range/Units 11:44 11:44 11:44 WBC 8.6 (3.8-10.6) k/uL RBC 4.45 (3.80-5.40) m/uL Hgb 14.0 (11.4-16.0) gm/dL Hct 40.4 (34.0-46.0) % MCV 90.7 (80.0-100.0) fL MCH 31.4 (25.0-35.0) pg MCHC 34.6 (31.0-37.0) g/dL RDW 13.1 (11.5-15.5) % Plt Count 188 (150-450) k/uL MPV 8.3 Neutrophils % 53 % Lymphocytes % 35 % Monocytes % 6 % Eosinophils % 4 % Basophils % 1 % Neutrophils # 4.5 (1.3-7.7) k/uL Lymphocytes # 3.0 (1.0-4.8) k/uL Monocytes # 0.5 (0-1.0) k/uL Eosinophils # 0.3 (0-0.7) k/uL Basophils # 0.1 (0-0.2) k/uL Sodium 140 (137-145) mmol/L Potassium 3.9 (3.5-5.1) mmol/L Chloride 100 (98-107) mmol/L Carbon Dioxide 24 (22-30) mmol/L Anion Gap 16 mmol/L BUN 14 (7-17) mg/dL Creatinine 0.58 (0.52-1.04) mg/dL Est GFR (CKD-EPI)AfAm >90 (>60 ml/min/1.73 sqM) Est GFR (CKD-EPI)NonAf >90 (>60 ml/min/1.73 sqM) Glucose 212 H (74-99) mg/dL Calcium 9.7 (8.4-10.2) mg/dL Total Bilirubin 0.7 (0.2-1.3) mg/dL AST 19 (14-36) U/L ALT 18 (4-34) U/L Alkaline Phosphatase 85 (38-126) U/L Total Protein 8.4 H (6.3-8.2) g/dL Albumin 4.8 (3.5-5.0) g/dL Urine Color Light Yellow Urine Appearance Clear (Clear) Urine pH 5.0 (5.0-8.0) Ur Specific [place] 1.005 (1.001-1.035) Urine Protein Negative (Negative) Urine Glucose (UA) 4+ H (Negative) Urine Ketones Negative (Negative) Urine Blood Negative (Negative) Urine Nitrite Negative (Negative) Urine Bilirubin Negative (Negative) Urine Urobilinogen <2.0 (<2.0) mg/dL Ur Leukocyte Esterase Negative (Negative) Disposition Clinical Impression: Headache, Facial pain Disposition: HOME SELF-CARE Condition: Good Instructions (If sedation given, give patient instructions): Acute Headache (ED) Additional Instructions: Please return to the Emergency Department if symptoms worsen or any other concerns. Please follow up with your specialist. Is patient prescribed a controlled substance at d/c from ED?: No Referrals: Parveen Anaya DO [Primary Care Provider] - 1-2 days Time of Disposition: 12:30
[2023-04-26] MEDS ORDERED: ACETAMINOPHEN TAB 500 MG TAB PO STA (12:19)
[2023-04-26 12:58] VITALS: BP 109/65; PULSE 94
== END 2023-04-26 12:58 | disposition home or self-care (01) ==
LOC: EC 10:57
DX: R51.9 Headache, unspecified (principal); E11.9 Type 2 diabetes mellitus without complications; E78.5 Hyperlipidemia, unspecified; K21.9 Gastro-esophageal reflux disease without esophagitis; M19.90 Unspecified osteoarthritis, unspecified site; F41.9 Anxiety disorder, unspecified; Z79.84 Long term (current) use of oral hypoglycemic drugs; Z79.899 Other long term (current) drug therapy; Z87.891 Personal history of nicotine dependence
CPT/HCPCS: 36415; 80053; 85025; 81003; 99285; 96374; 96375; J1200; J1885

== ENCOUNTER 2023-05-19 13:06 | Emergency (ER) | payer MEDICARE, BC, OTHER ==
[2023-05-19 13:10] VITALS: BP 129/78; PULSE 93; RESP 16; TEMP 97.8
[2023-05-19] MEDS ORDERED: HYDROmorphone 1 MG/ML 1 ML SYRINGE IM STA (13:24)
[2023-05-19] MEDS ORDERED: diphenhydrAMINE 50 MG/ML 1 ML VIAL IM STA (13:24)
--- NOTE | 2023-05-19 13:24 | ED ---
ENT HPI - General Chief complaint: ENT Stated complaint: SEVERE FACIAL PAIN Time Seen by Provider: 05/19/23 13:13 Source: patient, RN notes reviewed Mode of arrival: ambulatory Limitations: no limitations - History of Present Illness Initial comments: 68-year-old female presents emergency department to complaint of facial pain and itching. This is a chronic ongoing issue she is scheduled to have tooth extraction by Dr. Hollingsworth. She states it worsened today. She did not want to take her [place] and presents to the emergency department. Patient had multiple ER visits for same complaint. Patient denies any new trauma denies fevers or chills no difficulty swallowing no rash. - Related Data Home Medications Medication Instructions Recorded Confirmed traZODone HCL 50 - 100 mg PO HS 08/24/20 03/04/23 lisinopriL [Zestril] 5 mg PO DAILY 07/11/22 03/04/23 Atorvastatin [Lipitor] 40 mg PO HS 12/25/22 03/04/23 HYDROcodone/APAP 10-325MG [[place] 1 tab PO Q4HR PRN 03/03/23 03/04/23 10-325] Indomethacin [Indocin] 25 mg PO TID 03/03/23 03/04/23 Omeprazole 40 mg PO DAILY 03/03/23 03/04/23 Pregabalin [Lyrica] 150 mg PO TID 03/03/23 03/04/23 metFORMIN HCL 1,000 mg PO BID 03/03/23 03/04/23 carBAMazepine 200 mg PO BID 03/04/23 03/04/23 clonazePAM 0.5 mg PO BID 03/05/23 03/05/23 diphenhydrAMINE [Benadryl] 50 mg PO BID PRN 03/05/23 03/05/23 Previous Rx's Medication Instructions Recorded Acetaminophen Tab [Tylenol] 650 mg PO Q4HR PRN tab 12/25/22 Ibuprofen [Motrin] 800 mg PO TID PRN tab 12/25/22 Baclofen [Lioresal] 10 mg PO QID tab 03/05/23 Morphine Sulfate Ir [MSIR] 15 mg PO Q6HR PRN 3 Days #12 tab 03/05/23 hydrALAZINE HCL [Apresoline] 10 mg PO TID tab 03/05/23 Allergies Allergy/AdvReac Type Severity Reaction Status Date / Time No Known Allergies Allergy Verified 05/19/23 13:10 Review of Systems ROS Statement: Those systems with pertinent positive or pertinent negative responses have been documented in the HPI. ROS Other: All systems not noted in ROS Statement are negative. Past Medical History Past Medical History: Diabetes Mellitus, GERD/Reflux, Hyperlipidemia, Osteoarthritis (OA), Thyroid Disorder Additional Past Medical History / Comment(s): trigeminal neuralgia, thyroid nodules History of Any Multi-Drug Resistant Organisms: None Reported Past Surgical History: Bladder Surgery, Cholecystectomy, Hysterectomy, Orthopedic Surgery Additional Past Surgical History / Comment(s): sinus surgery, arthroscopy right knee, bladder suspension,plate placed behind her ear. Past Anesthesia/Blood Transfusion Reactions: No Reported Reaction Past Psychological History: Anxiety Smoking Status: Former smoker Past Alcohol Use History: None Reported Past Drug Use History: None Reported - Past Family History Mother Family Medical History: Hypertension Father Family Medical History: Diabetes Mellitus General Exam Limitations: no limitations General appearance: alert, in no apparent distress Head exam: Present: atraumatic, normocephalic, normal inspection Eye exam: Present: normal appearance, PERRL, EOMI. Absent: scleral icterus, conjunctival injection, periorbital swelling ENT exam: Present: normal exam, normal oropharynx, mucous membranes moist Neck exam: Present: normal inspection. Absent: tenderness, meningismus, lymphadenopathy Respiratory exam: Present: normal lung sounds bilaterally. Absent: respiratory distress, wheezes, rales, rhonchi, stridor Course Vital Signs 05/19/23 13:08 Temperature 97.8 F Pulse Rate 93 Respiratory 16 Rate Blood Pressure 129/78 O2 Sat by Pulse 96 Oximetry Medical Decision Making - Medical Decision Making Was pt. sent in by a medical professional or institution (, PA, KEG VARNISHER, urgent care, hospital, or chcf...) When possible be specific @ -No Did you speak to anyone other than the patient for history (EMS, parent, family, police, friend...)? What history was obtained from this source @ -No Did you review nursing and triage notes (agree or disagree)? Why? @ -I reviewed and agree with nursing and triage notes Were old charts reviewed (outside hosp., previous admission, EMS record, old EKG, old radiological studies, urgent care reports/EKG's, chcf records)? Report findings @ -Reviewed prior ER visits, studies Differential Diagnosis (chest pain, altered mental status, abdominal pain women, abdominal pain men, vaginal bleeding, weakness, fever, dyspnea, syncope, headache, dizziness, GI bleed, back pain, seizure, CVA, palpatations, mental health, musculoskeletal)? @ -Facial pain, trigeminal ALLERGY, dental pain EKG interpreted by me (3pts min.). @ -None X-rays interpreted by me (1pt min.). @ -None done CT interpreted by me (1pt min.). @ -None done U/S interpreted by me (1pt. min.). @ -None done What testing was considered but not performed or refused? (CT, X-rays, U/S, labs)? Why? @ -None What meds were considered but not given or refused? Why? @ -None Did you discuss the management of the patient with other professionals (professionals i.e. , PA, KEG VARNISHER, lab, RT, psych nurse, professor of social work, practice consultant, teacher, senior credit officer, pillowcase folder)? Give summary @ -No Was smoking cessation discussed for >3mins.? @ -No Was critical care preformed (if so, how long)? @ -No Were there social determinants of health that impacted care today? How? (Homelessness, low income, unemployed, alcoholism, drug addiction, transportation, low edu. Level, literacy, decrease access to med. care, prison, rehab)? @ -No Was there de-escalation of care discussed even if they declined (Discuss DNR or withdrawal of care, Hospice)? DNR status @ -No What co-morbidities impacted this encounter? (DM, HTN, Smoking, COPD, CAD, Cancer, CVA, ARF, Chemo, Hep., AIDS, mental health diagnosis, sleep apnea, morb id obesity)? @ -None Was patient admitted / discharged? Hospital course, mention meds given and route, prescriptions, significant lab abnormalities, going to OR and other pertinent info. @ -Discharged this is a chronic condition patient is having acute pain of her chronic issue she is schedule have tooth extraction. Patient is discharge wally ruiz has no signs of infection. Undiagnosed new problem with uncertain prognosis? @ -No Drug Therapy requiring intensive monitoring for toxicity (Heparin, Nitro, Insulin, Cardizem)? @ -No Were any procedures done? @ -No Diagnosis/symptom? @ -Facial pain Acute, or Chronic, or Acute on Chronic? @ -Acute on chronic Uncomplicated (without systemic symptoms) or Complicated (systemic symptoms)? @ -Uncomplicated Side effects of treatment? @ -No Exacerbation, Progression, or Severe Exacerbation? @ -No Poses a threat to life or bodily function? How? (Chest pain, [place], [place], pneumonia, PE, COPD, DKA, ARF, appy, cholecystitis, CVA, Diverticulitis, Homicidal, Suicidal, threat to staff... and all critical care pts) @ -No Disposition Clinical Impression: Facial pain Disposition: HOME SELF-CARE Condition: Stable Additional Instructions: Please return to the Emergency Department if symptoms worsen or any other concerns. Is patient prescribed a controlled substance at d/c from ED?: No Referrals: Parveen Anaya DO [Primary Care Provider] - 1-2 days Time of Disposition: 13:24
== END 2023-05-19 14:56 | disposition home or self-care (01) ==
LOC: EC 13:06
DX: R51.9 Headache, unspecified (principal); E11.9 Type 2 diabetes mellitus without complications; K21.9 Gastro-esophageal reflux disease without esophagitis; E78.5 Hyperlipidemia, unspecified; M19.90 Unspecified osteoarthritis, unspecified site; F41.9 Anxiety disorder, unspecified; Z87.891 Personal history of nicotine dependence; Z79.899 Other long term (current) drug therapy; Z79.84 Long term (current) use of oral hypoglycemic drugs
CPT/HCPCS: 99283; 96372 ×2; J1200; J1170

== ENCOUNTER 2023-06-15 16:05 | Emergency (ER) | payer MEDICARE, BC, OTHER ==
[2023-06-15 16:49] VITALS: TEMP 98
[2023-06-15] MEDS ORDERED: KETOROLAC 15 MG/ML 1 ML VIAL IVP STA (17:12)
[2023-06-15] MEDS ORDERED: HYDROmorphone 1 MG/ML 1 ML SYRINGE IVP STA (17:12)
[2023-06-15] MEDS ORDERED: diphenhydrAMINE 50 MG/ML 1 ML VIAL IVP STA (17:12)
--- NOTE | 2023-06-15 17:12 | ED ---
Recheck HPI - General Chief Complaint: Recheck/Abnormal Lab/Rx Stated Complaint: Head/Neck Pain Source: patient, RN notes reviewed, old records reviewed Mode of arrival: EMS Limitations: no limitations - History of Present Illness Initial Comments: This is a 68-year-old female to the emergency department today. Patient presents today for evaluation of severe headache neck pain shooting pain throughout her head. Patient does not feel well secondary edema pain she is currently experiencing and had neck she has history of trigeminal Lexapro neuralgia and this feels the same of severe pain. No fevers no other complaints no new trauma MD Complaint: medication refill request -: days(s) Returns Today for: persistent/worsening pain related to initial visit Symptoms Since Prior Visit: worsening pain Context: ran out of medication Associated Symptoms: none Treatments Prior to Arrival: Given Pain Meds on - Related Data Home Medications Medication Instructions Recorded Confirmed traZODone HCL 50 - 100 mg PO HS 08/24/20 03/04/23 lisinopriL [Zestril] 5 mg PO DAILY 07/11/22 03/04/23 Atorvastatin [Lipitor] 40 mg PO HS 12/25/22 03/04/23 HYDROcodone/APAP 10-325MG [[place] 1 tab PO Q4HR PRN 03/03/23 03/04/23 10-325] Indomethacin [Indocin] 25 mg PO TID 03/03/23 03/04/23 Omeprazole 40 mg PO DAILY 03/03/23 03/04/23 Pregabalin [Lyrica] 150 mg PO TID 03/03/23 03/04/23 metFORMIN HCL 1,000 mg PO BID 03/03/23 03/04/23 carBAMazepine 200 mg PO BID 03/04/23 03/04/23 clonazePAM 0.5 mg PO BID 03/05/23 03/05/23 diphenhydrAMINE [Benadryl] 50 mg PO BID PRN 03/05/23 03/05/23 Previous Rx's Medication Instructions Recorded Acetaminophen Tab [Tylenol] 650 mg PO Q4HR PRN tab 12/25/22 Ibuprofen [Motrin] 800 mg PO TID PRN tab 12/25/22 Baclofen [Lioresal] 10 mg PO QID tab 03/05/23 Morphine Sulfate Ir [MSIR] 15 mg PO Q6HR PRN 3 Days #12 tab 03/05/23 hydrALAZINE HCL [Apresoline] 10 mg PO TID tab 03/05/23 Allergies Allergy/AdvReac Type Severity Reaction Status Date / Time No Known Allergies Allergy Verified 06/15/23 16:43 Review of Systems ROS Statement: Those systems with pertinent positive or pertinent negative responses have been documented in the HPI. ROS Other: All systems not noted in ROS Statement are negative. Past Medical History Past Medical History: Diabetes Mellitus, Fibromyalgia, GERD/Reflux, Hyperlipidemia, Osteoarthritis (OA), Thyroid Disorder Additional Past Medical History / Comment(s): trigeminal neuralgia, thyroid nodules History of Any Multi-Drug Resistant Organisms: None Reported Past Surgical History: Bladder Surgery, Cholecystectomy, Hysterectomy, Orthopedic Surgery Additional Past Surgical History / Comment(s): sinus surgery, arthroscopy right knee, bladder suspension,plate placed behind her ear. Past Anesthesia/Blood Transfusion Reactions: No Reported Reaction Past Psychological History: Anxiety Smoking Status: Former smoker Past Alcohol Use History: None Reported Past Drug Use History: None Reported - Past Family History Mother Family Medical History: Hypertension Father Family Medical History: Diabetes Mellitus General Exam Limitations: no limitations General appearance: alert, in no apparent distress, anxious Head exam: Present: atraumatic, normocephalic, normal inspection Eye exam: Present: normal appearance, PERRL, EOMI. Absent: scleral icterus, conjunctival injection, periorbital swelling ENT exam: Present: normal exam, mucous membranes moist Neck exam: Present: normal inspection. Absent: tenderness, meningismus, lymphadenopathy Respiratory exam: Present: normal lung sounds bilaterally. Absent: respiratory distress, wheezes, rales, rhonchi, stridor Cardiovascular Exam: Present: regular rate, normal rhythm, normal heart sounds. Absent: systolic murmur, diastolic murmur, rubs, gallop, clicks GI/Abdominal exam: Present: soft, normal bowel sounds. Absent: distended, tenderness, guarding, rebound, rigid Extremities exam: Present: normal inspection, full ROM, normal capillary refill. Absent: tenderness, pedal edema, joint swelling, calf tenderness Back exam: Present: normal inspection Neurological exam: Present: alert, oriented X3, CN II-XII intact Psychiatric exam: Present: normal affect, normal mood Skin exam: Present: warm, dry, intact, normal color. Absent: rash Course Vital Signs 1006/15/23 06/15/23 16:41 18:32 20:13 Temperature 98 F Pulse Rate 79 65 72 Respiratory 16 18 18 Rate Blood Pressure 144/80 163/80 161/94 O2 Sat by Pulse 97 98 96 Oximetry - Reevaluation(s) Reevaluation #1: 06/15/23 Medical records reviewed Reevaluation #2: 06/15/23 Patient symptoms are improved Reevaluation #3: 06/15/23 Patient informed results and questions have been answered Reevaluation #4: 06/15/23 Was pt. sent in by a medical professional or institution (, HOLLIE, SCHOOL PSYCHOLOGIST ASSISTANT, urgent care, hospital, or prison...) When possible be specific @ -no Did you speak to anyone other than the patient for history (EMS, parent, family, police, friend...)? What history was obtained from this source @ -no Did you review nursing and triage notes (agree or disagree)? Why? @ -agree Are old charts reviewed (outside hosp., previous admission, EMS record, old EKG, old radiological studies, urgent care reports/EKG's, prison records)? Report findings @ -yes Differential Diagnosis (chest pain, altered mental status, abdominal pain women, abdominal pain men, vaginal bleeding, weakness, fever, dyspnea, syncope, headache, dizziness, GI bleed, back pain, seizure, CVA, palpatations, mental health, musculoskeletal)? @ -prior EKG interpreted by me (3pts min.). @ -no X-rays interpreted by me (1pt min.). @ -no CT interpreted by me (1pt min.). @ -yes U/S interpreted by me (1pt. min.). @ -no What testing was considered but not performed or refused? (CT, X-rays, U/S, labs)? Why? @ -none What meds were considered but not given or refused? Why? @ -none Did you discuss the management of the patient with other professionals (professionals i.e. HOLLIE Hay, SCHOOL PSYCHOLOGIST ASSISTANT, lab, RT, psych nurse, social services, community development technician, teacher, president and chief executive officer, caseworker)? Give summary @ -no Was smoking cessation discussed for >3mins.? @ -no Was critical care preformed (if so, how long)? @ -no Were there social determinants of health that impacted care today? How? (Homelessness, low income, unemployed, alcoholism, drug addiction, transportation, low edu. Level, literacy, decrease access to med. care, skilled nursing, rehab)? @ -none Was there de-escalation of care discussed even if they declined (Discuss DNR or withdrawal of care, Hospice)? DNR status @ -no What co-morbidities impacted this encounter? (DM, HTN, Smoking, COPD, CAD, Cancer, CVA, ARF, Chemo, Hep., AIDS, mental health diagnosis, sleep apnea, morbid obesity)? @ -none Was patient admitted / discharged? Hospital course, mention meds given and route, prescriptions, significant lab abnormalities, going to OR and other pertinent info. @ - 68 female to the emergency department for evaluation of severe headache known trigeminal neuralgia occipital Neuralgia. Prior ER visits and admission for same Patient's pain is well-controlled here in the ER negative computed t omography scan she can be discharged home Discharge Undiagnosed new problem with uncertain prognosis? @ -no Drug Therapy requiring intensive monitoring for toxicity (Heparin, Nitro, Insulin, Cardizem)? @ -no Were any procedures done? @ -no Diagnosis/symptom? @ -TRigeminal occipital neuralgia Acute, or Chronic, or Acute on Chronic? @ -Acute Uncomplicated (without systemic symptoms) or Complicated (systemic symptoms)? @ -Complicated Side effects of treatment? @ -no Exacerbation, Progression, or Severe Exacerbation? @ -exacerbation Poses a threat to life or bodily function? How? (Chest pain, [place], [place], pneumonia, PE, COPD, DKA, ARF, appy, cholecystitis, CVA, Diverticulitis, Homicidal, Suicidal, threat to staff... and all critical care pts) @ -no Medical Decision Making - Medical Decision Making 68 female to the emergency department for evaluation of headache severe. Patient has known trigeminal neuralgia very concerned for similar pain she is currently having a little pain is improved now. Patient did request a computed tomography scan which is negative and she can be discharged home - Radiology Data Radiology results: report reviewed (CT brain is negative for acute disease), image reviewed Disposition Clinical Impression: Trigeminal neuralgia Disposition: HOME SELF-CARE Condition: Good Instructions (If sedation given, give patient instructions): Trigeminal Ne uralgia (ED) Is patient prescribed a controlled substance at d/c from ED?: No Referrals: Parveen Anaya DO [Primary Care Provider] - 1-2 days Time of Disposition: 20:00
[2023-06-15] MEDS ORDERED: MORPHINE SULFATE 4 MG/ML SYRINGE IVP STA (18:36)
[2023-06-15 18:38] VITALS: RESP 18
--- NOTE | 2023-06-15 19:58 | CT ---
EXAMINATION TYPE: CT brain wo con CT DLP: 1098.8 mGycm, Automated exposure control for dose reduction was used. DATE OF EXAM: 06/15/2023 7:04 PM COMPARISON: 03/04/2023. CLINICAL INDICATION:Female, 68 years old with history of floyd, Fibromyalgia, chronic sharp neck and hea d pain x days. TECHNIQUE: Brain: Axial CT images of the brain were obtained with coronal and sagittal reformats created and rev iewed. Contrast used: None. Oral contrast used: None. FINDINGS: Brain: Extra-axial spaces: No abnormal extra-axial fluid collections. Ventricular system: Within normal limits Cerebral parenchyma: No acute intraparenchymal hemorrhage or mass effect. The whitfield-white junction is well differentiated. Cerebellum: Unremarkable. Mass effect: No evidence of midline shift. Intracranial vasculature: Atherosclerotic calcifications of the intracranial vessels. Soft tissues: Normal. Calvarium/osseous structures: No depressed skull fracture. Postprocedural changes to the left skull. Paranasal sinuses and mastoid air cells: Mild scattered paranasal sinus disease. Visualized orbits: Orbital contents are intact. IMPRESSION: No acute intracranial process. Mild paranasal sinus disease.
[2023-06-15 20:28] VITALS: BP 161/94; PULSE 72
== END 2023-06-15 20:24 | disposition home or self-care (01) ==
LOC: EC 16:05
DX: G50.0 Trigeminal neuralgia (principal); E11.9 Type 2 diabetes mellitus without complications; E78.5 Hyperlipidemia, unspecified; K21.9 Gastro-esophageal reflux disease without esophagitis; M19.90 Unspecified osteoarthritis, unspecified site; E07.9 Disorder of thyroid, unspecified; F41.9 Anxiety disorder, unspecified; Z87.891 Personal history of nicotine dependence; Z79.84 Long term (current) use of oral hypoglycemic drugs; Z79.899 Other long term (current) drug therapy
CPT/HCPCS: 70450; 99284; 96374; 96375 ×3; J2270; J1200; J1170; J1885

== ENCOUNTER 2023-06-30 20:28 | Emergency (ER) | payer MEDICARE, BC, OTHER ==
[2023-06-30] MEDS ORDERED: SUMAtriptan succinate 50 MG TAB PO STA (22:33)
[2023-06-30] MEDS ORDERED: HYDROmorphone 1 MG/ML 1 ML SYRINGE IM STA (22:33)
[2023-06-30] MEDS ORDERED: PROCHLORPERAZINE 5 MG TAB PO STA (22:34)
--- NOTE | 2023-06-30 22:35 | ED ---
Recheck HPI - General Chief Complaint: Neck Pain/Injury Stated Complaint: Fall Time Seen by Provider: 06/30/23 22:08 Source: patient, RN notes reviewed, old records reviewed Mode of arrival: ambulatory Limitations: no limitations - History of Present Illness Initial Comments: This is a 68-year-old female to the emergency department for evaluation. Lila ent comes in with recurrent pain neck pain and chronic pain from abdominal relative. Patient does have a recent fall no significant trauma. Patient is able ambulate without difficult as scheduled to see neurologist is also psychiatrist this week MD Complaint: medication refill request -: days(s) Returns Today for: persistent/worsening pain related to initial visit Symptoms Since Prior Visit: no new symptoms Context: planned re-check Associated Symptoms: none Treatments Prior to Arrival: other (0) - Related Data Home Medications Medication Instructions Recorded Confirmed traZODone HCL 50 - 100 mg PO HS 08/24/20 03/04/23 lisinopriL [Zestril] 5 mg PO DAILY 07/11/22 03/04/23 Atorvastatin [Lipitor] 40 mg PO HS 12/25/22 03/04/23 HYDROcodone/APAP 10-325MG [[place] 1 tab PO Q4HR PRN 03/03/23 03/04/23 10-325] Indomethacin [Indocin] 25 mg PO TID 03/03/23 03/04/23 Omeprazole 40 mg PO DAILY 03/03/23 03/04/23 Pregabalin [Lyrica] 150 mg PO TID 03/03/23 03/04/23 metFORMIN HCL 1,000 mg PO BID 03/03/23 03/04/23 carBAMazepine 200 mg PO BID 03/04/23 03/04/23 clonazePAM 0.5 mg PO BID 03/05/23 03/05/23 diphenhydrAMINE [Benadryl] 50 mg PO BID PRN 03/05/23 03/05/23 Previous Rx's Medication Instructions Recorded Acetaminophen Tab [Tylenol] 650 mg PO Q4HR PRN tab 12/25/22 Ibuprofen [Motrin] 800 mg PO TID PRN tab 12/25/22 Baclofen [Lioresal] 10 mg PO QID tab 03/05/23 Morphine Sulfate Ir [MSIR] 15 mg PO Q6HR PRN 3 Days #12 tab 03/05/23 hydrALAZINE HCL [Apresoline] 10 mg PO TID tab 03/05/23 Allergies Allergy/AdvReac Type Severity Reaction Status Date / Time No Known Allergies Allergy Verified 06/30/23 20:41 Review of Systems ROS Statement: Those systems with pertinent positive or pertinent negative responses have been documented in the HPI. ROS Other: All systems not noted in ROS Statement are negative. Past Medical History Past Medical History: Diabetes Mellitus, Fibromyalgia, GERD/Reflux, Hyperlipidemia, Osteoarthritis (OA), Thyroid Disorder Additional Past Medical History / Comment(s): trigeminal neuralgia, thyroid nodules History of Any Multi-Drug Resistant Organisms: None Reported Past Surgical History: Bladder Surgery, Cholecystectomy, Hysterectomy, Orthopedic Surgery Additional Past Surgical History / Comment(s): sinus surgery, arthroscopy right knee, bladder suspension,plate placed behind her ear. Past Anesthesia/Blood Transfusion Reactions: No Reported Reaction Past Psychological History: Anxiety Smoking Status: Former smoker Past Alcohol Use History: None Reported Past Drug Use History: None Reported - Past Family History Mother Family Medical History: Hypertension Father Family Medical History: Diabetes Mellitus General Exam Limitations: no limitations General appearance: alert, in no apparent distress Head exam: Present: atraumatic, normocephalic, normal inspection Eye exam: Present: normal appearance, PERRL, EOMI. Absent: scleral icterus, conjunctival injection, periorbital swelling ENT exam: Present: normal exam, mucous membranes moist Neck exam: Present: normal inspection. Absent: tenderness, meningismus, lymphadenopathy Respiratory exam: Present: normal lung sounds bilaterally. Absent: respiratory distress, wheezes, rales, rhonchi, stridor Cardiovascular Exam: Present: regular rate, normal rhythm, normal heart sounds. Absent: systolic murmur, diastolic murmur, rubs, gallop, clicks GI/Abdominal exam: Present: soft, normal bowel sounds. Absent: distended, tenderness, guarding, rebound, rigid Extremities exam: Present: normal inspection, full ROM, normal capillary refill. Absent: tenderness, pedal edema, joint swelling, calf tenderness Back exam: Present: normal inspection Neurological exam: Present: alert, oriented X3, CN II-XII intact Psychiatric exam: Present: normal affect, normal mood Skin exam: Present: warm, dry, intact, normal color. Absent: rash Course Vital Signs 06/30/23 06/30/23 20:32 23:00 Temperature 98.4 F 98.6 F Pulse Rate 88 95 Respiratory 17 16 Rate Blood Pressure 132/69 153/95 O2 Sat by Pulse 98 97 Oximetry - Reevaluation(s) Reevaluation #1: 06/30/23 22:42 Medical records reviewed Reevaluation #2: 06/30/23 22:42 Patient's pain is improved Reevaluation #3: 06/30/23 22:42 Patient informed results questions answered Reevaluation #4: 06/30/23 22:42 Was pt. sent in by a medical professional or institution (, HOLLIE, LEGAL CONTRACTS SPECIALIST, urgent care, hospital, or snf...) When possible be specific @ -no Did you speak to anyone other than the patient for history (EMS, parent, family, police, friend...)? What history was obtained from this source @ -no Did you review nursing and triage notes (agree or disagree)? Why? @ -agree Are old charts reviewed (outside hosp., previous admission, EMS record, old EKG, old radiological studies, urgent care reports/EKG's, snf records)? Report findings @ -yes Differential Diagnosis (chest pain, altered mental status, abdominal pain women, abdominal pain men, vaginal bleeding, weakness, fever, dyspnea, syncope, headache, dizziness, GI bleed, back pain, seizure, CVA, palpatations, mental health, musculoskeletal)? @ -prior EKG interpreted by me (3pts min.). @ -no X-rays interpreted by me (1pt min.). @ -no CT interpreted by me (1pt min.). @ -no U/S interpreted by me (1pt. min.). @ -no What testing was considered but not performed or refused? (CT, X-rays, U/S, labs)? Why? @ -none What meds were considered but not given or refused? Why? @ -none Did you discuss the management of the patient with other professionals (professionals i.e. HOLLIE Hay, LEGAL CONTRACTS SPECIALIST, lab, RT, psych nurse, social media intern, reel stripper, teacher, ship officer, family service caseworker)? Give summary @ -no Was smoking cessation discussed for >3mins.? @ -no Was critical care preformed (if so, how long)? @ -no Were there social determinants of health that impacted care today? How? (Homelessness, low income, unemployed, alcoholism, drug addiction, transportation, low edu. Level, literacy, decrease access to med. care, nursing home, rehab)? @ -none Was there de-escalation of care discussed even if they declined (Discuss DNR or withdrawal of care, Hospice)? DNR status @ -no What co-morbidities impacted this encounter? (DM, HTN, Smoking, COPD, CAD, Cancer, CVA, ARF, Chemo, Hep., AIDS, mental health diagnosis, sleep apnea, morbid obesity)? @ -none Was patient admitted / discharged? Hospital course, mention meds given and route, prescriptions, significant lab abnormalities, going to OR and other pertinent info. @ - 68 female with recurrent ventral neuralgia pain severe, exacerbation his pain control currently. No new symptoms, no neurological findings patient can be discharged home Discharge Undiagnosed new problem with uncertain prognosis? @ -no Drug Therapy requiring intensive monitoring for toxicity (Heparin, Nitro, Insulin, Cardizem)? @ -no Were any procedures done? @ -no Diagnosis/symptom? @ -Gen. route and chronic pain Acute, or Chronic, or Acute on Chronic? @ -Acute Uncomplicated (without systemic symptoms) or Complicated (systemic symptoms)? @ -Complicated Side effects of treatment? @ -no Exacerbation, Progression, or Severe Exacerbation? @ -exacerbation Poses a threat to life or bodily function? How? (Chest pain, [place], [place], pneumonia, PE, COPD, DKA, ARF, appy, cholecystitis, CVA, Diverticulitis, Homicidal, Suicidal, threat to staff... and all critical care pts) @ -no Medical Decision Making - Medical Decision Making 68 female with recurrent ventral neuralgia pain severe, exacerbation his pain control currently. No new symptoms, no neurological findings patient can be discharged home Disposition Clinical Impression: Trigeminal neuralgia Disposition: HOME SELF-CARE Condition: Fair Instructions (If sedation given, give patient instructions): Chronic Pain (ED) Is patient prescribed a controlled substance at d/c from ED?: No Referrals: Parveen Anaya DO [Primary Care Provider] - 1-2 days Time of Disposition: 22:30
[2023-07-01 06:40] VITALS: BP 153/95; PULSE 95; RESP 16; TEMP 98.6
== END 2023-06-30 23:01 | disposition home or self-care (01) ==
LOC: EC 20:28
DX: G50.0 Trigeminal neuralgia (principal); G89.29 Other chronic pain; E11.9 Type 2 diabetes mellitus without complications; K21.9 Gastro-esophageal reflux disease without esophagitis; E78.5 Hyperlipidemia, unspecified; F41.9 Anxiety disorder, unspecified; M19.90 Unspecified osteoarthritis, unspecified site; M79.7 Fibromyalgia; Z79.84 Long term (current) use of oral hypoglycemic drugs; Z79.899 Other long term (current) drug therapy; Z87.891 Personal history of nicotine dependence; Z90.49 Acquired absence of other specified parts of digestive tract
CPT/HCPCS: 99284; 96372; S0183; J1170

== ENCOUNTER 2023-07-08 14:34 | Inpatient (IN) | payer MEDICARE, BC, OTHER ==
[2023-07-08] MEDS ORDERED: SODIUM CHLORIDE 0.9% 1,000 ML IV STA ×2 (15:49)
[2023-07-08] MEDS ORDERED: MORPHINE SULFATE 4 MG/ML SYRINGE IV STA (15:49)
[2023-07-08] MEDS ORDERED: diphenhydrAMINE 50 MG/ML 1 ML VIAL IVP STA (15:50)
[2023-07-08] MEDS ORDERED: KETOROLAC 15 MG/ML 1 ML VIAL IVP STA (15:50)
[2023-07-08 16:12] LABS: Basophils # (A) 0.1 k/uL (0-0.2); Basophils % (A) 1 %; Eosinophils # (A) 0.3 k/uL (0-0.7); Eosinophils % (A) 3 %; HCT 38.6 % (34.0-46.0); HGB 12.8 gm/dL (11.4-16.0); Lymphocytes # (A) 2.6 k/uL (1.0-4.8); Lymphocytes % (A) 30 %; MCH 30.9 pg (25.0-35.0); MCHC 33.2 g/dL (31.0-37.0); MCV 93.1 fL (80.0-100.0); Mean Platelet Volume 8.9; Monocytes # (A) 0.4 k/uL (0-1.0); Monocytes % (A) 5 %; Neutrophils # (A) 5.4 k/uL (1.3-7.7); Neutrophils % (A) 60 %; Platelet Count 226 k/uL (150-450); RBC 4.15 m/uL (3.80-5.40); RDW 13.4 % (11.5-15.5); WBC 8.9 k/uL (3.8-10.6)
--- NOTE | 2023-07-08 16:24 | ED ---
Recheck HPI - General Chief Complaint: Weakness Stated Complaint: Weakness,Vision issue Time Seen by Provider: 07/08/23 15:22 Source: patient, EMS, RN notes reviewed, old records reviewed Mode of arrival: EMS Limitations: no limitations - History of Present Illness Initial Comments: This is a 68-year-old female to the emergency department today. Patient presents today for evaluation of persistent headache type symptoms. Patient has known history of trigeminal neuralgia or in his been evaluated multiple times for similar issues. Patient states today she is having issues with vision she did see her portrait consultant and but she became concerned and came the emergency department. Patient admits to having persistent significant headache patient ad mits to having issues seeing spots. In having significant headache. Denying any other neurological issues aside from vision issues. Patient states she has followed up with outpatient neurology who has consulted with her to see outpatient psychiatry MD Complaint: other (Severe headache head pain and possible stroke) -: week(s) Returns Today for: persistent/worsening pain related to initial visit (Severe headache and neck pain) Symptoms Since Prior Visit: worsening pain Treatments Prior to Arrival: other medications, Given Pain Meds on - Related Data Home Medications Medication Instructions Recorded Confirmed lisinopriL [Zestril] 5 mg PO DAILY 07/11/22 07/08/23 Atorvastatin [Lipitor] 40 mg PO HS 12/25/22 07/08/23 HYDROcodone/APAP 10-325MG [[place] 1 tab PO QID 03/03/23 07/08/23 10-325] metFORMIN HCL 1,000 mg PO BID 03/03/23 07/08/23 Baclofen [Lioresal] 10 mg PO QID PRN 07/08/23 07/08/23 Gabapentin [Neurontin] 300 mg PO TID 07/08/23 07/08/23 OXcarbazepine [Trileptal] 450 mg PO BID 07/08/23 07/08/23 Omeprazole 20 mg PO DAILY 07/08/23 07/08/23 Allergies Allergy/AdvReac Type Severity Reaction Status Date / Time No Known Allergies Allergy Verified 07/08/23 17:47 Review of Systems ROS Statement: Those systems with pertinent positive or pertinent negative responses have been documented in the HPI. ROS Other: All systems not noted in ROS Statement are negative. Past Medical History Past Medical History: Diabetes Mellitus, Fibromyalgia, GERD/Reflux, Hyperlipide michell, Osteoarthritis (OA), Thyroid Disorder Additional Past Medical History / Comment(s): trigeminal neuralgia, thyroid nodules History of Any Multi-Drug Resistant Organisms: None Reported Past Surgical History: Bladder Surgery, Cholecystectomy, Hysterectomy, Orthopedic Surgery Additional Past Surgical History / Comment(s): sinus surgery, arthroscopy right knee, bladder suspension,plate placed behind her ear. Past Anesthesia/Blood Transfusion Reactions: No Reported Reaction Past Psychological History: Anxiety Smoking Status: Former smoker Past Alcohol Use History: None Reported Past Drug Use History: None Reported - Past Family History Mother Family Medical History: Hypertension Father Family Medical History: Diabetes Mellitus General Exam - General Exam Comments Initial Comments: NIH of 0 No focal neurological deficit Limitations: no limitations General appearance: alert, in no apparent distress Head exam: Present: atraumatic, normocephalic, normal inspection Eye exam: Present: normal appearance, PERRL, EOMI. Absent: scleral icterus, conjunctival injection, periorbital swelling ENT exam: Present: normal exam, mucous membranes moist Neck exam: Present: normal inspection. Absent: tenderness, meningismus, lymphadenopathy Respiratory exam: Present: normal lung sounds bilaterally. Absent: respiratory distress, wheezes, rales, rhonchi, stridor Cardiovascular Exam: Present: regular rate, normal rhythm, normal heart sounds. Absent: systolic murmur, diastolic murmur, rubs, gallop, clicks GI/Abdominal exam: Present: soft, normal bowel sounds. Absent: distended, tenderness, guarding, rebound, rigid Extremities exam: Present: normal inspection, full ROM, normal capillary refill. Absent: tenderness, pedal edema, joint swelling, calf tenderness Back exam: Present: normal inspection Neurological exam: Present: alert, oriented X3, CN II-XII intact Psychiatric exam: Present: normal affect, normal mood Skin exam: Present: warm, dry, intact, normal color. Absent: rash Course Vital Signs 07/08/23 07/08/23 07/08/23 14:44 16:07 18:39 Temperature 98.1 F Pulse Rate 93 98 87 Respiratory 18 18 18 Rate Blood Pressure 141/94 149/90 168/96 O2 Sat by Pulse 96 97 97 Oximetry 07/08/23 22:44 Temperature Pulse Rate 76 Respiratory 18 Rate Blood Pressure 133/71 O2 Sat by Pulse 97 Oximetry - Reevaluation(s) Reevaluation #1: 07/08/23 17:33 Medical record is reviewed Reevaluation #2: 07/08/23 17:33 Patient has persistent headache in symptoms here in the ER Reevaluation #3: 07/08/23 17:33 Patient for results and questions Reevaluation #4: 07/08/23 17:33 Was pt. sent in by a medical professional or institution (, HOLLIE, SENIOR JAVA J[employer]EE DEVELOPER, urgent care, hospital, or fci...) When possible be specific @ -no Did you speak to anyone other than the patient for history (EMS, parent, family, police, friend...)? What history was obtained from this source @ -no Did you review nursing and triage notes (agree or disagree)? Why? @ -agree Are old charts reviewed (outside hosp., previous admission, EMS record, old EKG, old radiological studies, urgent care reports/EKG's, fci records)? Report findings @ -yes Differential Diagnosis (chest pain, altered mental status, abdominal pain women, abdominal pain men, vaginal bleeding, weakness, fever, dyspnea, syncope, headache, dizziness, GI bleed, back pain, seizure, CVA, palpatations, mental health, musculoskeletal)? @ -prior EKG interpreted by me (3pts min.). @ -yes X-rays interpreted by me (1pt min.). @ -no CT interpreted by me (1pt min.). @ -yes U/S interpreted by me (1pt. min.). @ -no What testing was considered but not performed or refused? (CT, X-rays, U/S, labs)? Why? @ -none What meds were considered but not given or refused? Why? @ -none Did you discuss the management of the patient with other professionals (professionals i.e. HOLLIE Hay, SENIOR JAVA J2EE DEVELOPER, lab, RT, psych nurse, social media campaign manager, clothing man, teacher, parole or probation officer, case maker)? Give summary @ -no Was smoking cessation discussed for >3mins.? @ -no Was critical care preformed (if so, how long)? @ -no Were there social determinants of health that impacted care today? How? (Homelessness, low income, unemployed, alcoholism, drug addiction, transportation, low edu. Level, literacy, decrease access to med. care, retirement, rehab)? @ -none Was there de-escalation of care discussed even if they declined (Discuss DNR or withdrawal of care, Hospice)? DNR status @ -no What co-morbidities impacted this encounter? (DM, HTN, Smoking, COPD, CAD, Cancer, CVA, ARF, Chemo, Hep., AIDS, mental health diagnosis, sleep apnea, morbid obesity)? @ -none Was patient admitted / discharged? Hospital course, mention meds given and route, prescriptions, significant lab abnormalities, going to OR and other pertinent info. @ - 68 female to the emergency department for evaluation. Patient presents today for evaluation of severe headaches no history of nausea coming in for evaluation of severe worsening of headaches and need for neurological evaluation. Patient is normal imaging here in the ER no focal neurological deficits. Patient does state that she cannot see out of her right eye. Patient has no improvement in symptoms and will admit for observation psychiatric evaluation as well as neurology evaluation, patient is currently seen both neurology and psychiatry at [facility] Admitted Undiagnosed new problem with uncertain prognosis? @ -no Drug Therapy requiring intensive monitoring for toxicity (Heparin, Nitro, Insulin, Cardizem)? @ -no Were any procedures done? @ -no Diagnosis/symptom? @ -Trigeminal neuralgia Acute, or Chronic, or Acute on Chronic? @ -Acute Uncomplicated (without systemic symptoms) or Complicated (systemic symptoms)? @ -Complicated Side effects of treatment? @ -no Exacerbation, Progression, or Severe Exacerbation? @ -exacerbation Poses a threat to life or bodily function? How? (Chest pain, [place], [place], pneumonia, PE, COPD, DKA, ARF, appy, cholecystitis, CVA, Diverticulitis, Homicidal, Suicidal, threat to staff... and all critical care pts) @ -yes 07/20/23 03:24 Reevaluation #5: 07/08/23 17:33 Differential Headache: Migraine, tension, cluster, carbon monoxide, central venous thrombosis, pension karma temporal arteritis, acute closure glaucoma, intercranial hemorrhage, mastoiditis, sinusitis, head injury, this is not meant to be an all-inclusive list. - Consultations Consultation #1: Spoke with sound regarding admission and patient will be admitted Medical Decision Making - Medical Decision Making 68 female to the emergency department for evaluation. Patient presents today for evaluation of severe headaches no history of nausea coming in for evaluation of severe worsening of headaches and need for neurological evaluation. Patient is normal imaging here in the ER no focal neurological deficits. Patient does state that she cannot see out of her right eye. Patient has no improvement in symptoms and will admit for observation psychiatric evaluation as well as neurology evaluation, patient is currently seen both neurology and psychiatry at [facility] - Lab Data Result diagrams: 07/13/23 05:19 07/13/23 05:19 Lab Results 07/08/23 07/08/23 07/08/23 Range/Units 15:54 15:54 15:54 WBC 8.9 (3.8-10.6) k/uL RBC 4.15 (3.80-5.40) m/uL Hgb 12.8 (11.4-16.0) gm/dL Hct 38.6 (34.0-46.0) % MCV 93.1 (80.0-100.0) fL MCH 30.9 (25.0-35.0) pg MCHC 33.2 (31.0-37.0) g/dL RDW 13.4 (11.5-15.5) % Plt Count 226 (150-450) k/uL MPV 8.9 Immature Gran % (Auto) % Absolute Nucleated RBC % Neutrophils % 60 % Lymphocytes % 30 % Monocytes % 5 % Eosinophils % 3 % Basophils % 1 % Immature Gran # X 10*3/uL Neutrophils # 5.4 (1.3-7.7) k/uL Lymphocytes # 2.6 (1.0-4.8) k/uL Monocytes # 0.4 (0-1.0) k/uL Eosinophils # 0.3 (0-0.7) k/uL Basophils # 0.1 (0-0.2) k/uL NRBC/100 WBC Diff (0.00-0.01) X 10*3/uL ESR 20 (0-30) mm/Hr PT 11.1 (10.0-12.5) sec INR 1.0 (<1.2) APTT 22.9 (22.0-30.0) sec Sodium 142 (137-145) mmol/L Potassium 3.6 (3.5-5.1) mmol/L Chloride 103 (98-107) mmol/L Carbon Dioxide 23 (22-30) mmol/L Anion Gap 16 mmol/L BUN 8 (7-17) mg/dL Creatinine 0.41 L (0.52-1.04) mg/dL Est GFR (CKD-EPI) (>=60) Est GFR (CKD-EPI)AfAm >90 (>60 ml/min/1.73 sqM) Est GFR (CKD-EPI)NonAf >90 (>60 ml/min/1.73 sqM) BUN/Creatinine Ratio (12.00-20.00) Ratio Glucose 156 H (74-99) mg/dL POC Glucose (mg/dL) (70-110) mg/dL POC Glu Home Care Manager ID Estimated Ave Glu mg/dL mg/dL Hemoglobin A1c (<=6.0) % Lactic Ac Sepsis Rflx Plasma Lactic Acid Glenn (0.7-2.0) mmol/L Calcium 9.4 (8.4-10.2) mg/dL Phosphorus 3.1 (2.5-4.5) mg/dL Magnesium 1.4 L (1.6-2.3) mg/dL Total Bilirubin 0.5 (0.2-1.3) mg/dL AST 20 (14-36) U/L ALT 19 (4-34) U/L Alkaline Phosphatase 127 H (38-126) U/L Creatine Kinase (26-186) U/L Troponin I (0.000-0.034) ng/mL C-Reactive Protein <0.5 (<1.0) mg/dL NT-Pro-B Natriuret Pep 43 pg/mL Total Protein 7.5 (6.3-8.2) g/dL Albumin 4.5 (3.5-5.0) g/dL Globulin (1.6-3.3) d/dL Albumin/Globulin Ratio (1.60-3.17) Ratio Triglycerides (0.00-149.00) mg/dL Cholesterol (0.00-200.00) mg/dL LDL Cholesterol, Calc (0.0-131.0) mg/dL VLDL Cholesterol, Calc (5.00-40.00) mg/dL HDL Cholesterol (40.00-60.00) mg/dL Cholesterol/HDL Ratio Ratio TSH 0.274 L (0.465-4.680) mIU/L Free T4 (0.78-2.19) ng/dL Total T3 (60.0-180.0) ng/dL Urine Color Urine Appearance (Clear) Urine pH (5.0-8.0) Ur Specific [place] (1.001-1.035) Urine Protein (Negative) Urine Glucose (UA) (Negative) Urine Ketones (Negative) Urine Blood (Negative) Urine Nitrite (Negative) Urine Bilirubin (Negative) Urine Urobilinogen (<2.0) mg/dL Ur Leukocyte Esterase (Negative) 07/08/23 07/08/23 07/08/23 Range/Units 15:54 15:54 16:39 WBC (3.8-10.6) k/uL RBC (3.80-5.40) m/uL Hgb (11.4-16.0) gm/dL Hct (34.0-46.0) % MCV (80.0-100.0) fL MCH (25.0-35.0) pg MCHC (31.0-37.0) g/dL RDW (11.5-15.5) % Plt Count (150-450) k/uL MPV Immature Gran % (Auto) % Absolute Nucleated RBC % Neutrophils % % Lymphocytes % % Monocytes % % Eosinophils % % Basophils % % Immature Gran # X 10*3/uL Neutrophils # (1.3-7.7) k/uL Lymphocytes # (1.0-4.8) k/uL Monocytes # (0-1.0) k/uL Eosinophils # (0-0.7) k/uL Basophils # (0-0.2) k/uL NRBC/100 WBC Diff (0.00-0.01) X 10*3/uL ESR (0-30) mm/Hr PT (10.0-12.5) sec INR (<1.2) APTT (22.0-30.0) sec Sodium (137-145) mmol/L Potassium (3.5-5.1) mmol/L Chloride (98-107) mmol/L Carbon Dioxide (22-30) mmol/L Anion Gap mmol/L BUN (7-17) mg/dL Creatinine (0.52-1.04) mg/dL Est GFR (CKD-EPI) (>=60) Est GFR (CKD-EPI)AfAm (>60 ml/min/1.73 sqM) Est GFR (CKD-EPI)NonAf (>60 ml/min/1.73 sqM) BUN/Creatinine Ratio (12.00-20.00) Ratio Glucose (74-99) mg/dL POC Glucose (mg/dL) (70-110) mg/dL POC Glu Home Care Manager ID Estimated Ave Glu mg/dL mg/dL Hemoglobin A1c (<=6.0) % Lactic Ac Sepsis Rflx Y Plasma Lactic Acid Glenn 4.1 H* (0.7-2.0) mmol/L Calcium (8.4-10.2) mg/dL Phosphorus (2.5-4.5) mg/dL Magnesium (1.6-2.3) mg/dL Total Bilirubin (0.2-1.3) mg/dL AST (14-36) U/L ALT (4-34) U/L Alkaline Phosphatase (38-126) U/L Creatine Kinase (26-186) U/L Troponin I <0.012 (0.000-0.034) ng/mL C-Reactive Protein (<1.0) mg/dL NT-Pro-B Natriuret Pep pg/mL Total Protein (6.3-8.2) g/dL Albumin (3.5-5.0) g/dL Globulin (1.6-3.3) d/dL Albumin/Globulin Ratio (1.60-3.17) Ratio Triglycerides (0.00-149.00) mg/dL Cholesterol (0.00-200.00) mg/dL LDL Cholesterol, Calc (0.0-131.0) mg/dL VLDL Cholesterol, Calc (5.00-40.00) mg/dL HDL Cholesterol (40.00-60.00) mg/dL Cholesterol/HDL Ratio Ratio TSH (0.465-4.680) mIU/L Free T4 (0.78-2.19) ng/dL Total T3 (60.0-180.0) ng/dL Urine Color Urine Appearance (Clear) Urine pH (5.0-8.0) Ur Specific [place] (1.001-1.035) Urine Protein (Negative) Urine Glucose (UA) (Negative) Urine Ketones (Negative) Urine Blood (Negative) Urine Nitrite (Negative) Urine Bilirubin (Negative) Urine Urobilinogen (<2.0) mg/dL Ur Leukocyte Esterase (Negative) 07/08/23 07/08/23 07/09/23 Range/Units 17:25 20:21 05:29 WBC 9.21 (3.8-10.6) k/uL RBC 3.40 L (3.80-5.40) m/uL Hgb 10.3 L (11.4-16.0) gm/dL Hct 31.6 L (34.0-46.0) % MCV 92.9 (80.0-100.0) fL MCH 30.3 (25.0-35.0) pg MCHC 32.6 (31.0-37.0) g/dL RDW 13.1 (11.5-15.5) % Plt Count 206 (150-450) k/uL MPV 10.8 Immature Gran % (Auto) 0.20 % Absolute Nucleated RBC 0 % Neutrophils % 50.5 % Lymphocytes % 38.7 % Monocytes % 6.8 % Eosinophils % 3.1 % Basophils % 0.7 % Immature Gran # 0.02 X 10*3/uL Neutrophils # 4.65 (1.3-7.7) k/uL Lymphocytes # 3.56 (1.0-4.8) k/uL Monocytes # 0.63 (0-1.0) k/uL Eosinophils # 0.29 (0-0.7) k/uL Basophils # 0.06 (0-0.2) k/uL NRBC/100 WBC Diff 0 (0.00-0.01) X 10*3/uL ESR (0-30) mm/Hr PT (10.0-12.5) sec INR (<1.2) APTT (22.0-30.0) sec Sodium (137-145) mmol/L Potassium (3.5-5.1) mmol/L Chloride (98-107) mmol/L Carbon Dioxide (22-30) mmol/L Anion Gap mmol/L BUN (7-17) mg/dL Creatinine (0.52-1.04) mg/dL Est GFR (CKD-EPI) (>=60) Est GFR (CKD-EPI)AfAm (>60 ml/min/1.73 sqM) Est GFR (CKD-EPI)NonAf (>60 ml/min/1.73 sqM) BUN/Creatinine Ratio (12.00-20.00) Ratio Glucose (74-99) mg/dL POC Glucose (mg/dL) (70-110) mg/dL POC Glu Home Care Manager ID Estimated Ave Glu mg/dL mg/dL Hemoglobin A1c (<=6.0) % Lactic Ac Sepsis Rflx Plasma Lactic Acid Glenn 1.6 (0.7-2.0) mmol/L Calcium (8.4-10.2) mg/dL Phosphorus (2.5-4.5) mg/dL Magnesium (1.6-2.3) mg/dL Total Bilirubin (0.2-1.3) mg/dL AST (14-36) U/L ALT (4-34) U/L Alkaline Phosphatase (38-126) U/L Creatine Kinase (26-186) U/L Troponin I (0.000-0.034) ng/mL C-Reactive Protein (<1.0) mg/dL NT-Pro-B Natriuret Pep pg/mL Total Protein (6.3-8.2) g/dL Albumin (3.5-5.0) g/dL Globulin (1.6-3.3) d/dL Albumin/Globulin Ratio (1.60-3.17) Ratio Triglycerides (0.00-149.00) mg/dL Cholesterol (0.00-200.00) mg/dL LDL Cholesterol, Calc (0.0-131.0) mg/dL VLDL Cholesterol, Calc (5.00-40.00) mg/dL HDL Cholesterol (40.00-60.00) mg/dL Cholesterol/HDL Ratio Ratio TSH (0.465-4.680) mIU/L Free T4 (0.78-2.19) ng/dL Total T3 (60.0-180.0) ng/dL Urine Color Light Yellow Urine Appearance Clear (Clear) Urine pH 6.5 (5.0-8.0) Ur Specific [place] 1.010 (1.001-1.035) Urine Protein Negative (Negative) Urine Glucose (UA) Negative (Negative) Urine Ketones Negative (Negative) Urine Blood Negative (Negative) Urine Nitrite Negative (Negative) Urine Bilirubin Negative (Negative) Urine Urobilinogen <2.0 (<2.0) mg/dL Ur Leukocyte Esterase Negative (Negative) 07/09/23 07/09/23 07/09/23 Range/Units 05:29 05:29 05:29 WBC (3.8-10.6) k/uL RBC (3.80-5.40) m/uL Hgb (11.4-16.0) gm/dL Hct (34.0-46.0) % MCV (80.0-100.0) fL MCH (25.0-35.0) pg MCHC (31.0-37.0) g/dL RDW (11.5-15.5) % Plt Count (150-450) k/uL MPV Immature Gran % (Auto) % Absolute Nucleated RBC % Neutrophils % % Lymphocytes % % Monocytes % % Eosinophils % % Basophils % % Immature Gran # X 10*3/uL Neutrophils # (1.3-7.7) k/uL Lymphocytes # (1.0-4.8) k/uL Monocytes # (0-1.0) k/uL Eosinophils # (0-0.7) k/uL Basophils # (0-0.2) k/uL NRBC/100 WBC Diff (0.00-0.01) X 10*3/uL ESR (0-30) mm/Hr PT (10.0-12.5) sec INR (<1.2) APTT (22.0-30.0) sec Sodium 143 (137-145) mmol/L Potassium 3.3 L (3.5-5.1) mmol/L Chloride 108 (98-107) mmol/L Carbon Dioxide 24.4 (22-30) mmol/L Anion Gap 10.60 mmol/L BUN 5.4 L (7-17) mg/dL Creatinine 0.4 L (0.52-1.04) mg/dL Est GFR (CKD-EPI) 106 (>=60) Est GFR (CKD-EPI)AfAm (>60 ml/min/1.73 sqM) Est GFR (CKD-EPI)NonAf (>60 ml/min/1.73 sqM) BUN/Creatinine Ratio 13.50 (12.00-20.00) Ratio Glucose 104 (74-99) mg/dL POC Glucose (mg/dL) (70-110) mg/dL POC Glu Home Care Manager ID Estimated Ave Glu mg/dL mg/dL Hemoglobin A1c (<=6.0) % Lactic Ac Sepsis Rflx Plasma Lactic Acid Glenn (0.7-2.0) mmol/L Calcium 8.1 L (8.4-10.2) mg/dL Phosphorus 2.4 (2.5-4.5) mg/dL Magnesium 2.1 (1.6-2.3) mg/dL Total Bilirubin 0.3 (0.2-1.3) mg/dL AST 10 L (14-36) U/L ALT 10 (4-34) U/L Alkaline Phosphatase 112 (38-126) U/L Creatine Kinase (26-186) U/L Troponin I (0.000-0.034) ng/mL C-Reactive Protein (<1.0) mg/dL NT-Pro-B Natriuret Pep pg/mL Total Protein 5.8 L (6.3-8.2) g/dL Albumin 3.7 L (3.5-5.0) g/dL Globulin 2.1 (1.6-3.3) d/dL Albumin/Globulin Ratio 1.76 (1.60-3.17) Ratio Triglycerides (0.00-149.00) mg/dL Cholesterol (0.00-200.00) mg/dL LDL Cholesterol, Calc (0.0-131.0) mg/dL VLDL Cholesterol, Calc (5.00-40.00) mg/dL HDL Cholesterol (40.00-60.00) mg/dL Cholesterol/HDL Ratio Ratio TSH (0.465-4.680) mIU/L Free T4 1.26 (0.78-2.19) ng/dL Total T3 90.5 (60.0-180.0) ng/dL Urine Color Urine Appearance (Clear) Urine pH (5.0-8.0) Ur Specific [place] (1.001-1.035) Urine Protein (Negative) Urine Glucose (UA) (Negative) Urine Ketones (Negative) Urine Blood (Negative) Urine Nitrite (Negative) Urine Bilirubin (Negative) Urine Urobilinogen (<2.0) mg/dL Ur Leukocyte Esterase (Negative) 07/09/23 07/09/23 07/10/23 Range/Units 05:29 20:19 05:25 WBC (3.8-10.6) k/uL RBC (3.80-5.40) m/uL Hgb (11.4-16.0) gm/dL Hct (34.0-46.0) % MCV (80.0-100.0) fL MCH (25.0-35.0) pg MCHC (31.0-37.0) g/dL RDW (11.5-15.5) % Plt Count (150-450) k/uL MPV Immature Gran % (Auto) % Absolute Nucleated RBC % Neutrophils % % Lymphocytes % % Monocytes % % Eosinophils % % Basophils % % Immature Gran # X 10*3/uL Neutrophils # (1.3-7.7) k/uL Lymphocytes # (1.0-4.8) k/uL Monocytes # (0-1.0) k/uL Eosinophils # (0-0.7) k/uL Basophils # (0-0.2) k/uL NRBC/100 WBC Diff (0.00-0.01) X 10*3/uL ESR (0-30) mm/Hr PT (10.0-12.5) sec INR (<1.2) APTT (22.0-30.0) sec Sodium (137-145) mmol/L Potassium (3.5-5.1) mmol/L Chloride (98-107) mmol/L Carbon Dioxide (22-30) mmol/L Anion Gap mmol/L BUN (7-17) mg/dL Creatinine (0.52-1.04) mg/dL Est GFR (CKD-EPI) (>=60) Est GFR (CKD-EPI)AfAm (>60 ml/min/1.73 sqM) Est GFR (CKD-EPI)NonAf (>60 ml/min/1.73 sqM) BUN/Creatinine Ratio (12.00-20.00) Ratio Glucose (74-99) mg/dL POC Glucose (mg/dL) 149 H (70-110) mg/dL POC Glu Home Care Manager ID Harry Kwonen Estimated Ave Glu mg/dL 131 mg/dL Hemoglobin A1c 6.2 H (<=6.0) % Lactic Ac Sepsis Rflx Plasma Lactic Acid Glenn (0.7-2.0) mmol/L Calcium (8.4-10.2) mg/dL Phosphorus (2.5-4.5) mg/dL Magnesium (1.6-2.3) mg/dL Total Bilirubin (0.2-1.3) mg/dL AST (14-36) U/L ALT (4-34) U/L Alkaline Phosphatase (38-126) U/L Creatine Kinase 27 (26-186) U/L Troponin I (0.000-0.034) ng/mL C-Reactive Protein (<1.0) mg/dL NT-Pro-B Natriuret Pep pg/mL Total Protein (6.3-8.2) g/dL Albumin (3.5-5.0) g/dL Globulin (1.6-3.3) d/dL Albumin/Globulin Ratio (1.60-3.17) Ratio Triglycerides 143.00 (0.00-149.00) mg/dL Cholesterol 130.00 (0.00-200.00) mg/dL LDL Cholesterol, Calc 66.4 (0.0-131.0) mg/dL VLDL Cholesterol, Calc 28.60 (5.00-40.00) mg/dL HDL Cholesterol 35.00 L (40.00-60.00) mg/dL Cholesterol/HDL Ratio 3.71 Ratio TSH (0.465-4.680) mIU/L Free T4 (0.78-2.19) ng/dL Total T3 (60.0-180.0) ng/dL Urine Color Urine Appearance (Clear) Urine pH (5.0-8.0) Ur Specific [place] (1.001-1.035) Urine Protein (Negative) Urine Glucose (UA) (Negative) Urine Ketones (Negative) Urine Blood (Negative) Urine Nitrite (Negative) Urine Bilirubin (Negative) Urine Urobilinogen (<2.0) mg/dL Ur Leukocyte Esterase (Negative) 07/10/23 07/10/23 07/10/23 Range/Units 06:16 11:58 17:27 WBC (3.8-10.6) k/uL RBC (3.80-5.40) m/uL Hgb (11.4-16.0) gm/dL Hct (34.0-46.0) % MCV (80.0-100.0) fL MCH (25.0-35.0) pg MCHC (31.0-37.0) g/dL RDW (11.5-15.5) % Plt Count (150-450) k/uL MPV Immature Gran % (Auto) % Absolute Nucleated RBC % Neutrophils % % Lymphocytes % % Monocytes % % Eosinophils % % Basophils % % Immature Gran # X 10*3/uL Neutrophils # (1.3-7.7) k/uL Lymphocytes # (1.0-4.8) k/uL Monocytes # (0-1.0) k/uL Eosinophils # (0-0.7) k/uL Basophils # (0-0.2) k/uL NRBC/100 WBC Diff (0.00-0.01) X 10*3/uL ESR (0-30) mm/Hr PT (10.0-12.5) sec INR (<1.2) APTT (22.0-30.0) sec Sodium (137-145) mmol/L Potassium (3.5-5.1) mmol/L Chloride (98-107) mmol/L Carbon Dioxide (22-30) mmol/L Anion Gap mmol/L BUN (7-17) mg/dL Creatinine (0.52-1.04) mg/dL Est GFR (CKD-EPI) (>=60) Est GFR (CKD-EPI)AfAm (>60 ml/min/1.73 sqM) Est GFR (CKD-EPI)NonAf (>60 ml/min/1.73 sqM) BUN/Creatinine Ratio (12.00-20.00) Ratio Glucose (74-99) mg/dL POC Glucose (mg/dL) 150 H 197 H 134 H (70-110) mg/dL POC Glu Home Care Manager Keyla Wells, Andree Contreras, Andree [address] Glu mg/dL mg/dL Hemoglobin A1c (<=6.0) % Lactic Ac Sepsis Rflx Plasma Lactic Acid [place] (0.7-2.0) mmol/L Calcium (8.4-10.2) mg/dL Phosphorus (2.5-4.5) mg/dL Magnesium (1.6-2.3) mg/dL Total Bilirubin (0.2-1.3) mg/dL AST (14-36) U/L ALT (4-34) U/L Alkaline Phosphatase (38-126) U/L Creatine Kinase (26-186) U/L Troponin I (0.000-0.034) ng/mL C-Reactive Protein (<1.0) mg/dL NT-Pro-B Natriuret Pep pg/mL Total Protein (6.3-8.2) g/dL Albumin (3.5-5.0) g/dL Globulin (1.6-3.3) d/dL Albumin/Globulin Ratio (1.60-3.17) Ratio Triglycerides (0.00-149.00) mg/dL Cholesterol (0.00-200.00) mg/dL LDL Cholesterol, Calc (0.0-131.0) mg/dL VLDL Cholesterol, Calc (5.00-40.00) mg/dL HDL Cholesterol (40.00-60.00) mg/dL Cholesterol/HDL Ratio Ratio TSH (0.465-4.680) mIU/L Free T4 (0.78-2.19) ng/dL Total T3 (60.0-180.0) ng/dL Urine Color Urine Appearance (Clear) Urine pH (5.0-8.0) Ur Specific [place] (1.001-1.035) Urine Protein (Negative) Urine Glucose (UA) (Negative) Urine Ketones (Negative) Urine Blood (Negative) Urine Nitrite (Negative) Urine Bilirubin (Negative) Urine Urobilinogen (<2.0) mg/dL Ur Leukocyte Esterase (Negative) 07/10/23 07/11/23 07/11/23 Range/Units 20:44 06:23 11:59 WBC (3.8-10.6) k/uL RBC (3.80-5.40) m/uL Hgb (11.4-16.0) gm/dL Hct (34.0-46.0) % MCV (80.0-100.0) fL MCH (25.0-35.0) pg MCHC (31.0-37.0) g/dL RDW (11.5-15.5) % Plt Count (150-450) k/uL MPV Immature Gran % (Auto) % Absolute Nucleated RBC % Neutrophils % % Lymphocytes % % Monocytes % % Eosinophils % % Basophils % % Immature Gran # X 10*3/uL Neutrophils # (1.3-7.7) k/uL Lymphocytes # (1.0-4.8) k/uL Monocytes # (0-1.0) k/uL Eosinophils # (0-0.7) k/uL Basophils # (0-0.2) k/uL NRBC/100 WBC Diff (0.00-0.01) X 10*3/uL ESR (0-30) mm/Hr PT (10.0-12.5) sec INR (<1.2) APTT (22.0-30.0) sec Sodium (137-145) mmol/L Potassium (3.5-5.1) mmol/L Chloride (98-107) mmol/L Carbon Dioxide (22-30) mmol/L Anion Gap mmol/L BUN (7-17) mg/dL Creatinine (0.52-1.04) mg/dL Est GFR (CKD-EPI) (>=60) Est GFR (CKD-EPI)AfAm (>60 ml/min/1.73 sqM) Est GFR (CKD-EPI)NonAf (>60 ml/min/1.73 sqM) BUN/Creatinine Ratio (12.00-20.00) Ratio Glucose (74-99) mg/dL POC Glucose (mg/dL) 127 H 136 H 121 H (70-110) mg/dL POC Glu Home Care Manager BALDEMAR Hernandez, Reginaldo Dyer, Sonu Gross [address]imated [address] Glu mg/dL mg/dL Hemoglobin A1c (<=6.0) % Lactic Ac Sepsis Rflx Plasma Lactic Acid Glenn (0.7-2.0) mmol/L Calcium (8.4-10.2) mg/dL Phosphorus (2.5-4.5) mg/dL Magnesium (1.6-2.3) mg/dL Total Bilirubin (0.2-1.3) mg/dL AST (14-36) U/L ALT (4-34) U/L Alkaline Phosphatase (38-126) U/L Creatine Kinase (26-186) U/L Troponin I (0.000-0.034) ng/mL C-Reactive Protein (<1.0) mg/dL NT-Pro-B Natriuret Pep pg/mL Total Protein (6.3-8.2) g/dL Albumin (3.5-5.0) g/dL Globulin (1.6-3.3) d/dL Albumin/Globulin Ratio (1.60-3.17) Ratio Triglycerides (0.00-149.00) mg/dL Cholesterol (0.00-200.00) mg/dL LDL Cholesterol, Calc (0.0-131.0) mg/dL VLDL Cholesterol, Calc (5.00-40.00) mg/dL HDL Cholesterol (40.00-60.00) mg/dL Cholesterol/HDL Ratio Ratio TSH (0.465-4.680) mIU/L Free T4 (0.78-2.19) ng/dL Total T3 (60.0-180.0) ng/dL Urine Color Urine Appearance (Clear) Urine pH (5.0-8.0) Ur Specific [place] (1.001-1.035) Urine Protein (Negative) Urine Glucose (UA) (Negative) Urine Ketones (Negative) Urine Blood (Negative) Urine Nitrite (Negative) Urine Bilirubin (Negative) Urine Urobilinogen (<2.0) mg/dL Ur Leukocyte Esterase (Negative) - EKG Data -: EKG Interpreted by Me (EKG is sinus 91 SD 148 QRS 85 QTc 412) - Radiology Data Radiology results: report reviewed (CT brain CT head neck is negative for acute disease), image reviewed Disposition Clinical Impression: Weakness, Mood disorder due to a general medical condition, Trigeminal neuralgia, Right sided facial pain, Chronic pain Disposition: ADMITTED IP TO THIS HOSP Condition: Serious Is patient prescribed a controlled substance at d/c from ED?: No Time of Disposition: 19:10
[2023-07-08 16:26] LABS: ALT 19 U/L (4-34); AST 20 U/L (14-36); African American GFR (CKD) >90 (>60 ml/min/1.73 sqM); Albumin 4.5 g/dL (3.5-5.0); Alkaline Phosphatase 127 U/L (38-126); Anion Gap 16 mmol/L; Blood Urea Nitrogen 8 mg/dL (7-17); Calcium 9.4 mg/dL (8.4-10.2); Carbon Dioxide 23 mmol/L (22-30); Chloride 103 mmol/L (98-107); Glucose 156 mg/dL (74-99); Magnesium 1.4 mg/dL (1.6-2.3); Non-African American GFR(CKD) >90 (>60 ml/min/1.73 sqM); Phosphorus 3.1 mg/dL (2.5-4.5); Potassium 3.6 mmol/L (3.5-5.1); Sodium 142 mmol/L (137-145); Total Bilirubin 0.5 mg/dL (0.2-1.3); Total Protein 7.5 g/dL (6.3-8.2)
[2023-07-08 16:28] LABS: Partial Thromboplastin Time 22.9 sec (22.0-30.0); Prothrombin Time 11.1 sec (10.0-12.5)
[2023-07-08 16:32] LABS: NT-Pro-B-Type Natriuretic Pept 43 pg/mL
[2023-07-08 16:40] LABS: C Reactive Protein <0.5 mg/dL (<1.0)
--- NOTE | 2023-07-08 17:35 | CT ---
EXAMINATION TYPE: CT brain wo con DATE OF EXAM: 07/08/2023 HISTORY: weakness and vision changes CT DLP: 1110.9 mGycm. Automated Exposure Control for Dose Reduction was Utilized. TECHNIQUE: CT scan of the head is performed without contrast. COMPARISON: CT brain June 15, 2023. FINDINGS: There is no acute intracranial hemorrhage or midline shift identified. There is mild diff use ventricular and sulcal prominence redemonstrated. Riggins-white matter differentiation fairly well p reserved. Patchy fluid in the bilateral sphenoid sinuses is redemonstrated. Mucosal thickening and/or opacification in the anterior ethmoid sinuses is redemonstrated [id number] mucosal thickening in the inferior right frontal sinus is redemonstrated. Globes are intact bilaterally. IMPRESSION: No acute intracranial hemorrhage or midline shift. Paranasal sinus disease redemonstrate d. No significant change from most recent prior.
[2023-07-08 17:45] LABS: Appearance,Urine Clear (Clear); Bilirubin,Urine Negative (Negative); Blood,Urine Negative (Negative); Color,Urine Light Yellow; Glucose,Urine (UA) Negative (Negative); Ketones,Urine Negative (Negative); Leukocyte Esterase,Urine Negative (Negative); Nitrite,Urine Negative (Negative); PH, Urine 6.5 (5.0-8.0); Protein,Urine Negative (Negative); Urobilinogen,Urine <2.0 mg/dL (<2.0)
--- NOTE | 2023-07-08 17:47 | CT ---
EXAMINATION TYPE: CT angio head neck DATE OF EXAM: 07/08/2023 HISTORY: weakness and vision changes COMPARISON: None. CT DLP: 364.9 mGycm. Automated Exposure Control for Dose Reduction was Utilized. TECHNIQUE: CTA scan of the head and neck is performed with IV Contrast, patient injected with 65ml m L of Isovue 370, axial images are obtained, coronal and sagittal reformatted images are reviewed. 3D reconstructed images are created on an independent workstation and reviewed. FINDINGS: Carotid/Vascular Structures: Mild peripheral plaque in the aortic arch. No significant stenosis at or igin of the 3 great vessels. Normal origin right common carotid artery from right brachiocephalic art rome. No significant plaque or stenosis in the common or internal carotid arteries bilaterally includi ng at the level of the carotid bulbs. Patent external carotid arteries bilaterally without significan t stenosis. Vertebral arteries are codominant and patent to the basilar junction. Patent bilateral posterior comm unicating arteries are seen. No large vessel occlusion or aneurysm in the posterior circulation. Ante rior circulation shows patent anterior communicating artery. There is no large vessel occlusion or an eurysm. Other: Paranasal sinus disease is seen and noted on recent CT brain study. Heterogeneous slightly enl arged thyroid gland is seen. There is spondylolisthesis along with disc space narrowing and spurring at C5-C6 and C6-C7 levels. IMPRESSION: No significant vascular abnormality is seen. NASCET criteria was used in interpretation of this exam?
[2023-07-08] MEDS ORDERED: NALOXONE 0.4 MG/ML 1 ML VIAL IV PRN (19:14)
[2023-07-08] MEDS ORDERED: ONDANSETRON 4 MG/2 ML VIAL IVP PRN (19:14)
[2023-07-08] MEDS ORDERED: MAGNESIUM OXIDE 400 MG TAB PO STA (19:14)
[2023-07-08] MEDS: MAGNESIUM SULFATE-D5W PMX 1 GM in DEXTROSE/WATER 1 100ML.BAG IVPB SCH ×2 (19:38→21:38)
[2023-07-08] MEDS: SODIUM CHLORIDE 0.9% 1,000 ML IV SCH (19:41)
[2023-07-09] MEDS: MORPHINE SULFATE 4 MG/ML SYRINGE IV PRN ×6 (00:04→20:13)
[2023-07-09] MEDS: SODIUM CHLORIDE 0.9% 1,000 ML IV SCH (00:05)
--- NOTE | 2023-07-09 00:27 | P.HPIM ---
History of Present Illness H&P Date: 07/08/23 Patient is a 68-year-old female with a PMH of trigeminal neuralgia, hypertension, hyperlipidemia, type II DM who has been following up at [facility] presents to the emergency room with complaints of right vision loss. Patient reports her symptoms started roughly 1 weeks ago when she had a fall hitting the right side of her face and skull. She denied losing consciousness. She was seen in the emergency room and was discharged home. She reports that over the next few days she then gradually developed right vision loss for which she was seen by her manager of hospital earlier today who, as per the patient, told her that she likely had a reversible vision loss of the right eye. Reports that her vision is extremely hazy and dull in the right eye. Denies ocular pain. She then went to her PCP who became concerned and sent her to the emergency room. Patient denies a right sided headache but does report significant tenderness to the area which she attributes to her fall. Denies fever, chills, cough, nausea, vomiting. Reports chronic left facial and scalp pain characteristic of her trigeminal neuralgia which is unchanged. In the emergency room a CT angiogram of head and neck was unremarkable. CT brain was also unremarkable. EKG revealed sinus rhythm at [address]/T- wave changes noted as reviewed by me. Laboratory evaluation was remarkable for lactic acidosis of 4.1, TSH 0.274, CRP < 0.5, magnesium 1.4. ED documentation reviewed and case discussed with ED provider. Review of systems: Pertinent positives and negatives as discussed in HPI, a complete review of systems was performed and all other systems are negative. Physical examination: Vital signs reviewed General: non toxic, no distress, appears at stated age, normal weight Derm: no unusual rashes/lesions, warm Head: atraumatic, normocephalic, symmetric, right temporal scalp hyperesthesia noted Eyes: EOMI, no lid lag, anicteric sclera, pupils equal round reactive to light, right eye very poor visual acuity on basic testing ENT: Nose and ears atraumatic Neck: No cervical lymphadenopathy, trachea midline, supple Mouth: no lip lesion, mucus membranes moist Cardiovascular: S1S2 reg, no murmur, positive dorsalis pedis pulse bilateral, no edema Lungs: CTA bilateral, no rhonchi, no rales, no accessory muscle use Abdominal: soft, nontender to palpation, no guarding Ext: muscle strength 5 out of 5 in all 4 extremities grossly, no gross muscle atrophy, no contractures, Neuro: CN II-XI grossly intact, no gross focal neuro deficits Psych: Alert, oriented, appropriate affect Assessment: Right eye vision loss, unclear etiology Lactic acidosis Hypomagnesemia Low TSH Chronic conditions: Trigeminal neuralgia, type II DM, hypertension, hyperlipidemia Imaging: In the emergency room a CT angiogram of head and neck was unremarkable. CT brain was also unremarkable. EKG revealed sinus rhythm at [address]/T- wave changes noted as reviewed by me. Data Review: Laboratory evaluation was remarkable for lactic acidosis of 4.1, TSH 0.274, CRP < 0.5, magnesium 1.4. Plan: Neurology and ophthalmology consulted Cardiac monitoring Check ESR levels, with low suspicion for temporal arteritis Possible psychiatric component as patient was previously referred for psychiatric evaluation by her neurologist at [facility] Continue with IV fluids and monitor lactic acid levels for resolution Replace magnesium Check T3 and T4 levels Continuing home medications DVT prophylaxis: Lovenox subcu The patient is admitted with an anticipated less than 2 midnight stay for evaluation of vision loss CODE STATUS: Full Code Discussed with: Patient Anticipated discharge place: Home Past Medical History Past Medical History: Diabetes Mellitus, Fibromyalgia, GERD/Reflux, Hyperlipidemia, Osteoarthritis (OA), Thyroid Disorder Additional Past Medical History / Comment(s): trigeminal neuralgia, thyroid nodules History of Any Multi-Drug Resistant Organisms: None Reported Past Surgical History: Bladder Surgery, Cholecystectomy, Hysterectomy, Orthopedic Surgery Additional Past Surgical History / Comment(s): sinus surgery, arthroscopy right knee, bladder suspension,plate placed behind her ear. Past Anesthesia/Blood Transfusion Reactions: No Reported Reaction Past Psychological History: Anxiety Smoking Status: Former smoker Past Alcohol Use History: None Reported Additional Past Alcohol Use History / Comment(s): 1 cigs/day Past Drug Use History: None Reported - Past Family History Mother Family Medical History: Hypertension Father Family Medical History: Diabetes Mellitus Medications and Allergies Home Medications Medication Instructions Recorded Confirmed Type lisinopriL [Zestril] 5 mg PO DAILY 07/11/22 07/08/23 History Atorvastatin [Lipitor] 40 mg PO HS 12/25/22 07/08/23 History HYDROcodone/APAP 10-325MG [Transfer 1 tab PO QID 03/03/23 07/08/23 History 10-325] metFORMIN HCL 1,000 mg PO BID 03/03/23 07/08/23 History Baclofen [Lioresal] 10 mg PO QID PRN 07/08/23 07/08/23 History Gabapentin [Neurontin] 300 mg PO TID 07/08/23 07/08/23 History OXcarbazepine [Trileptal] 450 mg PO BID 07/08/23 07/08/23 History Omeprazole 20 mg PO DAILY 07/08/23 07/08/23 History Allergies Allergy/AdvReac Type Severity Reaction Status Date / Time No Known Allergies Allergy Verified 07/08/23 17:47 Physical Exam Vitals: Vital Signs Temp Pulse Resp BP Pulse Ox 07/08/23 22:44 76 18 133/71 97 07/08/23 18:39 87 18 168/96 97 07/08/23 16:07 98 18 149/90 97 07/08/23 14:44 98.1 F 93 18 141/94 96 Intake and Output 07/08/23 07/08/23 07/09/23 14:59 22:59 06:59 Other: Weight 64.41 kg 64.41 kg Results CBC & Chem 7: 07/08/23 15:54 07/08/23 15:54 Labs: Abnormal Lab Results - Last 24 Hours (Table) 07/08/23 07/08/23 Range/Units 15:54 15:54 Creatinine 0.41 L (0.52-1.04) mg/dL Glucose 156 H (74-99) mg/dL Plasma Lactic Acid Glenn 4.1 H* (0.7-2.0) mmol/L Magnesium 1.4 L (1.6-2.3) mg/dL Alkaline Phosphatase 127 H (38-126) U/L TSH 0.274 L (0.465-4.680) mIU/L Thrombosis Risk Factor Assmnt - Choose All That Apply Any of the Below Risk Factors Present?: Yes Each Factor Represents 1 point: Obesity (BMI >25) Other Risk Factors: Yes Each Risk Factor Represents 2 Points: Age 61-74 years Other congenital or acquired thrombophilia - If yes, enter type in comment: No Thrombosis Risk Factor Assessment Total Risk Factor Score: 3 Thrombosis Risk Factor Assessment Level: Moderate Risk
[2023-07-09] MEDS ORDERED: MAGNESIUM SULFATE-D5W PMX 1 GM in DEXTROSE/WATER 1 100ML.BAG IVPB ONE (01:00)
[2023-07-09] MEDS ORDERED: MELATONIN 5 MG TABLET PO ONE (01:15)
[2023-07-09] MEDS: BACLOFEN 10 MG TAB PO PRN ×2 (01:17→21:42)
[2023-07-09] MEDS ORDERED: MORPHINE SULFATE 2 MG/ML SYRINGE IVP STA (01:24)
[2023-07-09 03:23] LABS: Erythrocyte Sedimentation Rate 20 mm/Hr (0-30)
[2023-07-09] MEDS ORDERED: MORPHINE SULFATE 4 MG/ML SYRINGE IV PRN (07:53)
[2023-07-09] MEDS: HYDROcodone/APAP 10-325MG 1 EACH TAB PO PRN (08:08)
[2023-07-09 08:57] LABS: Basophils # (A) 0.06 X 10*3/uL (0.00-0.10); Basophils % (A) 0.7 %; Eosinophils # (A) 0.29 X 10*3/uL (0.04-0.35); Eosinophils % (A) 3.1 %; HCT 31.6 % (37.2-46.3); HGB 10.3 d/dL (12.0-15.0); Lymphocytes # (A) 3.56 X 10*3/uL (0.90-5.00); Lymphocytes % (A) 38.7 %; MCH 30.3 pg (27.0-32.0); MCHC 32.6 d/dL (32.0-37.0); MCV 92.9 FL (80.0-97.0); Mean Platelet Volume 10.8 FL (9.5-12.2); Monocytes # (A) 0.63 X 10*3/uL (0.20-1.00); Monocytes % (A) 6.8 %; NRBC Per 100 WBC 0 X 10*3/uL (0.00-0.01); Neutrophils # (A) 4.65 X 10*3/uL (1.80-7.70); Neutrophils % (A) 50.5 %; Platelet Count 206 X 10*3/uL (140-440); RDW 13.1 % (11.5-14.5); WBC 9.21 X 10*3/uL (4.50-10.00)
[2023-07-09] MEDS ORDERED: HYDROcodone/APAP 10-325MG 1 EACH TAB PO SCH (09:00)
[2023-07-09 09:16] LABS: ALT 10 U/L (8-44); AST 10 U/L (13-35); Albumin 3.7 d/dL (3.8-4.9); Albumin/Globulin Ratio 1.76 Ratio (1.60-3.17); Alkaline Phosphatase 112 U/L (41-126); Blood Urea Nitrogen 5.4 mg/dL (9.0-27.0); Calcium 8.1 mg/dL (8.7-10.3); Carbon Dioxide 24.4 mmol/L (21.6-31.8); Chloride 108 mmol/L (96-109); Globulin 2.1 d/dL (1.6-3.3); Glucose 104 mg/dL (70-110); Magnesium 2.1 mg/dL (1.5-2.4); Phosphorus 2.4 mg/dL (2.4-5.1); Potassium 3.3 mmol/L (3.5-5.5); Sodium 143 mmol/L (135-145); Total Bilirubin 0.3 mg/dL (0.3-1.2); Total Protein 5.8 d/dL (6.2-8.2)
[2023-07-09] MEDS: OXcarbazepine 150 MG TAB PO SCH ×2 (09:25→17:56)
[2023-07-09] MEDS: lisinopriL 5 MG TAB PO SCH (09:25)
[2023-07-09] MEDS: GABAPENTIN 300 MG CAP PO SCH ×3 (09:25→17:56)
[2023-07-09] MEDS: ENOXAPARIN 40 MG/0.4 ML SYRINGE SQ SCH (10:04)
--- NOTE | 2023-07-09 13:04 | P.CNNES ---
History of Present Illness Consult date: 07/09/23 Requesting physician: Aleks Frazier Reason for Consult: ams History of Present Illness: This is a 68-year-old woman with history of chronic headache and was felt due to trigeminal neuralgia on the left side, diabetes mellitus, hyperlipidemia who presented emergency department because of right vision loss. According to patient she is been having right vision loss that started about 3 weeks ago. This past Thursday she was seen by an fire battalion chief Dr. Nix and according to patient he asked her to obtain the further workup for her right vision loss. Then she was supposed to have a follow-up later this week but then the her primary attending yesterday notified her that she eats come to the hospital for further neurological workup. According to patient that about 3 weeks ago she just had sudden onset right visual loss she continues to have the same headache over the left side of the face which has not gotten worse or any better. Denies any focal weakness, denies difficulty getting her words out, denies any numbness. She denies any history of stroke or TIA. She is not on any antiplatelet that. She continues to follow up with that you resume [place] regarding her chronic headache. She states the headache continues to be as severe on a constant basis daily only on the left side and isn't sensitive to touch. Some other workup during his hospital visit consisted of: ESR is 20. CRP is less than 0.5. White blood cells 8.9. TSH is 1.76, free T4 is 1.26, total T3 is 90.5. Sodium is 143, calcium is 8.1, phosphorus 2.4, magnesium 2.1. CT of the head is reported as no acute intracranial hemorrhage or midline shift. Paranasal sinus disease redemonstrated. No significant change from most recent prior. I personally reviewed the CT of the head and I agree there is no acute subacute ischemia there is no intracranial bleed. CT angiography of the head and neck was reported as no significant vascular abnormality is seen. Review of Systems The positive and negative as per HPI. Past Medical History Past Medical History: Diabetes Mellitus, Fibromyalgia, GERD/Reflux, Hyperlipidemia, Osteoarthritis (OA), Thyroid Disorder Additional Past Medical History / Comment(s): trigeminal neuralgia, thyroid nodules History of Any Multi-Drug Resistant Organisms: None Reported Past Surgical History: Bladder Surgery, Cholecystectomy, Hysterectomy, Orthopedi c Surgery Additional Past Surgical History / Comment(s): sinus surgery, arthroscopy right knee, bladder suspension,plate placed behind her ear. Past Anesthesia/Blood Transfusion Reactions: No Reported Reaction Past Psychological History: Anxiety Smoking Status: Former smoker Past Alcohol Use History: None Reported Additional Past Alcohol Use History / Comment(s): 1 cigs/day Past Drug Use History: None Reported - Past Family History Mother Family Medical History: Hypertension Father Family Medical History: Diabetes Mellitus Medications and Allergies Home Medications Medication Instructions Recorded Confirmed Type lisinopriL [Zestril] 5 mg PO DAILY 07/11/22 07/08/23 History Atorvastatin [Lipitor] 40 mg PO HS 12/25/22 07/08/23 History HYDROcodone/APAP 10-325MG [[place]amar 1 tab PO QID 03/03/23 07/08/23 History 10-325] metFORMIN HCL 1,000 mg PO BID 03/03/23 07/08/23 History Baclofen [Lioresal] 10 mg PO QID PRN 07/08/23 07/08/23 History Gabapentin [Neurontin] 300 mg PO TID 07/08/23 07/08/23 History OXcarbazepine [Trileptal] 450 mg PO BID 07/08/23 07/08/23 History Omeprazole 20 mg PO DAILY 07/08/23 07/08/23 History Allergies Allergy/AdvReac Type Severity Reaction Status Date / Time No Known Allergies Allergy Verified 07/08/23 17:47 Physical Examination - Vital Signs Vital Signs: Vital Signs Temp Pulse Pulse Resp BP BP Pulse Ox 07/09/23 07:00 97.5 F L 84 16 144/87 95 07/09/23 00:26 97.6 F 84 16 144/81 97 07/08/23 23:19 97.8 F 85 16 162/92 97 07/08/23 22:44 76 18 133/71 97 07/08/23 18:39 87 18 168/96 97 07/08/23 16:07 98 18 149/90 97 07/08/23 14:44 98.1 F 93 18 141/94 96 Intake and Output 07/08/23 07/09/23 07/09/23 22:59 06:59 14:59 Intake Total 75 Balance 75 Intake: Oral 75 Other: # Voids 2 Weight 64.41 kg GENERAL: The patient is lying in bed and is in moderate acute distress. acute distress. NEUROLOGICAL: Higher mental function: The patient is awake, alert, oriented to self, place and time. Patient is following commands. No aphasia and no neglect. Cranial nerves: The pupils are round, equal and reactive to light. Visual esquivel are full to confrontation on the left but only sees shadows out of the right eye. Extraocular movement is intact no nystagmus is noted. Facial sensation is sensitive to touch over the left side. The facial strength is normal throughout. Hearing is normal bilaterally to hand rub. Tongue is midline and moved [id number] without any difficulty. No dysarthria is noted. Shoulder shrug is normal bilaterally. Motor: The strength is 5 over 5 throughout. Normal tone and bulk. Cerebellum: Normal finger to nose heel to chin bilaterally. Sensation: Sensation is normal to touch throughout. Reflexes (right/left): 2+ throughout. Plantars are mute bilaterally. Results - Laboratory Findings CBC and BMP: 07/09/23 05:29 07/09/23 05:29 Abnormal Lab Findings: Abnormal Labs 07/08/23 07/08/23 07/09/23 15:54 15:54 05:29 RBC 3.40 L Hgb 10.3 L Hct 31.6 L Potassium BUN Creatinine 0.41 L Glucose 156 H Plasma Lactic Acid Glenn 4.1 H* Calcium Magnesium 1.4 L AST Alkaline Phosphatase 127 H Total Protein Albumin TSH 0.274 L 07/09/23 05:29 RBC Hgb Hct Potassium 3.3 L BUN 5.4 L Creatinine 0.4 L Glucose Plasma Lactic Acid Glenn Calcium 8.1 L Magnesium AST 10 L Alkaline Phosphatase Total Protein 5.8 L Albumin 3.7 L TSH Assessment and Plan Assessment: This is a 68-year-old woman who presented emergency department because of visual loss out of the right eye that started about 3 weeks ago and was requested to be evaluated by her primary care physician. It seems that the patient the was invalid by fire battalion chief this past Thursday and she had pending workup. Her ESR CRP is normal as well as TSH Subacute right visual loss (onset 3 weeks ago): Rule out subacute ischemic stroke vs ophthalmological cause especially since had symptoms for [address] head is negative. ESR and CRP and normal. History of a chronic left sided headache due to trigeminal neuralgia Plan: I ordered MRI of the brain with and without Ordered 2-D echo, lipid panel, CK level. Start the patient on small dose of aspirin 81 mg daily. Patient is on Lipitor 40 mg daily at bedtime started by the primary team Continue neuro checks Cardiac monitoring No need for PT and OT since has no focal deficit Ophthalmology is consulted by the primary team We'll defer the rest of the medical management to primary team For DVT prophylaxis the patient is on Lovenox Plan discussed with the patient and N.P. from primary team. Thank you for the consultation. Time with Patient: Greater than 30
[2023-07-09] MEDS: ASPIRIN 81 MG PO SCH (16:01)
[2023-07-09] MEDS ORDERED: POTASSIUM CHLORIDE ER 20 MEQ TAB.ER PO STA (16:47)
[2023-07-09] MEDS ORDERED: DEXTROSE 50% SYRINGE 50 ML IVP PRN ×2 (18:21)
--- NOTE | 2023-07-09 18:28 | P.PN ---
Subjective Progress Note Date: 07/09/23 Hospital course: Patient is a very pleasant 68-year-old female with a past medical history of trigeminal neuralgia, hypertension, hyperlipidemia, and type II diabetes mellitus. She reports following at [facility] for treatment of her trigeminal neuralgia. Patient presented to the emergency department on 07/08/23 with complaints of gradually worsening right sided vision loss x2 weeks after a fall at home. Patient described her vision as being extremely hazy and dull in the right eye, but denied experiencing any ocular pain. She underwent full evaluation in the emergency department. Labs completed and reviewed. CBC, coagulation profile, and BMP were unremarkable. Initially patient's lactic acid was elevated at 4.1 however after 1 L 0.9% normal saline bolus lactate normalized and resulted at 1.6. Magnesium was low at 1.4 and was replaced. Liver profile showed elevated alkaline phosphatase of 127 and otherwise normal findings. CT brain completed negative for acute intercranial process showing paranasal sinus disease redemonstrated unchanged from previous CT completed 06/15/23 per radiology report. EKG completed showing normal sinus rhythm at 91 bpm with no noted T-wave or ST abnormalities showing no signs of acute ischemia upon personal review and interpretation. CTA head and neck also completed and was negative for acute process showing no significant vascular abnormality, occlusion, or aneurysm noted. Patient was admitted under our services with consultation to neurology, psychiatry, and ophthalmology. Physical exam: Patient seen and fully evaluated at bedside. Patient tearful throughout examination states uncontrolled chronic pain to entire left side of face and vision loss in right eye describing everything seems hazy and foggy. . Vital signs reviewed and stable. General: Nontoxic, no distress and appears stated age. Derm: Skin warm and dry, normal coloration for ethnicity. Head: Atraumatic, normocephalic and symmetric. Eyes: EOMs intact, no lid lag, and anicteric sclera Mouth: no lip lesions, mucus membranes moist Cardiovascular: regular rate and rhythm with normal S1S2, no murmur, positive posterior tibial pulses bilaterally, and cap refill < 2 seconds. Lungs: Respirations even, regular, and unlabored on room air. Lungs CTA bilaterally, no rhonchi, no rales, no wheezing, and no accessory muscle usage. Abdominal: soft, nontender to palpation, no guarding, no appreciable organomegaly Ext: ROM intact. No gross muscle atrophy, no edema, no contractures Neuro: Speech clear, face symmetrical and CN II-XII grossly intact with no noted focal neuro deficits Psych: Alert and oriented to person, place, time, and situation. Appropriate and pleasant affect. Assessment and Plan of Care: Right eye progressive vision loss 2 weeks, unclear etiology Trigeminal neuralgia with uncontrolled pain -Neurology following -Ophthalmology consulted. -Symptomatic care and pain management. -Discussed plan of care with neurologist recommending echocardiogram and MRI of brain. Hypertension Hyperlipidemia Patient to continue daily medication regimen with lisinopril 5 mg daily and atorvastatin 40 mg nightly. Type II [id number] diabetes mellitus Hold metformin in place patient on glycemic protocol with NovoLog sliding scale. -We will check hemoglobin A1c. Data and imaging reviewed: Vital signs reviewed. Blood pressure 144/87, heart rate 84, respiratory rate 16, temp 97.5F, and SpO2 of 95% on room air. Morning labs reviewed. CBC showing mild normocytic anemia with hemoglobin of 10.3. BMP revealing mild hypokalemia with potassium of 3.3 and orders placed for K Dur 40 mEq by mouth 1 dose. Liver profile showing no significant abnormalities. Repeat lactic acid significantly improved from initial 4.1 down to 1.6. Hypomagnesemia resolved previously 1.4 now 2.1. TSH was low at 0.274 however free T4 and total T3 normal findings with free T4 1 0.26 and total T3 of 90.5. CODE STATUS: Full code DVT prophylaxis: Lovenox Anticipated discharge date: Clinical course to determine Anticipated discharge place: Clinical course to determine Patient was seen independently by Nurse Pracitioner. This document was prepared using [employer] dictation software. Please allow for errors in trust administrator, while rare they do occur. Objective - Vital Signs Vital signs: Vital Signs Temp 97.5 F L 07/09/23 07:00 Pulse 84 07/09/23 07:00 Resp 16 07/09/23 07:00 BP 144/87 07/09/23 07:00 Pulse Ox 95 07/09/23 07:00 FiO2 Intake & Output 07/08/23 07/09/23 07/09/23 18:59 06:59 18:59 Weight 64.41 kg 64.41 kg Other: # Voids 2 - Labs CBC & Chem 7: 07/09/23 05:29 07/09/23 05:29 Labs: Abnormal Lab Results - Last 24 Hours (Table) 07/08/23 07/08/23 07/09/23 Range/Units 15:54 15:54 05:29 RBC 3.40 L (4.10-5.20) X 10*6/uL Hgb 10.3 L (12.0-15.0) d/dL Hct 31.6 L (37.2-46.3) % Creatinine 0.41 L (0.52-1.04) mg/dL Glucose 156 H (74-99) mg/dL Plasma Lactic Acid Glenn 4.1 H* (0.7-2.0) mmol/L Magnesium 1.4 L (1.6-2.3) mg/dL Alkaline Phosphatase 127 H (38-126) U/L TSH 0.274 L (0.465-4.680) mIU/L
[2023-07-09] MEDS: amLODIPine 5 MG TAB PO SCH (18:30)
[2023-07-09] MEDS: ATORVASTATIN 40 MG TAB PO SCH (20:13)
[2023-07-09] MEDS: INSULIN ASPART (NovoLOG) 100 UNIT/ML VIAL SQ SCH (20:20)
[2023-07-09 20:25] LABS: Glucose,Whole Blood 149 mg/dL (70-110)
[2023-07-09 20:50] LABS: Chol/HDL Ratio 3.71 Ratio; Creatine Kinase 27 U/L (26-186); LDL Cholesterol,Calculated 66.4 mg/dL (0.0-131.0)
[2023-07-09] MEDS: MELATONIN 5 MG TABLET PO SCH (21:42)
--- NOTE | 2023-07-10 01:32 | CONS ---
CONSULTATION Ophthalmology Consult CHIEF COMPLAINT: Vision loss, right eye. HISTORY OF PRESENT ILLNESS: Ms. Montgomery is a 68-year-old female who complains of vision loss in the right eye which began 3 weeks prior. Vision loss was sudden and painless. The patient reports a fall around the time of the symptoms. The patient also reports that she was seen by an feed research technician after the incident began. The patient denies headache on the right side or ocular pain. The patient also denies fever, chills, cough, nausea, vomiting, or dizziness. The patient does have left trigeminal neuralgia at baseline with some symptoms that are unchanged. REVIEW OF SYSTEMS: As above. The patient has right eye vision loss with no fever. No tremor. No rash. No hearing loss. No chest pain. No shortness of breath. No abdominal pain. No weakness. No numbness and no other significant symptoms. PAST MEDICAL HISTORY: Diabetes mellitus, fibromyalgia, GERD, hyperlipidemia, osteoarthritis, trigeminal neuralgia, thyroid disease. SURGICAL HISTORY: Reports history of bladder surgery, cholecystectomy, hysterectomy, sinus surgery, right knee arthroscopy, bladder surgery. SOCIAL HISTORY: Former smoker, the patient reports she quit in the past. The patient denies alcohol use. No illicit drug use. FAMILY HISTORY: Significant for hypertension and diabetes mellitus. HOME MEDICATIONS: 1. Lisinopril. 2. Atorvastatin. 3. [place]. 4. Metformin. 5. Baclofen. 6. Gabapentin. 7. Oxcarbazepine. 8. Omeprazole. ALLERGIES: No known drug allergies. PHYSICAL EXAMINATION: Ophthalmic exam reveals pupil shows slight APD in the right side. Extraocular movements are full. Visual acuity is light perception in the right eye and 20/50 at near without correction in the left eye. Intra-ocular pressure is within normal limits in both eyes. Adnexa within normal limits in both eyes. There is no scalp tenderness or temporal tenderness. Conjunctiva, lids, and lashes are within normal limits in both eyes. The cornea is clear in both eyes. The anterior chamber is quiet and within normal limits in both eyes. There is nuclear sclerotic cataract in both eyes. Posterior examination reveals an attached retina with no vitreous hemorrhage. The optic nerve appears slightly pale, however, essentially within normal limits. ASSESSMENT AND PLAN: 1. Ischemic optic neuropathy, right eye. The presentation and examination, likely infers that the patient suffered an ischemic optic neuropathy in the right eye. Limitations of exam at the bedside do not allow for additional testing to confirm this diagnosis. However, the patient likely had an ischemic event in the right eye, which caused the vision loss. The vision loss is longstanding now for over 3 weeks and likely will not recover due to the ischemic nature of the vision loss. The patient does have a cardiovascular history including diabetes. Additional cardiovascular workup including evaluation of the carotid arteries and an echocardiogram would be recommended at this time. Managing her cardiovascular risk factors is also recommended. The patient had a CRP drawn which was normal. However, an ESR should also be checked as giant-cell arteritis should be considered a possibility as well. If ESR is within normal limits. Then, no further investigation for giant cell arteritis would be warranted. I expressed to the patient that the prognosis is poor in returning vision in the right eye and that further investigation for the cause of this event would be required as described above. I also recommend the patient follow up with me in the office in 1 to 2 weeks after discharge from the hospital. 2. Diabetes mellitus, with no retinopathy. There is no sign of typical diabetic retinopathy in the retina. Continued control of the cardiovascular risk factors is recommended. 3. Nuclear sclerotic cataract, both eyes. The patient has mild cataract, which is not significantly affecting vision and can be observed. Thank you for allowing me to participate in this patient's care, we will be following up with the patient as an outpatient in the near future. MMERICKL / IJN: [id number] /
[2023-07-10] MEDS: MORPHINE SULFATE 4 MG/ML SYRINGE IV PRN ×6 (01:33→20:52)
[2023-07-10 06:18] LABS: Glucose,Whole Blood 150 mg/dL (70-110)
[2023-07-10] MEDS: INSULIN ASPART (NovoLOG) 100 UNIT/ML VIAL SQ SCH ×4 (06:26→20:45)
[2023-07-10] MEDS: ENOXAPARIN 40 MG/0.4 ML SYRINGE SQ SCH (08:01)
[2023-07-10] MEDS: GABAPENTIN 300 MG CAP PO SCH ×3 (08:01→20:45)
[2023-07-10] MEDS: OXcarbazepine 150 MG TAB PO SCH ×2 (08:01→20:46)
[2023-07-10] MEDS: ASPIRIN 81 MG PO SCH (08:20)
[2023-07-10] MEDS: lisinopriL 5 MG TAB PO SCH (08:20)
[2023-07-10] MEDS: amLODIPine 5 MG TAB PO SCH (08:20)
[2023-07-10] MEDS: HYDROcodone/APAP 10-325MG 1 EACH TAB PO PRN (09:50)
[2023-07-10] MEDS ORDERED: LORazepam 2 MG/ML INJ IV STA (10:27)
[2023-07-10 12:00] LABS: Glucose,Whole Blood 197 mg/dL (70-110)
--- NOTE | 2023-07-10 13:02 | P.PN ---
Subjective Progress Note Date: 07/10/23 I am following-up with patient and is about the same. Continues to have right vision loss. Has chronic ongoing left sided headache. Denies of any new neurological issues. Objective - Vital Signs Vital signs: Vital Signs Temp 97.1 F L 07/10/23 07:30 Pulse 90 07/10/23 08:00 Resp 18 07/10/23 08:00 BP 153/90 07/10/23 07:30 Pulse Ox 97 07/10/23 07:30 FiO2 Intake & Output 07/09/23 07/10/23 07/10/23 18:59 06:59 18:59 Intake Total 75 118 Balance 75 118 Intake: Oral 75 118 Other: Voiding Method Toilet # Voids 2 2 - Exam GENERAL: The patient is lying in bed and is in moderate acute distress. acute distress. NEUROLOGICAL: Higher mental function: The patient is awake, alert, oriented to self, place and time. Patient is following commands. No aphasia and no neglect. Cranial nerves: The pupils are round, equal and reactive to light. Visual esquivel are full to confrontation on the left but only sees shadows out of the right eye. Extraocular movement is intact no nystagmus is noted. Facial sensation is sensitive to touch over the left side. The facial strength is normal throughout. Hearing is normal bilaterally to hand rub. Tongue is midline and moved [id number] without any difficulty. No dysarthria is noted. Shoulder shrug is normal bilaterally. Motor: The strength is 5 over 5 throughout. Normal tone and bulk. Cerebellum: Normal finger to nose heel to chin bilaterally. Sensation: Sensation is normal to touch throughout. Reflexes (right/left): 2+ throughout. Plantars are mute bilaterally. Some other workup during his hospital visit consisted of: ESR is 20. CRP is less than 0.5. White blood cells 8.9. TSH is 1.76, free T4 is 1.26, total T3 is 90.5. CK is 27 Lipid panel is triglyceride of 143, cholesterol is 1:30, LDL 66 and HDL is 35 Hemoglobin A1c 6.2. Sodium is 143, calcium is 8.1, phosphorus 2.4, magnesium 2.1. CT of the head is reported as no acute intracranial hemorrhage or midline shift. Paranasal sinus disease redemonstrated. No significant change from most recent prior. I personally reviewed the CT of the head and I agree there is no acute subacute ischemia there is no intracranial bleed. CT angiography of the head and neck was reported as no significant vascular a bnormality is seen. - Labs CBC & Chem 7: 07/09/23 05:29 07/09/23 05:29 Labs: Abnormal Lab Results - Last 24 Hours (Table) 07/09/23 07/09/23 07/10/23 Range/Units 05:29 20:19 05:25 POC Glucose (mg/dL) 149 H (70-110) mg/dL Hemoglobin A1c 6.2 H (<=6.0) % HDL Cholesterol 35.00 L (40.00-60.00) mg/dL 07/10/23 07/10/23 Range/Units 06:16 11:58 POC Glucose (mg/dL) 150 H 197 H (70-110) mg/dL Hemoglobin A1c (<=6.0) % HDL Cholesterol (40.00-60.00) mg/dL Assessment and Plan Assessment: This is a 68-year-old woman who presented emergency department because of visual loss out of the right eye that started about 3 weeks ago and was requested to be evaluated by her primary care physician. It seems that the patient the was invalid by telephone sex worker this past Thursday and she had pending workup. Her ESR CRP is normal as well as TSH Subacute right visual loss (onset 3 weeks ago): Rule out subacute ischemic stroke vs ophthalmological cause especially since had symptoms for [address] head is negative. ESR and CRP and normal. History of a chronic left sided headache due to trigeminal neuralgia Plan: MRI of the brain with and without pending 2-D echo: pending Started the patient on small dose of aspirin 81 mg daily (was not on antiplatelets prior to this). Patient is on Lipitor 40 mg daily at bedtime started by the primary team Continue neuro checks Cardiac monitoring No need for PT and OT since has no focal deficit Ophthalmology is consulted by the primary team We'll defer the rest of the medical management to primary team For DVT prophylaxis the patient is on Lovenox Upon discharge patient will continue to follow up with her neurology team over [facility] for her chronic headache/trigeminal neuralgia. Plan discussed with the patient and her nurse. Dr. Morales will start neurology service tomorrow A.M. Time with Patient: Less than 30
--- NOTE | 2023-07-10 14:05 | P.CN ---
Psychiatric Consult - . Consult date: 07/10/23 Consult:: 07/10/23 12:58 IDENTIFYING DATA: This patient is a 68-year-old female, she currently lives with her , has 3 kids come to live in a house. REASON FOR REFERRAL: Psychiatry was consulted for psychiatric evaluation HISTORY OF PRESENT ILLNESS: The patient presented to the hospital on 07/08. Patient presented with a severe headache and has a history of trigeminal neuralgia. She was also presenting with visual changes and saw her yarding engineer prior to this. Patient had a computed tomography scan of her head which did not show any acute changes. Patient is also awaiting an MRI at this time. She is being followed by neurology. Patient was seen at the bedside and agreeable to speak to headline writer. Patient states that she was diagnosed with trigeminal neuralgia about 3 years ago. States that recently she fell about 3 weeks ago, states that her eyes were wandering, she saw her yarding engineer, he claims that she needed to present to the hospital for a stroke workup. Patient claims that she is feeling somewhat down at times mild anxiety and anger related to the trigeminal neuralgia and the pain. She states that when the pain comes on it is very severe and last for a few seconds. She states that usually she washes her face with hot water and it helps to subside pain. States that she's tried a lot of different medications which have been not very effective for her. She states that her sleep has been on and off due to the pain. Consider appetite is fair. At this time patient denies any suicidal or homical ideations, intent or plan. Patient denies any auditory, visual hallucinations and denies a ny paranoia or delusions. Patients admits to using recreational drugs or cigarettes. PAST PSYCHIATRIC HISTORY: Patient has a a history of depression and trigeminal neuralgia. Patient is currently on Trileptal, she was previously on Tegretol mainly for the treatment. Patient was last psychiatrically hospitalized in December 2022. Patient currently follows up with a psychiatrist at [facility]. Patient denies any history of suicide attempts in the past. Past Medical History: Diabetes Mellitus, Fibromyalgia, GERD/Reflux, Hyperlipidemia, Osteoarthritis (OA), Thyroid Disorder Additional Past Medical History / Comment(s): trigeminal neuralgia, thyroid nodules History of Any Multi-Drug Resistant Organisms: None Reported Past Surgical History: Bladder Surgery, Cholecystectomy, Hysterectomy, Orthopedic Surgery Additional Past Surgical History / Comment(s): sinus surgery, arthroscopy right knee, bladder suspension,plate placed behind her ear. Past Anesthesia/Blood Transfusion Reactions: No Reported Reaction Past Psychological History: Anxiety Smoking Status: Former smoker Past Alcohol Use History: None Reported Past Drug Use History: None Reported ALLERGIES: as per EMR. CHEMICAL DEPENDENCY HISTORY: as per HPI. FAMILY PSYCHIATRIC/SUBSTANCE USE HISTORY: denies SOCIAL HISTORY: Patient was born and raised in [place]. She states that she completed up to seventh grade in school. She worked many odd jobs in the past, currently retired. He states that she has 3 kids, she lives in a house with her .. MENTAL STATUS EXAM: General Appearance: Patient appears to be have a shaved head, stated age is alert, pleasant, and cooperative. Patient appears to have fair hygiene and grooming wearing hospital gown with fair eye contact. Behavior: Patient is calmly lying in bed without any agitated behavior. Attempts to cooperate Speech: Patient's speech is fluent and nonpressured. Mood/Affect: Patient reports their mood is "increase sometimes", affect is co ngruent Suicidality/Homicidality: Patient denies having any suicidal or homicidal ideation intent or plan. Perceptions: Patient denies any visual hallucinations and denies any auditory hallucinations Though content/process: There is no evidence of any delusional thought content and thought process is linear and goal-directed. Focus on her pain and symptoms. Memory and concentration: AOX3, grossly intact for the purposes of this session. Can spell "WORLD" backwards Judgment and insight: Fair IMPRESSIONS: Pain disorder with associated psychological factors Trigeminal Neuralgia hx of depressive disorder PLAN: -At this time patient DOES NOT meet criteria for inpatient psychiatric admission. -Would recommend the following medication changes/additions: Patient is agreeable to try Cymbalta, 30 mg daily for mood/neuropathic pain. Patient is attempting to give this a try for a few weeks to see if she has some improvement. She was asked to follow-up with her outpatient psychiatrist about this for further care and medication management. -Communicated plan to patient's nurse -Psychiatry will sign off at this time -Please contact with any questions. 07/10/23 13:58
--- NOTE | 2023-07-10 16:25 | CA ---
Transthoracic Echo Report Name: Bree Montgomery Age: 68 Gender: F : 1955 Exam Date: 07/09/2023 13:20 Exam Location: [facility] Ht (in): 63 Wt (lb): 142 Ordering Physician: Genaro Plascencia MD Attending/Referring Phys: Family Resource Management Professor Sharmila Pang RDCS Procedure CPT: Indications: stroke Cardiac Hx: Technical Quality: Fair Contrast 1: Agitated Saline Total Dose (mL): 10 Contrast 2: Total Dose (mL): MEASUREMENTS (Male / Female) Normal Values 2D ECHO LV Diastolic Diameter PLAX 4.2 cm 4.2 - 5.9 / 3.9 - 5.3 cm LV Systolic Diameter PLAX 2.4 cm IVS Diastolic Thickness 1.3 cm 0.6 - 1.0 / 0.6 - 0.9 cm LVPW Diastolic Thickness 1.4 cm 0.6 - 1.0 / 0.6 - 0.9 cm LV Relative Wall Thickness 0.6 RV Internal Dim ED PLAX 3.1 cm LA Volume 43.7 cm??? 18 - 58 / 22 - 52 cm??? LA Volume Index 25.6 cm???/m??? 16 - 28 cm???/m??? M-MODE Aortic Root Diameter MM 3.1 cm LA Systolic Diameter MM 4.4 cm LA Ao Ratio MM 1.4 AV Cusp Separation MM 1.9 cm DOPPLER AV Peak Velocity 185.2 cm/s AV Peak Gradient 13.7 mmHg AV Mean Velocity 133.6 cm/s AV Mean Gradient 7.7 mmHg AV Velocity Time Integral 41.2 cm LVOT Peak Velocity 120.8 cm/s LVOT Peak Gradient 5.8 mmHg LVOT Velocity Time Integral 27.1 cm MV Area PHT 3.1 cm??? Mitral E Point Velocity 85.5 cm/s Mitral A Point Velocity 140.8 cm/s Mitral E to A Ratio 0.6 MV Deceleration Time 243.4 ms MV E' Velocity 5.2 cm/s Mitral E to MV E' Ratio 16.3 TR Peak Velocity 240.7 cm/s TR Peak Gradient 23.2 mmHg Right Ventricular Systolic Press 26.3 mmHg FINDINGS Left Ventricle Mildly increased left ventricular wall thickness. Left ventricular cavity size normal. Normal left ventricular systolic function with no obvious regional wall motion abnormalities. Left ventricular ejection fraction is estimated at 55- 60%. Grade I diastolic dysfunction. Right Ventricle Normal right ventricular size. Right ventricular systolic pressure within normal limits. Right Atrium Normal right atrial size. Negative agitated saline bubble study for right to left shunt. Left Atrium Normal left atrial size. Mitral Valve Structurally normal mitral valve. No mitral stenosis, regurgitation or prolapse. Aortic Valve Trileaflet aortic valve. No aortic valve stenosis or regurgitation. Tricuspid Valve Structurally normal tricuspid valve. Mild tricuspid regurgitation. Pulmonic Valve Structurally normal pulmonic valve. Trace pulmonic regurgitation. Pericardium No pericardial effusion. Aorta Normal size aortic root and proximal ascending aorta. CONCLUSIONS Left ventricular ejection fraction is estimated at 55-60%. Grade I diastolic dysfunction. No obvious regional wall motion abnormalities. Mildly increased left ventricular wall thicknes. No significant valvular dysfunction Negative agitated saline bubble study for right to left shunt. No pericardial effusion. Previewed by: Dr Herman Ballesteros (Electronically Signed) Final Date: 10 July 2023 16:24
[2023-07-10 17:30] LABS: Glucose,Whole Blood 134 mg/dL (70-110)
--- NOTE | 2023-07-10 19:05 | P.PN ---
Subjective Progress Note Date: 07/10/23 Hospital course: Patient is a very pleasant 68-year-old female with a past medical history of trigeminal neuralgia, hypertension, hyperlipidemia, and type II diabetes mellitus. She reports following at [facility] for treatment of her trigeminal neuralgia. Patient presented to the emergency department on 07/08/23 with complaints of gradually worsening right sided vision loss x2 weeks after a fall at home. Patient described her vision as being extremely hazy and dull in the right eye, but denied experiencing any ocular pain. She underwent full evaluation in the emergency department. Labs completed and reviewed. CBC, coagulation profile, and BMP were unremarkable. Initially patient's lactic acid was elevated at 4.1 however after 1 L 0.9% normal saline bolus lactate normalized and resulted at 1.6. Magnesium was low at 1.4 and was replaced. Liver profile showed elevated alkaline phosphatase of 127 and otherwise normal findings. CT brain completed negative for acute intercranial process showing paranasal sinus disease redemonstrated unchanged from previous CT completed 06/15/23 per radiology report. EKG completed showing normal sinus rhythm at 91 bpm with no noted T-wave or ST abnormalities showing no signs of acute ischemia upon personal review and interpretation. CTA head and neck also completed and was negative for acute process showing no significant vascular abnormality, occlusion, or aneurysm noted. Patient was admitted under our services with consultation to neurology, psychiatry, and ophthalmology. Physical exam: Patient seen and fully evaluated at bedside. Patient continues to report 10 out of 10 pain to the left side of her face and blurred but improved vision in right eye. Patient awaiting to go down for MRI. Vital signs reviewed and stable. General: Nontoxic, no distress and appears stated age. Derm: Skin warm and dry, normal coloration for ethnicity. Head: Atraumatic, normocephalic and symmetric. Eyes: EOMs intact, no lid lag, and anicteric sclera Mouth: no lip lesions, mucus membranes moist Cardiovascular: regular rate and rhythm with normal S1S2, no murmur, positive posterior tibial pulses bilaterally, and cap refill < 2 seconds. Lungs: Respirations even, regular, and unlabored on room air. Lungs CTA bilaterally, no rhonchi, no rales, no wheezing, and no accessory muscle usage. Abdominal: soft, nontender to palpation, no guarding, no appreciable organomegaly Ext: ROM intact. No gross muscle atrophy, no edema, no contractures Neuro: Speech clear, face symmetrical and CN II-XII grossly intact with no noted focal neuro deficits Psych: Alert and oriented to person, place, time, and situation. Appropriate and pleasant affect. Assessment and Plan of Care: Right eye progressive vision loss 2 weeks, unclear etiology Trigeminal neuralgia with uncontrolled pain -Neurology following and ordered for MRI -Echocardiogram completed and reviewed showing an EF of 55-60% with no significant valvular dysfunction and negative agitated saline bubble study for right to left shunting. -Ophthalmology consulted, no reviewed photoresist contact printer stating it is likely patient suffered an ischemic optic neuropathy of the right eye -Symptomatic care and pain management. -Discussed plan of care with neurologist recommending echocardiogram and MRI of brain. Hypertension Hyperlipidemia Patient to continue daily medication regimen with lisinopril 5 mg daily and atorvastatin 40 mg nightly. Type II [id number] diabetes mellitus Hold metformin in place patient on glycemic protocol with NovoLog sliding scale. -We will check hemoglobin A1c. Data and imaging reviewed: Vital signs reviewed. Blood pressure 152/90, heart rate 90, respiratory rate 18, temp 97.1 Fahrenheit, SpO2 of 97% on room air. CODE STATUS: Full code DVT prophylaxis: Lovenox Anticipated discharge date: Clinical course to determine Anticipated discharge place: Clinical course to determine Patient was seen independently by Nurse Pracitioner. This document was prepared using [employer] dictation software. Please allow for errors in property technician, while rare they do occur. Zeyad Foley NP rendered care for this patient independently, reviewed the findings and plan as documented in the note above. I did not physically speak with or examine the patient on this date. Objective - Vital Signs Vital signs: Vital Signs Temp 97.1 F L 07/10/23 07:30 Pulse 90 07/10/23 07:30 Resp 18 07/10/23 07:30 BP 153/90 07/10/23 07:30 Pulse Ox 97 07/10/23 07:30 FiO2 Intake & Output 07/09/23 07/10/23 07/10/23 18:59 06:59 18:59 Intake Total 75 118 Balance 75 118 Intake: Oral 75 118 Other: # Voids 2 2 - Labs CBC & Chem 7: 07/09/23 05:29 07/09/23 05:29 Labs: Abnormal Lab Results - Last 24 Hours (Table) 07/09/23 07/09/23 07/09/23 Range/Units 05:29 05:29 20:19 Potassium 3.3 L (3.5-5.5) mmol/L BUN 5.4 L (9.0-27.0) mg/dL Creatinine 0.4 L (0.6-1.5) mg/dL POC Glucose (mg/dL) 149 H (70-110) mg/dL Calcium 8.1 L (8.7-10.3) mg/dL AST 10 L (13-35) U/L Total Protein 5.8 L (6.2-8.2) d/dL Albumin 3.7 L (3.8-4.9) d/dL HDL Cholesterol 35.00 L (40.00-60.00) mg/dL 07/10/23 Range/Units 06:16 Potassium (3.5-5.5) mmol/L BUN (9.0-27.0) mg/dL Creatinine (0.6-1.5) mg/dL POC Glucose (mg/dL) 150 H (70-110) mg/dL Calcium (8.7-10.3) mg/dL AST (13-35) U/L Total Protein (6.2-8.2) d/dL Albumin (3.8-4.9) d/dL HDL Cholesterol (40.00-60.00) mg/dL
--- NOTE | 2023-07-10 19:54 | MR ---
EXAMINATION TYPE: MR brain wo/w con DATE OF EXAM: 07/10/2023 COMPARISON: Prior MRI brain July 02, 2021. CT brain 2 days earlier. HISTORY: Right monocular vision loss. trigeminal neuralgia, headache TECHNIQUE: Multiplanar, multisequence images of the brain and brainstem is performed without and with IV contras t, utilizing 6.5 mL intravenous Gadavist . FINDINGS: Diffusion weighted images demonstrate no evidence of a recent infarct or other diffusion ab normality. There is no extra-axial fluid collection or significant white matter signal abnormality. Mild ventricular and sulcal prominence is redemonstrated. Midline structures demonstrate normal morphology. The craniocervical junction shows possible tiny 2 to 3 mm focus of enhancement sagittal image 17 for reference corresponding to axial image 3 of uncert ain etiology. In retrospect this was present on prior study suggesting may be nonaggressive or benign in etiology. There is geographic area of T2 hyperintensity in the left lateral aspect of the midbrai n not showing restricted diffusion measuring approximately 1.3 cm AP diameter by 1.3 cm transversely axial image 11 series 601 with some heterogeneous postcontrast enhancement. Finding is new from prior MRI. The dural venous sinuses appear patent. The visualized sinuses are clear and the globes are int act. IMPRESSION: 1. There is new 13 x 13 mm vague area of slight T2 hyperintensity and heterogeneous enhancement in th e left lateral aspect of the midbrain without increased signal on diffusion-weighted imaging to sugge st acute or subacute infarct. Neoplasm needs to be considered, this has more infiltrative appearance based on MRI characteristics. Other etiologies not excluded. Consider referral to a bigger institutio n/more specialized place to further evaluate.
[2023-07-10] MEDS: ATORVASTATIN 40 MG TAB PO SCH (20:44)
[2023-07-10] MEDS: MELATONIN 5 MG TABLET PO SCH (20:44)
[2023-07-10] MEDS: DULoxetine HCL 30 MG CAPSULE.DR PO SCH (20:44)
[2023-07-10 20:45] LABS: Glucose,Whole Blood 127 mg/dL (70-110)
[2023-07-10] MEDS: BACLOFEN 10 MG TAB PO PRN (20:52)
[2023-07-11] MEDS: MORPHINE SULFATE 4 MG/ML SYRINGE IV PRN ×6 (02:31→20:19)
[2023-07-11] MEDS: INSULIN ASPART (NovoLOG) 100 UNIT/ML VIAL SQ SCH ×4 (06:24→20:21)
[2023-07-11 06:26] LABS: Glucose,Whole Blood 136 mg/dL (70-110)
[2023-07-11] MEDS: ENOXAPARIN 40 MG/0.4 ML SYRINGE SQ SCH (09:10)
[2023-07-11] MEDS: lisinopriL 5 MG TAB PO SCH (09:10)
[2023-07-11] MEDS: GABAPENTIN 300 MG CAP PO SCH ×3 (09:11→21:41)
[2023-07-11] MEDS: amLODIPine 5 MG TAB PO SCH (09:11)
[2023-07-11] MEDS: DULoxetine HCL 30 MG CAPSULE.DR PO SCH (09:11)
[2023-07-11] MEDS: ASPIRIN 81 MG PO SCH (09:11)
[2023-07-11] MEDS: OXcarbazepine 150 MG TAB PO SCH (09:11)
--- NOTE | 2023-07-11 10:21 | P.PN ---
Subjective Progress Note Date: 07/11/23 Hospital course: Patient is a very pleasant 68-year-old female with a past medical history of trigeminal neuralgia, hypertension, hyperlipidemia, and type II diabetes mellitus. She reports following at [facility] for treatment of her trigeminal neuralgia. Patient presented to the emergency department on 07/08/23 with complaints of gradually worsening right sided vision loss x2 weeks after a fall at home. Patient described her vision as being extremely hazy and dull in the right eye, but denied experiencing any ocular pain. She underwent full evaluation in the emergency department. Labs completed and reviewed. CBC, coagulation profile, and BMP were unremarkable. Initially patient's lactic acid was elevated at 4.1 however after 1 L 0.9% normal saline bolus lactate normalized and resulted at 1.6. Magnesium was low at 1.4 and was replaced. Liver profile showed elevated alkaline phosphatase of 127 and otherwise normal findings. CT brain completed negative for acute intercranial process showing paranasal sinus disease redemonstrated unchanged from previous CT completed 06/15/23 per radiology report. EKG completed showing normal sinus rhythm at 91 bpm with no noted T-wave or ST abnormalities showing no signs of acute ischemia upon personal review and interpretation. CTA head and neck also completed and was negative for acute process showing no significant vascular abnormality, occlusion, or aneurysm noted. Patient was admitted under our services with consultation to neurology, psychiatry, and ophthalmology. Physical exam: Patient seen and fully evaluated at bedside. Patient continues to report 10 out of 10 pain to the left side of her face and blurred but improved vision in right eye. Patient awaiting to go down for MRI. Vital signs reviewed and stable. General: Nontoxic, no distress and appears stated age. Derm: Skin warm and dry, normal coloration for ethnicity. Head: Atraumatic, normocephalic and symmetric. Eyes: EOMs intact, no lid lag, and anicteric sclera Mouth: no lip lesions, mucus membranes moist Cardiovascular: regular rate and rhythm with normal S1S2, no murmur, positive posterior tibial pulses bilaterally, and cap refill < 2 seconds. Lungs: Respirations even, regular, and unlabored on room air. Lungs CTA bilaterally, no rhonchi, no rales, no wheezing, and no accessory muscle usage. Abdominal: soft, nontender to palpation, no guarding, no appreciable organomegaly Ext: ROM intact. No gross muscle atrophy, no edema, no contractures Neuro: Speech clear, face symmetrical and CN II-XII grossly intact with no noted focal neuro deficits Psych: Alert and oriented to person, place, time, and situation. Appropriate and pleasant affect. Assessment and Plan of Care: Right eye progressive vision loss 2 weeks, unclear etiology Trigeminal neuralgia with uncontrolled pain -Neurology following, and discussed MRI results with neurologist. -MRI completed and radiology report reviewed showing a new 13 x 13 mm Fagg area of slight T2 hyperintensity and heterogeneous enhancement in the left lateral aspect of the mid brain without increased signal on diffusion weighted imaging to suggest acute or subacute infarct however neoplasm needs to be considered, this has more infiltrative appearance based on MRI characteristics. -Echocardiogram completed and reviewed showing an EF of 55-60% with no significant valvular dysfunction and negative agitated saline bubble study for right to left shunting. 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 -Discussed plan of care with neurologist recommending echocardiogram and MRI of brain. Hypertension Hyperlipidemia Patient to continue daily medication regimen with lisinopril 5 mg daily and atorvastatin 40 mg nightly. Type II [id number]-[id number] diabetes mellitus Hold metformin in place patient on glycemic protocol with NovoLog sliding scale. -We will check hemoglobin A1c. Data and imaging reviewed: Vital signs reviewed. Blood pressure 106/70, heart rate 91, respiratory rate 16, temp 98.0F, SpO2 of 97% on room air. Patient has failed observation stay, MRI showing concerns of possible neoplasm. Discussed in depth with neurologist, recommending inpatient admission with further recommendations after personal review of MRI. Patient continues with significant pain to the left side of her face and loss of vision in right eye. CODE STATUS: Full code DVT prophylaxis: Lovenox Anticipated discharge date: Clinical course to determine Anticipated discharge place: Clinical course to determine Patient was seen independently by Nurse Pracitioner. This document was prepared using finalsite dictation software. Please allow for errors in heel scorer, while rare they do occur. Zeyad Foley NP rendered care for this patient independently, reviewed the findings and plan as documented in the note above. I did not physically speak with or examine the patient on this date. Objective - Vital Signs Vital signs: Vital Signs Temp 98.0 F 07/11/23 07:00 Pulse 91 07/11/23 07:00 Resp 16 07/11/23 07:00 BP 106/70 07/11/23 07:00 Pulse Ox 97 07/11/23 07:00 FiO2 Intake & Output 07/10/23 07/11/23 07/11/23 18:59 06:59 18:59 Intake Total 236 Balance 236 Intake: Oral 236 Other: Voiding Method Toilet Toilet Toilet # Voids 5 2 - Labs CBC & Chem 7: 07/09/23 05:29 07/09/23 05:29 Labs: Abnormal Lab Results - Last 24 Hours (Table) 07/10/23 07/10/23 07/10/23 Range/Units 05:25 11:58 17:27 POC Glucose (mg/dL) 197 H 134 H (70-110) mg/dL Hemoglobin A1c 6.2 H (<=6.0) % 07/10/23 07/11/23 Range/Units 20:44 06:23 POC Glucose (mg/dL) 127 H 136 H (70-110) mg/dL Hemoglobin A1c (<=6.0) %
[2023-07-11 12:00] LABS: Glucose,Whole Blood 121 mg/dL (70-110)
[2023-07-11] MEDS: BACLOFEN 10 MG TAB PO PRN ×2 (14:11→20:20)
[2023-07-11 17:25] LABS: Glucose,Whole Blood 123 mg/dL (70-110)
[2023-07-11 20:19] LABS: Glucose,Whole Blood 115 mg/dL (70-110)
[2023-07-11] MEDS: MELATONIN 5 MG TABLET PO SCH (20:20)
[2023-07-11] MEDS: ATORVASTATIN 40 MG TAB PO SCH (20:20)
[2023-07-11] MEDS: OXcarbazepine 300 MG TAB PO SCH (20:22)
[2023-07-11] MEDS: HYDROcodone/APAP 10-325MG 1 EACH TAB PO PRN (22:09)
[2023-07-12] MEDS: MORPHINE SULFATE 4 MG/ML SYRINGE IV PRN ×5 (00:50→20:27)
[2023-07-12 04:33] LABS: Glucose,Whole Blood 130 mg/dL (70-110)
[2023-07-12] MEDS: INSULIN ASPART (NovoLOG) 100 UNIT/ML VIAL SQ SCH ×4 (04:33→21:19)
[2023-07-12] MEDS: BACLOFEN 10 MG TAB PO PRN ×2 (05:34→20:27)
[2023-07-12] MEDS: DULoxetine HCL 30 MG CAPSULE.DR PO SCH (09:01)
[2023-07-12] MEDS: ENOXAPARIN 40 MG/0.4 ML SYRINGE SQ SCH (09:01)
[2023-07-12] MEDS: amLODIPine 5 MG TAB PO SCH (09:01)
[2023-07-12] MEDS: GABAPENTIN 300 MG CAP PO SCH ×3 (09:01→20:27)
[2023-07-12] MEDS: ASPIRIN 81 MG PO SCH (09:01)
[2023-07-12] MEDS: lisinopriL 5 MG TAB PO SCH (09:01)
[2023-07-12] MEDS: OXcarbazepine 300 MG TAB PO SCH (09:02)
--- NOTE | 2023-07-12 09:43 | P.PN ---
Subjective Progress Note Date: 07/11/23 Patient initially seen by Dr. Genaro Plascencia. Please refer to his note for details. Patient is a 68-year-old female with history of trigeminal neuralgia, who has right eye vision loss about 3 weeks ago. Patient states that she had history of trigeminal neuralgia that started in and of 2017. She had undergone surgery for left trigeminal neuralgia by Dr. Jones in [facility], which I presume was microvascular decompression without improvement. Patient states that about 2-1/2-3 weeks ago, she states she tripped while stepping in the kitchen. She fell and hit right side of head on the floor. Patient is complaining of difficulty with swallowing. She says that she gets itching in the right occipital region and then it triggers pain of left trigeminal neuralgia, pointing to the left parietal region, extending to the left facial region in the neck. It was not bothersome, but in the last 2-1/2 weeks since her fall, it has got worse, going all the time. Patient while I was examining, developed an acute episode of trigeminal neuralgia, in which she was severely morning, holding her left side of the head with her hand. It was extremely painful. It lasted for about 30-45 seconds and then went away. Some other workup during his hospital visit consisted of: ESR is 20. CRP is less than 0.5. White blood cells 8.9. TSH is 1.76, free T4 is 1.26, total T3 is 90.5. CK is 27 Lipid panel is triglyceride of 143, cholesterol is 130, LDL 66 and HDL is 35 Hemoglobin A1c 6.2. Sodium is 143, calcium is 8.1, phosphorus 2.4, magnesium 2.1. CT of the head is reported as no acute intracranial hemorrhage or midline shift. Paranasal sinus disease redemonstrated. No significant change from most recent prior. I personally reviewed the CT of the head and I agree there is no acute subacute ischemia there is no intracranial bleed. CT angiography of the head and neck was reported as no significant vascular abnormality is seen. Objective - Vital Signs Vital signs: Vital Signs Temp 97.6 F 07/11/23 14:13 Pulse 96 07/11/23 14:13 Resp 16 07/11/23 14:13 BP 141/90 07/11/23 14:13 Pulse Ox 97 07/11/23 14:13 FiO2 Intake & Output 07/10/23 07/11/23 07/11/23 18:59 06:59 18:59 Intake Total 236 770 Balance 236 770 Intake: Oral 236 770 Other: Voiding Method Toilet Toilet Toilet # Voids 5 2 1 - Exam Patient is an elderly female, sitting in her bed, in no acute distress. Patient is alert and awake fully oriented. Speech and language functions are normal. Cranial nerves revealed pupils equal round and reacting, patient has right afferent pupillary defect. Patient has complete vision loss right eye with normal visual field on the left side. Her extraocular muscles are intact and face is symmetric. Tongue protrudes the midline. Shoulder shrug normal. Patient has hyperesthesia of the left trigeminal region, and also extending to the left parietal region. On muscle strength testing, there is no pronator drift and the strength is normal in arms and legs. Sensory to touch is equal. No ataxia for [id number] testing. - Labs CBC & Chem 7: 07/09/23 05:29 07/09/23 05:29 Labs: Abnormal Lab Results - Last 24 Hours (Table) 07/10/23 07/11/23 07/11/23 Range/Units 20:44 06:23 11:59 POC Glucose (mg/dL) 127 H 136 H 121 H (70-110) mg/dL 07/11/23 Range/Units 17:24 POC Glucose (mg/dL) 123 H (70-110) mg/dL Assessment and Plan Assessment: * Subacute vision loss right eye for last 3 weeks. Patient has right APD. Temporal arteritis unlikely with normal ESR, CRP. * History of trigeminal neuralgia, left side since August 2018, recently worse. * Diabetes * Hyperlipidemia * Fibromyalgia Plan: * MRI of the brain with and without contrast revealed a new 13 x 13 mm vague are a of slight T2 hyperintensity and heterogeneous enhancement in the left lateral aspect of the midbrain without increased signal on diffusion weighted images to suggest acute or subacute infarct. Neoplasm needs to be considered, this has more infiltrative appearance based on MRI characteristics. Other etiology is not excluded. Other etiology is not excluded. Consider referral to a bigger institution/more specialized placed to further evaluate. I personally reviewed MRI, agree with findings involving the lesion mentioned above. On my review, there is evidence of acute enhancement in the right optic nerve as well just before the chiasm. I will reviewed with the r adiologist. * Check MRI of the orbits to evaluate for right optic neuritis. * Patient has now 3 lesions in the brain. She has an old enhancing lesion involving the high spinal cord at cervical medullary junction, which has been present at least since MRI performed 02/16/2017. She has involvement of the left mid brain, and also involving the right optic nerve. Need to rule out neurosarcoid. * Check serum makenna level. * Spinal fluid examination to evaluate for neurosarcoid. * Patient continues to have severe trigeminal neuralgia, we will increase dose of Trileptal from 400 mg twice a day to 600 mg twice a day. Continue gabapentin at the same dose 300 mg twice a day. * Discussed with primary physician. * 2-D echo: Revealed left ventricular ejection fraction is estimated at 55-60%. Grade 1 diastolic dysfunction. No obvious regional wall motion abnormalities. Mildly increased left ventricular wall thickness. No significant valvular dysfunction. Negative agitated saline bubble study for [id number] shunt. * Dr. Plascencia started the patient on small dose of aspirin 81 mg daily (was not on antiplatelets prior to this). Patient is on Lipitor 40 mg daily at bedtime started by the primary team * Continue neuro checks * Ophthalmology is consulted by the primary team * We'll defer the rest of the medical management to primary team * For DVT prophylaxis the patient is on Lovenox * Upon discharge patient will continue to follow up with her neurology team over the [facility] for her chronic headache/trigeminal neuralgia.
[2023-07-12 11:54] LABS: Glucose,Whole Blood 120 mg/dL (70-110)
[2023-07-12] MEDS ORDERED: LIDOCAINE 1% INJ 10MG/ML (20 ML MDV) SQ ONE (16:14)
[2023-07-12 17:19] LABS: Glucose,Whole Blood 100 mg/dL (70-110)
--- NOTE | 2023-07-12 19:02 | P.PN ---
Subjective Progress Note Date: 07/12/23 Hospital course: Patient is a very pleasant 68-year-old female with a past medical history of trigeminal neuralgia, hypertension, hyperlipidemia, and type II diabetes mellitus. She reports following at [facility] for treatment of her trigeminal neuralgia. Patient presented to the emergency department on 07/08/23 with complaints of gradually worsening right sided vision loss x2 weeks after a fall at home. Patient described her vision as being extremely hazy and dull in the right eye, but denied experiencing any ocular pain. She underwent full evaluation in the emergency department. Labs completed and reviewed. CBC, coagulation profile, and BMP were unremarkable. Initially patient's lactic acid was elevated at 4.1 however after 1 L 0.9% normal saline bolus lactate normalized and resulted at 1.6. Magnesium was low at 1.4 and was replaced. Liver profile showed elevated alkaline phosphatase of 127 and otherwise normal findings. CT brain completed negative for acute intercranial process showing paranasal sinus disease redemonstrated unchanged from previous CT completed 06/15/23 per radiology report. EKG completed showing normal sinus rhythm at 91 bpm with no noted T-wave or ST abnormalities showing no signs of acute ischemia upon personal review and interpretation. CTA head and neck also completed and was negative for acute process showing no significant vascular abnormality, occlusion, or aneurysm noted. Patient was admitted under our services with consultation to neurology, psychiatry, and ophthalmology. Physical exam: Patient seen and fully evaluated at bedside. Patient continues to report 10 out of 10 pain to the left side of her face and blurred vision in right eye. Patient reports only seeing shadows. Denies any new complaints. Vital signs reviewed and stable. General: Nontoxic, no distress and appears stated age. Derm: Skin warm and dry, normal coloration for ethnicity. Head: Atraumatic, normocephalic and symmetric. Eyes: EOMs intact, no lid lag, and anicteric sclera Mouth: no lip lesions, mucus membranes moist Cardiovascular: regular rate and rhythm with normal S1S2, no murmur, positive posterior tibial pulses bilaterally, and cap refill < 2 seconds. Lungs: Respirations even, regular, and unlabored on room air. Lungs CTA bilaterally, no rhonchi, no rales, no wheezing, and no accessory muscle usage. Abdominal: soft, nontender to palpation, no guarding, no appreciable organomegaly Ext: ROM intact. No gross muscle atrophy, no edema, no contractures Neuro: Speech clear, face symmetrical and CN II-XII grossly intact with no noted focal neuro deficits Psych: Alert and oriented to person, place, time, and situation. Appropriate and pleasant affect. Assessment and Plan of Care: Right eye progressive vision loss 2 weeks, unclear etiology Trigeminal neuralgia with uncontrolled pain -Neurology following, and discussed MRI results with neurologist. He is going to rule out demyelination process and to start patient on Solu-Medrol, ordered MRI of orbits, increase Trileptal to 600 mg twice daily, and plans on doing a lumbar puncture tomorrow. -MRI completed and radiology report reviewed showing a new 13 x 13 mm Fagg area of slight T2 hyperintensity and heterogeneous enhancement in the left lateral aspect of the mid brain without increased signal on diffusion weighted imaging to suggest acute or subacute infarct however neoplasm needs to be considered, this has more infiltrative appearance based on MRI characteristics. -Echocardiogram completed and reviewed showing an EF of 55-60% with no s ignificant valvular dysfunction and negative agitated saline bubble study for right to left shunting. 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 Hypertension Hyperlipidemia Patient to continue daily medication regimen with lisinopril 5 mg daily and atorvastatin 40 mg nightly. Type II zuz-pwdmuro-cwfyarqhi diabetes mellitus Hold metformin in place patient on glycemic protocol with NovoLog sliding scale. -Hemoglobin A1c. 6.2% Data and imaging reviewed: Vital signs reviewed. Blood pressure 119/74, heart rate 52, respiratory rate 16, temp 98.3F, SpO2 92% on room air. CODE STATUS: Full code DVT prophylaxis: Lovenox Anticipated discharge date: Clinical course to determine Anticipated discharge place: Clinical course to determine Patient was seen independently by Nurse Pracitioner. This document was prepared using [employer] dictation software. Please allow for errors in extension service specialist in charge, while rare they do occur. Objective - Vital Signs Vital signs: Vital Signs Temp 98.3 F 07/12/23 07:00 Pulse 52 L 07/12/23 07:00 Resp 16 07/12/23 07:00 BP 119/74 07/12/23 07:00 Pulse Ox 92 L 07/12/23 07:00 FiO2 Intake & Output 07/11/23 07/12/23 07/12/23 18:59 06:59 18:59 Intake Total 770 Balance 770 Intake: Oral 770 Other: Voiding Method Toilet Toilet Toilet # Voids 1 1 - Labs CBC & Chem 7: 07/09/23 05:29 07/09/23 05:29 Labs: Abnormal Lab Results - Last 24 Hours (Table) 07/11/23 07/11/23 07/11/23 Range/Units 11:59 17:24 20:18 POC Glucose (mg/dL) 121 H 123 H 115 H (70-110) mg/dL 07/12/23 Range/Units 04:32 POC Glucose (mg/dL) 130 H (70-110) mg/dL
[2023-07-12] MEDS: ATORVASTATIN 40 MG TAB PO SCH (20:27)
[2023-07-12] MEDS: carBAMazepine 200 MG TAB PO SCH (20:27)
[2023-07-12] MEDS: MELATONIN 5 MG TABLET PO SCH (20:27)
[2023-07-12] MEDS: methylPREDNISolone SOD SUCCIN 500 MG in SODIUM CHLORIDE 0.9% 100 ML IVPB SCH (20:27)
[2023-07-12] MEDS ORDERED: OXcarbazepine 300 MG TAB PO SCH (21:00)
[2023-07-12 21:14] LABS: Glucose,Whole Blood 111 mg/dL (70-110)
[2023-07-12] MEDS: HYDROcodone/APAP 10-325MG 1 EACH TAB PO PRN (22:59)
[2023-07-13] MEDS: BACLOFEN 10 MG TAB PO PRN ×2 (04:08→21:04)
[2023-07-13] MEDS: MORPHINE SULFATE 4 MG/ML SYRINGE IV PRN ×3 (04:08→19:15)
[2023-07-13 05:58] LABS: Glucose,Whole Blood 201 mg/dL (70-110)
[2023-07-13] MEDS: HYDROcodone/APAP 10-325MG 1 EACH TAB PO PRN ×2 (06:23→21:04)
[2023-07-13] MEDS: INSULIN ASPART (NovoLOG) 100 UNIT/ML VIAL SQ SCH ×4 (06:23→21:19)
[2023-07-13] MEDS ORDERED: LIDOCAINE 1% INJ 10MG/ML (20 ML MDV) SQ ONE (08:00)
[2023-07-13 09:04] LABS: ALT 165 U/L (8-44); AST 88 U/L (13-35); Albumin 4.6 d/dL (3.8-4.9); Alkaline Phosphatase 204 U/L (41-126); BUN/Creat Ratio 14.17 Ratio (12.00-20.00); Blood Urea Nitrogen 8.5 mg/dL (9.0-27.0); Calcium 9.6 mg/dL (8.7-10.3); Carbon Dioxide 28.3 mmol/L (21.6-31.8); Chloride 99 mmol/L (96-109); Globulin 2.7 d/dL (1.6-3.3); Glucose 219 mg/dL (70-110); Potassium 4.4 mmol/L (3.5-5.5); Sodium 138 mmol/L (135-145); Total Bilirubin 0.6 mg/dL (0.3-1.2); Total Protein 7.3 d/dL (6.2-8.2)
[2023-07-13 09:12] LABS: HCT 39.8 % (37.2-46.3); HGB 13.4 d/dL (12.0-15.0); MCH 30.7 pg (27.0-32.0); MCHC 33.7 d/dL (32.0-37.0); MCV 91.3 FL (80.0-97.0); Mean Platelet Volume 11.1 FL (9.5-12.2); NRBC Per 100 WBC 0 X 10*3/uL (0.00-0.01); Platelet Count 250 X 10*3/uL (140-440); RBC 4.36 X 10*6/uL (4.10-5.20); RDW 12.5 % (11.5-14.5); WBC 3.85 X 10*3/uL (4.50-10.00)
[2023-07-13] MEDS: amLODIPine 5 MG TAB PO SCH (09:57)
[2023-07-13] MEDS: GABAPENTIN 300 MG CAP PO SCH ×3 (09:57→21:05)
[2023-07-13] MEDS: lisinopriL 5 MG TAB PO SCH (09:57)
[2023-07-13] MEDS: carBAMazepine 200 MG TAB PO SCH ×2 (09:57→21:04)
[2023-07-13] MEDS: DULoxetine HCL 30 MG CAPSULE.DR PO SCH (09:58)
[2023-07-13] MEDS: methylPREDNISolone SOD SUCCIN 500 MG in SODIUM CHLORIDE 0.9% 100 ML IVPB SCH ×2 (10:11→21:05)
--- NOTE | 2023-07-13 10:28 | P.PN ---
Subjective Progress Note Date: 07/12/23 07/12/2023: Patient was seen for a follow-up. Patient continues to have itching on the right facial region, burning on the left side. Patient noticing burning in bilateral neck region. Offers no new complaints. 07/11/2023: Patient initially seen by Dr. Genaro Plascencia. Please refer to his note for details. Patient is a 68-year-old female with history of trigeminal neuralgia, who has right eye vision loss about 3 weeks ago. Patient states that she had history of trigeminal neuralgia that started in and of 2018. She had undergone surgery for left trigeminal neuralgia by Dr. Jones in [facility], which I presume was microvascular decompression without improvement. Patient states that about 2-1/2-3 weeks ago, she states she tripped while stepping in the ki [employer]. She fell and hit right side of head on the floor. Patient is complaining of difficulty with swallowing. She says that she gets itching in the right occipital region and then it triggers pain of left trigeminal neuralgia, pointing to the left parietal region, extending to the left facial region in the neck. It was not bothersome, but in the last 2-1/2 weeks since her fall, it has got worse, going all the time. Patient while I was examining, developed an acute episode of trigeminal neuralgia, in which she was severely morning, holding her left side of the head with her hand. It was extremely painful. It lasted for about 30-45 seconds and then went away. Some other workup during his hospital visit consisted of: ESR is 20. CRP is less than 0.5. White blood cells 8.9. TSH is 1.76, free T4 is 1.26, total T3 is 90.5. CK is 27 Lipid panel is triglyceride of 143, cholesterol is 130, LDL 66 and HDL is 35 Hemoglobin A1c 6.2. Sodium is 143, calcium is 8.1, phosphorus 2.4, magnesium 2.1. CT of the head is reported as no acute intracranial hemorrhage or midline shift. Paranasal sinus disease redemonstrated. No significant change from most recent prior. I personally reviewed the CT of the head and I agree there is no acute subacute ischemia there is no intracranial bleed. CT angiography of the head and neck was reported as no significant vascular abnormality is seen. Objective - Vital Signs Vital signs: Vital Signs Temp 98.0 F 07/12/23 14:43 Pulse 96 07/12/23 14:43 Resp 16 07/12/23 14:43 BP 114/74 07/12/23 14:43 Pulse Ox 96 07/12/23 14:43 FiO2 Intake & Output 07/11/23 07/12/23 07/12/23 18:59 06:59 18:59 Intake Total 770 Balance 770 Intake: Oral 770 Other: Voiding Method Toilet Toilet Toilet # Voids 1 1 1 # Bowel Movements 1 - Exam Patient is an elderly female, sitting in her bed, in no acute distress. Patient is alert and awake fully oriented. Speech and language functions are normal. Cranial nerves revealed pupils equal round and reacting, patient has right afferent pupillary defect. Patient has complete vision loss right eye with normal visual field on the left side. Her extraocular muscles are intact and face is symmetric. Tongue protrudes the midline. Shoulder shrug normal. Patient has hyperesthesia of the left trigeminal region, and also extending to the left parietal region. On muscle strength testing, there is no pronator drift and the strength is normal in arms and legs. Sensory to touch is equal. No ataxia for [id number]-[id number] testing. - Labs CBC & Chem 7: 07/13/23 05:19 07/13/23 05:19 Labs: Abnormal Lab Results - Last 24 Hours (Table) 07/11/23 07/11/23 07/12/23 Range/Units 17:24 20:18 04:32 POC Glucose (mg/dL) 123 H 115 H 130 H (70-110) mg/dL 07/12/23 Range/Units 11:53 POC Glucose (mg/dL) 120 H (70-110) mg/dL Assessment and Plan Assessment: * Subacute vision loss right eye for last 3 weeks. Patient has right APD. Temporal arteritis unlikely with normal ESR, CRP. * History of trigeminal neuralgia, left side since August 2018, recently worse. * Abnormal brain MRI, with evidence of enhancing lesion in the left mid brain, and also probably involving the right optic nerve. Patient had a previous abnormal enhancing lesion in the cervical spine in cervicomedullary junction. Rule out neurosarcoid. MS appears unlikely. * Diabetes * Hyperlipidemia * Fibromyalgia Plan: * MRI of the brain with and without contrast revealed a new 13 x 13 mm vague area of slight T2 hyperintensity and heterogeneous enhancement in the left lateral aspect of the midbrain without increased signal on diffusion weighted images to suggest acute or subacute infarct. Neoplasm needs to be considered, this has more infiltrative appearance based on MRI characteristics. Other etiology is not excluded. Other etiology is not excluded. Consider referral to a bigger institution/more specialized placed to further evaluate. I personally reviewed MRI, agree with findings involving the lesion mentioned above. On my review, there is evidence of acute enhancement in the right optic nerve as well just before the chiasm. I will review with the radiologist on Thursday. * Check MRI of the orbits to evaluate for right optic neuritis. * Patient has now 3 lesions in the brain. She has an old enhancing lesion involving the high spinal cord at cervical medullary junction, which has been present at least since MRI performed 02/16/2017. She has involvement of the left mid brain, and also involving the right optic nerve. Need to rule out neurosarcoid. * Check serum makenna level, Lyme titer. * Spinal fluid examination to evaluate for neurosarcoid. Hold Lovenox tonight. * Patient continues to have severe trigeminal neuralgia, we will increase dose of Trileptal from 400 mg twice a day to 600 mg twice a day. Continue gabapentin at the same dose 300 mg twice a day. * Start Solu-Medrol 500 mg twice a day. * Discussed with primary physician. * 2-D echo: Revealed left ventricular ejection fraction is estimated at 55-60%. Grade 1 diastolic dysfunction. No obvious regional wall motion abnormalities. Mildly increased left ventricular wall thickness. No significant valvular dysfunction. Negative agitated saline bubble study for kkcqi-lw-tedx shunt. * Dr. Plascencia started the patient on small dose of aspirin 81 mg daily (was not on antiplatelets prior to this). Patient is on Lipitor 40 mg daily at bedtime started by the primary team * Patient is not taking Trileptal or gabapentin at this time, as she believes she is noticing side effect particularly from Trileptal. She wants to go back on Tegretol which used to work for her in the past. We will start her on Tegretol 200 mg twice a day and she will continue gabapentin 300 mg 3 times a day. * Ophthalmology is consulted by the primary team * We'll defer the rest of the medical management to primary team * For DVT prophylaxis the patient is on Lovenox * Upon discharge patient will continue to follow up with her neurology team over the [facility] for her chronic headache/trigeminal neuralgia.
[2023-07-13 12:19] LABS: Glucose,Whole Blood 155 mg/dL (70-110)
[2023-07-13 14:57] LABS: Appearance,CSF Clear; CSF Tube Number 4; CSF Tube Volume 0.8; Nucleated Cells, CSF 4 u/L (0-5); Red Blood Cell,CSF 76 u/L (0-10)
[2023-07-13 14:58] LABS: Red Blood Cell, CSF Crenated 0 %; Red Blood Cell, CSF Fresh 100 %
[2023-07-13] MEDS ORDERED: LORazepam 2 MG/ML INJ IV ONE (15:00)
[2023-07-13 15:37] LABS: Glucose,CSF 102 mg/dL (40-70); Total Protein,CSF 82 mg/dL (12-60)
--- NOTE | 2023-07-13 16:13 | P.PN ---
Subjective Progress Note Date: 07/13/23 Hospital course: Patient is a very pleasant 68-year-old female with a past medical history of trigeminal neuralgia, hypertension, hyperlipidemia, and type II diabetes mellitus. She reports following at [facility] for treatment of her trigeminal neuralgia. Patient presented to the emergency department on 07/08/23 with complaints of gradually worsening right sided vision loss x2 weeks after a fall at home. Patient described her vision as being extremely hazy and dull in the right eye, but denied experiencing any ocular pain. She underwent full evaluation in the emergency department. Labs completed and reviewed. CBC, coagulation profile, and BMP were unremarkable. Initially patient's lactic acid was elevated at 4.1 however after 1 L 0.9% normal saline bolus lactate normalized and resulted at 1.6. Magnesium was low at 1.4 and was replaced. Liver profile showed elevated alkaline phosphatase of 127 and otherwise normal findings. CT brain completed negative for acute intercranial process showing paranasal sinus disease redemonstrated unchanged from previous CT completed 06/15/23 per radiology report. EKG completed showing normal sinus rhythm at 91 bpm with no noted T-wave or ST abnormalities showing no signs of acute ischemia upon personal review and interpretation. CTA head and neck also completed and was negative for acute process showing no significant vascular abnormality, occlusion, or aneurysm noted. Patient was admitted under our services with consultation to neurology, psychiatry, and ophthalmology. 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 MRI completed and radiology report reviewed showing a new 13 x 13 mm Fagg area of slight T2 hyperintensity and heterogeneous enhancement in the left lateral aspect of the mid brain without increased signal on diffusion weighted imaging to suggest acute or subacute infarct however neoplasm needs to be considered, this has more infiltrative appearance based on MRI characteristics.Neurology following, started patient on Solu-Medrol 500 mg every 12 hours 5 days and ordered for MRI orbit and completing a lumbar puncture.-Echocardiogram completed and reviewed showing an EF of 55-60% with no significant valvular dysfunction and negative agitated saline bubble study for right to left shunting. Physical exam: Patient seen and fully evaluated at bedside. Patient continues to report 10 out of 10 pain to the left side of her face and blurred vision in right eye. Patient reports only seeing shadows. Denies any new complaints. Vital signs reviewed and stable. General: Nontoxic, no distress and appears stated age. Derm: Skin warm and dry, normal coloration for ethnicity. Head: Atraumatic, normocephalic and symmetric. Eyes: EOMs intact, no lid lag, and anicteric sclera Mouth: no lip lesions, mucus membranes moist Cardiovascular: regular rate and rhythm with normal S1S2, no murmur, positive posterior tibial pulses bilaterally, and cap refill < 2 seconds. Lungs: Respirations even, regular, and unlabored on room air. Lungs CTA bilaterally, no rhonchi, no rales, no wheezing, and no accessory muscle usage. Abdominal: soft, nontender to palpation, no guarding, no appreciable organomegaly Ext: ROM intact. No gross muscle atrophy, no edema, no contractures Neuro: Speech clear, face symmetrical and CN II-XII grossly intact with no noted focal neuro deficits Psych: Alert and oriented to person, place, time, and situation. Appropriate and pleasant affect. Assessment and Plan of Care: Right eye progressive vision loss 2 weeks, unclear etiology Trigeminal neuralgia with uncontrolled pain -Neurology following, started patient on Solu-Medrol 500 mg every 12 hours 5 days and ordered for MRI orbit and completing a lumbar puncture. -Ophthalmology consulted, note reviewed web site specialist stating it is likely patient suffered an ischemic optic neuropathy of the right eye -Symptomatic care and pain management. Hypertension Hyperlipidemia Patient to continue daily medication regimen with lisinopril 5 mg daily and atorvastatin 40 mg nightly. Type II [id number] diabetes mellitus Hold metformin in place patient on glycemic protocol with NovoLog sliding scale. -Hemoglobin A1c. 6.2% Data and imaging reviewed: Vital signs reviewed. Blood pressure 131/75, heart rate 109, respiratory rate 16, temp 98.3F, SpO2 of 94% on room air. CODE STATUS: Full code DVT prophylaxis: Lovenox Anticipated discharge date: Clinical course to determine Anticipated discharge place: Clinical course to determine Patient was seen independently by Nurse Pracitioner. This document was prepared using [employer] dictation software. Please allow for errors in asphalt heater tender, while rare they do occur. Objective - Vital Signs Vital signs: Vital Signs Temp 98.1 F 07/13/23 07:35 Pulse 137 H 07/13/23 07:35 Resp 18 07/13/23 07:35 BP 159/107 07/13/23 07:35 Pulse Ox 95 07/13/23 07:35 FiO2 Intake & Output 10/29/23 10/30/23 10/30/23 18:59 06:59 18:59 Intake Total 118 Balance 118 Intake: Oral 118 Other: Voiding Method Toilet Toilet # Voids 1 1 # Bowel Movements 1 - Labs CBC & Chem 7: 07/13/23 05:19 07/13/23 05:19 Labs: Abnormal Lab Results - Last 24 Hours (Table) 07/12/23 07/12/23 07/13/23 Range/Units 11:53 21:12 05:19 WBC 3.85 L (4.50-10.00) X 10*3/uL BUN (9.0-27.0) mg/dL Glucose (70-110) mg/dL POC Glucose (mg/dL) 120 H 111 H (70-110) mg/dL AST (13-35) U/L ALT (8-44) U/L Alkaline Phosphatase (41-126) U/L 07/13/23 07/13/23 Range/Units 05:19 05:56 WBC (4.50-10.00) X 10*3/uL BUN 8.5 L (9.0-27.0) mg/dL Glucose 219 H (70-110) mg/dL POC Glucose (mg/dL) 201 H (70-110) mg/dL AST 88 H (13-35) U/L ALT 165 H (8-44) U/L Alkaline Phosphatase 204 H (41-126) U/L
[2023-07-13 17:10] LABS: Glucose,Whole Blood 283 mg/dL (70-110)
--- NOTE | 2023-07-13 18:41 | P.PCN ---
Date of Procedure: 07/13/23 Preoperative Diagnosis: Abnormal brain MRI, possible MS versus neurosarcoid versus other infiltrative conditions Postoperative Diagnosis: Abnormal brain MRI, possible MS versus neurosarcoid versus other infiltrative conditions Procedure(s) Performed: Lumbar puncture Anesthesia: local Surgeon: Elaine Morales Estimated Blood Loss (ml): 0 Condition: stable Disposition: floor Indications for Procedure: Cephalgia, trigeminal neuralgia, abnormal brain MRI, multiple cranial neuropathies, rule out infiltrative process, rule out neurosarcoid, rule out MS Description of Procedure: Informed consent was obtained. All risks and benefits were informed. Patient was placed on the side of the bed in a sitting position. L4 lumbar space was identified and marked. Procedure performed under very strict aseptic conditions. Low back region was sterilized with ChloraPrep and then Betadine. Low back region was anesthetized with 1% lidocaine at L4. The spinal needle, 3.5 inch, 21-gauge was inserted at L4 lumbar space. I was able to enter subarachnoid space in 1 pass. Spinal fluid was traumatic and bloody in the first tube, and cleared after in the second tube. About 10 mL of clear and colorless spinal fluid obtained in 4 tubes. Stylet was reintroduced, and then spinal needle withdrawn. Band-Aid was applied. Patient was recommended to lay flat for half an hour. Patient tolerated the procedure very well.
--- NOTE | 2023-07-13 18:46 | P.PN ---
Subjective Progress Note Date: 07/13/23 07/13/2023: Patient was seen for a follow-up. Patient states that she is better this today as compared to yesterday. However she woke up with very intense headache. Patient continues to have intermittent severe cephalgia, in which she yells, ask for pain medication. Patient continues to have complete vision loss right eye, with seeing shadows. No improvement so far. 07/12/2023: Patient was seen for a follow-up. Patient continues to have itching on the right facial region, burning on the left side. Patient noticing burning in bilateral neck region. Offers no new complaints. 07/11/2023: Patient initially seen by Dr. Genaro Plascencia. Please refer to his note for details. Patient is a 68-year-old female with history of trigeminal neuralgia, who has right eye vision loss about 3 weeks ago. Patient states that she had history of trigeminal neuralgia that started in and of 2018. She had undergone surgery for left trigeminal neuralgia by Dr. Jones in [facility], which I presume was microvascular decompression without improvement. Patient states that about 2-1/2-3 weeks ago, she states she tripped while stepping in the [employer]. She fell and hit right side of head on the floor. Patient is complaining of difficulty with swallowing. She says that she gets itching in the right occipital region and then it triggers pain of left trigeminal neuralgia, pointing to the left parietal region, extending to the left facial region in the neck. It was not bothersome, but in the last 2-1/2 weeks since her fall, it has got worse, going all the time. Patient while I was examining, developed an acute episode of trigeminal neuralgia, in which she was severely morning, holding her left side of the head with her hand. It was extremely painful. It lasted for about 30-45 seconds and then went away. Some other workup during his hospital visit consisted of: ESR is 20. CRP is less than 0.5. White blood cells 8.9. TSH is 1.76, free T4 is 1.26, total T3 is 90.5. CK is 27 Lipid panel is triglyceride of 143, cholesterol is 130, LDL 66 and HDL is 35 Hemoglobin A1c 6.2. Sodium is 143, calcium is 8.1, phosphorus 2.4, magnesium 2.1. CT of the head is reported as no acute intracranial hemorrhage or midline shift. Paranasal sinus disease redemonstrated. No significant change from most recent prior. I personally reviewed the CT of the head and I agree there is no acute subacute ischemia there is no intracranial bleed. CT angiography of the head and neck was reported as no significant vascular abnormality is seen. Objective - Vital Signs Vital signs: Vital Signs Temp 98.1 F 07/13/23 07:35 Pulse 137 H 07/13/23 07:35 Resp 18 07/13/23 07:35 BP 159/107 07/13/23 07:35 Pulse Ox 95 07/13/23 07:35 FiO2 Intake & Output 07/12/23 07/13/23 07/13/23 18:59 06:59 18:59 Intake Total 118 Balance 118 Intake: Oral 118 Other: Voiding Method Toilet Toilet # Voids 1 1 1 # Bowel Movements 1 - Exam Patient is an elderly female, sitting in her bed, in no acute distress. Patient is alert and awake fully oriented. Speech and language functions are normal. Cranial nerves revealed pupils equal round and reacting, patient has right afferent pupillary defect. Patient has complete vision loss right eye with normal visual field on the left side. Her extraocular muscles are intact and face is symmetric. Tongue protrudes the midline. Shoulder shrug normal. Patient has hyperesthesia of the left trigeminal region, and also extending to the left parietal region. On muscle strength testing, there is no pronator drift and the strength is normal in arms and legs. Sensory to touch is equal. No ataxia for ujkhma-fd-abna testing. - Labs CBC & Chem 7: 07/13/23 05:19 07/13/23 05:19 Labs: Abnormal Lab Results - Last 24 Hours (Table) 07/12/23 07/13/23 07/13/23 Range/Units 21:12 05:19 05:19 WBC 3.85 L (4.50-10.00) X 10*3/uL BUN 8.5 L (9.0-27.0) mg/dL Glucose 219 H (70-110) mg/dL POC Glucose (mg/dL) 111 H (70-110) mg/dL AST 88 H (13-35) U/L ALT 165 H (8-44) U/L Alkaline Phosphatase 204 H (41-126) U/L 07/13/23 07/13/23 Range/Units 05:56 12:17 WBC (4.50-10.00) X 10*3/uL BUN (9.0-27.0) mg/dL Glucose (70-110) mg/dL POC Glucose (mg/dL) 201 H 155 H (70-110) mg/dL AST (13-35) U/L ALT (8-44) U/L Alkaline Phosphatase (41-126) U/L Assessment and Plan Assessment: * Subacute vision loss right eye for last 3 weeks. Patient has right APD. Temporal arteritis unlikely with normal ESR, CRP. * History of trigeminal neuralgia, left side since August 2018, recently worse. * Abnormal brain MRI, with evidence of enhancing lesion in the left mid brain, and also probably involving the right optic nerve. Patient had a previous abnormal enhancing lesion in the cervical spine in cervicomedullary junction. Rule out neurosarcoid. MS appears unlikely. * Diabetes * Hyperlipidemia * Fibromyalgia Plan: * MRI of the brain with and without contrast revealed a new 13 x 13 mm vague area of slight T2 hyperintensity and heterogeneous enhancement in the left lateral aspect of the midbrain without increased signal on diffusion weighted images to suggest acute or subacute infarct. Neoplasm needs to be considered, this has more infiltrative appearance based on MRI characteristics. Other etiology is not excluded. Other etiology is not excluded. Consider referral to a bigger institution/more specialized placed to further evaluate. I personally reviewed MRI, agree with findings involving the lesion mentioned above. On my review, there is evidence of acute enhancement in the right optic nerve as well just before the chiasm. I will review with the radiologist on Thursday. * Await MRI of the orbits to evaluate for right optic neuritis. * Patient has now 3 lesions in the brain. She has an old enhancing lesion invol ving the high spinal cord at cervical medullary junction, which has been present at least since MRI performed 02/16/2017. She has involvement of the left mid brain, and also involving the right optic nerve. Need to rule out neurosarcoid. * Check serum makenna level, Lyme titer. * Spinal fluid examination to evaluate for neurosarcoid to be performed today. Resume Lovenox from tonight. * Patient continues to have severe trigeminal neuralgia. Continue Tegretol 200 mg twice a day and gabapentin 300 mg twice a day. Trileptal discontinued, as patient was noticing side effects. She believes her symptoms are better with Tegretol. * Start Solu-Medrol 500 mg twice a day. * Discussed with primary physician. * 2-D echo: Revealed left ventricular ejection fraction is estimated at 55-60%. Grade 1 diastolic dysfunction. No obvious regional wall motion abnormalities. Mildly increased left ventricular wall thickness. No significant valvular dysfunction. Negative agitated saline bubble study for azjcq-mi-koxs shunt. * Dr. Plascencia started the patient on small dose of aspirin 81 mg daily (was not on antiplatelets prior to this). Patient is on Lipitor 40 mg daily at bedtime started by the primary team * Ophthalmology is consulted by the primary team * We'll defer the rest of the medical management to primary team * For DVT prophylaxis the patient is on Lovenox * Upon discharge patient will continue to follow up with her neurology team over the [facility] for her chronic headache/trigeminal neuralgia.
[2023-07-13] MEDS: ATORVASTATIN 40 MG TAB PO SCH (21:04)
[2023-07-13] MEDS: MELATONIN 5 MG TABLET PO SCH (21:05)
[2023-07-13 21:16] LABS: Glucose,Whole Blood 247 mg/dL (70-110)
--- NOTE | 2023-07-13 23:26 | MR ---
EXAMINATION TYPE: MR orbits wo/w con DATE OF EXAM: 07/13/2023 4:21 PM CLINICAL INDICATION:Female, 68 years old with history of Optic neuritis; PHH, Optic neuritis. COMPARISON: None. TECHNIQUE: Multi planar, multi sequence imaging was performed through the orbits/face. Post contrast imaging was performed after the administration of 6.5 cc of Gadavist intravenously. FINDINGS, ORBITS: Asymmetric Enhancement around the right optic nerve near the globe. Series 701 angelika ge 8 and 9 and series 601 image 10. The right optic nerve measures 5.5 mm by left measures 4.8 mm. Otherwise the globes appear symmetrical. Signal intensity of the left globe and optic nerve is withi n normal limits. The intraorbital fat appears preserved. Both lacrimal glands are unremarkable. The extraocular muscles appear symmetric FINDINGS, BRAIN: The whitfield-white junctions, ventricular system, and cisterns do appear unremarkable. After administration of contrast, no abnormal enhancement is seen within the brain. The bone marrow signal is within normal limits. Paranasal sinuses and mastoid air cells: Mucosal thickening of the paranasal sinuses. Visualized orbi ts: Orbital contents are intact. IMPRESSION: 1. Mild right optic nerve asymmetric thickening with minimal peripheral enhancement around the right optic nerve near the globe suggestive of optic neuritis. Normal-appearing left optic nerve. Consider short-term follow-up. 2. No evidence of intraorbital mass.
[2023-07-14] MEDS: MORPHINE SULFATE 4 MG/ML SYRINGE IV PRN ×5 (01:25→20:09)
[2023-07-14] MEDS: BACLOFEN 10 MG TAB PO PRN (06:08)
[2023-07-14 06:15] LABS: Glucose,Whole Blood 223 mg/dL (70-110)
[2023-07-14] MEDS: INSULIN ASPART (NovoLOG) 100 UNIT/ML VIAL SQ SCH ×4 (06:17→21:37)
[2023-07-14] MEDS: ENOXAPARIN 40 MG/0.4 ML SYRINGE SQ SCH (07:59)
[2023-07-14] MEDS: carBAMazepine 200 MG TAB PO SCH ×2 (08:00→21:37)
[2023-07-14] MEDS: GABAPENTIN 300 MG CAP PO SCH ×3 (08:00→20:08)
[2023-07-14] MEDS: DULoxetine HCL 30 MG CAPSULE.DR PO SCH (08:00)
[2023-07-14] MEDS: HYDROcodone/APAP 10-325MG 1 EACH TAB PO PRN ×2 (08:03→14:57)
[2023-07-14] MEDS: methylPREDNISolone SOD SUCCIN 500 MG in SODIUM CHLORIDE 0.9% 100 ML IVPB SCH ×2 (09:08→20:09)
[2023-07-14] MEDS: lisinopriL 5 MG TAB PO SCH (10:00)
[2023-07-14] MEDS: amLODIPine 5 MG TAB PO SCH (10:00)
[2023-07-14 12:22] LABS: Glucose,Whole Blood 215 mg/dL (70-110)
--- NOTE | 2023-07-14 14:12 | P.PN ---
Subjective Progress Note Date: 07/14/23 Hospital course: Patient is a very pleasant 68-year-old female with a past medical history of trigeminal neuralgia, hypertension, hyperlipidemia, and type II diabetes mellitus. She reports following at [facility] for treatment of her trigeminal neuralgia. Patient presented to the emergency department on 07/08/23 with complaints of gradually worsening right sided vision loss x2 weeks after a fall at home. Patient described her vision as being extremely hazy and dull in the right eye, but denied experiencing any ocular pain. She underwent full evaluation in the emergency department. Labs completed and reviewed. CBC, coagulation profile, and BMP were unremarkable. Initially patient's lactic acid was elevated at 4.1 however after 1 L 0.9% normal saline bolus lactate normalized and resulted at 1.6. Magnesium was low at 1.4 and was replaced. Liver profile showed elevated alkaline phosphatase of 127 and otherwise normal findings. CT brain completed negative for acute intercranial process showing paranasal sinus disease redemonstrated unchanged from previous CT completed 06/15/23 per radiology report. EKG completed showing normal sinus rhythm at 91 bpm with no noted T-wave or ST abnormalities showing no signs of acute ischemia upon personal review and interpretation. CTA head and neck also completed and was negative for acute process showing no significant vascular abnormality, occlusion, or aneurysm noted. Patient was admitted under our services with consultation to neurology, psychiatry, and ophthalmology. 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 MRI completed and radiology report reviewed showing a new 13 x 13 mm Fagg area of slight T2 hyperintensity and heterogeneous enhancement in the left lateral aspect of the mid brain without increased signal on diffusion weighted imaging to suggest acute or subacute infarct however neoplasm needs to be considered, this has more infiltrative appearance based on MRI characteristics.Neurology following, started patient on Solu-Medrol 500 mg every 12 hours 5 days and ordered for MRI orbit and completing a lumbar puncture.-Echocardiogram completed and reviewed showing an EF of 55-60% with no significant valvular dysfunction and negative agitated saline bubble study for right to left shunting. Physical exam: Patient seen and fully evaluated at bedside. Patient continues to report 10 out of 10 pain to the left side of her face and blurred vision in right eye. Patient reports only seeing shadows. Denies any new complaints. Vital signs reviewed and stable. General: Nontoxic, no distress and appears stated age. Derm: Skin warm and dry, normal coloration for ethnicity. Head: Atraumatic, normocephalic and symmetric. Eyes: EOMs intact, no lid lag, and anicteric sclera Mouth: no lip lesions, mucus membranes moist Cardiovascular: regular rate and rhythm with normal S1S2, no murmur, positive posterior tibial pulses bilaterally, and cap refill < 2 seconds. Lungs: Respirations even, regular, and unlabored on room air. Lungs CTA bilaterally, no rhonchi, no rales, no wheezing, and no accessory muscle usage. Abdominal: soft, nontender to palpation, no guarding, no appreciable organomegaly Ext: ROM intact. No gross muscle atrophy, no edema, no contractures Neuro: Speech clear, face symmetrical and CN II-XII grossly intact with no noted focal neuro deficits Psych: Alert and oriented to person, place, time, and situation. Appropriate and pleasant affect. Assessment and Plan of Care: Right Optic Neuritis Trigeminal neuralgia with uncontrolled pain -Neurology following, started patient on Solu-Medrol 500 mg every 12 hours 5 days and ordered for MRI orbit and completing a lumbar puncture. -MRI orbit confirms right optic neuritis, reviewed today and discussed results with Neurologist -Lumbar Puncture: 4 nucleated cells 108 glucose, 82 protein, 76 RBCs -MARCIN level is normal, Lyme screen negative -Discussed with neurology and initiated transfer to [facility] with Dr Louis who accepted patient for PLEX -Ophthalmology consulted, note reviewed railroad firer stating it is likely patient suffered an ischemic optic neuropathy of the right eye -Symptomatic care and pain management. Hypertension Hyperlipidemia Patient to continue daily medication regimen with lisinopril 5 mg daily and atorvastatin 40 mg nightly. Type II [id number] diabetes mellitus Hold metformin in place patient on glycemic protocol with NovoLog sliding scale. -Hemoglobin A1c. 6.2% Data and imaging reviewed: Vital signs reviewed. Blood pressure 131/75, heart rate 109, respiratory rate 16, temp 98.3F, SpO2 of 94% on room air. CODE STATUS: Full code DVT prophylaxis: Lovenox Anticipated discharge date: Clinical course to determine Anticipated discharge place: Clinical course to determine This document was prepared using [employer] dictation software. Please allow for errors in stumper feller, while rare they do occur. Objective - Vital Signs Vital signs: Vital Signs Temp 98.0 F 07/14/23 07:26 Pulse 94 07/14/23 08:00 Resp 12 07/14/23 08:00 BP 101/65 07/14/23 07:26 Pulse Ox 91 L 07/14/23 07:26 FiO2 Intake & Output 07/13/23 07/14/23 07/14/23 18:59 06:59 18:59 Intake Total 118 118 Balance 118 118 Intake: Oral 118 118 Other: Voiding Method Toilet Toilet # Voids 2 1 - Labs CBC & Chem 7: 07/13/23 05:19 07/13/23 05:19 Labs: Abnormal Lab Results - Last 24 Hours (Table) 07/13/23 07/13/23 07/13/23 Range/Units 13:25 17:08 21:15 POC Glucose (mg/dL) 283 H 247 H (70-110) mg/dL CSF RBC 76 H (0-10) u/L CSF Glucose 102 H (40-70) mg/dL CSF Total Protein 82 H (12-60) mg/dL 07/14/23 07/14/23 Range/Units 06:13 12:20 POC Glucose (mg/dL) 223 H 215 H (70-110) mg/dL CSF RBC (0-10) u/L CSF Glucose (40-70) mg/dL CSF Total Protein (12-60) mg/dL
--- NOTE | 2023-07-14 14:32 | P.CRDCN ---
History of Present Illness Consult date: 07/14/23 Reason for Consult (text): Bradycardia and pauses History of present illness: History of present illness: This is a 68-year-old female with no previous cardiac history does not follow with a special event assistant. Patient has a past medical history of diabetes mellitus type 2, hyperlipidemia, fibromyalgia, trigeminal neuralgia. She states she was having trouble with her vision and headache went to see an junior mechanical engineer which sent her to the emergency center. Patient denies having any headache at this time. We have been asked to evaluate the patient for bradycardia and pauses. Patient denies having any chest pain, no shortness of breath, no lower extremity edema, no palpitations, no syncope episodes she does not have dizziness or lightheadedness. She denies any cough fever or chills. She is a nonsmoker. She states she is very active at home. Patient is being worked up by neurology for vision loss, abnormal MRI of the brain status post diagnostic lumbar puncture. EKG #1 sinus rhythm 91 bpm, #2 sinus rhythm 104 bpm, telemetry this morning approximately 7:30 AM had heart rate 36 with a pause. Currently heart rate is 104. Echocardiogram performed on 07/09 reveals EF 55-60%, no significant valvular dysfunction. No pericardial effusion. No [id number] shunt. WBC 3.8, hemoglobin 13.4 and platelet count 250. Electrolytes are normal with BUN 8.5 and creatinine 0.6. Elevated liver function tests with AST 88, ALT 165, alkaline phosphatase 204. Home cardiac medications: Atorvastatin 40 mg at bedtime, lisinopril 5 mg daily. Review Of Systems: At the time of my evaluation: Constitutional: No fever, no chills. No weakness, fatigue or lethargy. EENT: No headache. No dizziness. Lungs: No shortness of breath, cough, no sputum production. No wheezing. Cardiovascular: No chest pain, no lower extremity edema. No palpitations. No paroxysmal nocturnal dyspnea. No orthopnea. No lightheadedness or dizziness. No syncopal episodes. Abdominal: No abdominal pain. No nausea, vomiting. No diarrhea. No constipation. No bloody or tarry stools. Musculoskeletal: No myalgias. No muscle weakness, no frequent falls. Integumentary: No wounds. No rash. No unusual bruising. Neurologic: No aphasia. No facial droop. No change in mentation. No head injury. No headache. Physical examination: Gen: This is a 68-year-old female resting in bed and appears to be comfortable, no acute distress. VS: reviewed HEENT: Head is atraumatic, normocephalic. Pupils equal, round. Sclerae is anicteric. NECK: Supple. No JVD. LUNGS: Clear to auscultation. No wheezes or rhonchi. No intercostal retractions. HEART: Regular rate and rhythm. No murmur. ABDOMEN: Soft No tenderness. EXTREMITIES: No pedal edema. No calf tenderness. NEUROLOGICAL: Patient is awake, alert and oriented x3. Assessment: Asymptomatic bradycardia Diabetes mellitus type 2 Hyperlipidemia Vision loss and abnormal MRI brain with neurology workup Plan: Avoid any AV connie blocking agents Continue patient's home cardiac medications Continue telemetry monitoring for any worsening or symptomatic bradycardia No plan at this time for pacemaker implantation Further recommendations to follow based upon clinical course Thank you kindly for this consultation. Nurse practitioner note has been reviewed, I agree with documented findings and plan of care. Patient was seen and examined. Past Medical History Past Medical History: Diabetes Mellitus, Fibromyalgia, GERD/Reflux, Hyperlipidemia, Osteoarthritis (OA), Thyroid Disorder Additional Past Medical History / Comment(s): trigeminal neuralgia, thyroid nodules History of Any Multi-Drug Resistant Organisms: None Reported Past Surgical History: Bladder Surgery, Cholecystectomy, Hysterectomy, Orthopedic Surgery Additional Past Surgical History / Comment(s): sinus surgery, arthroscopy right knee, bladder suspension,plate placed behind her ear. Past Anesthesia/Blood Transfusion Reactions: No Reported Reaction Past Psychological History: Anxiety Smoking Status: Former smoker Past Alcohol Use History: None Reported Additional Past Alcohol Use History / Comment(s): 1 cigs/day Past Drug Use History: None Reported - Past Family History Mother Family Medical History: Hypertension Father Family Medical History: Diabetes Mellitus Medications and Allergies Home Medications Medication Instructions Recorded Confirmed Type lisinopriL [Zestril] 5 mg PO DAILY 07/11/22 07/08/23 History Atorvastatin [Lipitor] 40 mg PO HS 12/25/22 07/08/23 History HYDROcodone/APAP 10-325MG [Benton 1 tab PO QID 03/03/23 07/08/23 History 10-325] metFORMIN HCL 1,000 mg PO BID 03/03/23 07/08/23 History Baclofen [Lioresal] 10 mg PO QID PRN 07/08/23 07/08/23 History Gabapentin [Neurontin] 300 mg PO TID 07/08/23 07/08/23 History OXcarbazepine [Trileptal] 450 mg PO BID 07/08/23 07/08/23 History Omeprazole 20 mg PO DAILY 07/08/23 07/08/23 History Allergies Allergy/AdvReac Type Severity Reaction Status Date / Time No Known Allergies Allergy Verified 07/08/23 17:47 Physical Exam Vitals: Vital Signs Temp Pulse Resp BP BP Pulse Ox 07/14/23 08:00 94 12 07/14/23 07:26 98.0 F 94 12 101/65 91 L 07/14/23 01:17 97.6 F 95 16 98/61 91 L 07/13/23 19:06 97.5 F L 95 15 100/66 92 L 07/13/23 14:00 98.8 F 105 H 14 109/72 93 L Intake and Output 07/13/23 07/14/23 07/14/23 22:59 06:59 14:59 Intake Total 118 Balance 118 Intake: Oral 118 Other: Voiding Method Toilet Toilet # Voids 2 1 Results 07/13/23 05:19 07/13/23 05:19 Current Medications Generic Name Dose Route Start Last Admin Trade Name Freq PRN Reason Stop Dose Admin Hydrocodone Bitart/Acetaminophen 1 each 07/09/23 07:54 07/14/23 08:03 Hydrocodone/Apap 10-325mg 1 Each Tab PO 1 each Q6H PRN Administration Moderate to Severe Pain (4-10) Amlodipine Besylate 5 mg 07/09/23 18:30 07/14/23 10:00 Amlodipine 5 Mg Tab PO Not Given DAILY ZULMA Atorvastatin Calcium 40 mg 07/09/23 21:00 07/13/23 21:04 Atorvastatin 40 Mg Tab PO 40 mg HS ZULMA Administration Baclofen 10 mg 07/09/23 00:20 07/14/23 06:08 Baclofen 10 Mg Tab PO 10 mg QID PRN Administration Muscle Spasm Carbamazepine 200 mg 07/12/23 21:00 07/14/23 08:00 Carbamazepine 200 Mg Tab PO 200 mg BID ZULMA Administration Dextrose/Water 25 ml 07/09/23 18:21 Dextrose 50% Syringe 50 Ml IVP PER PROTOCOL PRN Hypoglycemia Protocol Dextrose/Water 50 ml 07/09/23 18:21 Dextrose 50% Syringe 50 Ml IVP PER PROTOCOL PRN Hypoglycemia Protocol Duloxetine HCl 30 mg 07/10/23 14:00 07/14/23 08:00 Duloxetine Hcl 30 Mg Capsule.Dr PO 30 mg DAILY ZULMA Administration Enoxaparin Sodium 40 mg 07/14/23 09:00 07/14/23 07:59 Enoxaparin 40 Mg/0.4 Ml Syringe SQ 40 mg DAILY ZULMA Administration Gabapentin 300 mg 07/09/23 09:00 07/14/23 08:00 Gabapentin 300 Mg Cap PO 300 mg TID ZULMA Administration Methylprednisolone Sodium 100 mls @ 100 mls/hr 07/12/23 21:00 07/14/23 09:08 Succinate 500 mg/ Sodium IVPB 07/17/23 21:01 100 mls/hr Chloride Q12HR ZULMA Administration Insulin Aspart 0 unit 07/09/23 21:00 07/14/23 06:17 Insulin Aspart (Novolog) 100 Unit/Ml Vial SQ 2 unit ACHS ZULMA Administration Protocol Lisinopril 5 mg 07/09/23 09:00 07/14/23 10:00 Lisinopril 5 Mg Tab PO Not Given DAILY ZULMA Melatonin 5 mg 07/09/23 21:00 07/13/23 21:05 Melatonin 5 Mg Tablet PO 5 mg HS ZULMA Administration Morphine Sulfate 4 mg 07/09/23 07:56 07/14/23 12:25 Morphine Sulfate 4 Mg/Ml Syringe IV 4 mg Q3H PRN Administration Severe Pain (Scale 7 to 10) Naloxone HCl 0.2 mg 07/08/23 19:14 Naloxone 0.4 Mg/Ml 1 Ml Vial IV Q2M PRN Opioid Reversal Ondansetron HCl 4 mg 07/08/23 19:14 Ondansetron 4 Mg/2 Ml Vial IVP Q8HR PRN Nausea And Vomiting Intake and Output 07/13/23 07/14/23 07/14/23 22:59 06:59 14:59 Intake Total 118 Balance 118 Intake: Oral 118 Other: Voiding Method Toilet Toilet # Voids 2 1 07/13/23 05:19 07/13/23 05:19
[2023-07-14 17:12] LABS: Glucose,Whole Blood 239 mg/dL (70-110)
[2023-07-14] MEDS: MELATONIN 5 MG TABLET PO SCH (20:08)
[2023-07-14] MEDS: ATORVASTATIN 40 MG TAB PO SCH (20:08)
[2023-07-14 20:54] LABS: Glucose,Whole Blood 200 mg/dL (70-110)
[2023-07-15] MEDS: HYDROcodone/APAP 10-325MG 1 EACH TAB PO PRN ×3 (01:11→14:45)
[2023-07-15] MEDS: MORPHINE SULFATE 4 MG/ML SYRINGE IV PRN ×5 (02:05→17:58)
[2023-07-15 06:02] LABS: Glucose,Whole Blood 192 mg/dL (70-110)
[2023-07-15] MEDS: BACLOFEN 10 MG TAB PO PRN (06:10)
[2023-07-15] MEDS: INSULIN ASPART (NovoLOG) 100 UNIT/ML VIAL SQ SCH ×4 (06:10→21:01)
[2023-07-15] MEDS: ENOXAPARIN 40 MG/0.4 ML SYRINGE SQ SCH (08:16)
[2023-07-15] MEDS: GABAPENTIN 300 MG CAP PO SCH ×3 (08:16→21:24)
[2023-07-15] MEDS: methylPREDNISolone SOD SUCCIN 500 MG in SODIUM CHLORIDE 0.9% 100 ML IVPB SCH ×2 (08:16→21:25)
[2023-07-15] MEDS: amLODIPine 5 MG TAB PO SCH (08:16)
[2023-07-15] MEDS: DULoxetine HCL 30 MG CAPSULE.DR PO SCH (08:17)
[2023-07-15] MEDS: carBAMazepine 200 MG TAB PO SCH ×2 (08:17→21:25)
[2023-07-15] MEDS: lisinopriL 5 MG TAB PO SCH (08:17)
--- NOTE | 2023-07-15 08:49 | P.PN ---
Subjective Progress Note Date: 07/14/23 07/14/2023: Patient was seen for a follow-up. Patient complains of being very dizzy, the headache is getting worse. Patient says that she used to follow up with [facility], but she was not satisfied. They would continue to do "paperwork, research" but would not treat her. Patient does not appear to be getting better regarding pain even with high-dose steroids, Tegretol, Neurontin. She had previously failed Trileptal because of side effects. 07/13/2023: Patient was seen for a follow-up. Patient states that she is better this today as compared to yesterday. However she woke up with very intense headache. Patient continues to have intermittent severe cephalgia, in which she yells, ask for pain medication. Patient continues to have complete vision loss right eye, with seeing shadows. No improvement so far. 07/12/2023: Patient was seen for a follow-up. Patient continues to have itching on the right facial region, burning on the left side. Patient noticing burning in bilateral neck region. Offers no new complaints. 07/11/2023: Patient initially seen by Dr. Genaro Plascencia. Please refer to his note for details. Patient is a 68-year-old female with history of trigeminal neuralgia, who has right eye vision loss about 3 weeks ago. Patient states that she had history of trigeminal neuralgia that started in and of 2018. She had undergone surgery for left trigeminal neuralgia by Dr. Jones in [facility], which I presume was microvascular decompression without improvement. Patient states that about 2-1/2-3 weeks ago, she states she tripped while stepping in the kitchen. She fell and hit right side of head on the floor. Patient is complaining of difficulty with swallowing. She says that she gets itching in the right occipital region and then it triggers pain of left tri geminal neuralgia, pointing to the left parietal region, extending to the left facial region in the neck. It was not bothersome, but in the last 2-1/2 weeks since her fall, it has got worse, going all the time. Patient while I was examining, developed an acute episode of trigeminal neuralgia, in which she was severely morning, holding her left side of the head with her hand. It was extremely painful. It lasted for about 30-45 seconds and then went away. Some other workup during his hospital visit consisted of: ESR is 20. CRP is less than 0.5. White blood cells 8.9. TSH is 1.76, free T4 is 1.26, total T3 is 90.5. CK is 27 Lipid panel is triglyceride of 143, cholesterol is 130, LDL 66 and HDL is 35 Hemoglobin A1c 6.2. Sodium is 143, calcium is 8.1, phosphorus 2.4, magnesium 2.1. CT of the head is reported as no acute intracranial hemorrhage or midline shift. Paranasal sinus disease redemonstrated. No significant change from most recent prior. I personally reviewed the CT of the head and I agree there is no acute subacute ischemia there is no intracranial bleed. CT angiography of the head and neck was reported as no significant vascular abnormality is seen. Objective - Vital Signs Vital signs: Vital Signs Temp 98.0 F 07/14/23 07:26 Pulse 94 07/14/23 08:00 Resp 12 07/14/23 08:00 BP 101/65 07/14/23 07:26 Pulse Ox 91 L 07/14/23 07:26 FiO2 Intake & Output 07/13/23 07/14/23 07/14/23 18:59 06:59 18:59 Intake Total 118 118 Balance 118 118 Intake: Oral 118 118 Other: Voiding Method Toilet Toilet # Voids 2 1 - Exam Patient is an elderly female, sitting in her bed, appears to be in distress because of pain. When she gets flareup of pain, patient starts moaning, groaning, yelling. Patient is otherwise fully alert and awake, well oriented. Speech and language functions are normal. Cranial nerves revealed pupils equal round and reacting, patient has right afferent pupillary defect. Patient has complete vision loss right eye with normal visual field on the left side. No improvement so far with steroids. Her extraocular muscles are intact and face is symmetric. Tongue protrudes the midline. Shoulder shrug normal. Patient has hyperesthesia of the left trigeminal region, and also extending to the left parietal region. On muscle strength testing, there is no pronator drift and the strength is normal in arms and legs. Sensory to touch is equal. No ataxia for [id number] testing. - Labs CBC & Chem 7: 07/13/23 05:19 07/13/23 05:19 Labs: Abnormal Lab Results - Last 24 Hours (Table) 07/13/23 07/13/23 07/13/23 Range/Units 12:17 13:25 17:08 POC Glucose (mg/dL) 155 H 283 H (70-110) mg/dL CSF RBC 76 H (0-10) u/L CSF Glucose 102 H (40-70) mg/dL CSF Total Protein 82 H (12-60) mg/dL 07/13/23 07/14/23 Range/Units 21:15 06:13 POC Glucose (mg/dL) 247 H 223 H (70-110) mg/dL CSF RBC (0-10) u/L CSF Glucose (40-70) mg/dL CSF Total Protein (12-60) mg/dL Assessment and Plan Assessment: * Subacute vision loss right eye for last 3 weeks. Patient has right APD. Temp oral arteritis unlikely with normal ESR, CRP. * History of trigeminal neuralgia, left side since August 2018, recently worse. * Abnormal brain MRI, with evidence of enhancing lesion in the left mid brain, and also involving the right optic nerve. Patient had a previous abnormal enhancing lesion in the cervical spine in cervicomedullary junction. Rule out neurosarcoid. MS appears unlikely. Rule out NMO. * Diabetes * Hyperlipidemia * Fibromyalgia Plan: * MRI of the brain with and without contrast revealed a new 13 x 13 mm vague area of slight T2 hyperintensity and heterogeneous enhancement in the left lateral aspect of the midbrain without increased signal on diffusion weighted images to suggest acute or subacute infarct. Neoplasm needs to be considered, this has more infiltrative appearance based on MRI characteristics. Other etiology is not excluded. Other etiology is not excluded. Consider referral to a bigger institution/more specialized placed to further evaluate. I personally reviewed MRI, agree with findings involving the lesion mentioned above. On my review, there is evidence of acute enhancement in the right optic nerve as well just before the chiasm. I will review with the radiologist on Thursday. * MRI of the orbits with and without contrast revealed mild right optic nerve is symmetric thickening with minimal peripheral enhancement around the right optic nerve near the globe suggestive of optic neuritis. Normal appearing left optic nerve. Consider short-term follow-up. No evidence of intraorbital mass. * Patient has now 3 lesions in the brain. She has an old enhancing lesion involving the high spinal cord at cervical medullary junction, which has been present at least since MRI performed 02/16/2017. She has involvement of the left mid brain, and also involving the right optic nerve. Need to rule out neurosarcoid. * Serum marcin level normal 9 (8-52), Lyme titer negative. * Cerebrospinal fluid with total WBC, 4, RBC 76, out of which 100% were fresh RBCs, negative crenated cells. CSF glucose is 102 and CSF protein is 82 (12- 60). comprehensive I panel is negative. Awaiting CSF cytology and CSF MARCIN level and MS panel. * Patient continues to have severe trigeminal neuralgia. Continue Tegretol 200 mg twice a day and gabapentin 300 mg twice a day. Trileptal discontinued, as patient was noticing side effects. She believes her symptoms are better with Tegretol. * Start Solu-Medrol 500 mg twice a day. So far patient has not noticed improvement with Solu-Medrol. * Discussed with primary physician. Consider transfer to [facility] for possible plasma exchange. * 2-D echo: Revealed left ventricular ejection fraction is estimated at 55-60%. Grade 1 diastolic dysfunction. No obvious regional wall motion abnormalities. Mildly increased left ventricular wall thickness. No significant valvular dysfunction. Negative agitated saline bubble study for [id number] shunt. * Dr. Plascencia started the patient on small dose of aspirin 81 mg daily (was not on antiplatelets prior to this). Patient is on Lipitor 40 mg daily at bedtime started by the primary team * Ophthalmology is consulted by the primary team * We'll defer the rest of the medical management to primary team * For DVT prophylaxis the patient is on Lovenox * Upon discharge patient will continue to follow up with her neurology team over the [facility] for her chronic headache/trigeminal neuralgia.
--- NOTE | 2023-07-15 09:00 | P.PN ---
Subjective Progress Note Date: 07/15/23 History of present illness: This is a 68-year-old female with no previous cardiac history does not follow with a police or patrol park officer. Patient has a past medical history of diabetes mellitus type 2, hyperlipidemia, fibromyalgia, trigeminal neuralgia. She states she was having trouble with her vision and headache went to see an precinct commanding officer which sent her to the emergency center. Patient denies having any headache at this time. We have been asked to evaluate the patient for bradycardia and pauses. Patient denies having any chest pain, no shortness of breath, no lower extremity edema, no palpitations, no syncope episodes she does not have dizziness or lightheadedness. She denies any cough fever or chills. She is a nonsmoker. She states she is very active at home. Patient is being worked up by neurology for vision loss, abnormal MRI of the brain status post diagnostic lumbar puncture. EKG #1 sinus rhythm 91 bpm, #2 sinus rhythm 104 bpm, telemetry this morning approximately 7:30 AM had heart rate 36 with a pause. Currently heart rate is 104. Echocardiogram performed on 07/09 reveals EF 55-60%, no significant valvular dysfunction. No pericardial effusion. No [id number] shunt. WBC 3.8, hemoglobin 13.4 and platelet count 250. Electrolytes are normal with BUN 8.5 and creatinine 0.6. Elevated liver function tests with AST 88, ALT 165, alkaline phosphatase 204. Home cardiac medications: Atorvastatin 40 mg at bedtime, lisinopril 5 mg daily. 07/15 Patient is seen today in follow-up. Nurse relates that patient had a pause this morning around 6:30 although this could not be found on telemetry for review. It was reported the patient was asymptomatic Patient states she is feeling tired and didn't sleep well due to her headache. She denies having any chest pain or shortness of breath. She denies having any nausea, cough. Blood pressure this morning 176/61 and heart rate 99, pulse ox 95% on room air. Physical examination: Gen: This is a 68-year-old female resting in bed and appears to be comfortable, no acute distress. VS: reviewed HEENT: Head is atraumatic, normocephalic. Pupils equal, round. Sclerae is anicteric. NECK: Supple. No JVD. LUNGS: Clear to auscultation. No wheezes or rhonchi. No intercostal retractions. HEART: Regular rate and rhythm. No murmur. ABDOMEN: Soft No tenderness. EXTREMITIES: No pedal edema. No calf tenderness. NEUROLOGICAL: Patient is awake, alert and oriented x3. Assessment: Asymptomatic bradycardia probably worsened due to headache Diabetes mellitus type 2 Hyperlipidemia Vision loss and abnormal MRI brain with neurology workup Plan: Avoid any AV connie blocking agents Continue patient's home cardiac medications Continue telemetry monitoring for any worsening or symptomatic bradycardia Event monitor for 14 days at time of discharge Cardiology will sign off this case and follow on an as-needed basis. Please reconsult for any new concerns. Patient may follow-up in the office with Dr. Gutiérrez in 3 weeks. Nurse practitioner note has been reviewed, I agree with documented findings and plan of care. Patient was seen and examined. Objective - Vital Signs Vital signs: Vital Signs Temp 97.9 F 07/15/23 02:09 Pulse 96 07/15/23 02:09 Resp 18 07/15/23 02:09 BP 135/82 07/15/23 02:09 Pulse Ox 94 L 07/15/23 02:09 FiO2 Intake & Output 07/14/23 07/15/23 07/15/23 18:59 06:59 18:59 Intake Total 354 Balance 354 Intake: Oral 354 Other: Voiding Method Toilet Toilet # Voids 1 1 - Labs CBC & Chem 7: 07/13/23 05:19 07/13/23 05:19 Labs: Abnormal Lab Results - Last 24 Hours (Table) 07/14/23 07/14/23 07/14/23 Range/Units 12:20 17:11 20:52 POC Glucose (mg/dL) 215 H 239 H 200 H (70-110) mg/dL 07/15/23 Range/Units 06:00 POC Glucose (mg/dL) 192 H (70-110) mg/dL Microbiology - Last 24 Hours (Table) 07/13/23 13:25 CSF Gram Stain - Preliminary Cerebral Spinal Fluid CSF Culture - Preliminary
[2023-07-15 12:35] LABS: Glucose,Whole Blood 303 mg/dL (70-110)
[2023-07-15] MEDS ORDERED: carBAMazepine 200 MG TAB PO SCH (15:00)
[2023-07-15 17:19] LABS: Glucose,Whole Blood 202 mg/dL (70-110)
--- NOTE | 2023-07-15 18:57 | P.PN ---
Subjective Progress Note Date: 07/15/23 Subjective: Patient still having pain and visual loss of right eye. Requiring essentially standing morphine per nursing. Pending transfer to tertiary facility - [facility] and [facility] are looking for beds. Hospital course: Patient is a very pleasant 68-year-old female with a past medical history of trigeminal neuralgia, hypertension, hyperlipidemia, and type II diabetes mellitus. She reports following at [facility] for treatment of her trigeminal neuralgia. Patient presented to the emergency department on 07/08/23 with complaints of gradually worsening right sided vision loss x2 weeks after a fall at home. Patient described her vision as being extremely hazy and dull in the right eye, but denied experiencing any ocular pain. She underwent full evaluation in the emergency department. Labs completed and reviewed. CBC, coagulation profile, and BMP were unremarkable. Initially patient's lactic acid was elevated at 4.1 however after 1 L 0.9% normal saline bolus lactate normalized and resulted at 1.6. Magnesium was low at 1.4 and was replaced. Liver profile showed elevated alkaline phosphatase of 127 and otherwise normal findings. CT brain completed negative for acute intercranial process showing paranasal sinus disease redemonstrated unchanged from previous CT completed 06/15/23 per radiology report. EKG completed showing normal sinus rhythm at 91 b pm with no noted T-wave or ST abnormalities showing no signs of acute ischemia upon personal review and interpretation. CTA head and neck also completed and was negative for acute process showing no significant vascular abnormality, occlusion, or aneurysm noted. Patient was admitted under our services with consultation to neurology, psychiatry, and ophthalmology. 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 MRI completed and radiology report reviewed showing a new 13 x 13 mm Fagg area of slight T2 hyperintensity and heterogeneous enhancement in the left lateral aspect of the mid brain without increased signal on diffusion weighted imaging to suggest acute or subacute infarct however neoplasm needs to be considered, this has more infiltrative appearance based on MRI characteristics.Neurology following, started patient on Solu-Medrol 500 mg every 12 hours 5 days and ordered for MRI orbit and completing a lumbar puncture.-Echocardiogram completed and reviewed showing an EF of 55-60% with no significant valvular dysfunction and negative agitated saline bubble study for right to left shunting. Physical exam: Patient seen and fully evaluated at bedside. Patient continues to report 10 out of 10 pain to the left side of her face and blurred vision in right eye. Patient reports only seeing shadows. Denies any new complaints. Vital signs reviewed and stable. General: Nontoxic, no distress and appears stated age. Derm: Skin warm and dry, normal coloration for ethnicity. Head: Atraumatic, normocephalic and symmetric. Eyes: EOMs intact, no lid lag, and anicteric sclera Mouth: no lip lesions, mucus membranes moist Cardiovascular: regular rate and rhythm with normal S1S2, no murmur, positive posterior tibial pulses bilaterally, and cap refill < 2 seconds. Lungs: Respirations even, regular, and unlabored on room air. Lungs CTA bilaterally, no rhonchi, no rales, no wheezing, and no accessory muscle usage. Abdominal: soft, nontender to palpation, no guarding, no appreciable organomegaly Ext: ROM intact. No gross muscle atrophy, no edema, no contractures Neuro: Speech clear, face symmetrical and CN II-XII grossly intact with no noted focal neuro deficits Psych: Alert and oriented to person, place, time, and situation. Appropriate and pleasant affect. Assessment and Plan of Care: Right Optic Neuritis Trigeminal neuralgia with uncontrolled pain -Neurology following, started patient on Solu-Medrol 500 mg every 12 hours 5 days and ordered for MRI orbit and completing a lumbar puncture. -MRI orbit confirms right optic neuritis, reviewed today and discussed results with Neurologist -Lumbar Puncture: 4 nucleated cells 108 glucose, 82 protein, 76 RBCs -MARCIN level is normal, Lyme screen negative -Discussed with neurology and initiated transfer to [facility] with Dr Louis who accepted patient for PLEX -Ophthalmology consulted, note reviewed taxation consultant stating it is likely patient suffered an ischemic optic neuropathy of the right eye -Symptomatic care and pain management. Hypertension Hyperlipidemia Patient to continue daily medication regimen with lisinopril 5 mg daily and atorvastatin 40 mg nightly. Type II jkw-irtrhzy-mountsscu diabetes mellitus Hold metformin in place patient on glycemic protocol with NovoLog sliding scale. -Hemoglobin A1c. 6.2% Data and imaging reviewed: Vital signs reviewed. Blood pressure 131/75, heart rate 109, respiratory rate 16, temp 98.3F, SpO2 of 94% on room air. CODE STATUS: Full code DVT prophylaxis: Lovenox Anticipated discharge date: Clinical course to determine Anticipated discharge place: Clinical course to determine This document was prepared using [employer] dictation software. Please allow for errors in inspector publications, while rare they do occur. Objective - Vital Signs Vital signs: Vital Signs Temp 98.0 F 07/15/23 14:00 Pulse 91 07/15/23 14:00 Resp 16 07/15/23 14:00 BP 121/77 07/15/23 14:00 Pulse Ox 95 07/15/23 14:00 FiO2 Intake & Output 07/14/23 07/15/23 07/15/23 18:59 06:59 18:59 Intake Total 354 200 Balance 354 200 Intake: Intake, IV Titration 100 Amount methylPREDNISolone SOD 100 SUCCIN 500 mg In Sodium Chloride 0.9% 100 ml @ 100 mls/hr IVPB Q12HR [facility] Rx#:[id number] Oral 354 100 Other: Voiding Method Toilet Toilet # Voids 1 1 1 - Labs CBC & Chem 7: 07/13/23 05:19 07/13/23 05:19 Labs: Abnormal Lab Results - Last 24 Hours (Table) 07/14/23 07/15/23 07/15/23 Range/Units 20:52 06:00 12:34 POC Glucose (mg/dL) 200 H 192 H 303 H (70-110) mg/dL 07/15/23 Range/Units 17:17 POC Glucose (mg/dL) 202 H (70-110) mg/dL Microbiology - Last 24 Hours (Table) 07/13/23 13:25 CSF Gram Stain - Preliminary Cerebral Spinal Fluid CSF Culture - Preliminary
[2023-07-15 20:59] LABS: Glucose,Whole Blood 131 mg/dL (70-110)
[2023-07-15] MEDS: MELATONIN 5 MG TABLET PO SCH (21:24)
[2023-07-15] MEDS: ATORVASTATIN 40 MG TAB PO SCH (21:25)
[2023-07-16] MEDS: MORPHINE SULFATE 4 MG/ML SYRINGE IV PRN ×2 (04:05→08:19)
[2023-07-16 07:34] LABS: Glucose,Whole Blood 129 mg/dL (70-110)
[2023-07-16 08:04] VITALS: BP 158/89; PULSE 89; RESP 19; TEMP 97.6
[2023-07-16] MEDS: DULoxetine HCL 30 MG CAPSULE.DR PO SCH (08:22)
[2023-07-16] MEDS: GABAPENTIN 300 MG CAP PO SCH (08:22)
[2023-07-16] MEDS: amLODIPine 5 MG TAB PO SCH (08:22)
[2023-07-16] MEDS: lisinopriL 5 MG TAB PO SCH (08:22)
[2023-07-16] MEDS: carBAMazepine 200 MG TAB PO SCH (08:22)
--- NOTE | 2023-07-16 11:35 | P.DS ---
Providers Date of admission: 07/11/23 15:20 Expected date of discharge: 07/16/23 Attending physician: Chris Cole MD Consults: 07/08/23 19:14 Consult Physician Routine Consulting Provider: Genaro Plascencia Consult Reason/Comments: ams Do you want consulting provider notified?: Yes Consult Physician Routine Consulting Provider: Benny Calderón Consult Reason/Comments: psych Do you want consulting provider notified?: Yes 07/09/23 00:25 Consult Physician Urgent Consulting Provider: Annabelle Brooks Consult Reason/Comments: r vision loss Do you want consulting provider notified?: Yes 07/14/23 09:59 Consult Physician Routine Consulting Provider: Sundeep Gutiérrez Consult Reason/Comments: bradycardia and pause Do you want consulting provider notified?: Yes [facility] Course: Right Optic Neuritis Trigeminal neuralgia with uncontrolled pain Hypertension Hyperlipidemia Type II izd-[id number]-kyjwpwjcv diabetes mellitus Hospital course: Patient is a very pleasant 68-year-old female with a past medical history of trigeminal neuralgia, hypertension, hyperlipidemia, and type II diabetes mellitus. She reports following at [facility] for treatment of her trigeminal neuralgia. Patient presented to the emergency department on 07/08/23 with complaints of gradually worsening right sided vision loss x2 weeks after a fall at home. Patient described her vision as being extremely hazy and dull in the right eye, but denied experiencing any ocular pain. She underwent full ev aluation in the emergency department. Labs completed and reviewed. CBC, coagulation profile, and BMP were unremarkable. Initially patient's lactic acid was elevated at 4.1 however after 1 L 0.9% normal saline bolus lactate normalized and resulted at 1.6. Magnesium was low at 1.4 and was replaced. Liver profile showed elevated alkaline phosphatase of 127 and otherwise normal findings. CT brain completed negative for acute intercranial process showing paranasal sinus disease redemonstrated unchanged from previous CT completed 06/15/23 per radiology report. EKG completed showing normal sinus rhythm at 91 bpm with no noted T-wave or ST abnormalities showing no signs of acute ischemia upon personal review and interpretation. CTA head and neck also completed and was negative for acute process showing no significant vascular abnormality, occlusion, or aneurysm noted. Patient was admitted under our services with consultation to neurology, psychiatry, and ophthalmology. 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 MRI completed and radiology report reviewed showing a new 13 x 13 mm Fagg area of slight T2 hyperintensity and heterogeneous enhancement in the left lateral aspect of the mid brain without increased signal on diffusion weighted imaging to suggest acute or subacute infarct however neoplasm needs to be considered, this has more infiltrative appearance based on MRI characteristics.Neurology following, started patient on Solu-Medrol 500 mg every 12 hours 5 days and ordered for MRI orbit and completing a lumbar puncture.-Echocardiogram completed and reviewed showing an EF of 55-60% with no significant valvular dysfunction and negative agitated saline bubble study for right to left shunting. Pts MR orbits demonstrated findings of optic neuritis of the right eye. Case discussed with neurology and decision was made to transfer the patient to tertiary care for P KASEY with suspicion of neuromyelitis optica. Pt was transferred to [facility] in [place] on 11/2 am prior to my evaluation. Patient Condition at Discharge: Serious Plan - Discharge Summary New Discharge Prescriptions: No Action lisinopriL [Zestril] 5 mg PO DAILY HYDROcodone/APAP 10-325MG [[place] 10-325] 1 tab PO QID Omeprazole 20 mg PO DAILY Baclofen [Lioresal] 10 mg PO QID PRN PRN Reason: Muscle Spasm Atorvastatin [Lipitor] 40 mg PO HS metFORMIN HCL 1,000 mg PO BID Gabapentin [Neurontin] 300 mg PO TID OXcarbazepine [Trileptal] 450 mg PO BID Discharge Medication List lisinopriL [Zestril] 5 mg PO DAILY 07/11/22 [History] Atorvastatin [Lipitor] 40 mg PO HS 12/25/22 [History] HYDROcodone/APAP 10-325MG [[place] 10-325] 1 tab PO QID 03/03/23 [History] metFORMIN HCL 1,000 mg PO BID 03/03/23 [History] Baclofen [Lioresal] 10 mg PO QID PRN 07/08/23 [History] Gabapentin [Neurontin] 300 mg PO TID 07/08/23 [History] OXcarbazepine [Trileptal] 450 mg PO BID 07/08/23 [History] Omeprazole 20 mg PO DAILY 07/08/23 [History] Follow up Appointment(s)/Referral(s): Sundeep Gutiérrez MD [STAFF PHYSICIAN] - 3 Weeks Annabelle Brooks MD [STAFF PHYSICIAN] - 1 Week Parveen Anaya DO [Primary Care Provider] - 1-2 days Discharge Disposition: TRANSFER TO SHORT TERM HOSP
[2023-07-16 12:32] LABS: IgG - CSF 5.7 mg/dL (0.0 - 3.4); IgG Synthesis Rate 2.43 mg/day (0.00 - 3.00); IgG/Albumin Index (CSF) 0.58 (0.00 - 0.77)
== END 2023-07-16 08:27 | disposition short-term general hospital (02) | DRG 59 ==
LOC: EC 14:34 → 6NMEDSUR 19:14 → OBSVTOIN 07-11 15:20
PROVIDERS: ADMIT Internal Medicine; ATTEND Internal Medicine
PROC: 009U3ZX Drainage of Spinal Canal, Percutaneous Approach, Diagnostic (ICD-10-PCS; principal; 2023-07-13)
DX: G36.0 Neuromyelitis optica [Devic] (principal); E87.20 Acidosis, unspecified; E11.36 Type 2 diabetes mellitus with diabetic cataract; I10 Essential (primary) hypertension; F32.A Depression, unspecified; H25.13 Age-related nuclear cataract, bilateral; H47.011 Ischemic optic neuropathy, right eye; H54.61 Unqualified visual loss, right eye, normal vision left eye; E83.42 Hypomagnesemia; G50.0 Trigeminal neuralgia; E78.5 Hyperlipidemia, unspecified; M79.7 Fibromyalgia; G89.29 Other chronic pain; H53.8 Other visual disturbances; K21.9 Gastro-esophageal reflux disease without esophagitis; F45.42 Pain disorder with related psychological factors; M19.90 Unspecified osteoarthritis, unspecified site; R74.8 Abnormal levels of other serum enzymes; R13.10 Dysphagia, unspecified; Z87.891 Personal history of nicotine dependence; Z79.899 Other long term (current) drug therapy; Z79.84 Long term (current) use of oral hypoglycemic drugs; Z79.891 Long term (current) use of opiate analgesic; Z91.81 History of falling
CPT/HCPCS: 36415; 70450; 70496; 70498; 70543; 70553; 80053; 80061; 81003; 82040; 82042; 82164; 82550; 82784; 82945; 83036; 83605; 83735; 83880; 83916; 84100; 84157; 84439; 84443; 84480; 84484; 85025; 85027; 85610; 85652; 85730; 86140; 86618; 87070; 87205; 87252; 88108; 89050; 93005; 93306; 94760; 96361; 96365; 96366; 96375; 99285

== ENCOUNTER → 2023-12-21 | Outpatient (CLI) | payer MEDICARE, BC, OTHER ==
[2023-12-21 13:01] VITALS: BP 132/62; PULSE 72; RESP 15; TEMP 98.5
--- NOTE | 2023-12-21 20:14 | P.PAINCN ---
History of Present Illness - Reason for Consult Consult date: 12/21/23 left-sided facial pain, trigeminal neuralgia - Chief Complaint left-sided facial pain, trigeminal neuralgia - History of Present Illness Ms. Montgomery is a 68 year old pleasant female patient came to [facility] pain management clinic for initial evaluation for Left-sided trigeminal neuralgia. Patient described pain started Around . She underwent brain surgery with Dr. Alcocer. She is still experiencing similar pain symptoms over her left side face. She described her pain is aching, burning, numbness. Patient rated pain 10 out of 10 in severity. Which may very her pain level from 7-10 out of 10 in severity. Pain increases with activities, Chewing, and light wind, touching her head. Pain decreases with Trileptal 450 mg by mouth every 12 hours. Overall patient activities decreased secondary to pain. Pain medications helping to some extent. Because of the pain patient is feeling lack of sleep and interest and energy. Denied any bowel or bladder problems. Patient denies any adverse effects to medications. She is not using any walking aids for walking. Complaining depression secondary to pain but denied any suicidal/homicidal tendency at this time. There are no signs of narcotic diversion/misuse/overuse and no new-onset weakness, bowel/bladder incontinence, saddle anesthesia, or no red flag symptoms. She was recommended to follow up with [facility] for her trigeminal neuralgia, And optic neuritis. She never tried any intervention procedures for her trigeminal neuralgia. Review of Systems 13 point review of symptoms negative except as mentioned in the history of present illness Past Medical History Past Medical History: Diabetes Mellitus, Fibromyalgia, GERD/Reflux, Hyperlipidemia, Osteoarthritis (OA), Thyroid Disorder Additional Past Medical History / Comment(s): trigeminal neuralgia, thyroid nodules History of Any Multi-Drug Resistant Organisms: None Reported Past Surgical History: Bladder Surgery, Cholecystectomy, Hysterectomy, Orthopedic Surgery Additional Past Surgical History / Comment(s): sinus surgery, arthroscopy right knee, bladder suspension,plate placed behind her ear. Past Anesthesia/Blood Transfusion Reactions: No Reported Reaction Smoking Status: Former smoker - Past Family History Mother Family Medical History: Hypertension Father Family Medical History: Diabetes Mellitus Medications and Allergies Home Medications Medication Instructions Recorded Confirmed Type lisinopriL [Zestril] 5 mg PO DAILY 07/11/22 07/08/23 History Atorvastatin [Lipitor] 40 mg PO HS 12/25/22 07/08/23 History HYDROcodone/APAP 10-325MG [[place] 1 tab PO QID 03/03/23 07/08/23 History 10-325] metFORMIN HCL 1,000 mg PO BID 03/03/23 07/08/23 History Baclofen [Lioresal] 10 mg PO QID PRN 07/08/23 07/08/23 History Gabapentin [Neurontin] 300 mg PO TID 07/08/23 07/08/23 History OXcarbazepine [Trileptal] 450 mg PO BID 07/08/23 07/08/23 History Omeprazole 20 mg PO DAILY 07/08/23 07/08/23 History Allergies Allergy/AdvReac Type Severity Reaction Status Date / Time No Known Allergies Allergy Verified 07/08/23 17:47 Physical Exam Vitals: Vital Signs Temp Pulse Resp BP Pulse Ox 12/21/23 12:19 98.5 F 72 15 132/62 98 Intake and Output 12/20/23 12/21/23 12/21/23 22:59 06:59 14:59 Other: Weight 71.668 kg General: Well-developed, well-nourished, no acute distress HEENT: Normocephalic, and atraumatic Neck: Supple, no neck swelling Psychiatric: Appropriate mood, and affect Musculoskeletal: Upper extremity: Normal strength, and range of motion. facial, and neck, and head examination: Hyperalgesia over left upper jaw, Eye area. She refuses to touch her head for examination secondary to her discomfort. Results Comments: MR are bit with our without contrast done on 07/13/2023 showed his Lyme mild right optic nerve asymmetric thickening with minimal peripheral enhancement around the right optic nerve near the globe suggestive off optic neuritis. Normal appearing left optic nerve consider short-term follow-up. No evidence of intraorbital mass. CT angiogram head and neck done on 07/08/2023 would No significant vascular abnormality. Spondylolisthesis along with a disc space narrowing, and spurring at C5-C6, and C6-C7 levels Assessment and Plan Assessment: left-sided trigeminal neuralgia Chronic pain syndrome Plan: #1 Diagnoses, prognosis, and multiple treatment options including but not limited to physical therapy, interventional therapy, adjunct medication therapy, narcotic medication, and surgical options were discussed with the patient. And all questions were answered to the patient's satisfaction. #2 treatment plan agreement : Patient was thoroughly discussed regarding the treatment options, alternatives, and importance of exercises as tolerated. Patient clearly understood. #3 investigations: MAPS- reviewed , urine drug test- Not done #4 diagnostic tests: None at this time #5 consultation : neurosurgical consultation for evaluation and treatment for trigeminal neuralgia. # 6 interventional procedures: the trigeminal nerve block procedure, complications, alternatives discussed with the patient. #7 medications None at this time from the pain clinic, she was recommended to follow up with neurologist regarding her pain medication she is taking Trileptal 450 mg by mouth every 12 hours. #8 morphine milligrams equivalents dose ( MME) per day: 0 from the pain clinic. #9 disposition: recommended to follow up with the pain clinic as needed in future. PQRS Measure Charge Sheet Measure #130: Documentation of Current Meds in Medical Chart: Patient's medications documented in chart Measure #226: Tobacco Use: Screen & Cessation Intervention: Pt not a tobacco user Measure #111: Pneumonia Vaccination: Pneumococcal vaccine administered or previously received Measure #47: Advance Care Plan: Advance care planning discussed & documented, plan or surrogate given Measure #412: Opioid Treatment Agreement: Documented signed opioid trtmnt agreemnt min once during opioid trtmnt Measure #408: Opioid Therapy Follow-up Evaluation: Patient had f/u eval minimum every 3 months during opioid therapy Measure #317: Preventitive Care & Scrn High Bld Press & F/U: Pre-hypertensive or hypertensive BP documented, pt will f/u with PCP Measure #128: Body Mass Index (BMI) Screening & Follow-up: BMI documented within normal parameters Measure #131: Pain Assessment & Follow-up: Pain positive & plan documented Measure #431: Unhealthy Alcohol Use Preventative Care & Scrn: Patient not identified as an unhealthy alcohol user Mode of Arrival: Ambulatory - Pain Location Left Head Non-Pharmacological Interventions: Heat PQRS Narrative: Smoking Status Former smoker Blood Pressure 132/62 Pain Intensity [Left Head] 10 Scale Used Numeric (1 - 10) Hx Alcohol Use (MH) No Home Medications: Ambulatory Orders lisinopriL [Zestril] 5 mg PO DAILY 07/11/22 Atorvastatin [Lipitor] 40 mg PO HS 12/25/22 HYDROcodone/APAP 10-325MG [[place] 10-325] 1 tab PO QID 03/03/23 metFORMIN HCL 1,000 mg PO BID 03/03/23 Baclofen [Lioresal] 10 mg PO QID PRN 07/08/23 Gabapentin [Neurontin] 300 mg PO TID 07/08/23 OXcarbazepine [Trileptal] 450 mg PO BID 07/08/23 Omeprazole 20 mg PO DAILY 07/08/23
== END ==
LOC: PNWHC3 11:34
PROVIDERS: ATTEND Anesthesiology
DX: G50.0 Trigeminal neuralgia (principal); G89.4 Chronic pain syndrome; H46.9 Unspecified optic neuritis; Z87.891 Personal history of nicotine dependence
CPT/HCPCS: 99211

== ENCOUNTER 2024-01-12 15:17 | Emergency (ER) | payer MEDICARE, BC, OTHER ==
[2024-01-12 16:14] VITALS: RESP 18
--- NOTE | 2024-01-12 16:17 | ED ---
General Adult HPI - General Chief complaint: Headache Stated complaint: Facial pain Time Seen by Provider: 01/12/24 15:53 Source: patient, RN notes reviewed, old records reviewed Mode of arrival: wheelchair Limitations: no limitations - History of Present Illness Initial comments: Patient is a 68-year-old female present emergency department with concerns for left-sided facial pain. Patient states symptoms have been occurring for around 4 years. Patient states she presents emergency department today for pain control. Patient states she has seen multiple specialist for this. Patient states they have considered doing surgery. Patient states symptoms are similar to previous. Discomfort is left-sided face. No weakness or confusion. - Related Data Home Medications Medication Instructions Recorded Confirmed lisinopriL [Zestril] 5 mg PO DAILY 07/11/22 07/08/23 Atorvastatin [Lipitor] 40 mg PO HS 12/25/22 07/08/23 HYDROcodone/APAP 10-325MG [[place] 1 tab PO QID 03/03/23 07/08/23 10-325] metFORMIN HCL 1,000 mg PO BID 03/03/23 07/08/23 Baclofen [Lioresal] 10 mg PO QID PRN 07/08/23 07/08/23 Gabapentin [Neurontin] 300 mg PO TID 07/08/23 07/08/23 OXcarbazepine [Trileptal] 450 mg PO BID 07/08/23 07/08/23 Omeprazole 20 mg PO DAILY 07/08/23 07/08/23 Allergies Allergy/AdvReac Type Severity Reaction Status Date / Time No Known Allergies Allergy Verified 01/12/24 15:52 Review of Systems ROS Statement: Those systems with pertinent positive or pertinent negative responses have been documented in the HPI. ROS Other: All systems not noted in ROS Statement are negative. Constitutional: Denies: fever Eyes: Denies: eye pain ENT: Denies: ear pain Respiratory: Denies: cough Cardiovascular: Denies: chest pain Neurological: Reports: as per HPI Past Medical History Past Medical History: Diabetes Mellitus, Fibromyalgia, GERD/Reflux, Hyperlipidemia, Osteoarthritis (OA), Thyroid Disorder Additional Past Medical History / Comment(s): trigeminal neuralgia, thyroid nodules History of Any Multi-Drug Resistant Organisms: None Reported Past Surgical History: Bladder Surgery, Cholecystectomy, Hysterectomy, Orthopedic Surgery Additional Past Surgical History / Comment(s): sinus surgery, arthroscopy right knee, bladder suspension,plate placed behind her ear. Past Anesthesia/Blood Transfusion Reactions: No Reported Reaction Past Psychological History: Anxiety Smoking Status: Former smoker - Past Family History Mother Family Medical History: Hypertension Father Family Medical History: Diabetes Mellitus General Exam Limitations: no limitations General appearance: alert, in no apparent distress Head exam: Present: atraumatic, normocephalic Eye exam: Present: normal appearance, PERRL, EOMI ENT exam: Present: normal oropharynx Neck exam: Present: normal inspection Respiratory exam: Present: normal lung sounds bilaterally Cardiovascular Exam: Present: regular rate, normal rhythm GI/Abdominal exam: Present: soft. Absent: tenderness Extremities exam: Present: normal inspection Neurological exam: Present: alert, oriented X3, CN II-XII intact. Absent: motor sensory deficit Expanded Neurological exam: Present: protecting the airway Patient oriented to: Present: person, place, time Speech: Present: fluid speech Cranial nerves: EOM's Intact: Normal, Facial Sensation: Normal Sensory exam: Upper Extremity Light Touch: Normal, Lower Extremity Light Touch: Normal Motor strength exam: RUE: 5, LUE: 5, RLE: 5, LLE: 5 Eye Response: (4) open spontaneously Motor Response: (6) obeys commands Verbal Response: (5) oriented Psychiatric exam: Present: normal affect, normal mood Skin exam: Present: normal color. Absent: rash Course Vital Signs 01/12/24 15:48 Temperature 98.3 F Pulse Rate 100 Respiratory 18 Rate Blood Pressure 110/72 O2 Sat by Pulse 96 Oximetry Medical Decision Making - Medical Decision Making Was pt. sent in by a medical professional or institution ([facility], [employer] [facility], urgent care, hospital, or jail...) When possible be specific @ -No Did you speak to anyone other than the patient for history (EMS, parent, family, police, friend...)? What history was obtained from this source @ -No Did you review nursing and triage notes (agree or disagree)? Why? @ -I reviewed and agree with nursing and triage notes Were old charts reviewed (outside hosp., previous admission, EMS record, old EKG, old radiological studies, urgent care reports/EKG's, jail records)? Report findings @ -Previous visits reviewed Differential Diagnosis (chest pain, altered mental status, abdominal pain women, abdominal pain men, vaginal bleeding, weakness, fever, dyspnea, syncope, headache, dizziness, GI bleed, back pain, seizure, CVA, palpatations, mental health, musculoskeletal)? @ -Differential Headache: Migraine, tension, cluster, carbon monoxide, central venous thrombosis, pension karma temporal arteritis, acute closure glaucoma, intercranial hemorrhage, mastoiditis, sinusitis, head injury, this is not meant to be an all-inclusive list. EKG interpreted by me (3pts min.). @ -As above X-rays interpreted by me (1pt min.). @ -None done CT interpreted by me (1pt min.). @ -None done U/S interpreted by me (1pt. min.). @ -None done What testing was considered but not performed or refused? (CT, X-rays, U/S, labs )? Why? @ -None What meds were considered but not given or refused? Why? @ -None Did you discuss the management of the patient with other professionals (professionals i.e. , PA, [employer], lab, RT, psych nurse, clinical social work aide, art gilder, teacher, airline pilot/first officer, welfare case worker)? Give summary @ -No Was smoking cessation discussed for >3mins.? @ -No Was critical care preformed (if so, how long)? @ -No Were there social determinants of health that impacted care today? How? (Homelessness, low income, unemployed, alcoholism, drug addiction, transportation, low edu. Level, literacy, decrease access to med. care, senior living, rehab)? @ -No Was there de-escalation of care discussed even if they declined (Discuss DNR or withdrawal of care, Hospice)? DNR status @ -No What co-morbidities impacted this encounter? (DM, HTN, Smoking, COPD, CAD, Cancer, CVA, ARF, Chemo, Hep., AIDS, mental health diagnosis, sleep apnea, morbid obesity)? @ -None Was patient admitted / discharged? Hospital course, mention meds given and route, prescriptions, significant lab abnormalities, going to OR and other pertinent info. @ -Patient presents with exacerbation of her chronic pain. Patient request pain medication. Patient states usually when she comes here she receives 3 medications including Dilaudid. Undiagnosed new problem with uncertain prognosis? @ -No Drug Therapy requiring intensive monitoring for toxicity (Heparin, Nitro, Insulin, Cardizem)? @ -No Were any procedures done? @ -No Diagnosis/symptom? @ -Trigeminal neuralgia Acute, or Chronic, or Acute on Chronic? @ -Acute on chronic Uncomplicated (without systemic symptoms) or Complicated (systemic symptoms)? @ -Default Side effects of treatment? @ -No Exacerbation, Progression, or Severe Exacerbation? @ -Exacerbation of pain Poses a threat to life or bodily function? How? (Chest pain, [place], [place], pneumonia, PE, COPD, DKA, ARF, appy, cholecystitis, CVA, Diverticulitis, Homicidal, Suicidal, threat to staff... and all critical care pts) @ -No Disposition Clinical Impression: Trigeminal neuralgia Disposition: HOME SELF-CARE Condition: Stable Instructions (If sedation given, give patient instructions): Acute Headache (ED) Additional Instructions: Please do follow-up with your primary care physician and neurologist in the next couple of days for recheck. Return for worsening or changing symptoms, fevers, weakness or other concerns. Is patient prescribed a controlled substance at d/c from ED?: No Referrals: Parveen Anaya DO [Primary Care Provider] - 1-2 days Time of Disposition: 16:17
[2024-01-12] MEDS: diphenhydrAMINE 50 MG/ML 1 ML VIAL IM STA (16:26)
[2024-01-12] MEDS: HYDROmorphone 0.5 MG/0.5 ML SYRINGE IM STA (16:26)
[2024-01-12] MEDS: KETOROLAC 15 MG/ML 1 ML VIAL IM STA (16:26)
[2024-01-12 16:54] VITALS: BP 137/83; PULSE 95; TEMP 98.2
== END 2024-01-12 16:45 | disposition home or self-care (01) ==
LOC: EC 15:17
DX: G50.0 Trigeminal neuralgia (principal); Z87.891 Personal history of nicotine dependence
CPT/HCPCS: 99284; 96372 ×3; J1200; J1885; J1170

== ENCOUNTER → 2024-01-18 | Outpatient (CLI) | payer MEDICARE, BC, OTHER ==
--- NOTE | 2024-01-18 21:36 | MR ---
EXAMINATION TYPE: MR brain wo/w con DATE OF EXAM: 01/18/2024 COMPARISON: HISTORY: Trigeminal neuralgia, left side hearing loss, history of surgery plate behind left ear. TECHNIQUE: Multiplanar, multisequence images of the brain and brainstem is performed without and with IV contras t, utilizing 7.5 mL intravenous Gadavist . Findings: The ventricles, basal cisterns and sulci over the convexities are within normal limits and there is n o mass effect or shift of the midline structures. On the FLAIR images there are no white matter abnor malities.. On the diffusion-weighted images, there is no diffusion restriction or acute ischemic even t. As on the prior study, there is a focal area of abnormally increased signal intensity on the FLAIR an d T2-weighted images at the origin of the left trigeminal nerve in the upper portion of the smita. Fol lowing contrast administration, there is ill-defined pathological enhancement in this region. There h as been no interval change compared to the prior study. The remainder of the posterior fossa is stabl e with no new abnormality. IMPRESSION: Abnormal signal intensity and enhancement at the origin of the left 5th nerve unchanged compared to p revious. The possibility of neoplasm or demyelinating disease should be considered. No new abnormalit y seen.
== END | disposition home or self-care (01) ==
LOC: RADMRIMAIN 21:30
PROVIDERS: ATTEND Neurological Surgery
DX: G50.0 Trigeminal neuralgia (principal); R94.02 Abnormal brain scan; H91.92 Unspecified hearing loss, left ear; Z98.890 Other specified postprocedural states
CPT/HCPCS: 70553; A9585

== ENCOUNTER 2024-03-05 16:09 | Emergency (ER) | payer MEDICARE, BC, OTHER ==
--- NOTE | 2024-03-05 17:51 | ED ---
General Adult HPI - General Chief complaint: Headache Stated complaint: headache Time Seen by Provider: 03/05/24 16:58 Source: patient, RN notes reviewed Mode of arrival: wheelchair Limitations: no limitations - History of Present Illness Initial comments: 68 year Old female presenting to the ED with a chief complaint of headache. Patient had prior history of trigeminal neuralgia. Has been ongoing for the last 4 years. States she had new diagnosis and was told may not be trigeminal neuralgia. Notes left-sided facial pain/headache. No worse than usual and she reports a headache today is consistent with her headache history. However, notes that she has run out of her Tegretol. States that she is going to follow- up with Dr. Huizar on the of this month for this. Denies any new symptoms. No fever or chills. No chest pain or shortness of breath. Of note, patient had an MRI performed on 01/18/2024 which showed abnormal signal intensity and enhancement at the origin of the left 5th nerve which was unchanged compared to prior. - Related Data Home Medications Medication Instructions Recorded Confirmed lisinopriL [Zestril] 5 mg PO DAILY 07/11/22 07/08/23 Atorvastatin [Lipitor] 40 mg PO HS 12/25/22 07/08/23 HYDROcodone/APAP 10-325MG [[place] 1 tab PO QID 03/03/23 07/08/23 10-325] metFORMIN HCL 1,000 mg PO BID 03/03/23 07/08/23 Baclofen [Lioresal] 10 mg PO QID PRN 07/08/23 07/08/23 Gabapentin [Neurontin] 300 mg PO TID 07/08/23 07/08/23 OXcarbazepine [Trileptal] 450 mg PO BID 07/08/23 07/08/23 Omeprazole 20 mg PO DAILY 07/08/23 07/08/23 Previous Rx's Medication Instructions Recorded Ketorolac [Toradol] 10 mg PO Q8HR #15 tab 03/05/24 Allergies Allergy/AdvReac Type Severity Reaction Status Date / Time No Known Allergies Allergy Verified 03/05/24 16:22 Review of Systems ROS Statement: Those systems with pertinent positive or pertinent negative responses have been documented in the HPI. ROS Other: All systems not noted in ROS Statement are negative. Past Medical History Past Medical History: Diabetes Mellitus, Fibromyalgia, GERD/Reflux, Hyperlipidemia, Osteoarthritis (OA), Thyroid Disorder Additional Past Medical History / Comment(s): trigeminal neuralgia, thyroid nodules History of Any Multi-Drug Resistant Organisms: None Reported Past Surgical History: Bladder Surgery, Cholecystectomy, Hysterectomy, Orthope dic Surgery Additional Past Surgical History / Comment(s): sinus surgery, arthroscopy right knee, bladder suspension,plate placed behind her ear. Past Anesthesia/Blood Transfusion Reactions: No Reported Reaction Past Psychological History: Anxiety Smoking Status: Former smoker - Past Family History Mother Family Medical History: Hypertension Father Family Medical History: Diabetes Mellitus General Exam Limitations: no limitations General appearance: alert, in no apparent distress Head exam: Present: atraumatic, normocephalic Eye exam: Present: normal appearance, PERRL, EOMI Neck exam: Present: normal inspection Respiratory exam: Present: normal lung sounds bilaterally Cardiovascular Exam: Present: regular rate GI/Abdominal exam: Present: soft, normal bowel sounds. Absent: distended, ten derness, guarding, rebound, rigid Neurological exam: Present: alert, oriented X3, CN II-XII intact Skin exam: Present: warm, dry Course Vital Signs 03/05/24 16:16 Temperature 98 F Pulse Rate 99 Respiratory 17 Rate Blood Pressure 122/75 O2 Sat by Pulse 95 Oximetry Medical Decision Making - Medical Decision Making Was pt. sent in by a medical professional or institution (, PA, [employer], urgent care, hospital, or jail...) When possible be specific @ -No Did you speak to anyone other than the patient for history (EMS, parent, family, police, friend...)? What history was obtained from this source @ -No Did you review nursing and triage notes (agree or disagree)? Why? @ -I reviewed and agree with nursing and triage notes Were old charts reviewed (outside hosp., previous admission, EMS record, old EKG, old radiological studies, urgent care reports/EKG's, jail records)? Report findings @ -Reviewed prior MRI. For further details please see HPI. Differential Diagnosis (chest pain, altered mental status, abdominal pain women, abdominal pain men, vaginal bleeding, weakness, fever, dyspnea, syncope, headache, dizziness, GI bleed, back pain, seizure, CVA, palpatations, mental hea lth, musculoskeletal)? @ -Differential Headache: Migraine, tension, cluster, carbon monoxide, central venous thrombosis, pension karma temporal arteritis, acute closure glaucoma, intercranial hemorrhage, mastoiditis, sinusitis, head injury, this is not meant to be an all-inclusive list. EKG interpreted by me (3pts min.). @ -None X-rays interpreted by me (1pt min.). @ -None done CT interpreted by me (1pt min.). @ -None done U/S interpreted by me (1pt. min.). @ -None done What testing was considered but not performed or refused? (CT, X-rays, U/S, labs)? Why? @ -Imaging was considered however patient reports that her pain today is consistent with her history and has had no changes. What meds were considered but not given or refused? Why? @ -None Did you discuss the management of the patient with other professionals (professionals i.e. , PA, [employer], lab, RT, psych nurse, clinical social worker, ice platform supervisor, teacher, command and control officer, case assembler)? Give summary @ -No Was smoking cessation discussed for >3mins.? @ -No Was critical care preformed (if so, how long)? @ -No Were there social determinants of health that impacted care today? How? (H omelessness, low income, unemployed, alcoholism, drug addiction, transportation, low edu. Level, literacy, decrease access to med. care, [facility], rehab)? @ -No Was there de-escalation of care discussed even if they declined (Discuss DNR or withdrawal of care, Hospice)? DNR status @ -No What co-morbidities impacted this encounter? (DM, HTN, Smoking, COPD, CAD, Cancer, CVA, ARF, Chemo, Hep., AIDS, mental health diagnosis, sleep apnea, morbid obesity)? @ -None Was patient admitted / discharged? Hospital course, mention meds given and route, prescriptions, significant lab abnormalities, going to OR and other pertinent info. @ -Discharge 68-year-old female presenting to the ED with a chief complaint of headache. Patient reports possible history of trigeminal neuralgia and reports that her headache today is consistent with her history of headaches. No worse than usual. Is following with a specialist for this on the of the month. However notes pain medications have not been helping therefore prompting presentation to the ED for further evaluation. Basic laboratory studies performed and reviewed. Labs including CBC, CMP, UA unremarkable. Patient provided analgesia here in the ED with significant improvement of her symptoms. Patient requested prescription for Toradol be sent. This was provided to her. Discharged home in stable condition. Advise close follow-up with her specialist. Discussed return precautions with patient who verbalized agreement. Undiagnosed new problem with uncertain prognosis? @ -No Drug Therapy requiring intensive monitoring for toxicity (Heparin, Nitro, Insulin, Cardizem)? @ -No Were any procedures done? @ -No Diagnosis/symptom? @ -Headache Acute, or Chronic, or Acute on Chronic? @ -Acute on chronic Uncomplicated (without systemic symptoms) or Complicated (systemic symptoms)? @ -Uncomplicated Side effects of treatment? @ -No Exacerbation, Progression, or Severe Exacerbation? @ -No Poses a threat to life or bodily function? How? (Chest pain, [place], [place], pneumonia, PE, COPD, DKA, ARF, appy, cholecystitis, CVA, Diverticulitis, Homicidal, Suicidal, threat to staff... and all critical care pts) @ -No - Lab Data Result diagrams: 03/05/24 17:52 03/05/24 17:52 Lab Results 03/05/24 03/05/24 03/05/24 Range/Units 17:52 17:52 18:02 WBC 9.4 (3.8-10.6) k/uL RBC 4.27 (3.80-5.40) m/uL Hgb 12.9 (11.4-16.0) gm/dL Hct 39.5 (34.0-46.0) % MCV 92.5 (80.0-100.0) fL MCH 30.2 (25.0-35.0) pg MCHC 32.7 (31.0-37.0) g/dL RDW 13.5 (11.5-15.5) % Plt Count 200 (150-450) k/uL MPV 8.0 Neutrophils % 52 % Lymphocytes % 37 % Monocytes % 5 % Eosinophils % 3 % Basophils % 1 % Neutrophils # 4.9 (1.3-7.7) k/uL Lymphocytes # 3.5 (1.0-4.8) k/uL Monocytes # 0.5 (0-1.0) k/uL Eosinophils # 0.3 (0-0.7) k/uL Basophils # 0.1 (0-0.2) k/uL Sodium 141 (137-145) mmol/L Potassium 4.1 (3.5-5.1) mmol/L Chloride 106 (98-107) mmol/L Carbon Dioxide 23 (22-30) mmol/L Anion Gap 12 mmol/L BUN 9 (7-17) mg/dL Creatinine 0.59 (0.52-1.04) mg/dL Est GFR (CKD-EPI)AfAm >90 (>60 ml/min/1.73 sqM) Est GFR (CKD-EPI)NonAf >90 (>60 ml/min/1.73 sqM) Glucose 202 H (74-99) mg/dL Calcium 9.5 (8.4-10.2) mg/dL Total Bilirubin 0.5 (0.2-1.3) mg/dL AST 17 (14-36) U/L ALT 15 (4-34) U/L Alkaline Phosphatase 90 (38-126) U/L Total Protein 7.0 (6.3-8.2) g/dL Albumin 4.4 (3.5-5.0) g/dL Urine Color Yellow Urine Appearance Clear (Clear) Urine pH 6.0 (5.0-8.0) Ur Specific [place] 1.037 H (1.001-1.035) Urine Protein Trace H (Negative) Urine Glucose (UA) 1+ H (Negative) Urine Ketones 1+ H (Negative) Urine Blood Negative (Negative) Urine Nitrite Negative (Negative) Urine Bilirubin Negative (Negative) Urine Urobilinogen 3.0 (<2.0) mg/dL Ur Leukocyte Esterase Negative (Negative) Disposition Clinical Impression: Headache Disposition: HOME SELF-CARE Condition: Good Additional Instructions: Please return to the Emergency Department if symptoms worsen or any other concerns. Please follow-up with your specialist as scheduled. Prescriptions: Ketorolac [Toradol] 10 mg PO Q8HR #15 tab Is patient prescribed a controlled substance at d/c from ED?: No Referrals: Parveen Anaya DO [Primary Care Provider] - 1-2 days Time of Disposition: 18:34
[2024-03-05 18:03] LABS: Basophils # (A) 0.1 k/uL (0-0.2); Basophils % (A) 1 %; Eosinophils # (A) 0.3 k/uL (0-0.7); Eosinophils % (A) 3 %; HCT 39.5 % (34.0-46.0); HGB 12.9 gm/dL (11.4-16.0); Lymphocytes # (A) 3.5 k/uL (1.0-4.8); Lymphocytes % (A) 37 %; MCH 30.2 pg (25.0-35.0); MCHC 32.7 g/dL (31.0-37.0); MCV 92.5 fL (80.0-100.0); Monocytes # (A) 0.5 k/uL (0-1.0); Monocytes % (A) 5 %; Neutrophils # (A) 4.9 k/uL (1.3-7.7); Neutrophils % (A) 52 %; Platelet Count 200 k/uL (150-450); RBC 4.27 m/uL (3.80-5.40); RDW 13.5 % (11.5-15.5); WBC 9.4 k/uL (3.8-10.6)
[2024-03-05 18:09] LABS: Appearance,Urine Clear (Clear); Bilirubin,Urine Negative (Negative); Blood,Urine Negative (Negative); Color,Urine Yellow; Glucose,Urine (UA) 1+ (Negative); Ketones,Urine 1+ (Negative); Leukocyte Esterase,Urine Negative (Negative); Nitrite,Urine Negative (Negative); Protein,Urine Trace (Negative); Specific Gravity,Urine 1.037 (1.001-1.035)
[2024-03-05] MEDS: SODIUM CHLORIDE 0.9% 1,000 ML IV STA (18:14)
[2024-03-05] MEDS: HYDROmorphone 1 MG/ML 1 ML SYRINGE IVP STA (18:16)
[2024-03-05 18:20] LABS: ALT 15 U/L (4-34); AST 17 U/L (14-36); African American GFR (CKD) >90 (>60 ml/min/1.73 sqM); Albumin 4.4 g/dL (3.5-5.0); Alkaline Phosphatase 90 U/L (38-126); Anion Gap 12 mmol/L; Blood Urea Nitrogen 9 mg/dL (7-17); Calcium 9.5 mg/dL (8.4-10.2); Carbon Dioxide 23 mmol/L (22-30); Chloride 106 mmol/L (98-107); Glucose 202 mg/dL (74-99); Non-African American GFR(CKD) >90 (>60 ml/min/1.73 sqM); Potassium 4.1 mmol/L (3.5-5.1); Sodium 141 mmol/L (137-145); Total Bilirubin 0.5 mg/dL (0.2-1.3)
[2024-03-05] MEDS: diphenhydrAMINE 50 MG/ML 1 ML VIAL IVP STA (18:21)
[2024-03-05] MEDS: KETOROLAC 15 MG/ML 1 ML VIAL IVP STA (18:21)
[2024-03-05 19:05] VITALS: BP 138/76; PULSE 82; RESP 18; TEMP 98.1
== END 2024-03-05 19:02 | disposition home or self-care (01) ==
LOC: EC 16:09
DX: R51.9 Headache, unspecified (principal); Z87.891 Personal history of nicotine dependence
CPT/HCPCS: 36415; 80053; 85025; 81003; 99284; 96374; 96375 ×2; 96361; J1200; J1170; J1885

== ENCOUNTER 2024-03-24 18:17 | Emergency (ER) | payer MEDICARE, BC, OTHER ==
[2024-03-24 18:24] VITALS: RESP 18; TEMP 97.8
[2024-03-24] MEDS: HYDROmorphone 1 MG/ML 1 ML SYRINGE IVP STA (18:49)
[2024-03-24] MEDS: SODIUM CHLORIDE 0.9% 500 ML 500 ML IV ONE (18:50)
[2024-03-24] MEDS: KETOROLAC 15 MG/ML 1 ML VIAL IVP STA (18:50)
[2024-03-24] MEDS: diphenhydrAMINE 50 MG/ML 1 ML VIAL IVP STA (18:50)
--- NOTE | 2024-03-24 18:54 | ED ---
General Adult HPI - General Chief complaint: Headache Stated complaint: L head pain, nerves Time Seen by Provider: 03/24/24 18:28 Source: patient, RN notes reviewed, old records reviewed Mode of arrival: ambulatory Limitations: no limitations - History of Present Illness Initial comments: 69 yo female patient presents for evaluation of predominantly left-sided headache. Patient describes this as an electrical sensation. Patient has had chronic headache history for many years. She normally takes medication at home including [place]. She states that her home medications did not work today but the character of her headache is the same as its chronic nature. She denies fever. She denies focal numbness or weakness. She has been seen by 3 different neurologist with the same complaint. - Related Data Home Medications Medication Instructions Recorded Confirmed lisinopriL [Zestril] 5 mg PO DAILY 07/11/22 07/08/23 Atorvastatin [Lipitor] 40 mg PO HS 12/25/22 07/08/23 HYDROcodone/APAP 10-325MG [[place] 1 tab PO QID 03/03/23 07/08/23 10-325] metFORMIN HCL 1,000 mg PO BID 03/03/23 07/08/23 Baclofen [Lioresal] 10 mg PO QID PRN 07/08/23 07/08/23 Gabapentin [Neurontin] 300 mg PO TID 07/08/23 07/08/23 OXcarbazepine [Trileptal] 450 mg PO BID 07/08/23 07/08/23 Omeprazole 20 mg PO DAILY 07/08/23 07/08/23 Previous Rx's Medication Instructions Recorded Ketorolac [Toradol] 10 mg PO Q8HR #15 tab 03/05/24 Allergies Allergy/AdvReac Type Severity Reaction Status Date / Time No Known Allergies Allergy Verified 03/24/24 18:24 Review of Systems ROS Statement: Those systems with pertinent positive or pertinent negative responses have been documented in the HPI. ROS Other: All systems not noted in ROS Statement are negative. Past Medical History Past Medical History: Diabetes Mellitus, Fibromyalgia, GERD/Reflux, Hyper lipidemia, Osteoarthritis (OA), Thyroid Disorder Additional Past Medical History / Comment(s): trigeminal neuralgia, thyroid nodules History of Any Multi-Drug Resistant Organisms: None Reported Past Surgical History: Bladder Surgery, Cholecystectomy, Hysterectomy, Orthopedic Surgery Additional Past Surgical History / Comment(s): sinus surgery, arthroscopy right knee, bladder suspension,plate placed behind her ear. Past Anesthesia/Blood Transfusion Reactions: No Reported Reaction Past Psychological History: Anxiety Smoking Status: Former smoker Past Alcohol Use History: None Reported Past Drug Use History: None Reported - Past Family History Mother Family Medical History: Hypertension Father Family Medical History: Diabetes Mellitus General Exam Limitations: no limitations General appearance: alert, in no apparent distress Head exam: Present: atraumatic, normocephalic Eye exam: Present: normal appearance, PERRL, EOMI ENT exam: Present: normal exam Neck exam: Present: normal inspection. Absent: tenderness, meningismus Respiratory exam: Present: normal lung sounds bilaterally. Absent: respiratory distress, wheezes Cardiovascular Exam: Present: regular rate, normal rhythm GI/Abdominal exam: Present: soft. Absent: distended, tenderness, guarding Extremities exam: Present: normal inspection, normal capillary refill Neurological exam: Present: alert, oriented X3, CN II-XII intact. Absent: motor sensory deficit Psychiatric exam: Present: normal affect, normal mood Skin exam: Present: warm, dry, intact. Absent: cyanosis, diaphoretic Course Vital Signs 03/24/24 18:20 Temperature 97.8 F Pulse Rate 100 Respiratory 18 Rate Blood Pressure 154/95 O2 Sat by Pulse 98 Oximetry Medical Decision Making - Medical Decision Making Was pt. sent in by a medical professional or institution (HOLLIE Hay, QUALITY CONTROL TECHNICIAN, urgent care, hospital, or group home...) When possible be specific @ -No Did you speak to anyone other than the patient for history (EMS, parent, family, police, friend...)? What history was obtained from this source @ -No Did you review nursing and triage notes (agree or disagree)? Why? @ -I reviewed and agree with nursing and triage notes Were old charts reviewed (outside hosp., previous admission, EMS record, old EKG, old radiological studies, urgent care reports/EKG's, group home records)? Report findings @ -No old charts were reviewed Differential Headache: Migraine, tension, cluster, carbon monoxide, central venous thrombosis, pension karma temporal arteritis, acute closure glaucoma, intercranial hemorrhage, mastoiditis, sinusitis, head injury, this is not meant to be an all-inclusive list. EKG interpreted by me (3pts min.). @ -As above X-rays interpreted by me (1pt min.). @ -None done CT interpreted by me (1pt min.). @ -None done U/S interpreted by me (1pt. min.). @ -None done What testing was considered but not performed or refused? (CT, X-rays, U/S, labs)? Why? @ -None What meds were considered but not given or refused? Why? @ -None Did you discuss the management of the patient with other professionals (professionals i.e. , PA, QUALITY CONTROL TECHNICIAN, lab, RT, psych nurse, rn social work, freight car cleaner, teacher, ammunition officer, shelter case manager)? Give summary @ -No Was smoking cessation discussed for >3mins.? @ -No Was critical care preformed (if so, how long)? @ -No Were there social determinants of health that impacted care today? How? (Homelessness, low income, unemployed, alcoholism, drug addiction, transportation, low edu. Level, literacy, decrease access to med. care, halfway, rehab)? @ -No Was there de-escalation of care discussed even if they declined (Discuss DNR or withdrawal of care, Hospice)? DNR status @ -No What co-morbidities impacted this encounter? (DM, HTN, Smoking, COPD, CAD, Cancer, CVA, ARF, Chemo, Hep., AIDS, mental health diagnosis, sleep apnea, morbid obesity)? @ -Chronic headache Was patient admitted / discharged? Hospital course, mention meds given and route, prescriptions, significant lab abnormalities, going to OR and other pertinent info. @ -[69 yo female with chronic electrical type headache. She has been seen by multiple neurologists and she is prescribed medication which she states is not currently working. Patient is afebrile. She requests Toradol and Benadryl in the emergency department. I did obtain basic laboratory testing which is unremarkable. Vital signs are stable and neurologic exam is nonfocal, unremarkable. Patient feels significantly better after treatment. I do feel she is stable for continued outpatient evaluation of this chronic headache. Undiagnosed new problem with uncertain prognosis? @ -No Drug Therapy requiring intensive monitoring for toxicity (Heparin, Nitro, Insulin, Cardizem)? @ -No Were any procedures done? @ -No Diagnosis/symptom? @ -Chronic headache Acute, or Chronic, or Acute on Chronic? @ -Chronic Uncomplicated (without systemic symptoms) or Complicated (systemic symptoms)? @ -Default Side effects of treatment? @ -No Exacerbation, Progression, or Severe Exacerbation? @ -No Poses a threat to life or bodily function? How? (Chest pain, [place], [place], pneumonia, PE, COPD, DKA, ARF, appy, cholecystitis, CVA, Diverticulitis, Homicidal, Suicidal, threat to staff... and all critical care pts) @ -No - Lab Data Result diagrams: 03/24/24 18:44 03/24/24 18:44 Lab Results 03/24/24 03/24/24 Range/Units 18:44 18:44 WBC 9.7 (3.8-10.6) k/uL RBC 4.26 (3.80-5.40) m/uL Hgb 13.0 (11.4-16.0) gm/dL Hct 38.7 (34.0-46.0) % MCV 90.8 (80.0-100.0) fL MCH 30.4 (25.0-35.0) pg MCHC 33.5 (31.0-37.0) g/dL RDW 13.4 (11.5-15.5) % Plt Count 219 (150-450) k/uL MPV 8.1 Neutrophils % 51 % Lymphocytes % 38 % Monocytes % 5 % Eosinophils % 3 % Basophils % 1 % Neutrophils # 4.9 (1.3-7.7) k/uL Lymphocytes # 3.7 (1.0-4.8) k/uL Monocytes # 0.5 (0-1.0) k/uL Eosinophils # 0.3 (0-0.7) k/uL Basophils # 0.1 (0-0.2) k/uL Sodium 139 (137-145) mmol/L Potassium 4.3 (3.5-5.1) mmol/L Chloride 103 (98-107) mmol/L Carbon Dioxide 25 (22-30) mmol/L Anion Gap 11 mmol/L BUN 13 (7-17) mg/dL Creatinine 0.51 L (0.52-1.04) mg/dL Est GFR (CKD-EPI)AfAm >90 (>60 ml/min/1.73 sqM) Est GFR (CKD-EPI)NonAf >90 (>60 ml/min/1.73 sqM) Glucose 111 H (74-99) mg/dL Calcium 9.7 (8.4-10.2) mg/dL Total Bilirubin 0.6 (0.2-1.3) mg/dL AST 18 (14-36) U/L ALT 16 (4-34) U/L Alkaline Phosphatase 94 (38-126) U/L Total Protein 7.6 (6.3-8.2) g/dL Albumin 4.8 (3.5-5.0) g/dL Disposition Clinical Impression: Chronic pain Disposition: HOME SELF-CARE Condition: Good Instructions (If sedation given, give patient instructions): Acute Headache (ED) Is patient prescribed a controlled substance at d/c from ED?: No Referrals: Parveen Anaya DO [Primary Care Provider] - 1-2 days Time of Disposition: 19:40
[2024-03-24 19:16] LABS: ALT 16 U/L (4-34); AST 18 U/L (14-36); African American GFR (CKD) >90 (>60 ml/min/1.73 sqM); Albumin 4.8 g/dL (3.5-5.0); Alkaline Phosphatase 94 U/L (38-126); Anion Gap 11 mmol/L; Blood Urea Nitrogen 13 mg/dL (7-17); Calcium 9.7 mg/dL (8.4-10.2); Carbon Dioxide 25 mmol/L (22-30); Chloride 103 mmol/L (98-107); Glucose 111 mg/dL (74-99); Non-African American GFR(CKD) >90 (>60 ml/min/1.73 sqM); Potassium 4.3 mmol/L (3.5-5.1); Sodium 139 mmol/L (137-145); Total Bilirubin 0.6 mg/dL (0.2-1.3); Total Protein 7.6 g/dL (6.3-8.2)
[2024-03-24 19:31] LABS: Basophils # (A) 0.1 k/uL (0-0.2); Basophils % (A) 1 %; Eosinophils # (A) 0.3 k/uL (0-0.7); Eosinophils % (A) 3 %; HCT 38.7 % (34.0-46.0); Lymphocytes # (A) 3.7 k/uL (1.0-4.8); Lymphocytes % (A) 38 %; MCH 30.4 pg (25.0-35.0); MCHC 33.5 g/dL (31.0-37.0); MCV 90.8 fL (80.0-100.0); Mean Platelet Volume 8.1; Monocytes # (A) 0.5 k/uL (0-1.0); Monocytes % (A) 5 %; Neutrophils # (A) 4.9 k/uL (1.3-7.7); Neutrophils % (A) 51 %; Platelet Count 219 k/uL (150-450); RBC 4.26 m/uL (3.80-5.40); RDW 13.4 % (11.5-15.5); WBC 9.7 k/uL (3.8-10.6)
[2024-03-24 20:12] VITALS: BP 143/85; PULSE 87
== END 2024-03-24 20:12 | disposition home or self-care (01) ==
LOC: EC 18:17
DX: G89.29 Other chronic pain (principal); R51.9 Headache, unspecified; Z87.891 Personal history of nicotine dependence
CPT/HCPCS: 36415; 80053; 85025; 99284; 96374; 96375 ×2; 96361; J1200; J1170; J1885

== ENCOUNTER 2024-04-11 14:48 | Emergency (ER) | payer MEDICARE, BC, OTHER ==
[2024-04-11 15:05] VITALS: PULSE 94; TEMP 98
--- NOTE | 2024-04-11 17:15 | ED ---
Headache HPI - General Chief Complaint: Headache Stated Complaint: Headache Time Seen by Provider: 04/11/24 17:13 Source: RN notes reviewed Mode of arrival: EMS Limitations: no limitations - History of Present Illness Initial Comments: 69-year-old female with history of chronic headaches presenting with left-sided headache worsening today. States she has been battling left-sided headaches for 4 years and has seen several different neurologist. 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 She states the nature of this headache is similar to previous. She states the medication the neurologist placed her on does not work. Denies any new symptoms. - Related Data Home Medications Medication Instructions Recorded Confirmed lisinopriL [Zestril] 5 mg PO DAILY 07/11/22 07/08/23 Atorvastatin [Lipitor] 40 mg PO HS 12/25/22 07/08/23 HYDROcodone/APAP 10-325MG [[place] 1 tab PO QID 03/03/23 07/08/23 10-325] metFORMIN HCL 1,000 mg PO BID 03/03/23 07/08/23 Baclofen [Lioresal] 10 mg PO QID PRN 07/08/23 07/08/23 Gabapentin [Neurontin] 300 mg PO TID 07/08/23 07/08/23 OXcarbazepine [Trileptal] 450 mg PO BID 07/08/23 07/08/23 Omeprazole 20 mg PO DAILY 07/08/23 07/08/23 Previous Rx's Medication Instructions Recorded Ketorolac [Toradol] 10 mg PO Q8HR #15 tab 03/05/24 Allergies Allergy/AdvReac Type Severity Reaction Status Date / Time No Known Allergies Allergy Verified 04/11/24 15:06 Review of Systems ROS Statement: Those systems with pertinent positive or pertinent negative responses have been documented in the HPI. ROS Other: All systems not noted in ROS Statement are negative. Past Medical History Past Medical History: Diabetes Mellitus, Fibromyalgia, GERD/Reflux, Hyperlipide [place], Osteoarthritis (OA), Thyroid Disorder Additional Past Medical History / Comment(s): trigeminal neuralgia, thyroid nodules History of Any Multi-Drug Resistant Organisms: None Reported Past Surgical History: Bladder Surgery, Cholecystectomy, Hysterectomy, Orthopedic Surgery Additional Past Surgical History / Comment(s): sinus surgery, arthroscopy right knee, bladder suspension,plate placed behind her ear. Past Anesthesia/Blood Transfusion Reactions: No Reported Reaction Past Psychological History: Anxiety Smoking Status: Former smoker Past Alcohol Use History: None Reported Past Drug Use History: None Reported - Past Family History Mother Family Medical History: Hypertension Father Family Medical History: Diabetes Mellitus General Exam Limitations: no limitations General appearance: alert, in no apparent distress Head exam: Present: atraumatic, normocephalic, normal inspection Eye exam: Present: normal appearance, PERRL, EOMI. Absent: scleral icterus, con junctival injection, periorbital swelling ENT exam: Present: normal exam, mucous membranes moist Neck exam: Present: normal inspection. Absent: tenderness, meningismus, lymphadenopathy Respiratory exam: Present: normal lung sounds bilaterally. Absent: respiratory distress, wheezes, rales, rhonchi, stridor Cardiovascular Exam: Present: regular rate, normal rhythm, normal heart sounds. Absent: systolic murmur, diastolic murmur, rubs, gallop, clicks Neurological exam: Present: alert, oriented X3, CN II-XII intact Psychiatric exam: Present: normal affect, normal mood Skin exam: Present: warm, dry, intact, normal color. Absent: rash Course Vital Signs 04/11/24 04/11/24 15:02 18:10 Temperature 98.0 F Pulse Rate 94 94 Respiratory 18 20 Rate Blood Pressure 137/74 155/95 O2 Sat by Pulse 98 98 Oximetry Medical Decision Making - Medical Decision Making Was pt. sent in by a medical professional or institution (HOLLIE Hay, FEED PREPARATION OPERATOR, urgent care, hospital, or long-term...) When possible be specific @ -No Did you speak to anyone other than the patient for history (EMS, parent, family, police, friend...)? What history was obtained from this source @ -No Did you review nursing and triage notes (agree or disagree)? Why? @ -I reviewed and agree with nursing and triage notes Were old charts reviewed (outside hosp., previous admission, EMS record, old EKG, old radiological studies, urgent care reports/EKG's, long-term records)? 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 @ -Differential Headache: Migraine, tension, cluster, carbon monoxide, central venous thrombosis, pension karma temporal arteritis, acute closure glaucoma, intercranial hemorrhage, mastoiditis, sinusitis, head injury, this is not meant to be an all-inclusive list. EKG interpreted by me (3pts min.). @ -None X-rays interpreted by me (1pt min.). @ -None done CT interpreted by me (1pt min.). @ -None U/S interpreted by me (1pt. min.). @ -None done What testing was considered but not performed or refused? (CT, X-rays, U/S, labs)? Why? @ -Imaging not performed due to patient has history of chronic headaches and denies any new symptoms What meds were considered but not given or refused? Why? @ -None Did you discuss the management of the patient with other professionals (professionals i.e. , PA, FEED PREPARATION OPERATOR, lab, RT, psych nurse, elementary school social worker, concrete stone finisher, teacher, career services officer, embedded case manager)? Give summary @ -No Was smoking cessation discussed for >3mins.? @ -No Was critical care preformed (if so, how long)? @ -No Were there social determinants of health that impacted care today? How? (Homelessness, low income, unemployed, alcoholism, drug addiction, transportation, low edu. Level, literacy, decrease access to med. care, longterm, rehab)? @ -No Was there de-escalation of care discussed even if they declined (Discuss DNR or withdrawal of care, Hospice)? DNR status @ -No What co-morbidities impacted this encounter? (DM, HTN, Smoking, COPD, CAD, Cancer, CVA, ARF, Chemo, Hep., AIDS, mental health diagnosis, sleep apnea, morbid obesity)? @ -None Was patient admitted / discharged? Hospital course, mention meds given and route, prescriptions, significant lab abnormalities, going to OR and other pertinent info. @ -Patient was discharged. Patient was seen and evaluated for left-sided headache worsening x 1 day. Patient has a long history of chronic headaches and has followed with several neurologists for this. Denies any new symptoms. Neurological examination is unremarkable. No red flag symptoms. Patient was given IV fluids, Dilaudid, and Toradol. Upon reevaluation, patient states symptoms have improved and would like to be discharged. Encouraged to follow-up with neurologist. Return precautions discussed. Case was discussed with my ED attending Dr. Chowdhury. Patient discharged stable condition. Undiagnosed new problem with uncertain prognosis? @ -No Drug Therapy requiring intensive monitoring for toxicity (Heparin, Nitro, Insulin, Cardizem)? @ -No Were any procedures done? @ -No Diagnosis/symptom? @ -Headache Acute, or Chronic, or Acute on Chronic? @ -Acute Uncomplicated (without systemic symptoms) or Complicated (systemic symptoms)? @ -Uncomplicated Side effects of treatment? @ -No Exacerbation, Progression, or Severe Exacerbation? @ -No Poses a threat to life or bodily function? How? (Chest pain, [place], [place], pneumonia, PE, COPD, DKA, ARF, appy, cholecystitis, CVA, Diverticulitis, Homicidal, Suicidal, threat to staff... and all critical care pts) @ -Unlikely at this time Disposition Clinical Impression: Headache Disposition: HOME SELF-CARE Condition: Stable Additional Instructions: Please follow-up with your neurologist. Please return to the Emergency Department if symptoms worsen or any other concerns. Is patient prescribed a controlled substance at d/c from ED?: No Referrals: Parveen Anaya DO [Primary Care Provider] - 1-2 days Time of Disposition: 18:13
[2024-04-11] MEDS: KETOROLAC 15 MG/ML 1 ML VIAL IVP STA (17:44)
[2024-04-11] MEDS: HYDROmorphone 1 MG/ML 1 ML SYRINGE IVP STA (17:45)
[2024-04-11 17:51] VITALS: BP 155/95; RESP 20
== END 2024-04-11 18:26 | disposition home or self-care (01) ==
LOC: EC 14:48
DX: R51.9 Headache, unspecified (principal); Z87.891 Personal history of nicotine dependence
CPT/HCPCS: 99284; 96374; 96375; J1170; J1885

== ENCOUNTER 2024-04-22 18:23 | Emergency (ER) | payer MEDICARE, BC, OTHER ==
[2024-04-22] MEDS ORDERED: HYDROmorphone 1 MG/ML 1 ML SYRINGE ONE (19:14)
== END 2024-04-22 20:00 | disposition home or self-care (01) ==
LOC: EC 18:23
DX: R51.9 Headache, unspecified (principal)
CPT/HCPCS: 96374; 99283

== ENCOUNTER 2024-04-30 19:33 | Emergency (ER) | payer MEDICARE, BC, OTHER ==
[2024-04-30] MEDS ORDERED: HYDROmorphone 1 MG/ML 1 ML SYRINGE ONE (20:06)
[2024-04-30] MEDS ORDERED: KETOROLAC 15 MG/ML 1 ML VIAL ONE (20:06)
[2024-04-30] MEDS ORDERED: diphenhydrAMINE 50 MG/ML 1 ML VIAL ONE (20:06)
[2024-04-30] MEDS ORDERED: SODIUM CHLORIDE 0.9% 500 ML BAG ONE (20:22)
== END 2024-04-30 23:10 | disposition home or self-care (01) ==
LOC: EC 19:33
CPT/HCPCS: 96361; 96374; 96375; 99283

== ENCOUNTER 2024-05-04 11:59 | Emergency (ER) | payer MEDICARE, BC, OTHER ==
[2024-05-04] MEDS ORDERED: HYDROmorphone 0.5 MG/0.5 ML SYRINGE ONE (12:36)
[2024-05-04] MEDS ORDERED: KETOROLAC 15 MG/ML 1 ML VIAL ONE (12:37)
[2024-05-04] MEDS ORDERED: diphenhydrAMINE 50 MG/ML 1 ML VIAL ONE (12:37)
[2024-05-04] MEDS ORDERED: SODIUM CHLORIDE 0.9% 1,000 ML BAG ONE (12:40)
[2024-05-04] MEDS ORDERED: ACET/COD 300 MG/30 MG STARTER PACK 6 TAB BTL PO ONE (14:52)
== END 2024-05-04 14:57 | disposition home or self-care (01) ==
LOC: EC 11:59
DX: G50.0 Trigeminal neuralgia (principal)
CPT/HCPCS: 96361; 96374; 96375; 99283

== ENCOUNTER 2024-05-14 17:32 | Emergency (ER) | payer MEDICARE, BC, OTHER ==
[2024-05-14 17:42] VITALS: RESP 18; TEMP 98.3
--- NOTE | 2024-05-14 19:33 | ED ---
Headache HPI - General Chief Complaint: Headache Stated Complaint: Headache Time Seen by Provider: 05/14/24 19:31 Source: RN notes reviewed Mode of arrival: EMS Limitations: no limitations - History of Present Illness Initial Comments: 69-year-old female presenting for headache x 1 day. States she has a extensive history of headaches and follows with a neurologist. Patient has had many ER visits for pain control for headaches. Patient denies any new or acute symptoms. She is requesting pain control today. States her pain meds from her neurologist not relieving pain. Denies any acute symptoms such as vision changes, numbness or weakness of extremities. - Related Data Home Medications Medication Instructions Recorded Confirmed lisinopriL [Zestril] 5 mg PO DAILY 07/11/22 07/08/23 Atorvastatin [Lipitor] 40 mg PO HS 12/25/22 07/08/23 HYDROcodone/APAP 10-325MG [[place] 1 tab PO QID 03/03/23 07/08/23 10-325] metFORMIN HCL 1,000 mg PO BID 03/03/23 07/08/23 Baclofen [Lioresal] 10 mg PO QID PRN 07/08/23 07/08/23 Gabapentin [Neurontin] 300 mg PO TID 07/08/23 07/08/23 OXcarbazepine [Trileptal] 450 mg PO BID 07/08/23 07/08/23 Omeprazole 20 mg PO DAILY 07/08/23 07/08/23 Previous Rx's Medication Instructions Recorded Ketorolac [Toradol] 10 mg PO Q8HR #15 tab 03/05/24 Allergies Allergy/AdvReac Type Severity Reaction Status Date / Time No Known Allergies Allergy Verified 04/11/24 15:06 Review of Systems ROS Statement: Those systems with pertinent positive or pertinent negative responses have been documented in the HPI. ROS Other: All systems not noted in ROS Statement are negative. Past Medical History Past Medical History: Diabetes Mellitus, Fibromyalgia, GERD/Reflux, Hyperlipidemia, Osteoarthritis (OA), Thyroid Disorder Additional Past Medical History / Comment(s): trigeminal neuralgia, thyroid nodules History of Any Multi-Drug Resistant Organisms: None Reported Past Surgical History: Bladder Surgery, Cholecystectomy, Hysterectomy, Orthopedic Surgery Additional Past Surgical History / Comment(s): sinus surgery, arthroscopy right knee, bladder suspension,plate placed behind her ear. Past Anesthesia/Blood Transfusion Reactions: No Reported Reaction Past Psychological History: Anxiety Smoking Status: Former smoker Past Alcohol Use History: None Reported Past Drug Use History: None Reported - Past Family History Mother Family Medical History: Hypertension Father Family Medical History: Diabetes Mellitus General Exam Limitations: no limitations General appearance: alert, in no apparent distress Head exam: Present: atraumatic, normocephalic, normal inspection Eye exam: Present: normal appearance, PERRL, EOMI. Absent: scleral icterus, conjunctival injection, periorbital swelling ENT exam: Present: normal exam, mucous membranes moist Neck exam: Present: normal inspection. Absent: tenderness, meningismus, lym phadenopathy Respiratory exam: Present: normal lung sounds bilaterally. Absent: respiratory distress, wheezes, rales, rhonchi, stridor Cardiovascular Exam: Present: regular rate, normal rhythm, normal heart sounds. Absent: systolic murmur, diastolic murmur, rubs, gallop, clicks Neurological exam: Present: alert, oriented X3, CN II-XII intact Psychiatric exam: Present: normal affect, normal mood Skin exam: Present: warm, dry, intact, normal color. Absent: rash Course Vital Signs 05/14/24 05/14/24 17:34 21:14 Temperature 98.3 F Pulse Rate 102 H 98 Respiratory 18 18 Rate Blood Pressure 129/80 140/90 O2 Sat by Pulse 97 97 Oximetry Medical Decision Making - Medical Decision Making Was pt. sent in by a medical professional or institution (, PA, SECURE SOFTWARE ASSESSOR, urgent care, hospital, or shelter...) When possible be specific @ -No Did you speak to anyone other than the patient for history (EMS, parent, family, police, friend...)? What history was obtained from this source @ -No Did you review nursing and triage notes (agree or disagree)? Why? @ -I reviewed and agree with nursing and triage notes Were old charts reviewed (outside hosp., previous admission, EMS record, old EKG, old radiological studies, urgent care reports/EKG's, shelter records)? Report findings @ -Previous ER notes reviewed Differential Diagnosis (chest pain, altered mental status, abdominal pain women, abdominal pain men, vaginal bleeding, weakness, fever, dyspnea, syncope, headache, dizziness, GI bleed, back pain, seizure, CVA, palpatations, mental health, musculoskeletal)? @ -Differential Headache: Migraine, tension, cluster, carbon monoxide, central venous thrombosis, pension karma temporal arteritis, acute closure glaucoma, intercranial hemorrhage, ma stoiditis, sinusitis, head injury, this is not meant to be an all-inclusive list. EKG interpreted by me (3pts min.). @ -None X-rays interpreted by me (1pt min.). @ -None done CT interpreted by me (1pt min.). @ -None done U/S interpreted by me (1pt. min.). @ -None done What testing was considered but not performed or refused? (CT, X-rays, U/S, labs)? Why? @ -Imaging not obtained today due to patient has had recent imaging and denying any acute or new symptoms today What meds were considered but not given or refused? Why? @ -None Did you discuss the management of the patient with other professionals (professionals i.e. , PA, SECURE SOFTWARE ASSESSOR, lab, RT, psych nurse, social worker assistant, electric car operator, teacher, sailing officer, case resolution specialist)? Give summary @ -No Was smoking cessation discussed for >3mins.? @ -No Was critical care preformed (if so, how long)? @ -No Were there social determinants of health that impacted care today? How? (Homelessness, low income, unemployed, alcoholism, drug addiction, transportation, low edu. Level, literacy, decrease access to med. care, usp, rehab)? @ -No Was there de-escalation of care discussed even if they declined (Discuss DNR or withdrawal of care, Hospice)? DNR status @ -No What co-morbidities impacted this encounter? (DM, HTN, Smoking, COPD, CAD, Cancer, CVA, ARF, Chemo, Hep., AIDS, mental health diagnosis, sleep apnea, morbid obesity)? @ -None Was patient admitted / discharged? Hospital course, mention meds given and route, prescriptions, significant lab abnormalities, going to OR and other pertinent info. @ -Patient was discharged. Patient was seen and evaluated for headache x 1 day. Patient has extensive history of chronic headaches and follows with neurology. Denies acute or new symptoms today. Neuro examination is unremarkable. Patient is provided with Dilaudid and Benadryl. Upon reevaluation, patient states symptoms have improved and she would like to be discharged. Discussed with patient that she must follow-up with PCP and neurologist for chronic pain management. Patient is agreeable to plan. Return precautions discussed. Case was discussed with my ED attending Dr. Rosas. Patient discharged in stable condition. Undiagnosed new problem with uncertain prognosis? @ -No Drug Therapy requiring intensive monitoring for toxicity (Heparin, Nitro, Insulin, Cardizem)? @ -No Were any procedures done? @ -No Diagnosis/symptom? @ -Headache Acute, or Chronic, or Acute on Chronic? @ -Acute on chronic Uncomplicated (without systemic symptoms) or Complicated (systemic symptoms)? @ -Uncomplicated Side effects of treatment? @ -No Exacerbation, Progression, or Severe Exacerbation? @ -No Poses a threat to life or bodily function? How? (Chest pain, [place], [place], pneumonia, PE, COPD, DKA, ARF, appy, cholecystitis, CVA, Diverticulitis, Homicidal, Suicidal, threat to staff... and all critical care pts) @ -No Disposition Clinical Impression: Headache Disposition: HOME SELF-CARE Condition: Stable Additional Instructions: Follow-up with neurologist. Please return to the Emergency Department if symptoms worsen or any other concerns. Is patient prescribed a controlled substance at d/c from ED?: No Referrals: None,Stated [Primary Care Provider] - 1-2 days Time of Disposition: 21:05
[2024-05-14] MEDS: HYDROmorphone 1 MG/ML 1 ML SYRINGE IVP STA (19:35)
[2024-05-14] MEDS: diphenhydrAMINE 50 MG/ML 1 ML VIAL IVP STA (19:36)
[2024-05-14] MEDS: diphenhydrAMINE 50 MG/ML 1 ML VIAL IM STA (19:40)
[2024-05-14] MEDS: HYDROmorphone 1 MG/ML 1 ML SYRINGE IM STA (19:40)
[2024-05-14 21:15] VITALS: BP 140/90; PULSE 98
== END 2024-05-14 21:25 | disposition home or self-care (01) ==
LOC: EC 17:32
CPT/HCPCS: 96374; 96375; 99284

== ENCOUNTER 2024-05-26 16:17 | Emergency (ER) | payer MEDICARE, BC, OTHER ==
[2024-05-26 16:23] VITALS: RESP 18
--- NOTE | 2024-05-26 16:49 | ED ---
Headache HPI - General Chief Complaint: Headache Stated Complaint: facial pain Time Seen by Provider: 05/26/24 16:47 Source: patient, RN notes reviewed, old records reviewed Mode of arrival: EMS Limitations: no limitations - History of Present Illness Initial Comments: 69-year-old female presented the ER via EMS with a chief complaint of a headache with facial pain. Patient states she has a chronic history of nerve pain to the left side of her scalp. She is following up outpatient with a neurologist. Patient states 2-week ago she received pain injections that seem to help for a little bit. She states the pain returned this morning describes it as sharp in nature 10 out of 10 pain. Radiation to her cheek and jaw. She also reports radiation to her neck. No overlying skin changes. No new injuries or traumas. She states pain feels very similar to previous pain. Patient has tried taking ibuprofen, oxcarbazepine and [place] without relief. Patient denies any other complaints at this time. - Related Data Home Medications Medication Instructions Recorded Confirmed lisinopriL [Zestril] 5 mg PO DAILY 07/11/22 05/27/24 Atorvastatin [Lipitor] 40 mg PO HS 12/25/22 05/27/24 metFORMIN HCL 1,000 mg PO BID 03/03/23 05/27/24 Cholecalciferol [Vitamin D3 (25 50 mcg PO DAILY 05/27/24 05/27/24 Mcg = 1000 Iu)] Omeprazole [PriLOSEC] 40 mg PO DAILY 05/27/24 05/27/24 Pyridoxine HCl (Vitamin B6) 500 mg PO DAILY 05/27/24 05/27/24 [Vitamin B-6] Trospium Chloride [Sanctura XR] 60 mg PO DAILY 05/27/24 05/27/24 Previous Rx's Medication Instructions Recorded predniSONE [Deltasone] 40 mg PO DAILY #8 tab 05/27/24 Allergies Allergy/AdvReac Type Severity Reaction Status Date / Time No Known Allergies Allergy Verified 05/27/24 15:56 Review of Systems ROS Statement: Those systems with pertinent positive or pertinent negative responses have been documented in the HPI. ROS Other: All systems not noted in ROS Statement are negative. Past Medical History Past Medical History: Diabetes Mellitus, Fibromyalgia, GERD/Reflux, Hyperlipidemia, Osteoarthritis (OA), Thyroid Disorder Additional Past Medical History / Comment(s): trigeminal neuralgia, thyroid nodules History of Any Multi-Drug Resistant Organisms: None Reported Past Surgical History: Bladder Surgery, Cholecystectomy, Hysterectomy, Orthopedic Surgery Additional Past Surgical History / Comment(s): sinus surgery, arthroscopy right knee, bladder suspension,plate placed behind her ear. Past Anesthesia/Blood Transfusion Reactions: No Reported Reaction Past Psychological History: Anxiety Smoking Status: Former smoker Past Alcohol Use History: None Reported Past Drug Use History: None Reported - Past Family History Mother Family Medical History: Hypertension Father Family Medical History: Diabetes Mellitus General Exam Limitations: no limitations General appearance: alert, in no apparent distress Head exam: Present: atraumatic, normocephalic, normal inspection Eye exam: Present: normal appearance, PERRL, EOMI. Absent: scleral icterus, conjunctival injection, periorbital swelling Pupils: Present: normal accommodation (3mm bilaterally) ENT exam: Present: normal exam, normal oropharynx, mucous membranes moist, TM's normal bilaterally Neck exam: Present: normal inspection. Absent: tenderness, meningismus, lymphadenopathy Respiratory exam: Present: normal lung sounds bilaterally. Absent: respiratory distress, wheezes, rales, rhonchi, stridor Cardiovascular Exam: Present: regular rate, normal rhythm, normal heart sounds. Absent: systolic murmur, diastolic murmur, rubs, gallop, clicks Neurological exam: Present: alert, oriented X3, CN II-XII intact Skin exam: Present: warm, dry, intact, normal color. Absent: rash Course Vital Signs 05/26/24 05/26/24 05/26/24 16:18 17:01 18:11 Temperature 97.4 F L Pulse Rate 63 104 H 102 H Respiratory 18 18 18 Rate Blood Pressure 189/112 173/106 147/89 O2 Sat by Pulse 98 97 Oximetry 05/26/24 19:01 Temperature Pulse Rate 81 Respiratory 18 Rate Blood Pressure 146/79 O2 Sat by Pulse 97 Oximetry Medical Decision Making - Medical Decision Making Was pt. sent in by a medical professional or institution (, PA, HOSPITAL RECRUITER, urgent care, hospital, or residential...) When possible be specific @ -No Did you speak to anyone other than the patient for history (EMS, parent, family, police, friend...)? What history was obtained from this source @ -No Did you review nursing and triage notes (agree or disagree)? Why? @ -I reviewed and agree with nursing and triage notes Were old charts reviewed (outside hosp., previous admission, EMS record, old EKG, old radiological studies, urgent care reports/EKG's, residential records)? Report findings @ -No old charts were reviewed Differential Diagnosis (chest pain, altered mental status, abdominal pain women, abdominal pain men, vaginal bleeding, weakness, fever, dyspnea, syncope, headache, dizziness, GI bleed, back pain, seizure, CVA, palpatations, mental health, musculoskeletal)? @ -Differential Headache: Migraine, tension, cluster, carbon monoxide, central venous thrombosis, pension karma temporal arteritis, acute closure glaucoma, intercranial hemorrhage, mastoiditis, sinusitis, head injury, this is not meant to be an all-inclusive list. EKG interpreted by me (3pts min.). @ -None done X-rays interpreted by me (1pt min.). @ -None done CT interpreted by me (1pt min.). @ -None done U/S interpreted by me (1pt. min.). @ -None done What testing was considered but not performed or refused? (CT, X-rays, U/S, labs)? Why? @ -CT brain considered. Patient refused as this is chronic pain and she would like pain control. What meds were considered but not given or refused? Why? @ -None Did you discuss the management of the patient with other professionals (professionals i.e. , PA, HOSPITAL RECRUITER, lab, RT, psych nurse, older adult social work specialist, print journalist, teacher, custody officer, showcase trimmer)? Give summary @ -No Was smoking cessation discussed for >3mins.? @ -No Was critical care preformed (if so, how long)? @ -No Were there social determinants of health that impacted care today? How? (Homelessness, low income, unemployed, alcoholism, drug addiction, transportation, low edu. Level, literacy, decrease access to med. care, fdc, rehab)? @ -No Was there de-escalation of care discussed even if they declined (Discuss DNR or withdrawal of care, Hospice)? DNR status @ -No What co-morbidities impacted this encounter? (DM, HTN, Smoking, COPD, CAD, Cancer, CVA, ARF, Chemo, Hep., AIDS, mental health diagnosis, sleep apnea, morbid obesity)? @ -None Was patient admitted / discharged? Hospital course, mention meds given and route, prescriptions, significant lab abnormalities, going to OR and other pertinent info. @ -Discharge. 69-year-old female presented the ER with a chief complaint of facial pain. Patient reports this is chronic in nature. History and physical exam completed. Vitals within normal limits. Patient extremely anxious on exam but in no signs of acute distress. Exam benign. No acute neurological findings on exam. Patient refusing CT scan as this is chronic in nature and patient would like pain control. Patient received IV Decadron, Benadryl, Dilaudid, Toradol and Compazine for pain control. Upon reevaluation, patient resting comfortably in exam room reporting improvement of symptoms. Tramadol starter pack given. Strict return parameters discussed. Patient discharged in stable condition with follow-up to PCP and neurologist. Patient verbally expressed understanding and agreement with care plan. Case discussed with ED attending, Dr. Frazier. Undiagnosed new problem with uncertain prognosis? @ -No Drug Therapy requiring intensive monitoring for toxicity (Heparin, Nitro, Insulin, Cardizem)? @ -No Were any procedures done? @ -No Diagnosis/symptom? @ -Headache Acute, or Chronic, or Acute on Chronic? @ -Acute Uncomplicated (without systemic symptoms) or Complicated (systemic symptoms)? @ -Uncomplicated Side effects of treatment? @ -No Exacerbation, Progression, or Severe Exacerbation? @ -No Poses a threat to life or bodily function? How? (Chest pain, [place], [place], pneumonia, PE, COPD, DKA, ARF, appy, cholecystitis, CVA, Diverticulitis, Homicidal, Suicidal, threat to staff... and all critical care pts) @ -No Disposition Clinical Impression: Headache Disposition: HOME SELF-CARE Condition: Stable Instructions (If sedation given, give patient instructions): Acute Headache (ED) Additional Instructions: Follow-up with your neurologist and PCP. Return to the ER for any new or worse concerns. Is patient prescribed a controlled substance at d/c from ED?: No Referrals: Parveen Anaya DO [Primary Care Provider] - 1-2 days Time of Disposition: 18:54
[2024-05-26] MEDS: diphenhydrAMINE 50 MG/ML 1 ML VIAL IVP STA (16:58)
[2024-05-26] MEDS: HYDROmorphone 1 MG/ML 1 ML SYRINGE IVP STA ×2 (16:59→18:36)
[2024-05-26 17:06] VITALS: TEMP 97.4
[2024-05-26] MEDS: DEXAMETHASONE SOD PHOSPHATE 4 MG/ML 1 ML VIAL IVP STA (18:13)
[2024-05-26] MEDS: KETOROLAC 15 MG/ML 1 ML VIAL IVP STA (18:13)
[2024-05-26] MEDS: PROCHLORPERAZINE INJ 10 MG/2 ML VIAL IVP STA (18:37)
[2024-05-26] MEDS: traMADol 50 MG STARTER PACK 3 TAB BTL PO STA (18:57)
[2024-05-26 19:03] VITALS: BP 146/79; PULSE 81
== END 2024-05-26 19:01 | disposition home or self-care (01) ==
LOC: EC 16:17
CPT/HCPCS: 96374; 96375; 96376; 99284

== ENCOUNTER 2024-05-27 14:27 | Emergency (ER) | payer MEDICARE, BC, OTHER ==
--- NOTE | 2024-05-27 15:11 | ED ---
General Adult HPI - General Chief complaint: Weakness Stated complaint: Weakness Time Seen by Provider: 05/27/24 14:45 Source: patient, EMS, RN notes reviewed, old records reviewed Mode of arrival: EMS - History of Present Illness Initial comments: This is a 69-year-old female who presents to the emergency department stating that she has had diagnosis of trigeminal neuralgia as well as occipital neuralgia and had some injections for occipital neuralgia. Patient states the pains continue to come and more recently over the last few weeks she started having some pain in her arm and her legs that last for 1 to 2 seconds but it does occur 9-10 times a day. Patient is not currently having any of these pains but she is having the pain in her scalp at this time. Patient states she is planning on going with a variety of physicians over the last 4 years for the same problems. - Related Data Home Medications Medication Instructions Recorded Confirmed lisinopriL [Zestril] 5 mg PO DAILY 07/11/22 05/27/24 Atorvastatin [Lipitor] 40 mg PO HS 12/25/22 05/27/24 metFORMIN HCL 1,000 mg PO BID 03/03/23 05/27/24 Cholecalciferol [Vitamin D3 (25 50 mcg PO DAILY 05/27/24 05/27/24 Mcg = 1000 Iu)] Omeprazole [PriLOSEC] 40 mg PO DAILY 05/27/24 05/27/24 Pyridoxine HCl (Vitamin B6) 500 mg PO DAILY 05/27/24 05/27/24 [Vitamin B-6] Trospium Chloride [Sanctura XR] 60 mg PO DAILY 05/27/24 05/27/24 Previous Rx's Medication Instructions Recorded predniSONE [Deltasone] 40 mg PO DAILY #8 tab 05/27/24 Allergies Allergy/AdvReac Type Severity Reaction Status Date / Time No Known Allergies Allergy Verified 05/27/24 15:56 Review of Systems ROS Statement: Those systems with pertinent positive or pertinent negative responses have been documented in the HPI. ROS Other: All systems not noted in ROS Statement are negative. Past Medical History Past Medical History: Diabetes Mellitus, Fibromyalgia, GERD/Reflux, Hyperlipidemia, Osteoarthritis (OA), Thyroid Disorder Additional Past Medical History / Comment(s): trigeminal neuralgia, thyroid nodules History of Any Multi-Drug Resistant Organisms: None Reported Past Surgical History: Bladder Surgery, Cholecystectomy, Hysterectomy, Orthopedic Surgery Additional Past Surgical History / Comment(s): sinus surgery, arthroscopy right knee, bladder suspension,plate placed behind her ear. Past Anesthesia/Blood Transfusion Reactions: No Reported Reaction Past Psychological History: Anxiety Smoking Status: Former smoker Past Alcohol Use History: None Reported Past Drug Use History: None Reported - Past Family History Mother Family Medical History: Hypertension Father Family Medical History: Diabetes Mellitus General Exam - General Exam Comments Initial Comments: GENERAL: Patient is well-developed and well-nourished. Patient is nontoxic and well- hydrated and is in mild distress. ENT: Neck is soft and supple. No significant lymphadenopathy is noted. Oropharynx is clear. Moist mucous membranes. Neck has full range of motion without eliciting any pain. EYES: The sclera were anicteric and conjunctiva were pink and moist. Extraocular movements were intact and pupils were equal round and reactive to light. Eyel ids were unremarkable. PULMONARY: Unlabored respirations. Good breath sounds bilaterally. No audible rales rhonchi or wheezing was noted. CARDIOVASCULAR: There is a regular rate and rhythm without any murmurs gallops or rubs. ABDOMEN: Soft and nontender with normal bowel sounds. No palpable organomegaly was noted. There is no palpable pulsatile mass. SKIN: Skin is clear with no lesions or rashes and otherwise unremarkable. NEUROLOGIC: Patient is alert and oriented x3. Cranial nerves II through XII are grossly intact. Motor and sensory are also intact. Normal speech, volume and content. Symmetrical smile. Cerebellar exam grossly intact. Patient is NIH is 0 MUSCULOSKELETAL: Normal extremities with adequate strength and full range of motion. LYMPHATICS: No significant lymphadenopathy is noted PSYCHIATRIC: Normal psychiatric evaluation. Course Vital Signs 05/27/24 05/27/24 14:37 16:24 Temperature 98.2 F Pulse Rate 92 85 Respiratory 18 18 Rate Blood Pressure 160/86 154/95 O2 Sat by Pulse 98 97 Oximetry Medical Decision Making - Medical Decision Making EKG is interpreted by myself. EKG shows a sinus rhythm at 84 bpm ME interval is 154 QRS is 85 QT interval is 372 QTc is 413. Was pt. sent in by a medical professional or institution (, PA, PREFITTER, urgent care, hospital, or usp...) When possible be specific @ -No Did you speak to anyone other than the patient for history (EMS, parent, family, police, friend...)? What history was obtained from this source @ -No Did you review nursing and triage notes (agree or disagree)? Why? @ -I reviewed and agree with nursing and triage notes Were old charts reviewed (outside hosp., previous admission, EMS record, old EKG, old radiological studies, urgent care reports/EKG's, usp records)? Report findings @ -No old charts were reviewed Differential Diagnosis? @ -Trigeminal neuralgia, occipital neuralgia, malingering, this is not an all- inclusive list EKG interpreted by me (3pts min.). @ -As above X-rays interpreted by me (1pt min.). @ -None done CT interpreted by me (1pt min.). @ -None done U/S interpreted by me (1pt. min.). @ -None done What testing was considered but not performed or refused? (CT, X-rays, U/S, labs)? Why? @ -None What meds were considered but not given or refused? Why? @ -None Did you discuss the management of the patient with other professionals (professionals i.e. , PA, PREFITTER, lab, RT, psych nurse, executive secretary social welfare, potato chip frier, teacher, retail loss prevention officer, counseling case manager)? Give summary @ -No Was smoking cessation discussed for >3mins.? @ -No Was critical care preformed (if so, how long)? @ -No Were there social determinants of health that impacted care today? How? (Homelessness, low income, unemployed, alcoholism, drug addiction, transportation, low edu. Level, literacy, decrease access to med. care, half-way, rehab)? @ -No Was there de-escalation of care discussed even if they declined (Discuss DNR or withdrawal of care, Hospice)? DNR status @ -No What co-morbidities impacted this encounter? (DM, HTN, Smoking, COPD, CAD, Cancer, CVA, ARF, Chemo, Hep., AIDS, mental health diagnosis, sleep apnea, morbid obesity)? @ -None Was patient admitted / discharged? Hospital course, mention meds given and route, prescriptions, significant lab abnormalities, going to OR and other pertinent info. @ -Patient received pain medicine in the emergency department done considerably better patient will follow-up with a primary medical care doctor Undiagnosed new problem with uncertain prognosis? @ -No Drug Therapy requiring intensive monitoring for toxicity (Heparin, Nitro, Insulin, Cardizem)? @ -No Were any procedures done? @ -No Diagnosis/symptom? @ -Chronic occipital neuralgia Acute, or Chronic, or Acute on Chronic? @ -Chronic Uncomplicated (without systemic symptoms) or Complicated (systemic symptoms)? @ -Uncomplicated Side effects of treatment? @ -No Exacerbation, Progression, or Severe Exacerbation? @ -No Poses a threat to life or bodily function? How? (Chest pain, [place], [place], pneumonia, PE, COPD, DKA, ARF, appy, cholecystitis, CVA, Diverticulitis, Homicidal, Suicidal, threat to staff... and all critical care pts) @ -No Disposition Clinical Impression: Occipital neuralgia Disposition: HOME SELF-CARE Condition: Good Prescriptions: predniSONE [Deltasone] 40 mg PO DAILY #8 tab Is patient prescribed a controlled substance at d/c from ED?: No Referrals: Parveen Anaya DO [Primary Care Provider] - 1-2 days Time of Disposition: 16:47
[2024-05-27] MEDS: methylPREDNISolone SOD SUCCI 125 MG/2 ML VIAL IV STA (15:18)
[2024-05-27] MEDS: KETOROLAC 15 MG/ML 1 ML VIAL IVP STA (15:18)
[2024-05-27] MEDS ORDERED: HYDROmorphone 0.5 MG/0.5 ML SYRINGE IVP STA (16:48)
[2024-05-27 17:00] VITALS: BP 153/94; PULSE 88; RESP 16; TEMP 97.9
== END 2024-05-27 17:07 | disposition home or self-care (01) ==
LOC: EC 14:27
CPT/HCPCS: 93005; 96374; 96375; 99285

== ENCOUNTER 2024-08-02 13:09 | Emergency (ER) | payer MEDICARE, BC, OTHER ==
--- NOTE | 2024-08-02 13:26 | ED ---
Headache HPI - General Chief Complaint: Headache Stated Complaint: headache Time Seen by Provider: 08/02/24 13:20 Source: patient, RN notes reviewed Mode of arrival: ambulatory Limitations: no limitations - History of Present Illness Initial Comments: This is a 69-year-old female with a history of trigeminal neuralgia and fibromyalgia presenting to the emergency room for chief complaint of headache that is mostly on the left side of her face. Patient states that the symptoms are the same as when she has a headache due to her trigeminal neuralgia. Nessa miller states that she has been suffering ongoing headaches over the past few months. She took a [place] at home prior to arrival. She denies photophobia, phonophobia, blurry or double vision, shortness of breath, chest pain, heart palpitations, weakness. Has visited with multiple specialists with no succint clinical diagnosis. MD Complaint: headache - Related Data Home Medications Medication Instructions Recorded Confirmed lisinopriL [Zestril] 5 mg PO DAILY 07/11/22 05/27/24 Atorvastatin [Lipitor] 40 mg PO HS 12/25/22 05/27/24 metFORMIN HCL 1,000 mg PO BID 03/03/23 05/27/24 Cholecalciferol [Vitamin D3 (25 50 mcg PO DAILY 05/27/24 05/27/24 Mcg = 1000 Iu)] Omeprazole [PriLOSEC] 40 mg PO DAILY 05/27/24 05/27/24 Pyridoxine HCl (Vitamin B6) 500 mg PO DAILY 05/27/24 05/27/24 [Vitamin B-6] Trospium Chloride [Sanctura XR] 60 mg PO DAILY 05/27/24 05/27/24 Previous Rx's Medication Instructions Recorded predniSONE [Deltasone] 40 mg PO DAILY #8 tab 05/27/24 Allergies Allergy/AdvReac Type Severity Reaction Status Date / Time No Known Allergies Allergy Verified 05/27/24 15:56 Review of Systems ROS Statement: Those systems with pertinent positive or pertinent negative responses have been documented in the HPI. ROS Other: All systems not noted in ROS Statement are negative. Past Medical History Past Medical History: Diabetes Mellitus, Fibromyalgia, GERD/Reflux, Hyperlipidemia, Osteoarthritis (OA), Thyroid Disorder Additional Past Medical History / Comment(s): trigeminal neuralgia, thyroid n odules History of Any Multi-Drug Resistant Organisms: None Reported Past Surgical History: Bladder Surgery, Cholecystectomy, Hysterectomy, Orthopedic Surgery Additional Past Surgical History / Comment(s): sinus surgery, arthroscopy right knee, bladder suspension,plate placed behind her ear. Past Anesthesia/Blood Transfusion Reactions: No Reported Reaction Past Psychological History: Anxiety Smoking Status: Former smoker Past Alcohol Use History: None Reported Past Drug Use History: None Reported - Past Family History Mother Family Medical History: Hypertension Father Family Medical History: Diabetes Mellitus General Exam Limitations: no limitations General appearance: alert, in no apparent distress Head exam: Present: atraumatic, normocephalic, normal inspection Eye exam: Present: normal appearance, PERRL, EOMI. Absent: scleral icterus, conjunctival injection, periorbital swelling Respiratory exam: Present: normal lung sounds bilaterally. Absent: respiratory distress, wheezes, rales, rhonchi, stridor Cardiovascular Exam: Present: regular rate, normal rhythm, normal heart sounds. Absent: systolic murmur, diastolic murmur, rubs, gallop, clicks GI/Abdominal exam: Present: soft, normal bowel sounds. Absent: distended, tenderness, guarding, rebound, rigid Extremities exam: Present: normal inspection, full ROM, normal capillary refill. Absent: tenderness, pedal edema, joint swelling, calf tenderness Back exam: Present: normal inspection Neurological exam: Present: alert, oriented X3, CN II-XII intact Skin exam: Present: warm, dry, intact, normal color. Absent: rash Course Vital Signs 08/02/24 08/02/24 08/02/24 13:20 13:33 15:25 Temperature 98.8 F 98.4 F 98.4 F Pulse Rate 105 H 112 H 99 Respiratory 18 17 16 Rate Blood Pressure 125/83 135/85 130/89 O2 Sat by Pulse 97 97 97 Oximetry Medical Decision Making - Medical Decision Making Was pt. sent in by a medical professional or institution (, PA, REHABILITATION ASSISTANT, urgent care, hospital, or alf...) When possible be specific @ -No Did you speak to anyone other than the patient for history (EMS, parent, family, police, friend...)? What history was obtained from this source @ -No Did you review nursing and triage notes (agree or disagree)? Why? @ -I reviewed and agree with nursing and triage notes Were old charts reviewed (outside hosp., previous admission, EMS record, old EKG, old radiological studies, urgent care reports/EKG's, alf records)? Report findings @ -No old charts were reviewed Differential Diagnosis (chest pain, altered mental status, abdominal pain women, abdominal pain men, vaginal bleeding, weakness, fever, dyspnea, syncope, headache, dizziness, GI bleed, back pain, seizure, CVA, palpatations, mental health, musculoskeletal)? @ -Differential Headache: Migraine, tension, cluster, carbon monoxide, central venous thrombosis, pension karma temporal arteritis, acute closure glaucoma, intercranial hemorrhage, mastoiditis, sinusitis, head injury, this is not meant to be an all-inclusive list. EKG interpreted by me (3pts min.). @ -completed at 1413 sinus tachycardia with ventricular rate of 102, [place] interval 136, QRS 88, QTc 393. X-rays interpreted by me (1pt min.). @ -None done CT interpreted by me (1pt min.). @ -None done U/S interpreted by me (1pt. min.). @ -None done What testing was considered but not performed or refused? (CT, X-rays, U/S, labs)? Why? @ -None What meds were considered but not given or refused? Why? @ -None Did you discuss the management of the patient with other professionals (professionals i.e. , PA, REHABILITATION ASSISTANT, lab, RT, psych nurse, manager social, rag baler, teacher, correctional officer, case operator)? Give summary @ -No Was smoking cessation discussed for >3mins.? @ -No Was critical care preformed (if so, how long)? @ -No Were there social determinants of health that impacted care today? How? (Homelessness, low income, unemployed, alcoholism, drug addiction, transportation, low edu. Level, literacy, decrease access to med. care, long term, rehab)? @ -No Was there de-escalation of care discussed even if they declined (Discuss DNR or withdrawal of care, Hospice)? DNR status @ -No What co-morbidities impacted this encounter? (DM, HTN, Smoking, COPD, CAD, Cancer, CVA, ARF, Chemo, Hep., AIDS, mental health diagnosis, sleep apnea, morbid obesity)? @ -None Was patient admitted / discharged? Hospital course, mention meds given and route, prescriptions, significant lab abnormalities, going to OR and other pertinent info. @ -Discharge. 69-year-old female with headache. Neurological examination with no acute deficits. Patient is provided with multiple medications including fluids, Benadryl, Toradol, Dilaudid. On reevaluation states that her symptoms are feeling much better. Patient states that she does have an appointment scheduled with neurology on Thursday for further evaluation. Patient is stable for discharge at this time. Discussed with Dr. Nguyễn Undiagnosed new problem with uncertain prognosis? @ -No Drug Therapy requiring intensive monitoring for toxicity (Heparin, Nitro, Insulin, Cardizem)? @ -No Were any procedures done? @ -No Diagnosis/symptom? @ -trigeminal neuralgia, headache Acute, or Chronic, or Acute on Chronic? @ -acute Uncomplicated (without systemic symptoms) or Complicated (systemic symptoms)? @ -uncompleted Side effects of treatment? @ -No Exacerbation, Progression, or Severe Exacerbation? @ -No Poses a threat to life or bodily function? How? (Chest pain, [place], [place], pneumonia, PE, COPD, DKA, ARF, appy, cholecystitis, CVA, Diverticulitis, Homicidal, Suicidal, threat to staff... and all critical care pts) @ -No Disposition Clinical Impression: Trigeminal neuralgia, Headache Disposition: HOME SELF-CARE Condition: Good Instructions (If sedation given, give patient instructions): Acute Headache (E D) Additional Instructions: Please return to the Emergency Department if symptoms worsen or any other concerns. Is patient prescribed a controlled substance at d/c from ED?: No Referrals: Parveen Anaya DO [Primary Care Provider] - 1-2 days Time of Disposition: 15:12
[2024-08-02 13:38] VITALS: TEMP 98.4
[2024-08-02] MEDS: SODIUM CHLORIDE 0.9% 1,000 ML IV STA (14:00)
[2024-08-02] MEDS: ONDANSETRON 4 MG/2 ML VIAL IVP STA (14:01)
[2024-08-02] MEDS: diphenhydrAMINE 50 MG/ML 1 ML VIAL IVP STA (14:04)
[2024-08-02] MEDS: KETOROLAC 15 MG/ML 1 ML VIAL IVP STA (14:09)
[2024-08-02] MEDS: HYDROmorphone 1 MG/ML 1 ML SYRINGE IVP STA (14:11)
[2024-08-02 15:27] VITALS: BP 130/89; PULSE 99; RESP 16
== END 2024-08-02 15:27 | disposition home or self-care (01) ==
LOC: EC 13:09
DX: G50.0 Trigeminal neuralgia (principal); R51.9 Headache, unspecified; Z87.891 Personal history of nicotine dependence
CPT/HCPCS: 93005; 99284; 96374; 96375; 96361; J1200; J2405; J1171; J1885

== ENCOUNTER 2024-12-26 10:27 | Emergency (ER) | payer MEDICARE, BC, OTHER ==
--- NOTE | 2024-12-26 10:58 | ED ---
Headache HPI - General Chief Complaint: Headache Stated Complaint: Ear, Neck Pain Time Seen by Provider: 12/26/24 10:58 Source: patient, RN notes reviewed, old records reviewed Mode of arrival: ambulatory Limitations: no limitations - History of Present Illness Initial Comments: 69-year-old female with a past medical history significant of trigeminal neura lgia and diabetes presented to the ER for evaluation of a headache. Patient reports for the past week she has been having a left-sided headache radiating from behind her left ear to her forehead and chin. She states this pain is very typical of her trigeminal neuralgia flares. She states she typically has to come to the emergency department to receive a migraine cocktail. Patient denies any head injuries or traumas. No visual defects, dizziness or lightheadedness. No fevers or chills. Patient has taken prescribed [place] last dose around 8 AM, without relief of pain. She is following up with for pain management. Patient requesting headache cocktail and Dilaudid upon evaluation. No other complaints. - Related Data Home Medications Medication Instructions Recorded Confirmed lisinopriL [Zestril] 5 mg PO DAILY 07/11/22 05/27/24 Atorvastatin [Lipitor] 40 mg PO HS 12/25/22 05/27/24 metFORMIN HCL 1,000 mg PO BID 03/03/23 05/27/24 Cholecalciferol [Vitamin D3 (25 50 mcg PO DAILY 05/27/24 05/27/24 Mcg = 1000 Iu)] Omeprazole [PriLOSEC] 40 mg PO DAILY 05/27/24 05/27/24 Pyridoxine HCl (Vitamin B6) 500 mg PO DAILY 05/27/24 05/27/24 [Vitamin B-6] Trospium Chloride [Sanctura XR] 60 mg PO DAILY 05/27/24 05/27/24 Previous Rx's Medication Instructions Recorded predniSONE [Deltasone] 40 mg PO DAILY #8 tab 05/27/24 Allergies Allergy/AdvReac Type Severity Reaction Status Date / Time No Known Allergies Allergy Verified 10/20/24 13:28 Review of Systems ROS Statement: Those systems with pertinent positive or pertinent negative responses have been documented in the HPI. ROS Other: All systems not noted in ROS Statement are negative. Past Medical History Past Medical History: Diabetes Mellitus, Fibromyalgia, GERD/Reflux, Hyperli pidemia, Osteoarthritis (OA), Thyroid Disorder Additional Past Medical History / Comment(s): trigeminal neuralgia, thyroid nodules History of Any Multi-Drug Resistant Organisms: None Reported Past Surgical History: Bladder Surgery, Cholecystectomy, Hysterectomy, Orthopedic Surgery Additional Past Surgical History / Comment(s): sinus surgery, arthroscopy right knee, bladder suspension,plate placed behind her ear. Past Anesthesia/Blood Transfusion Reactions: No Reported Reaction Past Psychological History: Anxiety Smoking Status: Former smoker Past Alcohol Use History: None Reported Past Drug Use History: None Reported - Past Family History Mother Family Medical History: Hypertension Father Family Medical History: Diabetes Mellitus General Exam Limitations: no limitations General appearance: alert, in no apparent distress Head exam: Present: atraumatic, normocephalic, normal inspection Eye exam: Present: normal appearance, PERRL, EOMI. Absent: scleral icterus, conjunctival injection, periorbital swelling Pupils: Present: normal accommodation ENT exam: Present: normal exam, normal oropharynx, mucous membranes moist, TM's normal bilaterally Neck exam: Present: normal inspection. Absent: tenderness, meningismus, lymphadenopathy Respiratory exam: Present: normal lung sounds bilaterally. Absent: respiratory distress, wheezes, rales, rhonchi, stridor Cardiovascular Exam: Present: regular rate, normal rhythm, normal heart sounds. Absent: systolic murmur, diastolic murmur, rubs, gallop, clicks Extremities exam: Present: normal inspection, full ROM, normal capillary refill. Absent: tenderness, pedal edema, joint swelling, calf tenderness Neurological exam: Present: alert, oriented X3, CN II-XII intact Skin exam: Present: warm, dry, intact, normal color. Absent: rash Course Vital Signs 12/26/24 12/26/24 10:32 12:41 Temperature 98.1 F 98.2 F Pulse Rate 90 89 Respiratory 20 16 Rate Blood Pressure 162/103 119/77 O2 Sat by Pulse 98 95 Oximetry - Reevaluation(s) Reevaluation #1: 12/26/24 12:20 Patient reevaluated. No signs of acute distress. Patient sleeping in exam room reporting improvement of pain. Patient is comfortable with discharge. Medical Decision Making - Medical Decision Making Was pt. sent in by a medical professional or institution (, PA, OCCUPATIONAL THER, urgent care, hospital, or fpc...) When possible be specific @ -No Did you speak to anyone other than the patient for history (EMS, parent, family, police, friend...)? What history was obtained from this source @ -No Did you review nursing and triage notes (agree or disagree)? Why? @ -I reviewed and agree with nursing and triage notes Were old charts reviewed (outside hosp., previous admission, EMS record, old EKG, old radiological studies, urgent care reports/EKG's, fpc records)? Report findings @ -Prior medical record Differential Diagnosis (chest pain, altered mental status, abdominal pain women, abdominal pain men, vaginal bleeding, weakness, fever, dyspnea, syncope, headache, dizziness, GI bleed, back pain, seizure, CVA, palpatations, mental health, musculoskeletal)? @ -Differential Headache:Migraine, tension, cluster, carbon monoxide, central venous thrombosis, pension karma temporal arteritis, acute closure glaucoma, intercranial hemorrhage, mastoiditis, sinusitis, head injury, this is not meant to be an all-inclusive list. EKG interpreted by me (3pts min.). @ -None done X-rays interpreted by me (1pt min.). @ -None done CT interpreted by me (1pt min.). @ -None done U/S interpreted by me (1pt. min.). @ -None done What testing was considered but not performed or refused? (CT, X-rays, U/S, labs)? Why? @ -CT brain considered but not performed as patient reports pain is chronic. No new injuries or traumas. What meds were considered but not given or refused? Why? @ -None Did you discuss the management of the patient with other professionals (professionals i.e. , PA, OCCUPATIONAL THER, lab, RT, psych nurse, rn social work, trial lawyer, teacher, hotel security officer, case consultant)? Give summary @ -No Was smoking cessation discussed for >3mins.? @ -No Was critical care preformed (if so, how long)? @ -No Were there social determinants of health that impacted care today? How? (H omelessness, low income, unemployed, alcoholism, drug addiction, transportation, low edu. Level, literacy, decrease access to med. care, nursing home, rehab)? @ -No Was there de-escalation of care discussed even if they declined (Discuss DNR or withdrawal of care, Hospice)? DNR status @ -No What co-morbidities impacted this encounter? (DM, HTN, Smoking, COPD, CAD, Cancer, CVA, ARF, Chemo, Hep., AIDS, mental health diagnosis, sleep apnea, morbid obesity)? @ -Trigeminal neuralgia Was patient admitted / discharged? Hospital course, mention meds given and route, prescriptions, significant lab abnormalities, going to OR and other pertinent info. @ -Discharge. 69-year-old female presented to the ER for evaluation of headache. Patient frequentst ER for similar complaint requesting headache cocktail. Patient is hypertensive upon arrival likely due to pain vital signs otherwise acceptable limits. No acute neurological findings on exam. GCS 15. CT deferred as patient reports pain is chronic and similar to prior trigeminal neuralgia flares, patient is agreeable. Patient received symptomatic treatment in the ER with headache cocktail (Benadryl, Toradol and Zofran) and Dilaudid. Upon reevaluation, patient sleeping in exam with no signs of acute distress. Hypertension improved. Patient is comfortable and stable for discharge. Appropriate return and follow-up parameters discussed. Patient verbally expressed understanding and agreement with care plan. Case discussed with ED attending, Dr. Nguyễn. Undiagnosed new problem with uncertain prognosis? @ -No Drug Therapy requiring intensive monitoring for toxicity (Heparin, Nitro, Insulin, Cardizem)? @ -No Were any procedures done? @ -No Diagnosis/symptom? @ -Trigeminal neuralgia Acute, or Chronic, or Acute on Chronic? @ -Acute on chronic Uncomplicated (without systemic symptoms) or Complicated (systemic symptoms)? @ -Uncomplicated Side effects of treatment? @ -No Exacerbation, Progression, or Severe Exacerbation? @ -No Poses a threat to life or bodily function? How? (Chest pain, [place], [place], pneumonia, PE, COPD, DKA, ARF, appy, cholecystitis, CVA, Diverticulitis, Homicidal, Suicidal, threat to staff... and all critical care pts) @ -No Disposition Clinical Impression: Chronic pain, Trigeminal neuralgia Disposition: HOME SELF-CARE Condition: Stable Additional Instructions: Follow-up with Dr. Wright and PCP. Return to the ER for any new or worsening symptoms. Is patient prescribed a controlled substance at d/c from ED?: No Referrals: Parveen Anaya DO [Primary Care Provider] - 1-2 days Time of Disposition: 12:20
[2024-12-26] MEDS: ONDANSETRON 4 MG/2 ML VIAL IVP STA (11:13)
[2024-12-26] MEDS: KETOROLAC 15 MG/ML 1 ML VIAL IVP STA (11:15)
[2024-12-26] MEDS: diphenhydrAMINE 50 MG/ML 1 ML VIAL IVP STA (11:17)
[2024-12-26] MEDS: HYDROmorphone 1 MG/ML 1 ML SYRINGE IVP STA (11:19)
[2024-12-26 13:10] VITALS: BP 119/77; PULSE 89; RESP 16; TEMP 98.2
== END 2024-12-26 12:45 | disposition home or self-care (01) ==
LOC: EC 10:27
DX: G89.29 Other chronic pain (principal); G50.0 Trigeminal neuralgia; Z87.891 Personal history of nicotine dependence
CPT/HCPCS: 99283; 96374; 96375; J1200; J2405; J1171; J1885

== ENCOUNTER 2025-02-15 17:50 | Emergency (ER) | payer MEDICARE, BC, OTHER ==
[2025-02-15 18:00] VITALS: RESP 16
--- NOTE | 2025-02-15 18:24 | ED ---
Headache HPI - General Source: patient, RN notes reviewed Mode of arrival: wheelchair Limitations: no limitations <Brielle Carney - Last Filed: 02/15/25 18:23> <Masha Joseph - Last Filed: 03/12/25 17:47> - General Chief Complaint: Headache Stated Complaint: Headache/Numbness in Neck Time Seen by Provider: 02/15/25 18:24 - History of Present Illness Initial Comments: Quick note: 69-year-old female presented to ER for evaluation of headache. Patient states she has a history of trigeminal neuralgia. She reports since afternoon she is been having a flare. Patient states she was at physical therapy today which may have exacerbated the pain. (Brielle Carney) 69-year-old female with history of trigeminal neuralgia presents to the emergency department with exacerbation of her pain. States that this afternoon she started having a flare. She does seek physical therapy for the trigeminal neuralgia and she does believe this may have been her trigger. Patient has been seen multiple times for the same complaint. Denies symptoms that are outside of her typical exacerbation. No other alleviating, precipitating or modifying factors (Masha Joseph) - Related Data Home Medications Medication Instructions Recorded Confirmed lisinopriL [Zestril] 5 mg PO DAILY 07/11/22 05/27/24 Atorvastatin [Lipitor] 40 mg PO HS 12/25/22 05/27/24 metFORMIN HCL 1,000 mg PO BID 03/03/23 05/27/24 Cholecalciferol [Vitamin D3 (25 50 mcg PO DAILY 05/27/24 05/27/24 Mcg = 1000 Iu)] Omeprazole [PriLOSEC] 40 mg PO DAILY 05/27/24 05/27/24 Pyridoxine HCl (Vitamin B6) 500 mg PO DAILY 05/27/24 05/27/24 [Vitamin B-6] Trospium Chloride [Sanctura XR] 60 mg PO DAILY 05/27/24 05/27/24 Previous Rx's Medication Instructions Recorded predniSONE [Deltasone] 40 mg PO DAILY #8 tab 05/27/24 Ketorolac [Toradol] 10 mg PO Q6HR PRN #15 tab 02/01/25 carBAMazepine 200 mg PO BID #30 tablet 02/01/25 Allergies Allergy/AdvReac Type Severity Reaction Status Date / Time No Known Allergies Allergy Verified 03/03/25 20:17 Review of Systems ROS Other: All systems not noted in ROS Statement are negative. <Brielle Carney - Last Filed: 02/15/25 18:23> ROS Other: All systems not noted in ROS Statement are negative. <Masha Joseph - Last Filed: 03/12/25 17:47> ROS Statement: Those systems with pertinent positive or pertinent negative responses have been documented in the HPI. Past Medical History Past Medical History: Diabetes Mellitus, Fibromyalgia, GERD/Reflux, Hyperlipidemia, Osteoarthritis (OA), Thyroid Disorder Additional Past Medical History / Comment(s): trigeminal neuralgia, thyroid nodules History of Any Multi-Drug Resistant Organisms: None Reported Past Surgical History: Bladder Surgery, Cholecystectomy, Hysterectomy, Orthopedic Surgery Additional Past Surgical History / Comment(s): sinus surgery, arthroscopy right knee, bladder suspension,plate placed behind her ear. Past Anesthesia/Blood Transfusion Reactions: No Reported Reaction Past Psychological History: Anxiety Smoking Status: Former smoker Past Alcohol Use History: None Reported Past Drug Use History: None Reported - Past Family History Mother Family Medical History: Hypertension Father Family Medical History: Diabetes Mellitus <Brielle Carney - Last Filed: 02/15/25 18:23> General Exam Limitations: no limitations <Brielle Carney - Last Filed: 02/15/25 18:23> General appearance: alert, in no apparent distress Head exam: Present: atraumatic, normocephalic, normal inspection Eye exam: Present: normal appearance, PERRL, EOMI. Absent: scleral icterus, conjunctival injection, periorbital swelling ENT exam: Present: mucous membranes moist, other (Tenderness to palpation of the left preauricular area) Neck exam: Present: normal inspection. Absent: tenderness, meningismus, lymphadenopathy Respiratory exam: Present: normal lung sounds bilaterally. Absent: respiratory distress, wheezes, rales, rhonchi, stridor Cardiovascular Exam: Present: regular rate, normal rhythm, normal heart sounds. Absent: systolic murmur, diastolic murmur, rubs, gallop, clicks GI/Abdominal exam: Present: soft, normal bowel sounds. Absent: distended, tenderness, guarding, rebound, rigid Extremities exam: Present: normal inspection, full ROM, normal capillary refill. Absent: tenderness, pedal edema, joint swelling, calf tenderness Back exam: Present: normal inspection Neurological exam: Present: alert, oriented X3, CN II-XII intact Psychiatric exam: Present: normal affect, normal mood Skin exam: Present: warm, dry, intact, normal color. Absent: rash <Masha Joseph - Last Filed: 03/12/25 17:47> - General Exam Comments Initial Comments: Visual Physical Exam Vital signs reviewed General: Well-appearing, nontoxic, no acute distress. Head: Normocephalic, atraumatic Eyes: PERRLA, EOMI ENT: Airway patent Chest: Nonlabored breathing Skin: No visual rash, normal skin tone Neuro: Alert and oriented 3 Musculoskeletal: No gross abnormalities (Brielle Carney) Course Vital Signs 02/15/25 02/15/25 17:57 20:46 Temperature 98.1 F 98.2 F Pulse Rate 93 98 Respiratory 16 16 Rate Blood Pressure 134/84 131/87 O2 Sat by Pulse 97 99 Oximetry Medical Decision Making <Brielle Carney - Last Filed: 02/15/25 18:23> <Masha Joseph - Last Filed: 03/12/25 17:47> - Medical Decision Making I performed the quick note portion of this chart. Electronically signed by Brielle Olivier PA-C (Brielle Carney) Was pt. sent in by a medical professional or institution (HOLLIE Hay, SLED MAKER, urgent care, hospital, or fdc...) When possible be specific @ -No Did you speak to anyone other than the patient for history (EMS, parent, family, police, friend...)? What history was obtained from this source @ -No Did you review nursing and triage notes (agree or disagree)? Why? @ -I reviewed and agree with nursing and triage notes Were old charts reviewed (outside hosp., previous admission, EMS record, old EKG, old radiological studies, urgent care reports/EKG's, fdc records)? Report findings @ -No old charts were reviewed Differential Diagnosis (chest pain, altered mental status, abdominal pain women, abdominal pain men, vaginal bleeding, weakness, fever, dyspnea, syncope, headache, dizziness, GI bleed, back pain, seizure, CVA, palpatations, mental health, musculoskeletal)? @ -Trigeminal neuralgia, temporal arteritis, migraine EKG interpreted by me (3pts min.). @ -Not done X-rays interpreted by me (1pt min.). @ -None done CT interpreted by me (1pt min.). @ -None done U/S interpreted by me (1pt. min.). @ -None done What testing was considered but not performed or refused? (CT, X-rays, U/S, labs)? Why? @ -None What meds were considered but not given or refused? Why? @ -None Did you discuss the management of the patient with other professionals (professionals i.e. , PA, SLED MAKER, lab, RT, psych nurse, social insurance adviser, technology and engineering teacher, teacher, trust officer, case management rn)? Give summary @ -No Was smoking cessation discussed for >3mins.? @ -No Was critical care preformed (if so, how long)? @ -No Were there social determinants of health that impacted care today? How? (Homelessness, low income, unemployed, alcoholism, drug addiction, transportation, low edu. Level, literacy, decrease access to med. care, skilled nursing, rehab)? @ -No Was there de-escalation of care discussed even if they declined (Discuss DNR or withdrawal of care, Hospice)? DNR status @ -No What co-morbidities impacted this encounter? (DM, HTN, Smoking, COPD, CAD, Cancer, CVA, ARF, Chemo, Hep., AIDS, mental health diagnosis, sleep apnea, morbid obesity)? @ -Trigeminal neuralgia Was patient admitted / discharged? Hospital course, mention meds given and route, prescriptions, significant lab abnormalities, going to OR and other pertinent info. @ -Upon arrival patient seen and evaluated in bed 31. Thorough history and physical exam was performed. IV access is established. Patient is requesting her "typical cocktail". This cocktail consists of Toradol, Benadryl, Dilaudid and steroids. This was provided. Patient has improvement in her symptoms. Patient ready for discharge home. Instructed to follow-up with her doctor. Return for any worsening symptoms. Patient agreeable plan she was discharged in stable condition Undiagnosed new problem with uncertain prognosis? @ -No Drug Therapy requiring intensive monitoring for toxicity (Heparin, Nitro, Insulin, Cardizem)? @ -No Were any procedures done? @ -No Diagnosis/symptom? @ -Acute exacerbation of trigeminal neuralgia Acute, or Chronic, or Acute on Chronic? @ -Acute on chronic Uncomplicated (without systemic symptoms) or Complicated (systemic symptoms)? @ -Complicated Side effects of treatment? @ -No Exacerbation, Progression, or Severe Exacerbation? @ -Yes Poses a threat to life or bodily function? How? (Chest pain, [place], [place], pneumonia, PE, COPD, DKA, ARF, appy, cholecystitis, CVA, Diverticulitis, Homicidal, Suicidal, threat to staff... and all critical care pts) @ -No (Masha Joseph) Disposition <Brielle Carney - Last Filed: 02/15/25 18:23> Is patient prescribed a controlled substance at d/c from ED?: No Time of Disposition: 20:34 <Masha Joseph - Last Filed: 03/12/25 17:47> Clinical Impression: Trigeminal neuralgia of left side of face, Chronic pain Disposition: HOME SELF-CARE Condition: Stable Instructions (If sedation given, give patient instructions): Acute Headache (ED) Additional Instructions: I recommend you follow-up with your neurologist for reevaluation of your symptoms. They may want to complete an MRI and EMG. The medications that you received today are Dilaudid, Benadryl, Toradol and Decadron Return for any new or worsening symptoms Referrals: Parveen Anaya DO [Primary Care Provider] - 1-2 days Myles Rodriguez MD [Medical Doctor] - 1-2 days
[2025-02-15] MEDS: SODIUM CHLORIDE 0.9% 1,000 ML IV ONE (19:54)
[2025-02-15] MEDS: HYDROmorphone 1 MG/ML 1 ML SYRINGE IVP STA (19:55)
[2025-02-15] MEDS: diphenhydrAMINE 50 MG/ML 1 ML VIAL IVP STA (19:55)
[2025-02-15] MEDS: KETOROLAC 15 MG/ML 1 ML VIAL IVP STA (19:55)
[2025-02-15] MEDS: DEXAMETHASONE SOD PHOSPHATE 10 MG/ML 1 ML VIAL IVP STA (19:56)
--- NOTE | 2025-02-15 19:57 | CT ---
EXAMINATION TYPE: CT brain wo con DATE OF EXAM: 02/15/2025 7:51 PM COMPARISON: 07/08/2023 CLINICAL INDICATION: Female, 69 years old with history of right foot numbness, hand numbness, headach e, sharp pains, extremity numbness TECHNIQUE: CT of the brain is performed utilizing 3 mm thick sections through the posterior fossa and 3 mm thick sections through the remaining calvarium. Study is performed within 24 hours of arrival to the hospital. Contrast used: mL of , (none if empty) CT DLP: 1141.4 mGycm, Automated exposure control for dose reduction was used. FINDINGS: No abnormal hyperdensity is present to suggest an acute intracranial hemorrhage. No mass lesion is evident. No acute infarcts are evident. Ventricles and sulci are appropriate for the patient age. Paranasal sinuses and mastoid air cells within the [id number] are clear. IMPRESSION: 1. No acute intracranial process. Follow up MRI can be performed as clinically indicated. [facility], , 02/15/2025 7:55 PM
[2025-02-15 20:47] VITALS: BP 131/87; PULSE 98; TEMP 98.2
== END 2025-02-15 20:46 | disposition home or self-care (01) ==
LOC: EC 17:50
DX: G89.29 Other chronic pain (principal); G50.0 Trigeminal neuralgia; Z87.891 Personal history of nicotine dependence
CPT/HCPCS: 70450; 99284; 96374; 96375; 96361; J1200; J1100; J1171; J1885

== ENCOUNTER 2025-03-03 19:57 | Emergency (ER) | payer MEDICARE, BC, OTHER ==
[2025-03-03 20:20] VITALS: RESP 18
--- NOTE | 2025-03-03 21:09 | ED ---
Headache HPI - General Chief Complaint: Headache Stated Complaint: L Side Pain Time Seen by Provider: 03/03/25 21:00 Source: patient, family, RN notes reviewed Mode of arrival: wheelchair Limitations: no limitations - History of Present Illness Initial Comments: This is a 69-year-old female who presents to the emergency department for a headache. Patient has a history of trigeminal neuralgia and states that she is having a flareup on the left side, causing her pain. States that she is having pain daily. She is on carbamazepine, but has not gotten any relief with it. She is well-known to this emergency department for recurrent visits related to the same complaint. States that she needs a migraine cocktail to help with her symptoms. MD Complaint: headache - Related Data Home Medications Medication Instructions Recorded Confirmed lisinopriL [Zestril] 5 mg PO DAILY 07/11/22 05/27/24 Atorvastatin [Lipitor] 40 mg PO HS 12/25/22 05/27/24 metFORMIN HCL 1,000 mg PO BID 03/03/23 05/27/24 Cholecalciferol [Vitamin D3 (25 50 mcg PO DAILY 05/27/24 05/27/24 Mcg = 1000 Iu)] Omeprazole [PriLOSEC] 40 mg PO DAILY 05/27/24 05/27/24 Pyridoxine HCl (Vitamin B6) 500 mg PO DAILY 05/27/24 05/27/24 [Vitamin B-6] Trospium Chloride [Sanctura XR] 60 mg PO DAILY 05/27/24 05/27/24 Previous Rx's Medication Instructions Recorded predniSONE [Deltasone] 40 mg PO DAILY #8 tab 05/27/24 Ketorolac [Toradol] 10 mg PO Q6HR PRN #15 tab 02/01/25 carBAMazepine 200 mg PO BID #30 tablet 02/01/25 Allergies Allergy/AdvReac Type Severity Reaction Status Date / Time No Known Allergies Allergy Verified 03/03/25 20:17 Review of Systems ROS Statement: Those systems with pertinent positive or pertinent negative responses have been documented in the HPI. ROS Other: All systems not noted in ROS Statement are negative. Past Medical History Past Medical History: Diabetes Mellitus, Fibromyalgia, GERD/Reflux, Hyperlipidemia, Osteoarthritis (OA), Thyroid Disorder Additional Past Medical History / Comment(s): trigeminal neuralgia, thyroid nodules History of Any Multi-Drug Resistant Organisms: None Reported Past Surgical History: Bladder Surgery, Cholecystectomy, Hysterectomy, Orthopedic Surgery Additional Past Surgical History / Comment(s): sinus surgery, arthroscopy right knee, bladder suspension,plate placed behind her ear. Past Anesthesia/Blood Transfusion Reactions: No Reported Reaction Past Psychological History: Anxiety Smoking Status: Former smoker Past Alcohol Use History: None Reported Past Drug Use History: None Reported - Past Family History Mother Family Medical History: Hypertension Father Family Medical History: Diabetes Mellitus General Exam Limitations: no limitations General appearance: alert, in no apparent distress Head exam: Present: atraumatic, normocephalic, normal inspection Eye exam: Present: normal appearance, PERRL, EOMI. Absent: scleral icterus, conjunctival injection, periorbital swelling Respiratory exam: Present: normal lung sounds bilaterally. Absent: respiratory distress, wheezes, rales, rhonchi, stridor Cardiovascular Exam: Present: regular rate, normal rhythm Neurological exam: Present: alert, oriented X3, CN II-XII intact Psychiatric exam: Present: normal affect, normal mood Skin exam: Present: warm, dry, intact, normal color. Absent: rash Course Vital Signs 03/03/25 03/03/25 20:17 22:50 Temperature 97.7 F 97.9 F Pulse Rate 91 89 Respiratory 18 18 Rate Blood Pressure 112/70 126/77 O2 Sat by Pulse 96 96 Oximetry Medical Decision Making - Medical Decision Making This is a 69-year-old female who presents to the emergency department for a headache. Was pt. sent in by a medical professional or institution? @ -No Did you speak to anyone other than the patient for history? @ -No Did you review nursing and triage notes? @ -Yes, and I agree, it is accurate with regards to the patient's symptoms. Were old charts reviewed? @ -No Differential Diagnosis? @ -Differential Headache: Migraine, tension, cluster, carbon monoxide, central venous thrombosis, pension karma temporal arteritis, acute closure glaucoma, intercranial hemorrhage, ma stoiditis, sinusitis, head injury, this is not meant to be an all-inclusive list. EKG interpreted by me (3pts min.)? @ -Not obtained X-rays interpreted by me (1pt min.)? @ -Not obtained CT interpreted by me (1pt min.)? @ -Not obtained U/S interpreted by me (1pt. min.)? @ -Not obtained What testing was considered but not performed? (CT, X-rays, U/S, labs)? Why? @ -None What meds were considered but not given? Why? @ -None Did you discuss the management of the patient with other professionals? @ -No Did you reconcile home meds? @ -No Was smoking cessation discussed for >3mins.? @ -No Was critical care preformed (if so, how long)? @ -No Were there social determinants of health that impacted care today? How? (Homelessness, low income, unemployed, alcoholism, drug addiction, transportation, low edu. Level, literacy, decrease access to med. care, intermediate, rehab)? @ -No Was there de-escalation of care discussed even if they declined? (Discuss DNR or withdrawal of care, Hospice)? @ -No What co-morbidities impacted this encounter? (DM, HTN, Smoking, COPD, CAD, Cancer, CVA, Hep., AIDS, mental health diagnosis, sleep apnea, morbid obesity)? @ -Trigeminal neuralgia Was patient admitted / discharged? @ -Discharged. Patient presented to the emergency department for an acute on chronic flareup of her trigeminal neuralgia. States that symptoms are consistent with all of her prior flareups and she was requesting a migraine cocktail. This was provided and she has significant relief in symptoms afterwards. Advised that she needs to follow-up with her PCP and neurologist to discuss better pain management options moving forward. Patient discharged home in stable condition. Case discussed with ED attending Dr. Frazier. Return precautions reviewed in depth, the patient is instructed to return to the emergency department with any new, worsening, or concerning symptoms. Patient verbalized understanding. Undiagnosed new problem with uncertain prognosis? @ -None Drug Therapy requiring intensive monitoring for toxicity (Heparin, Nitro, Insulin, Cardizem)? @ -None Were any procedures done? @ -None Diagnosis/symptom? @ -Headache Acute, or Chronic, or Acute on Chronic? @ -Acute Uncomplicated (without systemic symptoms) or Complicated (systemic symptoms)? @ -Uncomplicated Side effects of treatment? @ -None Exacerbation, Progression, or Severe Exacerbation] @ -Not applicable Poses a threat to life or bodily function? @ -No Disposition Clinical Impression: Headache, Trigeminal neuralgia Disposition: HOME SELF-CARE Instructions (If sedation given, give patient instructions): Trigeminal Neuralgia (ED) Additional Instructions: Return to the emergency department with any new, worsening, or concerning symptoms. Follow up with your primary care provider in 1-2 days. Is patient prescribed a controlled substance at d/c from ED?: No Referrals: Parveen Anaya DO [Primary Care Provider] - 1-2 days Time of Disposition: 22:11
[2025-03-03] MEDS: KETOROLAC 15 MG/ML 1 ML VIAL IVP STA (21:33)
[2025-03-03] MEDS: SODIUM CHLORIDE 0.9% 1,000 ML IV ONE (21:33)
[2025-03-03] MEDS: diphenhydrAMINE 50 MG/ML 1 ML VIAL IVP STA (21:35)
[2025-03-03] MEDS: HYDROmorphone 1 MG/ML 1 ML SYRINGE IVP STA (21:36)
[2025-03-03] MEDS: DEXAMETHASONE SOD PHOSPHATE 10 MG/ML 1 ML VIAL IVP STA (21:37)
[2025-03-03] MEDS: HYDROmorphone 0.5 MG/0.5 ML SYRINGE IVP STA (22:38)
[2025-03-03] MEDS: ACET/COD 300 MG/30 MG STARTER PACK 6 TAB BTL PO STA (22:39)
[2025-03-03 23:02] VITALS: BP 126/77; PULSE 89; TEMP 97.9
== END 2025-03-03 22:55 | disposition home or self-care (01) ==
LOC: EC 19:57
DX: R51.9 Headache, unspecified (principal); G50.0 Trigeminal neuralgia; Z87.891 Personal history of nicotine dependence
CPT/HCPCS: 99283; 96374; 96375; 96376; 96361; J1200; J1100; J1171 ×2; J1885

== ENCOUNTER 2025-03-24 16:43 | Emergency (ER) | payer MEDICARE, BC, OTHER ==
--- NOTE | 2025-03-24 17:26 | ED ---
General Adult HPI - General Chief complaint: Headache Stated complaint: Nerve pain in neck and head Time Seen by Provider: 03/24/25 16:57 Source: patient, RN notes reviewed Mode of arrival: ambulatory Limitations: no limitations - History of Present Illness Initial comments: 70-year-old female presents to the emergency department for evaluation of heada bashir. Patient has a history of trigeminal neuralgia. She notes that the pain is on the left side of her face. She states that this is typical of her chronic symptoms but has been more frequent today. She has taken her home medications including Tegretol, Lynx with minimal relief. She does follow-up with neurology. She denies any recent fever, chills, visual changes. - Related Data Home Medications Medication Instructions Recorded Confirmed lisinopriL [Zestril] 5 mg PO DAILY 07/11/22 05/27/24 Atorvastatin [Lipitor] 40 mg PO HS 12/25/22 05/27/24 metFORMIN HCL 1,000 mg PO BID 03/03/23 05/27/24 Cholecalciferol [Vitamin D3 (25 50 mcg PO DAILY 05/27/24 05/27/24 Mcg = 1000 Iu)] Omeprazole [PriLOSEC] 40 mg PO DAILY 05/27/24 05/27/24 Pyridoxine HCl (Vitamin B6) 500 mg PO DAILY 05/27/24 05/27/24 [Vitamin B-6] Trospium Chloride [Sanctura XR] 60 mg PO DAILY 05/27/24 05/27/24 Previous Rx's Medication Instructions Recorded predniSONE [Deltasone] 40 mg PO DAILY #8 tab 05/27/24 Ketorolac [Toradol] 10 mg PO Q6HR PRN #15 tab 02/01/25 carBAMazepine 200 mg PO BID #30 tablet 02/01/25 Allergies Allergy/AdvReac Type Severity Reaction Status Date / Time No Known Allergies Allergy Verified 03/24/25 16:55 Review of Systems ROS Statement: Those systems with pertinent positive or pertinent negative responses have been documented in the HPI. ROS Other: All systems not noted in ROS Statement are negative. Past Medical History Past Medical History: Diabetes Mellitus, Fibromyalgia, GERD/Reflux, Hyperlipidemia, Osteoarthritis (OA), Thyroid Disorder Additional Past Medical History / Comment(s): trigeminal neuralgia, thyroid nodules History of Any Multi-Drug Resistant Organisms: None Reported Past Surgical History: Bladder Surgery, Cholecystectomy, Hysterectomy, Orthopedic Surgery Additional Past Surgical History / Comment(s): sinus surgery, arthroscopy right knee, bladder suspension,plate placed behind her ear. Past Anesthesia/Blood Transfusion Reactions: No Reported Reaction Past Psychological History: Anxiety Smoking Status: Former smoker Past Alcohol Use History: None Reported Past Drug Use History: None Reported - Past Family History Mother Family Medical History: Hypertension Father Family Medical History: Diabetes Mellitus General Exam Limitations: no limitations General appearance: alert, in no apparent distress Head exam: Present: atraumatic, normocephalic, normal inspection Eye exam: Present: normal appearance, PERRL, EOMI. Absent: scleral icterus, conjunctival injection, periorbital swelling ENT exam: Present: normal exam, mucous membranes moist, TM's normal bilaterally, normal external ear exam Neck exam: Present: normal inspection, full ROM. Absent: tenderness, meningismus, lymphadenopathy Respiratory exam: Present: normal lung sounds bilaterally. Absent: respiratory distress, wheezes, rales, rhonchi, stridor Cardiovascular Exam: Present: regular rate, normal rhythm, normal heart sounds. Absent: systolic murmur, diastolic murmur, rubs, gallop, clicks Neurological exam: Present: alert, oriented X3, CN II-XII intact Psychiatric exam: Present: normal affect, normal mood Skin exam: Present: warm, dry, intact, normal color. Absent: rash Course Vital Signs 03/24/25 03/24/25 16:52 18:26 Temperature 98.5 F 98 F Pulse Rate 89 88 Respiratory 20 16 Rate Blood Pressure 133/81 130/79 O2 Sat by Pulse 95 98 Oximetry Medical Decision Making - Medical Decision Making Was pt. sent in by a medical professional or institution (, PA, QC TECH, urgent care, hospital, or intermediate...) When possible be specific @ -[No] Did you speak to anyone other than the patient for history (EMS, parent, family, police, friend...)? What history was obtained from this source @ -[No] Did you review nursing and triage notes (agree or disagree)? Why? @ -[I reviewed and agree with nursing and triage notes] Were old charts reviewed (outside hosp., previous admission, EMS record, old EKG, old radiological studies, urgent care reports/EKG's, intermediate records)? Report findings @ -[No old charts were reviewed] Differential Diagnosis (chest pain, altered mental status, abdominal pain women, abdominal pain men, vaginal bleeding, weakness, fever, dyspnea, syncope, headache, dizziness, GI bleed, back pain, seizure, CVA, palpatations, mental health, musculoskeletal)? @ -[Differential Headache: Migraine, tension, cluster, carbon monoxide, central venous thrombosis, pension karma temporal arteritis, acute closure glaucoma, intercranial hemorrhage, mastoiditis, sinusitis, head injury, this is not meant to be an all-inclusive list. ] EKG interpreted by me (3pts min.). @ -[None] X-rays interpreted by me (1pt min.). @ -[None done] CT interpreted by me (1pt min.). @ -[None done] U/S interpreted by me (1pt. min.). @ -[None done] What testing was considered but not performed or refused? (CT, X-rays, U/S, labs)? Why? @ -[None] What meds were considered but not given or refused? Why? @ -[None] Did you discuss the management of the patient with other professionals (professionals i.e. , PA, QC TECH, lab, RT, psych nurse, perinatal social worker, director educational radio, teacher, campus security officer, supervisor case loading)? Give summary @ -[No] Was smoking cessation discussed for >3mins.? @ -[No] Was critical care preformed (if so, how long)? @ -[No] Were there social determinants of health that impacted care today? How? (Homelessness, low income, unemployed, alcoholism, drug addiction, transportation, low edu. Level, literacy, decrease access to med. care, penitentiary, rehab)? @ -[No] Was there de-escalation of care discussed even if they declined (Discuss DNR or withdrawal of care, Hospice)? DNR status @ -[No] What co-morbidities impacted this encounter? (DM, HTN, Smoking, COPD, CAD, Cancer, CVA, ARF, Chemo, Hep., AIDS, mental health diagnosis, sleep apnea, morbid obesity)? @ -[None] Was patient admitted / discharged? Hospital course, mention meds given and route, prescriptions, significant lab abnormalities, going to OR and other pertinent info. @ -[hospital course] Undiagnosed new problem with uncertain prognosis? @ -[No] Drug Therapy requiring intensive monitoring for toxicity (Heparin, Nitro, Insulin, Cardizem)? @ -[No] Were any procedures done? @ -[No] Diagnosis/symptom? @ -[default] Acute, or Chronic, or Acute on Chronic? @ -[default] Uncomplicated (without systemic symptoms) or Complicated (systemic symptoms)? @ -[default] Side effects of treatment? @ -[No] Exacerbation, Progression, or Severe Exacerbation? @ -[No] Poses a threat to life or bodily function? How? (Chest pain, [place], [place], pneumonia, PE, COPD, DKA, ARF, appy, cholecystitis, CVA, Diverticulitis, Homicidal, Suicidal, threat to staff... and all critical care pts) @ -[No] Disposition Clinical Impression: Headache Disposition: HOME SELF-CARE Condition: Stable Instructions (If sedation given, give patient instructions): Acute Headache (ED) Additional Instructions: Please follow-up your doctor. Return to the emergency department for new or worsening symptoms. Is patient prescribed a controlled substance at d/c from ED?: No Referrals: Parveen Anaya DO [Primary Care Provider] - 1-2 days
[2025-03-24] MEDS: SODIUM CHLORIDE 0.9% 1,000 ML IV ONE (17:39)
[2025-03-24] MEDS: KETOROLAC 15 MG/ML 1 ML VIAL IVP STA (17:41)
[2025-03-24] MEDS: diphenhydrAMINE 50 MG/ML 1 ML VIAL IVP STA (17:42)
[2025-03-24] MEDS: DEXAMETHASONE SOD PHOSPHATE 10 MG/ML 1 ML VIAL IVP STA (17:44)
[2025-03-24 18:28] VITALS: RESP 16; TEMP 98
[2025-03-24] MEDS: HYDROmorphone 1 MG/ML 1 ML SYRINGE IVP STA (18:38)
[2025-03-24 19:04] VITALS: BP 130/86; PULSE 84
== END 2025-03-24 19:02 | disposition home or self-care (01) ==
LOC: EC 16:43
DX: R51.9 Headache, unspecified (principal); Z87.891 Personal history of nicotine dependence
CPT/HCPCS: 99283; 96374; 96375; 96361; J1200; J1100; J1171; J1885

== ENCOUNTER 2025-04-07 16:29 | Emergency (ER) | payer MEDICARE, BC, OTHER ==
--- NOTE | 2025-04-07 17:19 | ED ---
ENT HPI - General Chief complaint: ENT Stated complaint: left ear pain Time Seen by Provider: 04/07/25 16:43 Source: patient, RN notes reviewed Mode of arrival: ambulatory Limitations: no limitations - History of Present Illness MD complaint: ear pain Onset/Timin Location: R ear Severity scale (1-10): 10 Consistency: intermittent Associated Symptoms: discharge from ear - Related Data Home Medications Medication Instructions Recorded Confirmed lisinopriL [Zestril] 5 mg PO DAILY 07/11/22 05/27/24 Atorvastatin [Lipitor] 40 mg PO HS 12/25/22 05/27/24 metFORMIN HCL 1,000 mg PO BID 03/03/23 05/27/24 Cholecalciferol [Vitamin D3 (25 50 mcg PO DAILY 05/27/24 05/27/24 Mcg = 1000 Iu)] Omeprazole [PriLOSEC] 40 mg PO DAILY 05/27/24 05/27/24 Pyridoxine HCl (Vitamin B6) 500 mg PO DAILY 05/27/24 05/27/24 [Vitamin B-6] Trospium Chloride [Sanctura XR] 60 mg PO DAILY 05/27/24 05/27/24 Previous Rx's Medication Instructions Recorded predniSONE [Deltasone] 40 mg PO DAILY #8 tab 05/27/24 Ketorolac [Toradol] 10 mg PO Q6HR PRN #15 tab 02/01/25 carBAMazepine 200 mg PO BID #30 tablet 02/01/25 Ibuprofen [Motrin] 600 mg PO Q8HR PRN #30 tab 04/07/25 Ofloxacin 0.3% Otic Soln [Floxin 10 drops LEFT EAR DAILY #10 ml 04/07/25 0.3% Otic Soln] Allergies Allergy/AdvReac Type Severity Reaction Status Date / Time No Known Allergies Allergy Verified 04/07/25 16:55 Review of Systems ROS Statement: Those systems with pertinent positive or pertinent negative responses have been documented in the HPI. ROS Other: All systems not noted in ROS Statement are negative. Past Medical History Past Medical History: Diabetes Mellitus, Fibromyalgia, GERD/Reflux, Hyperlipidemia, Osteoarthritis (OA), Thyroid Disorder Additional Past Medical History / Comment(s): trigeminal neuralgia, thyroid nodules History of Any Multi-Drug Resistant Organisms: None Reported Past Surgical History: Bladder Surgery, Cholecystectomy, Hysterectomy, Orthopedic Surgery Additional Past Surgical History / Comment(s): sinus surgery, arthroscopy right knee, bladder suspension,plate placed behind her ear. Past Anesthesia/Blood Transfusion Reactions: No Reported Reaction Past Psychological History: Anxiety Smoking Status: Former smoker Past Alcohol Use History: None Reported Past Drug Use History: None Reported - Past Family History Mother Family Medical History: Hypertension Father Family Medical History: Diabetes Mellitus General Exam Limitations: no limitations General appearance: alert, in no apparent distress Head exam: Present: atraumatic, normocephalic, normal inspection Eye exam: Present: normal appearance, PERRL, EOMI. Absent: scleral icterus, conjunctival injection, periorbital swelling ENT exam: Present: mucous membranes moist, TM's normal bilaterally (TMs opaque without bulging or erythema bilaterally. Negative canal edema or significant otorrhea bilaterally.). Absent: normal external ear exam (Positive left mastoid TTP without significant proptosis or or overlying erythema. Positive pain with left pinna traction. Small amount of dried discharge noted on outside of left ear) Neck exam: Present: normal inspection. Absent: tenderness, meningismus, lymphadenopathy Respiratory exam: Present: normal lung sounds bilaterally. Absent: respiratory distress, wheezes, rales, rhonchi, stridor Cardiovascular Exam: Present: regular rate, normal rhythm, normal heart sounds. Absent: systolic murmur, diastolic murmur, rubs, gallop, clicks GI/Abdominal exam: Present: soft, normal bowel sounds. Absent: distended, tenderness, guarding, rebound, rigid Extremities exam: Present: normal inspection, full ROM, normal capillary refill. Absent: tenderness, pedal edema, joint swelling, calf tenderness Back exam: Present: normal inspection Neurological exam: Present: alert, oriented X3, CN II-XII intact Psychiatric exam: Present: normal affect, normal mood Skin exam: Present: warm, dry, intact, normal color. Absent: rash Course Vital Signs 04/07/25 16:50 Temperature 98.2 F Pulse Rate 98 Respiratory 22 Rate O2 Sat by Pulse 97 Oximetry Medical Decision Making - Medical Decision Making Was pt. sent in by a medical professional or institution (, PA, 411 DIRECTORY ASSISTANCE OPERATOR, urgent care, hospital, or half-way...) When possible be specific @ -[No] Did you speak to anyone other than the patient for history (EMS, parent, family, police, friend...)? What history was obtained from this source @ -[No] Did you review nursing and triage notes (agree or disagree)? Why? @ -[I reviewed and agree with nursing and triage notes] Were old charts reviewed (outside hosp., previous admission, EMS record, old EKG, old radiological studies, urgent care reports/EKG's, half-way records)? Report findings @ -[No old charts were reviewed] Differential Diagnosis (chest pain, altered mental status, abdominal pain women, abdominal pain men, vaginal bleeding, weakness, fever, dyspnea, syncope, headache, dizziness, GI bleed, back pain, seizure, CVA, palpatations, mental health, musculoskeletal)? @ -Otitis media, otitis externa, cholesteatoma, mastoiditis, trigeminal neuralgia, Mnire's disease, vestibular neuroma this is not an exhaustive list EKG interpreted by me (3pts min.). @ -Not done X-rays interpreted by me (1pt min.). @ -[None done] CT interpreted by me (1pt min.). @ -[None done] U/S interpreted by me (1pt. min.). @ -[None done] What testing was considered but not performed or refused? (CT, X-rays, U/S, l abs)? Why? @ -[None] What meds were considered but not given or refused? Why? @ -[None] Did you discuss the management of the patient with other professionals (professionals i.e. , PA, 411 DIRECTORY ASSISTANCE OPERATOR, lab, RT, psych nurse, secondary social studies teacher, photoengraving apprentice, teacher, chief data officer, child welfare caseworker)? Give summary @ -[No] Was smoking cessation discussed for >3mins.? @ -[No] Was critical care preformed (if so, how long)? @ -[No] Were there social determinants of health that impacted care today? How? (Homelessness, low income, unemployed, alcoholism, drug addiction, transportation, low edu. Level, literacy, decrease access to med. care, custodial, rehab)? @ -[No] Was there de-escalation of care discussed even if they declined (Discuss DNR or withdrawal of care, Hospice)? DNR status @ -[No] What co-morbidities impacted this encounter? (DM, HTN, Smoking, COPD, CAD, Cancer, CVA, ARF, Chemo, Hep., AIDS, mental health diagnosis, sleep apnea, morbid obesity)? @ -[None] Was patient admitted / discharged? Hospital course, mention meds given and route, prescriptions, significant lab abnormalities, going to OR and other perti neo info. @ -[hospital course] Undiagnosed new problem with uncertain prognosis? @ -[No] Drug Therapy requiring intensive monitoring for toxicity (Heparin, Nitro, Insulin, Cardizem)? @ -[No] Were any procedures done? @ -[No] Diagnosis/symptom? @ -[default] Acute, or Chronic, or Acute on Chronic? @ -Acute Uncomplicated (without systemic symptoms) or Complicated (systemic symptoms)? @ -Uncomplicated Side effects of treatment? @ -[No] Exacerbation, Progression, or Severe Exacerbation? @ -[No] Poses a threat to life or bodily function? How? (Chest pain, [place], [place], pneumonia, PE, COPD, DKA, ARF, appy, cholecystitis, CVA, Diverticulitis, Homicidal, Suicidal, threat to staff... and all critical care pts) @ -[No] - Lab Data Result diagrams: 04/07/25 17:40 04/07/25 17:40 Lab Results 04/07/25 04/07/25 Range/Units 17:40 17:40 WBC 8.86 (4.50-10.00) 10*3/uL RBC 4.17 (4.10-5.20) 10*6/uL Hgb 12.6 (12.0-15.0) g/dL Hct 37.1 L (37.2-46.3) % MCV 89.0 (80.0-97.0) fL MCH 30.2 (27.0-32.0) pg MCHC 34.0 (32.0-37.0) g/dL Plt Count 199 (140-440) 10*3/uL MPV 10.4 (9.5-12.2) fL Immature Gran % (Auto) 0.2 % Neutrophils % 50.6 % Lymphocytes % 38.8 % Monocytes % 7.1 % Eosinophils % 2.4 % Basophils % 0.9 % Immature Gran # 0.02 (0.00-0.04) 10*3/uL Neutrophils # 4.48 (1.80-7.70) 10*3/uL Lymphocytes # 3.44 (0.90-5.00) 10*3/uL Monocytes # 0.63 (0.20-1.00) 10*3/uL Eosinophils # 0.21 (0.04-0.35) 10*3/uL Basophils # 0.08 (0.00-0.10) 10*3/uL Sodium 140 (137-145) mmol/L Potassium 4.0 (3.5-5.1) mmol/L Chloride 101 (98-107) mmol/L Carbon Dioxide 25 (22-30) mmol/L Anion Gap 14 mmol/L BUN 10 (7-17) mg/dL Creatinine 0.41 L (0.52-1.04) mg/dL Est GFR (CKD-EPI)AfAm >90 (>60 ml/min/1.73 sqM) Est GFR (CKD-EPI)NonAf >90 (>60 ml/min/1.73 sqM) Glucose 120 H (74-99) mg/dL Calcium 9.4 (8.4-10.2) mg/dL Total Bilirubin 0.6 (0.2-1.3) mg/dL AST 22 (14-36) U/L ALT 15 (4-34) U/L Alkaline Phosphatase 131 H (38-126) U/L Total Protein 7.7 (6.3-8.2) g/dL Albumin 4.7 (3.5-5.0) g/dL Disposition Clinical Impression: Left otitis externa Disposition: HOME SELF-CARE Condition: Fair Instructions (If sedation given, give patient instructions): Ofloxacin (Into the ear), Swimmer's Ear (ED) Additional Instructions: Alternate Tylenol/Motrin every 4 hours for pain. Apply cold compress to affected area for 10 minutes up to 4 times daily. Follow-up with PCP/ENT for any ongoing or worsening left ear/face pain. Prescriptions: Ofloxacin 0.3% Otic Soln [Floxin 0.3% Otic Soln] 10 drops LEFT EAR DAILY #10 ml Ibuprofen [Motrin] 600 mg PO Q8HR PRN #30 tab PRN Reason: Pain Is patient prescribed a controlled substance at d/c from ED?: No Referrals: Parveen Anaya DO [Primary Care Provider] - 1-2 days Cecelia Valenzuela MD [Medical Doctor] - 1-2 days Time of Disposition: 19:21
[2025-04-07] MEDS: HYDROmorphone 1 MG/ML 1 ML SYRINGE IVP STA (17:37)
[2025-04-07] MEDS: KETOROLAC 15 MG/ML 1 ML VIAL IVP STA ×2 (17:39→19:44)
[2025-04-07] MEDS: diphenhydrAMINE 50 MG/ML 1 ML VIAL IVP STA (17:40)
[2025-04-07] MEDS: DEXAMETHASONE SOD PHOSPHATE 10 MG/ML 1 ML VIAL IVP STA (17:40)
[2025-04-07] MEDS: SODIUM CHLORIDE 0.9% 1,000 ML IV STA (17:45)
[2025-04-07 17:57] LABS: Basophils # (A) 0.08 10*3/uL (0.00-0.10); Basophils % (A) 0.9 %; Eosinophils # (A) 0.21 10*3/uL (0.04-0.35); Eosinophils % (A) 2.4 %; HCT 37.1 % (37.2-46.3); HGB 12.6 g/dL (12.0-15.0); Lymphocytes # (A) 3.44 10*3/uL (0.90-5.00); Lymphocytes % (A) 38.8 %; MCH 30.2 pg (27.0-32.0); MCHC 34.0 g/dL (32.0-37.0); MCV 89.0 fL (80.0-97.0); Monocytes # (A) 0.63 10*3/uL (0.20-1.00); Monocytes % (A) 7.1 %; Neutrophils # (A) 4.48 10*3/uL (1.80-7.70); Neutrophils % (A) 50.6 %; Platelet Count 199 10*3/uL (140-440); RBC 4.17 10*6/uL (4.10-5.20); RDW 13.1 % (11.5-14.5); WBC 8.86 10*3/uL (4.50-10.00)
[2025-04-07 18:15] LABS: ALT 15 U/L (4-34); AST 22 U/L (14-36); African American GFR (CKD) >90 (>60 ml/min/1.73 sqM); Albumin 4.7 g/dL (3.5-5.0); Alkaline Phosphatase 131 U/L (38-126); Anion Gap 14 mmol/L; Blood Urea Nitrogen 10 mg/dL (7-17); Calcium 9.4 mg/dL (8.4-10.2); Carbon Dioxide 25 mmol/L (22-30); Chloride 101 mmol/L (98-107); Glucose 120 mg/dL (74-99); Non-African American GFR(CKD) >90 (>60 ml/min/1.73 sqM); Potassium 4.0 mmol/L (3.5-5.1); Sodium 140 mmol/L (137-145); Total Protein 7.7 g/dL (6.3-8.2)
--- NOTE | 2025-04-07 18:55 | CT ---
EXAMINATION TYPE: CT facial bones w con DATE OF EXAM: 04/07/2025 COMPARISON: None CLINICAL INDICATION: Female, 70 years old with history of Left temporal/mastoid, severe L ear pain, o torrhea; PHH, left temporal/mastoid ear pain TECHNIQUE: CT scan of the facial bones is performed with IV Contrast, patient injected with 100 mL of Isovue [address] DLP: 1168.[address] CTDI: mGy Automated exposure control for dose reduction was used. TECHNIQUE: CT scan of the sinuses is performed without contrast, axial images are obtained, coronal r eformatted images are also reviewed. FINDINGS: There is evidence of medial maxillary antrectomy and bilaterally and changes of partial ethmoidectomy . No significant mucosal thickening seen. Minimal mucosal thickening of the frontal sinuses. Minimal mucosal thickening of the right sphenoid sinus. No bone destruction seen. Nasal septum is midline. Visualized portion of mastoid air cells show no abnormal opacification. The globes are intact bilate rally. The internal auditory canals appear symmetric. No evidence for cholesteatoma or cholesterol granuloma. No bony destructive process seen. No thickening of the tympanic membrane. field auditor y canals appear symmetric. IMPRESSION: 1. No significant abnormality is seen. [facility], , 04/07/2025 6:53 PM
[2025-04-07] MEDS: ACET/COD 300 MG/30 MG STARTER PACK TAB BTL PO STA (19:44)
[2025-04-07 19:56] VITALS: BP 149/79; PULSE 81; RESP 20; TEMP 97.9
== END 2025-04-07 19:56 | disposition home or self-care (01) ==
LOC: EC 16:29
DX: H60.92 Unspecified otitis externa, left ear (principal); Z87.891 Personal history of nicotine dependence
CPT/HCPCS: 36415; 80053; 85025; 70487; 99284; 96374; 96375; 96376; 96361; J1200; J1100; J1171; J1885; Q9967